=== PATIENT | female | born 1945 | race Caucasian/White ===

== ENCOUNTER → 2016-12-23 | Outpatient (CLI) | payer MEDICARE, MEDICAID ==
[~2016-12-23] MED LIST: ARIP30TA10 PO; CALC-140 PO; CITA40TA11 PO; CLON1TAB27 PO; FURO-124 PO; GABA600T2 PO; HYDR-3812 PO; HYDR-3816 PO; IRON150C8 PO; LACT1CAP65 PO; LEVO500T80 PO; LEVO75TA6 PO; METO-270 PO; MULT-974 PO; NF-CARBAMX PO; OXYC-465 PO; POLY17PO6 PO; POTA10TA36 PO; ROPI2TAB28 PO
== END ==
LOC: WOUNDCARE 08:59
PROVIDERS: ATTEND Nurse Practitioner
DX: L97.212 Non-pressure chronic ulcer of right calf with fat layer exposed (principal); I87.333 Chronic venous hypertension (idiopathic) with ulcer and inflammation of bilateral lower extremity
CPT/HCPCS: 11042

== ENCOUNTER → 2017-01-05 | Outpatient (CLI) | payer MEDICARE, MEDICAID ==
[~2017-01-05] MED LIST changes: +ARIP10TA17 PO; +ASPI-983 PO; +CITA20TA12 PO; +DOXE10CA29 PO; +FURO80TA3 PO; +LEVO100T7 PO; +POTA20TA15 PO; +REGADENOSON 0.4 MG/5 ML SYR (LEXISCAN) IV ONE; +ROPI2TAB3 PO
[2017-01-05] MEDS: CATHETER FLUSH 10 ML SYR IV PRN ×2 (08:32→09:55)
[2017-01-05 09:55] VITALS: BP 113/65
--- NOTE | 2017-01-05 16:21 | STRESS TEST ---
DATE OF SERVICE: 01/05/2017 LEXISCAN MYOVIEW STRESS TEST REPORT Baseline heart rate is 60. Baseline blood pressure 113/65. Baseline EKG is sinus rhythm with no ischemic changes. In summary, the patient was injected with 10.91 mCi of technetium-99 Myoview and the resting images were obtained. Then, the patient received 0.4 mg of Lexiscan followed by 29.3 mCi of technetium-99 Myoview. Throughout the test, there were no EKG changes. The resting and stress images were reviewed and compared in the short axis, horizontal long axis, and vertical long axis views. Review of the images showed extracardiac attenuation due to the fact that both arms were down during acquisition of the images. There was no significant ischemia or infarction, transient ischemic dilatation with TID value 1.37. On the gaited images, the left ventricle appeared to be normal size with normal contractility. Calculated ejection fraction is 78%, stress score is zero. CONCLUSION: 1. The patient tolerated Lexiscan well. 2. Extracardiac attenuation affecting the quality of the images. 3. No significant ischemia or infarction on SPECT images. 4. Transient ischemic dilatation with TID value 1.37. Job ID: [id number] DocumentID: [id number] Dictated Date: 01/05/2017 11:54:10 Novelty Twister Operator Date: 01/05/2017 14:28:54 Dictated By: TAMELA ALVARADO MD
== END ==
LOC: CARD 08:03
PROVIDERS: ATTEND Internal Medicine Cardiovascular Disease
DX: I73.9 Peripheral vascular disease, unspecified (principal); I27.0 Primary pulmonary hypertension; R00.0 Tachycardia, unspecified; I34.0 Nonrheumatic mitral (valve) insufficiency; I51.7 Cardiomegaly; I49.1 Atrial premature depolarization; Z72.0 Tobacco use
CPT/HCPCS: 78452; 93017; 93306

== ENCOUNTER 2017-01-07 10:40 | Day surgery (SDC) | payer MEDICARE, MEDICAID ==
[2017-01-07] VITALS (10 sets, daily range): BP systolic 115–151; BP diastolic 60–83
[~2017-01-07] VITALS: Ht 149.9 cm; Wt 80.3 kg
[~2017-01-07 10:40] MED LIST changes: -ARIP10TA17 PO; -ASPI-983 PO; -CITA20TA12 PO; -DOXE10CA29 PO; -FURO80TA3 PO; +HEParin 1000 UNIT/ML (10ML VIAL) FOR BOLUS ONE; -LEVO100T7 PO; -METO-270 PO; +METO-387 PO; +NS IV 1000 ML 3,000 ML ONE; -POTA20TA15 PO; -REGADENOSON 0.4 MG/5 ML SYR (LEXISCAN) IV ONE; -ROPI2TAB3 PO
--- OUTSIDE RECORDS SUMMARY | 2017-01-07 10:47 | XMS REPORT | Continuity of Care Document ---
Author Author [facility] Organization [facility] Address Unknown Phone Unavailable Allergies Active Description Code Type Severity Reaction Onset Reported/Identified Relationship to Patient Clinical Status Yes Penicillins [id number] Drug Allergy Unknown N/A 09/17/2006 Yes Sulfa (Sulfonamide Antibiotics) [id number] Drug Allergy Unknown N/A 09/17/2006 Medications Problems Date Dx Coded Attending Type Code Diagnosis Diagnosed By 11/24/2014 NEENA NAJERA MD Ot 244.9 11/24/2014 NEENA NAJERA MD Ot 275.3 11/24/2014 NEENA NAJERA MD Ot 276.52 11/24/2014 NEENA NAJERA MD Ot 285.1 11/24/2014 NEENA NAJERA MD Ot 295.90 11/24/2014 NEENA NAJERA MD Ot 300.00 11/24/2014 NEENA NAJERA MD Ot 305.1 11/24/2014 NEENA NAJERA MD Ot 311 11/24/2014 NEENA NAJERA MD Ot 492.8 11/24/2014 NEENA NAJERA MD Ot 530.81 11/24/2014 NEENA NAJERA MD Ot 716.90 11/24/2014 NEENA NAJERA MD Ot 721.41 11/24/2014 NEENA NAJERA MD Ot 724.01 11/24/2014 NEENA NAJERA MD Ot 724.02 11/24/2014 NEENA NAJERA MD Ot 733.00 11/24/2014 NEENA NAJERA MD Ot 737.12 11/24/2014 NEENA NAJERA MD Ot 782.3 11/24/2014 NEENA NAJERA MD Ot 785.0 11/24/2014 NEENA NAJERA MD Ot 790.29 11/29/2014 NEENA NAJERA MD Ot 244.9 11/29/2014 NEENA NAJERA MD Ot 275.3 11/29/2014 NEENA NAJERA MD Ot 276.52 11/29/2014 NEENA NAJERA MD Ot 285.1 11/29/2014 NEENA NAJERA MD Ot 295.90 11/29/2014 NEENA NAJERA MD Ot 300.00 11/29/2014 NEENA NAJERA MD Ot 305.1 11/29/2014 NEENA NAJERA MD Ot 311 11/29/2014 NEENA NAJERA MD Ot 492.8 11/29/2014 NEENA NAJERA MD Ot 530.81 11/29/2014 NEENA NAJERA MD Ot 716.90 11/29/2014 NEENA NAJERA MD Ot 721.41 11/29/2014 NEENA NAJERA MD Ot 724.01 11/29/2014 NEENA NAJERA MD Ot 724.02 11/29/2014 NEENA NAJERA MD Ot 733.00 11/29/2014 NEENA NAJERA MD Ot 737.12 11/29/2014 NEENA NAJERA MD Ot 782.3 11/29/2014 NEENA NAJERA MD Ot 785.0 11/29/2014 NEENA NAJERA MD Ot 790.29 11/29/2014 NEENA NAJERA MD Ot 244.9 11/29/2014 NEENA NAJERA MD Ot 275.3 11/29/2014 NEENA NAJERA MD Ot 276.52 11/29/2014 NEENA NAJERA MD Ot 285.1 11/29/2014 NEENA NAJERA MD Ot 295.90 11/29/2014 NEENA NAJERA MD Ot 300.00 11/29/2014 NEENA NAJERA MD Ot 305.1 11/29/2014 NEENA NAJERA MD Ot 311 11/29/2014 NEENA NAJERA MD Ot 492.8 11/29/2014 NEENA NAJERA MD Ot 530.81 11/29/2014 NEENA NAJERA MD Ot 716.90 11/29/2014 NEENA NAJERA MD Ot 721.41 11/29/2014 NEENA NAJERA MD Ot 724.01 11/29/2014 NENEA NAJERA MD Ot 724.02 11/29/2014 NEENA NAJERA MD Ot 733.00 11/29/2014 NEENA NAJERA MD Ot 737.12 11/29/2014 NEENA NAJERA MD Ot 782.3 11/29/2014 NEENA NAJERA MD Ot 785.0 11/29/2014 NEENA NAJERA MD Ot 790.29 12/01/2014 NEENA NAJERA MD Ot 244.9 12/01/2014 NEENA NAJERA MD Ot 275.3 12/01/2014 NEENA NAJERA MD Ot 276.52 12/01/2014 NEENA NAJERA MD Ot 285.1 12/01/2014 NEENA NAJERA MD Ot 295.90 12/01/2014 NEENA NAJERA MD Ot 300.00 12/01/2014 NEENA NAJERA MD Ot 305.1 12/01/2014 NEENA NAJERA MD Ot 311 12/01/2014 NEENA NAJERA MD Ot 492.8 12/01/2014 NEENA NAJERA MD Ot 530.81 12/01/2014 NEENA NAJERA MD Ot 716.90 12/01/2014 NEENA NAJERA MD Ot 721.41 12/01/2014 NEENA NAJERA MD Ot 724.01 12/01/2014 NEENA NAJERA MD Ot 724.02 12/01/2014 NEENA NAJERA MD Ot 733.00 12/01/2014 NEENA NAJERA MD Ot 737.12 12/01/2014 NEENA NAJERA MD Ot 782.3 12/01/2014 NEENA NAJERA MD Ot 785.0 12/01/2014 NEENA NAJERA MD Ot 790.29 12/02/2014 NEENA NAJERA MD Ot 244.9 12/02/2014 NEENA NAJERA MD Ot 275.3 12/02/2014 NEENA NAJERA MD Ot 276.52 12/02/2014 NEENA NAJERA MD Ot 285.1 12/02/2014 NEENA NAJERA MD Ot 295.90 12/02/2014 NEENA NAJERA MD Ot 300.00 12/02/2014 NEENA NAJERA MD Ot 305.1 12/02/2014 NEENA NAJREA MD Ot 311 12/02/2014 NEENA NAJERA MD Ot 492.8 12/02/2014 NEENA NAJERA MD Ot 530.81 12/02/2014 NEENA NAJERA MD Ot 716.90 12/02/2014 NEENA NAJERA MD Ot 721.41 12/02/2014 NEENA NAJERA MD Ot 724.01 12/02/2014 NEENA NAJERA MD Ot 724.02 12/02/2014 NEENA NAJERA MD Ot 733.00 12/02/2014 NEENA NAJERA MD Ot 737.12 12/02/2014 NEENA NAJERA MD Ot 782.3 12/02/2014 NEENA NAJERA MD Ot 785.0 12/02/2014 NEENA NAJERA MD Ot 790.29 12/02/2014 NEENA NAJERA MD Ot 244.9 12/02/2014 NEENA NAJERA MD Ot 275.3 12/02/2014 NEENA NAJERA MD Ot 276.52 12/02/2014 NEENA NAJERA MD Ot 285.1 12/02/2014 NEENA NAJERA MD Ot 295.90 12/02/2014 NEENA NAJERA MD Ot 300.00 12/02/2014 NEENA NAJERA MD Ot 305.1 12/02/2014 NEENA NAJERA MD Ot 311 12/02/2014 NEENA NAJERA MD Ot 492.8 12/02/2014 NEENA NAJERA MD Ot 530.81 12/02/2014 NEENA NAJERA MD Ot 716.90 12/02/2014 NEENA NAJERA MD Ot 721.41 12/02/2014 NEENA NAJERA MD Ot 724.01 12/02/2014 NEENA NAJERA MD Ot 724.02 12/02/2014 NEENA NAJERA MD Ot 733.00 12/02/2014 NEENA NAJERA MD Ot 737.12 12/02/2014 NEENA NAJERA MD Ot 782.3 12/02/2014 NEENA NAJERA MD Ot 785.0 12/02/2014 NEENA NAJERA MD Ot 790.29 12/04/2014 NEENA NAJERA MD Ot 244.9 12/04/2014 NEENA NAJERA MD Ot 275.3 12/04/2014 NEENA NAJERA MD Ot 276.52 12/04/2014 NEENA NAJERA MD Ot 285.1 12/04/2014 NEENA NAJERA MD Ot 295.90 12/04/2014 NEENA NAJERA MD Ot 300.00 12/04/2014 NEENA NAJERA MD Ot 305.1 12/04/2014 NEENA NAJERA MD Ot 311 12/04/2014 NEENA NAJERA MD Ot 492.8 12/04/2014 NEENA NAJERA MD Ot 530.81 12/04/2014 NEENA NAJERA MD Ot 716.90 12/04/2014 NEENA NAJERA MD Ot 721.41 12/04/2014 NEENA NAJERA MD Ot 724.01 12/04/2014 NEENA NAJERA MD Ot 724.02 12/04/2014 NEENA NAJERA MD Ot 733.00 12/04/2014 NEENA NAJERA MD Ot 737.12 12/04/2014 NEENA NAJERA MD Ot 782.3 12/04/2014 NEENA NAJERA MD Ot 785.0 12/04/2014 NEENA NAJERA MD Ot 790.29 12/04/2014 NEENA NAJERA MD Ot 244.9 12/04/2014 NEENA NAJERA MD Ot 275.3 12/04/2014 NEENA NAJERA MD Ot 276.52 12/04/2014 NEENA NAJERA MD Ot 285.1 12/04/2014 NEENA NAJERA MD Ot 295.90 12/04/2014 NEENA NAJERA MD Ot 300.00 12/04/2014 NEENA NAJERA MD Ot 305.1 12/04/2014 NEENA NAJERA MD Ot 311 12/04/2014 NEENA NAJERA MD Ot 492.8 12/04/2014 NEENA NAJERA MD Ot 530.81 12/04/2014 NEENA NAJERA MD Ot 716.90 12/04/2014 NEENA NAJERA MD Ot 721.41 12/04/2014 NEENA NAJERA MD Ot 724.01 12/04/2014 NEENA NAJERA MD Ot 724.02 12/04/2014 NEENA NAJERA MD Ot 733.00 12/04/2014 NEENA NAJERA MD Ot 737.12 12/04/2014 NEENA NAJERA MD Ot 782.3 12/04/2014 NEENA NAJERA MD Ot 785.0 12/04/2014 NEENA NAJERA MD Ot 790.29 12/05/2014 NEENA NAJERA MD Ot 038.49 GRAM-NEG SEPTICEMIA NEC 12/05/2014 NEENA NAJERA MD Ot 244.9 HYPOTHYROIDISM NOS 12/05/2014 NEENA NAJERA MD Ot 275.3 DIS PHOSPHORUS METABOL 12/05/2014 NEENA NAJERA MD Ot 276.0 HYPEROSMOLALITY 12/05/2014 NEENA NAJERA MD Ot 276.52 HYPOVOLEMIA 12/05/2014 NEENA NAJERA MD Ot 285.1 AC POSTHEMORRHAG ANEMIA 12/05/2014 NEENA NAJERA MD Ot 287.5 THROMBOCYTOPENIA NOS 12/05/2014 NEENA NAJERA MD Ot 295.90 SCHIZOPHRENIA NOS-UNSPEC 12/05/2014 NEENA NAJERA MD Ot 300.00 ANXIETY STATE NOS 12/05/2014 NEENA NAJERA MD Ot 305.1 TOBACCO USE DISORDER 12/05/2014 NEENA NAJERA MD Ot 311 DEPRESSIVE DISORDER NEC 12/05/2014 NEENA NAJERA MD Ot 482.0 K. 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 12/05/2014 NEENA NAJERA MD Ot 724.01 12/05/2014 NEENA NAJERA MD Ot 724.02 SPINAL STENOSIS, LUMBAR REG, W/OUT NEURO 12/05/2014 NEENA NAJERA MD Ot 733.00 OSTEOPOROSIS NOS 12/05/2014 NEENA NAJERA MD Ot 737.12 POSTLAMINECTOMY KYPHOSIS 12/05/2014 NEENA NAJERA MD Ot 780.79 OTH MALAISE FATIGUE 12/05/2014 NEENA NAJERA MD Ot 782.3 EDEMA 12/05/2014 NEENA NAJERA MD Ot 785.0 TACHYCARDIA NOS 12/05/2014 NEENA NAJERA MD Ot 785.52 SEPTIC SHOCK 12/05/2014 NEENA NAJERA MD Ot 787.91 DIARRHEA 12/05/2014 NEENA NAJERA MD Ot 790.29 OTHER ABNORMAL GLUCOSE 12/05/2014 NEENA NAJERA MD Ot 995.92 SEVERE SEPSIS 12/06/2014 NEENA NAJERA MD Ot 737.10 12/06/2014 NEENA NAJERA MD Ot V72.63 12/06/2014 NEENA NAJERA MD Ot V72.81 12/06/2014 NEENA NAJERA MD Ot V72.83 12/06/2014 NEENA NAJERA MD Ot V74.8 12/21/2014 NEENA NAJERA MD Ot 737.10 12/21/2014 NEENA NAJERA MD Ot V72.63 12/21/2014 NEENA NAJERA MD Ot V72.81 12/21/2014 NEENA NAJERA MD Ot V72.83 12/21/2014 NEENA NAJERA MD Ot V74.8 12/21/2014 NEENA NAJERA MD Ot 737.10 12/21/2014 NEENA NAJERA MD Ot V72.63 12/21/2014 NEENA NAJERA MD Ot V72.81 12/21/2014 NEENA NAJERA MD Ot V72.83 12/21/2014 NEENA NAJERA MD Ot V74.8 07/12/2015 NEENA NAJERA MD Ot 737.10 KYPHOSIS NOS 07/12/2015 NEENA NAJERA MD Ot V72.63 PRE-PROCEDURAL LABORATORY EXAMINATION 07/12/2015 NEENA NAJERA MD Ot V72.81 SPHA-ARY-ZKOIZOHYU CARDIOVASCULAR 07/12/2015 NEENA NAJERA MD Ot V72.83 EXAM PRE-OPERATIVE NEC 07/12/2015 NEENA NAJERA MD, Ot V74.8 SCREEN-BACTERIAL DIS NEC 07/12/2015 TIMUR LEON Ot M81.0 AGE-RELATED OSTEOPOROSIS W/O CURRENT PAT 07/12/2015 TIMUR LEON Ot R53.83 OTHER FATIGUE 07/13/2015 TIMUR LEON Ot M81.0 AGE-RELATED OSTEOPOROSIS W/O CURRENT PAT 07/13/2015 TIMUR LEON Ot R53.83 OTHER FATIGUE 07/13/2015 TIMUR LEON Ot M81.0 AGE-RELATED OSTEOPOROSIS W/O CURRENT PAT 07/13/2015 TIMUR LEON Ot R53.83 OTHER FATIGUE 08/02/2015 TIMUR LEON Ot M81.0 AGE-RELATED OSTEOPOROSIS W/O CURRENT PAT 08/02/2015 TIMUR LEON Ot R53.83 OTHER FATIGUE 08/07/2015 TIMUR LEON Ot M81.0 AGE-RELATED OSTEOPOROSIS W/O CURRENT PAT 08/07/2015 TIMUR LEON Ot R53.83 OTHER FATIGUE Procedures Code Description Performed By Performed On 38.91 11/20/2014 77.39 11/20/2014 77.79 11/20/2014 78.99 11/20/2014 80.99 11/20/2014 81.04 11/20/2014 81.05 11/20/2014 81.06 11/20/2014 81.64 11/20/2014 84.51 11/20/2014 96.04 11/23/2014 96.72 11/23/2014 38.93 11/24/2014 Results Encounters ACCT No. Visit Date/Time Discharge Status Pt. Type Provider Facility Loc./Unit Complaint [id number] 12/23/2016 08:59:00 2016 23:59:59 CLS Outpatient ODELL ARNOLD APRN [facility] WOUNDCARE [id number] 07/12/2015 10:45:00 2015 23:59:59 CLS Outpatient TIMUR LEON [facility] RAD [id number] 11/20/2014 05:55:00 2014 15:35:00 DIS Inpatient NEENA NAJERA MD [facility] SURGICAL [id number] 11/14/2014 14:13:00 2014 23:59:59 CLS Outpatient NEENA NAJERA MD [facility] PREOP
[2017-01-07] MEDS ORDERED: NS IV 1000 ML 1,000 ML IV SCH ×3 (11:15→13:17)
[2017-01-07 11:23] LABS: MEAN PLATELET VOLUME 9.3 FL (7.4-10.4); RED BLOOD COUNT 3.62 10^6/uL (4.35-5.85); RED CELL DISTRIBUTION WIDTH 14.9 % (10.0-14.5)
[2017-01-07 11:33] LABS: ALBUMIN 3.3 GM/DL (3.2-4.5); BILIRUBIN,TOTAL 0.5 MG/DL (0.1-1.0); CALCIUM 9.3 MG/DL (8.5-10.1); CREATININE SERUM 1.03 MG/DL (0.60-1.30); POTASSIUM 4.3 MMOL/L (3.6-5.0); TOTAL PROTEIN 7.8 GM/DL (6.4-8.2)
--- NOTE | 2017-01-07 11:53 | Diagnostic Imaging Report ---
EXAMINATION: Portable upright radiograph of the chest. INDICATION: Preoperative evaluation for peripheral angiography. FINDINGS: The lungs are hyperinflated. There is interstitial thickening which in part could be chronic. There is probable component of mild vascular congestion. No focal airspace opacity. No effusion or pneumothorax. The mediastinum and hilar appear unremarkable. Thoracolumbar posterior fusion hardware is seen. IMPRESSION: Cardiomegaly. COPD. There is chronic interstitial thickening with possible development of mild vascular congestion. Correlate clinically. Dictated by: Dictated on workstation # [id number]
[2017-01-07] MEDS ORDERED: ROPI2TAB3 PO (11:54)
[2017-01-07] MEDS ORDERED: DOXE10CA29 PO (11:54)
[2017-01-07] MEDS ORDERED: CITA20TA12 PO (11:54)
[2017-01-07] MEDS ORDERED: ARIP10TA17 PO (11:54)
[2017-01-07] MEDS ORDERED: LEVO100T7 PO (11:54)
[2017-01-07] MEDS ORDERED: POTA20TA15 PO (11:54)
[2017-01-07] MEDS ORDERED: FURO80TA3 PO ×2 (11:54)
[2017-01-07] MEDS ORDERED: MIDAZOLAM 5 MG/5 ML (VERSED) VIAL ONE (12:14)
[2017-01-07] MEDS ORDERED: fentaNYL INJECTION 100 MCG/2 ML AMP ONE (12:14)
--- NOTE | 2017-01-07 12:30 | Cardiac Procedure Note-CS/ASA ---
Pre-Procedure Note Pre-Op Procedure Note H&P Reviewed The H&P was reviewed, patient examined and no changes noted. Date H&P Reviewed: Jan 07, 2017 Time H&P Reviewed: 12:30 Conscious Sedation Pre-Proced Time Reviewed: 12:30 ASA Class: 3 Airway Mallampati Classification: ([place] appropriate class) I. II. III, IV Lungs Heart ASA score ASA 1: a normal healthy patient ASA 2: a patient with a mild systemic disease (mid diabetes, controlled hypertension, obesity x ASA 3: a patient with a severe systemic disease that limits activity (angina , COPD, prior Myocardial infarction) ASA 4: a patient with an incapacitating disease that is a constant threat to life (CHF, renal failure) ASA 5: a moribund patient not expected to survive 24 hrs. (ruptured aneurysm) ASA 6: a declared brain patient whose organs are being harvested. For emergent operations, add the letter E after the classification Grade 3 Sedation Plan: Analgesia, Amnesia, Plan communicated to team members, Discussed options with patient/fam, Discussed risks with patient/fam Note The patient is an appropriate candidate to undergo the planned procedure, sedation, and anesthesia. The patient immediately re-assessed prior to indication. TAMELA ALVARADO MD Jan 07, 2017 12:30
[2017-01-07] MEDS ORDERED: ASPI-983 PO (13:20)
--- NOTE | 2017-01-07 13:22 | Discharge Inst-Post CATH ---
Discharge Inst-CATH Post Cardiac Cath D/C Inst Follow Up/Plan Schedule for peripheral angiogram for next Thursday CARDIAC CATH DISCHARGE INSTRUCTIONS *Hold Metformin for 48 hours post heart cath. ACTIVITY * Go Home directly and rest. * Limit activity of the leg (or wrist if it was used) for 7 days including aerobics, swimming, jogging, bicycling, etc. * Restrict stair-climbing for 7 days if possible, if not, climb up with your non -cath leg, then bring together on the same step. * Avoid lifting, pushing, pulling or excessive movement of the affected extremity for 7 days. * Customary sexual activity may be resumed after 2 days-use caution not to use a position that strains or causes pain to the affected extremity. * No driving for 24 hours. * NO SMOKING. * Avoid straining for bowel movements for 7 days. * Gentle walking on level ground is allowed. * Returning to work will depend on the type of procedure and the results. Your doctor will discuss this with you. CALL YOUR DOCTOR FOR ANY OF THE FOLLOWING: *If bleeding from the puncture site occurs- Apply gentle pressure to site with clean cloth and call your doctor or EMS. * If a knot or lump forms under the skin, increases in size, or causes pain. * If bruising appears to be worsening or moving further down your leg instead of disappearing. * Temperature above 101 F. CARE OF YOUR GROIN INCISION; * Bruising or purple discoloration of the skin near the puncture site is common. * You may shower only, no bathtub bathing for 5 days. Be careful to avoid slipping as your leg may feel stiff. * If a closure device was used on your femoral artery, please see the attached guide regarding care of the device and your leg. * REMOVE the dressing from your groin the next day after your procedure in the shower. CARE OF YOUR WRIST INCISION; * Bruising or purple discoloration of the skin near the puncture site is common. * You may shower. * DO NOT submerge wrist. * Remove dressing in 24 hours. TAMELA ALVARADO MD Jan 07, 2017 13:21
--- NOTE | 2017-01-07 13:28 | Peripheral Report ---
Peripheral Report Physician (s)/Guitar Repair Technician (s) Physician TAMELA ALVARADO MD Pre-Procedure Diagnosis Pre-Procedure Diagnosis: Peripheral arterial disease Post-Procedure Note Procedure Start Date: Jan 07, 2017 Name of Procedure: abdominal aortogram Bilateral lower extremity runoff Additional views second-order Findings/Procedure Note PROCEDURE NOTE: After explaining the procedure to the patient, all pros and cons were explained, all questions were answered. The patient signed the consent and then she was placed on the cardiac catheterization laboratory. The patient was placed on the cardiac catheterization laboratory. Groin was prepped SL fashion local anesthesia was used. Sheath placed in the right femoral artery Runoff to the right lower except he was done Dictated Advanced with abdominal aortogram abdominal aortogram was done. Exchange over long stork wire into a straight catheter placed in the deep femoral then pulled back to the common femoral and runoff to the left lower except he was done Additional review was done to the trifurcation then another view was done at the ankle level on the left. At the end of the procedure sheath was removed and Mynx device deployed FINDINGS: Right lower extremity runoff showed total occlusion of the right SFA Abdominal aortogram showed atherosclerotic disease nonobstructive disease Left lower extremity runoff was done showing [id number] disease in the SFA , good flow down to the foot CONCLUSIONS: 1. Total occlusion of the right SFA reconstructed by collateral 2. Mild to moderate disease at the left lower extremity 3. Normal abdominal aorta and bifurcation DISCUSSION AND RECOMMENDATIONS: I will stage the patient for percutaneous intervention on the right SFA to be done next week. Anesthesia Type: Conscious Sedation Estimated blood loss (mL): 10 ml Contrast Amount: 64 ml Total Radiation Dose: 588 mGy Post-Procedure Diagnosis Post-operative diagnosis: Peripheral arterial disease Nonhealing foot ulcer Hypertension Hyperlipidemia TAMELA ALVARADO MD Jan 07, 2017 13:28
[2017-01-07] MEDS ORDERED: PATIENT MAY USE OWN MEDS, ALL PO SCH (13:30)
[2017-01-07] MEDS ORDERED: oxyCODONE/APAP 5/325MG (PERCOCET 5) TABLET PO ONE (17:00)
[2017-01-14] MEDS ORDERED: ASPI-983 PO (08:26)
[2017-01-14] MEDS ORDERED: CLOP75TA28 PO (12:36)
== END 2017-01-07 18:05 | disposition home or self-care (01) ==
LOC: CATH 10:40 → ICU 14:22 → CATH 18:05
PROVIDERS: ATTEND Internal Medicine Cardiovascular Disease
DX: I70.203 Unspecified atherosclerosis of native arteries of extremities, bilateral legs (principal); I70.92 Chronic total occlusion of artery of the extremities; L97.519 Non-pressure chronic ulcer of other part of right foot with unspecified severity; L97.529 Non-pressure chronic ulcer of other part of left foot with unspecified severity; I70.0 Atherosclerosis of aorta; I10 Essential (primary) hypertension; E78.5 Hyperlipidemia, unspecified; J44.9 Chronic obstructive pulmonary disease, unspecified; I51.7 Cardiomegaly; I34.0 Nonrheumatic mitral (valve) insufficiency; I49.1 Atrial premature depolarization; F17.210 Nicotine dependence, cigarettes, uncomplicated; R00.0 Tachycardia, unspecified; I27.0 Primary pulmonary hypertension; Z79.899 Other long term (current) drug therapy
CPT/HCPCS: 36246; 36415; 71010; 75625; 75716; 80053; 80061; 85027; 85347; 85610; 85730; 87081

== ENCOUNTER → 2017-01-20 | Outpatient (CLI) | payer MEDICARE, MEDICAID ==
[~2017-01-20] MED LIST changes: +ARIP10TA17 PO; +ASPI-983 PO; +CITA20TA12 PO; +CLOP75TA28 PO; +DOXE10CA29 PO; +FURO80TA3 PO; -HEParin 1000 UNIT/ML (10ML VIAL) FOR BOLUS ONE; +LEVO100T7 PO; -NS IV 1000 ML 3,000 ML ONE; +POTA20TA15 PO; +ROPI2TAB3 PO
== END ==
LOC: WOUNDCARE 09:06
PROVIDERS: ATTEND Nurse Practitioner
DX: L97.212 Non-pressure chronic ulcer of right calf with fat layer exposed (principal); L97.222 Non-pressure chronic ulcer of left calf with fat layer exposed; I70.92 Chronic total occlusion of artery of the extremities; I87.333 Chronic venous hypertension (idiopathic) with ulcer and inflammation of bilateral lower extremity
CPT/HCPCS: 11042

== ENCOUNTER → 2017-01-27 | Outpatient (CLI) | payer MEDICARE, MEDICAID | LOC: WOUNDCARE 08:57 | PROVIDERS: ATTEND Nurse Practitioner | DX: L97.212 Non-pressure chronic ulcer of right calf with fat layer exposed (principal); L97.222 Non-pressure chronic ulcer of left calf with fat layer exposed; I70.92 Chronic total occlusion of artery of the extremities; I87.333 Chronic venous hypertension (idiopathic) with ulcer and inflammation of bilateral lower extremity ==

== ENCOUNTER → 2017-02-03 | Outpatient (CLI) | payer MEDICARE, MEDICAID | LOC: WOUNDCARE 08:58 | PROVIDERS: ATTEND Nurse Practitioner | DX: L97.212 Non-pressure chronic ulcer of right calf with fat layer exposed (principal); L97.222 Non-pressure chronic ulcer of left calf with fat layer exposed; I70.92 Chronic total occlusion of artery of the extremities; I87.333 Chronic venous hypertension (idiopathic) with ulcer and inflammation of bilateral lower extremity | CPT/HCPCS: 11042 ==

== ENCOUNTER → 2017-02-17 | Outpatient (CLI) | payer MEDICARE, MEDICAID | LOC: WOUNDCARE 08:56 | PROVIDERS: ATTEND Nurse Practitioner | DX: I87.333 Chronic venous hypertension (idiopathic) with ulcer and inflammation of bilateral lower extremity (principal); L97.212 Non-pressure chronic ulcer of right calf with fat layer exposed; I70.92 Chronic total occlusion of artery of the extremities | CPT/HCPCS: 11042 ==

== ENCOUNTER → 2017-03-17 | Outpatient (CLI) | payer MEDICARE, MEDICAID ==
[~2017-03-17] MED LIST changes: +ACHD5005 PO; -HYDR-3812 PO
== END ==
LOC: WOUNDCARE 09:20
PROVIDERS: ATTEND Nurse Practitioner
DX: L97.212 Non-pressure chronic ulcer of right calf with fat layer exposed (principal); I87.333 Chronic venous hypertension (idiopathic) with ulcer and inflammation of bilateral lower extremity; I70.92 Chronic total occlusion of artery of the extremities
CPT/HCPCS: 11042

== ENCOUNTER 2017-04-14 14:54 | Inpatient (IN) | payer MEDICARE, MEDICAID ==
[~2017-04-14] VITALS: Ht 149.9 cm; Wt 90.3 kg
[~2017-04-14 14:54] MED LIST changes: +HYDR-34 PO; -HYDR-3816 PO
[2017-04-14] MEDS ORDERED: RT-ALBUTEROL/IPRATROPIUM 3 ML (DUONEB) VIAL INH ONE (15:15)
[2017-04-14] MEDS ORDERED: DEXAMETHASONE 4 MG/ML SDV (DECADRON) IH ONE (15:15)
[2017-04-14] MEDS ORDERED: methylPREDNISolone 125 MG (Solu-MEDROL) VIAL IV STA (15:15)
--- NOTE | 2017-04-14 15:26 | ED Cough/URI ---
General Stated Complaint: COUGH/NO APPETITE/ LEGS JERKING Source: patient, caregiver History of Present Illness Date Seen by Provider: Apr 14, 2017 Time Seen by Provider: 15:02 Initial Comments PT ARRIVES VIA POV FROM HOME PT STATES SHE HAS BEEN SICK FOR 3 WEEKS WITH COUGH/CONGESTION COUGH IS PRODUCTIVE WITH CLEAR SPUTUM C/O BEING VERY SHORT OF BREATH NO FEVER C/O GENERALIZED WEAKNESS C/O LEGS JERKING C/O LARYNGITIS STATES NO HISTORY OF COPD/ASTHMA, BUT HAD PNEUMONIA AT LEAST ONCE AND WAS ON VENTILATOR FOR 3 DAYS PT STATES SHE WAS SEEN BY HUMAN RESOURCES CONSULTANT CRISTINA MON AT [facility] IN [place] 2 WEEKS AGO FOR THIS PROBLEM, AND NO TESTS DONE AND NO RX GIVEN. WENT BACK 1 WEEK AGO FOR PROGRESSIVE SYMPTOMS, NO TESTS DONE, BUT WAS PRESCRIBED UNKNOWN ANTIBIOTIC X 5 DAYS. FINISHED Thursday04/11/17 STATES SHE KEEPS GETTING WORSE AND MORE WEAK AND NOW CAN HARDLY WALK DUE TO SEVERE WEAKNESS. PCP: GRECIA MON AT [facility] IN [place] Allergies and Home Medications Allergies Coded Allergies: Penicillins (Unverified Allergy, Unknown, 09/17/06) Sulfa (Sulfonamide Antibiotics) (Unverified Allergy, Unknown, 09/17/06) Home Medications Aspirin 81 Mg Tablet.dr, 81 MG PO DAILY, (Reported) Citalopram Hydrobromide 20 Mg Tablet, 20 MG PO HS, (Reported) Clopidogrel Bisulfate 75 Mg Tablet, 75 MG PO DAILY, #30 Ref 4 Prescribed by: TAMELA ALVARADO on 01/14/17 1236 Doxepin HCl 10 Mg Capsule, 10 MG PO HS, (Reported) Furosemide 80 Mg Tablet, 80 MG PO DAILY, (Reported) Furosemide 80 Mg Tablet, 40 MG PO 1500, (Reported) TAKES 1/2 (80MG) TABLET Gabapentin 600 Mg Tablet, 600 MG PO TID, (Reported) Levothyroxine Sodium 100 Mcg Tablet, 100 MCG PO DAILY, (Reported) Potassium Chloride 20 Meq Tab.er.prt, 20 MEQ PO 0800,1200, (Reported) Ropinirole HCl 2 Mg Tablet, 2 MG PO 1900, (Reported) Tramadol HCl 50 Mg Tablet, 2 TAB PO Q6H PRN for PAIN-MILD TO MODERATE, (Reported ) Constitutional: see HPI, No fever, malaise, weakness EENTM: epistaxis (FOR THE LAST 2 DAYS . STATES HAS NEVER HAD NOSEBLEED BEFORE) , nose congestion Respiratory: see HPI, cough, dyspnea on exertion, No hemoptysis, orthopnea, phlegm, short of breath, wheezing Cardiovascular: No chest pain, edema (CHRONIC), Hx of Intervention (STENT IN RIGHT LEG), No palpitations, No syncope Gastrointestinal: no symptoms reported, No nausea, No vomiting Genitourinary: no symptoms reported Musculoskeletal: no symptoms reported Skin: no symptoms reported Psychiatric/Neurological: No Symptoms Reported, Denies Headache Hematologic/Lymphatic: No Symptoms Reported Immunological/Allergic: no symptoms reported Past Ofaprxb-Brtbbh-Haskez Hx Patient Social History Alcohol Use: Denies Use Recreational Drug Use: No Smoking Status: Current Everyday Smoker (03/10 PPD) Type Used: Cigarettes (03/10 PPD) Immunizations Up To Date Date of Pneumonia Vaccine: Dec 07, 2016 Date of Influenza Vaccine: Dec 07, 2016 Surgeries History of Surgeries: Yes (MULTIPLE BACK SURGERIES; HYST/BSO; APPY; JAYLON; SHOULDER REPLACEMENT-PARTIAL;ARM FX/ORIF-HARDWARE REMOVAL; STENT IN RIGHT LEG ) Surgeries: Appendectomy, Gallbladder, Hysterectomy, Oophorectomy, Orthopedic, Vascular Surgery Respiratory History of Respiratory Disorde: Yes (SUSPECT COPD/EMPHYSEMA ) Respiratory Disorders: Pneumonia, COPD, Emphysema Cardiovascular History of Cardiac Disorders: Yes Cardiac Disorders: Chronic Edema/Swelling, High Cholesterol, Hypertension, Peripheral Vascular Neurological History of Neurological Disord: Yes Neurological Disorders: Neuropathy Reproductive System Hx Reproductive Disorders: No Sexually Transmitted Disease: No HIV/AIDS: No Female Reproductive Disorders: Denies Genitourinary History of Genitourinary Disor: Yes Genitourinary Disorders: Kidney Stones Gastrointestinal History of Gastrointestinal Di: Yes Gastrointestinal Disorders: Irritable Bowel Musculoskeletal History of Musculoskeletal Dis: Yes Musculoskeletal Disorders: Degenerate Disk Disease, Arthritis, Back Injury, Chronic Back Pain, Fractures Endocrine History of Endocrine Disorders: Yes (MORBID OBESITY) Endocrine Disorders: Hypothyroidsim HEENT History of HEENT Disorders: Yes Loss of Vision: Bilateral Hearing Impairment: Hard of Hearing, Bilateral Hearing Aide Cancer History of Cancer: No Psychosocial History of Psychiatric Problem: Yes Behavioral Health Disorders: Anxiety, Schizophrenia, Depression Integumentary History of Skin or Integumenta: Yes (FOOT ULCER) Blood Transfusions History of Blood Disorders: No Adverse Reaction to a Blood Tr: No Physical Exam Vital Signs Vital Signs - First Documented 04/14/17 15:30 Pulse Ox 93 O2 Delivery Room Air Capillary Refill : General Appearance: mild distress (DYSPNEIC), obese, other (GENERALIZED WEAKNESS, NEEDED MULTI-PERSON ASSIST TO TRANSFER FROM WHEELCHAIR TO ER CART) HEENT: other (CONSTANT LIP LICKING, EDENTULOUS, DRY ORAL MUCOSA; TALKS IN WHISPER/LARYNGITIS) Neck: non-tender, full range of motion, supple, normal inspection Respiratory: rales, rhonchi, wheezing, other (DIFFUSE BILATERALLY RALES/RHONCHI /WHEEZING. MILD TO MODERATE DYSPNEA) Cardiovascular: regular rate, rhythm, no murmur Gastrointestinal: non tender, soft Extremities: pedal edema (4+ EDEMA --LEGS LOOSELY WRAPPED IN EDITH WRAPS) Neurologic/Psychiatric: disability aide II-XII nml as tested, no motor/sensory deficits, alert, normal mood/affect, oriented x 3, other (RANDOM "TWITCHING" OF LEGS) Skin: normal color, warm/dry Focused Exam Evaluation Lactate Level Laboratory Tests 04/14/17 15:23: Lactic Acid Level 1.33 Lactic Acid Level Laboratory Tests Test 04/14/17 15:23 Lactic Acid Level 1.33 MMOL/L (0.50-2.00) Progress/Results/Core Measures Suspected Sepsis SIRS Temperature: Pulse: Respiratory Rate: Laboratory Tests 04/14/17 15:23: White Blood Count 11.7H Blood Pressure / Mean: Laboratory Tests 04/14/17 15:23: Lactic Acid Level 1.33 Laboratory Tests 04/14/17 15:23: Creatinine 0.99, INR Comment 1.0, Platelet Count 400, Total Bilirubin 0.4 Results/Orders Lab Results Laboratory Tests Test 04/14/17 15:23 Range/Units White Blood Count 11.7 H 4.3-11.0 10^3/uL Red Blood Count 3.69 L 4.35-5.85 10^6/uL Hemoglobin 10.2 L 11.5-16.0 G/DL Hematocrit 32 L 35-52 % Mean Corpuscular Volume 86 80-99 FL Mean Corpuscular Hemoglobin 28 25-34 PG Mean Corpuscular Hemoglobin Concent 32 32-36 G/DL Red Cell Distribution Width 15.3 H 10.0-14.5 % Platelet Count 400 130-400 10^3/uL Mean Platelet Volume 9.2 7.4-10.4 FL Neutrophils (%) (Auto) 60 42-75 % Lymphocytes (%) (Auto) 30 12-44 % Monocytes (%) (Auto) 7 0-12 % Eosinophils (%) (Auto) 3 0-10 % Basophils (%) (Auto) 1 0-10 % Neutrophils # (Auto) 7.0 1.8-7.8 X 10^3 Lymphocytes # (Auto) 3.5 1.0-4.0 X 10^3 Monocytes # (Auto) 0.8 0.0-1.0 X 10^3 Eosinophils # (Auto) 0.3 0.0-0.3 10^3/uL Basophils # (Auto) 0.1 0.0-0.1 10^3/uL Prothrombin Time 13.4 12.2-14.7 SEC INR Comment 1.0 0.8-1.4 Activated Partial Thromboplast Time 27 24-35 SEC Sodium Level 138 135-145 MMOL/L Potassium Level 3.4 L 3.6-5.0 MMOL/L Chloride Level 100 98-107 MMOL/L Carbon Dioxide Level 27 21-32 MMOL/L Anion Gap 11 5-14 MMOL/L Blood Urea Nitrogen 9 7-18 MG/DL Creatinine 0.99 0.60-1.30 MG/DL Estimat Glomerular Filtration Rate 55 BUN/Creatinine Ratio 9 Glucose Level 49 *L 70-105 MG/DL Lactic Acid Level 1.33 0.50-2.00 MMOL/L Calcium Level 9.4 8.5-10.1 MG/DL Magnesium Level 2.3 1.8-2.4 MG/DL Total Bilirubin 0.4 0.1-1.0 MG/DL Aspartate Amino Transf (AST/SGOT) 16 5-34 U/L Alanine Aminotransferase (ALT/SGPT) 6 0-55 U/L Alkaline Phosphatase 120 40-136 U/L Troponin I < 0.30 <0.30 NG/ML B-Type Natriuretic Peptide 10.5 <100.0 PG/ML Total Protein 9.0 H 6.4-8.2 GM/DL Albumin 3.7 3.2-4.5 GM/DL TSH Beadle Testing 1.72 0.35-4.94 UIU/ML Micro Results Microbiology 04/14/17 Influenza Types A,B Antigen (STEF) - Final, Complete My Orders Orders - AMY,JUSTO K DO Saline Lock/Iv-Start (04/14/17 15:15) Monitor-Rhythm Ecg Trace Only (04/14/17 15:15) BNP (04/14/17 15:15) Cbc With Automated Diff (04/14/17 15:15) Comprehensive Metabolic Panel (04/14/17 15:15) Lactic Acid Analyzer (04/14/17 15:15) Magnesium (04/14/17 15:15) Protime With Inr (04/14/17 15:15) Partial Thromboplastin Time (04/14/17 15:15) Thyroid Analyzer (04/14/17 15:15) Troponin I (04/14/17 15:15) Ua Culture If Indicated (04/14/17 15:15) Blood Culture (04/14/17 15:15) Influenza A And B Antigens (04/14/17 15:15) Chest 1 View, Ap/Pa Only (04/14/17 15:15) Albuterol/Ipra Inhalation Soln (Duoneb I (04/14/17 15:15) Dexamethasone Injection (Decadron Inject (04/14/17 15:15) Rt Request For Service (04/14/17 15:15) Methylprednisolone Sod Succ (Solu-Medrol (04/14/17 15:15) Svn Sm Volume Nebulizer Rt-Rfs (04/14/17 15:15) Ipratropium 0.02% Neb Solution (Atrovent (04/14/17 15:48) Albuterol Pre-Mix Nebs (Rt) (Proventil (04/14/17 15:48) D50w (Emergency) Syringe (Dextrose 50% 5 (04/14/17 16:15) Cefepime Injection (Maxipime Injection) (04/14/17 17:00) Medications Given in ED Current Medications Medications Dose Ordered Sig/Tristan Route Start Time Stop Time Status Last Admin Dose Admin Albuterol Sulfate 2.5 mg STK-MED ONCE .ROUTE 04/14/17 15:48 04/14/17 15:51 DC 04/14/17 15:55 15 MG Albuterol/ Ipratropium 3 ml ONCE ONCE INH 04/14/17 15:15 04/14/17 15:17 DC 04/14/17 15:30 3 ML Cefepime HCl 2000 mg/Sodium Chloride 50 ml @ 100 mls/hr ONCE ONCE IV 04/14/17 17:00 04/14/17 17:29 DC 04/14/17 17:11 100 MLS/HR Dexamethasone Sodium Phosphate 20 mg ONCE ONCE IH 04/14/17 15:15 04/14/17 15:17 DC 04/14/17 15:30 20 MG Dextrose 50 ml ONCE ONCE IV 04/14/17 16:15 04/14/17 16:16 DC 04/14/17 17:03 50 ML Ipratropium [place] 0.5 mg STK-MED ONCE IH 04/14/17 15:48 04/14/17 15:51 DC 04/14/17 15:55 0.5 MG Vital Signs/I&O Vital Sign - Last 12Hours 04/14/17 04/14/17 15:00 15:30 B/P (MAP) Pulse Ox 93 O2 Delivery Room Air Capillary Refill : Progress Note : Progress Note INCREASED AERATION, DECREASED RALES/RHONCHI/WHEEZING AFTER HOUR LONG NEB TREATMENT VITALS REMAINED STABLE AND NO DETERIORATION IN PT'S CONDITION DURING ER STAY Diagnostic Imaging Comments CXR--DIFFUSE BILATERAL OPACITIES, STABLE FROM 01/2017, POSSIBLY CHRONIC BUT CANNOT EXCLUDE EDEMA OR INFECTIOUS ETIOLOGY--PER RADIOLOGIST REPORT. Departure Communication (Admissions) Time/Spoke to Admitting Phy: 17:[address] ABDUL, ACCEPTS PT FOR ADMIT. Impression Impression: Primary Impression: PNEUMONIA--FAILURE OF OUTPATIENT THERAPY Additional Impression: UTI (urinary tract infection) Disposition: ADMITTED INPATIENT Condition: Improved Admissions Decision to Admit Reason: Admit from ER (General) Decision to Admit/Date: Apr 14, 2017 Time/Decision to Admit Time: 17:00 Departure-Patient Inst. Referrals: NO,LOCAL PHYSICIAN (PCP/Family) Primary Care Physician JUSTO REYES DO Apr 14, 2017 15:26
[2017-04-14 15:38] LABS: BASOPHILS # (AUTO) 0.1 10^3/uL (0.0-0.1); BASOPHILS % (AUTO) 1 % (0-10); EOSINOPHILS # (AUTO) 0.3 10^3/uL (0.0-0.3); EOSINOPHILS % (AUTO) 3 % (0-10); HEMATOCRIT 32 % (35-52); HEMOGLOBIN 10.2 G/DL (11.5-16.0); LYMPHOCYTES # (AUTO) 3.5 X 10^3 (1.0-4.0); LYMPHOCYTES % (AUTO) 30 % (12-44); MEAN CORPUSCULAR HEMOGLOBIN 28 PG (25-34); MEAN CORPUSCULAR HGB CONC 32 G/DL (32-36); MEAN CORPUSCULAR VOLUME 86 FL (80-99); MEAN PLATELET VOLUME 9.2 FL (7.4-10.4); MONOCYTES # (AUTO) 0.8 X 10^3 (0.0-1.0); MONOCYTES % (AUTO) 7 % (0-12); NEUTROPHILS % (AUTO) 60 % (42-75); PLATELET COUNT 400 10^3/uL (130-400); RED BLOOD COUNT 3.69 10^6/uL (4.35-5.85); RED CELL DISTRIBUTION WIDTH 15.3 % (10.0-14.5); WHITE BLOOD COUNT 11.7 10^3/uL (4.3-11.0)
[2017-04-14] MEDS ORDERED: RT-IPRATROPIUM (ATROVENT) 0.5MG/2.5ML AMP IH ONE (15:48)
[2017-04-14] MEDS ORDERED: RT-ALBUTEROL SULF 2.5 MG/3 ML PRE-MIX VIAL ONE (15:48)
[2017-04-14 15:52] LABS: PROTHROMBIN TIME PATIENT 13.4 SEC (12.2-14.7)
[2017-04-14 15:59] LABS: CARBON DIOXIDE 27 MMOL/L (21-32); CHLORIDE 100 MMOL/L (98-107); POTASSIUM 3.4 MMOL/L (3.6-5.0); SODIUM 138 MMOL/L (135-145)
[2017-04-14 16:00] LABS: ALANINE AMINOTRANSFERASE 6 U/L (0-55); ALBUMIN 3.7 GM/DL (3.2-4.5); ALKALINE PHOSPHATASE 120 U/L (40-136); BILIRUBIN,TOTAL 0.4 MG/DL (0.1-1.0); BUN/CREATININE RATIO 9; CALCIUM 9.4 MG/DL (8.5-10.1); CREATININE SERUM 0.99 MG/DL (0.60-1.30); GFR ESTIMATED 55; MAGNESIUM 2.3 MG/DL (1.8-2.4)
[2017-04-14 16:05] LABS: GLUCOSE 49 MG/DL (70-105)
[2017-04-14] MEDS ORDERED: DEXTROSE 50% 50 ML (IMS) SYR IV ONE (16:15)
[2017-04-14 16:19] LABS: TSH (THYROID ANALYZER) 1.72 UIU/ML (0.35-4.94)
--- NOTE | 2017-04-14 16:22 | Diagnostic Imaging Report ---
PATIENT HISTORY: Cough and congestion for 3 weeks.. TECHNIQUE: Single frontal view of the chest. COMPARISON: 01/07/2017 FINDINGS: Lung volumes are normal. No focal consolidation is seen. There is mild interstitial prominence throughout the lungs bilaterally, with perihilar predominance. This appears similar to 01/07/2017 and improved since 12/05/2014. No significant pleural effusion is seen. Hazy opacities in the lung bases are thought to be due to overlying soft tissue. There is mild cardiomegaly. No pneumothorax is seen. Spinal fusion hardware and left shoulder arthroplasty are noted. There is diffuse osteopenia. IMPRESSION: 1. Diffuse interstitial opacities in the lungs bilaterally, with perihilar predominance, stable since January of 2017. These are thought to be chronic, but underlying edema or infection is difficult to exclude. No new consolidation is seen. 2. Stable mild cardiomegaly. Dictated by: Dictated on workstation # [id number]
[2017-04-14] MEDS ORDERED: CEFEPIME INJECTION 2,000 MG in NS (IVPB) 50 ML IV ONE (17:00)
[2017-04-14 17:50] LABS: BILIRUBIN,URINE NEGATIVE (NEGATIVE); CLARITY,URINE CLEAR; COLOR,URINE YELLOW; GLUCOSE, URINE (UA) NEGATIVE (NEGATIVE); KETONES,URINE NEGATIVE (NEGATIVE); LEUKOCYTE ESTERASE ,URINE 3+ (NEGATIVE); NITRITE,URINE NEGATIVE (NEGATIVE); PH,URINE 7 (5-9); PROTEIN,URINE NEGATIVE (NEGATIVE); UROBILINOGEN,URINE NORMAL (NORMAL)
[2017-04-14 18:00] VITALS: BP 117/59
[2017-04-14 18:01] LABS: BACTERIA,URINE TRACE /HPF; WBC,URINE 25-50 /HPF
[2017-04-14] MEDS ORDERED: TRAM50TA2 PO (18:30)
[2017-04-14 19:00] VITALS: BP 106/60
[2017-04-14] MEDS ORDERED: CATHETER FLUSH 10 ML SYR IV PRN (19:00)
[2017-04-14] MEDS: D5 1/2 NS W/KCL 20 MEQ/L 1,000 ML IV SCH (19:09)
[2017-04-14] MEDS: rOPINIRole 1 MG (REQUIP) TABLET PO SCH (20:14)
[2017-04-14] MEDS: methylPREDNISolone 125 MG (Solu-MEDROL) VIAL IV SCH (22:13)
[2017-04-15] VITALS: BP 117/53
[2017-04-15] MEDS: D5 1/2 NS W/KCL 20 MEQ/L 1,000 ML IV SCH ×4 (02:23→23:30)
[2017-04-15 04:00] VITALS: BP 113/54
[2017-04-15] MEDS: methylPREDNISolone 125 MG (Solu-MEDROL) VIAL IV SCH ×2 (05:04→10:16)
[2017-04-15 06:17] LABS: BASOPHILS % (AUTO) 0 % (0-10); EOSINOPHILS % (AUTO) 0 % (0-10); HEMATOCRIT 27 % (35-52); HEMOGLOBIN 8.6 G/DL (11.5-16.0); LYMPHOCYTES % (AUTO) 7 % (12-44); MEAN CORPUSCULAR HEMOGLOBIN 28 PG (25-34); MEAN CORPUSCULAR HGB CONC 32 G/DL (32-36); MEAN CORPUSCULAR VOLUME 87 FL (80-99); MEAN PLATELET VOLUME 9.5 FL (7.4-10.4); MONOCYTES # (AUTO) 0.2 X 10^3 (0.0-1.0); MONOCYTES % (AUTO) 1 % (0-12); NEUTROPHILS # (AUTO) 13.2 X 10^3 (1.8-7.8); NEUTROPHILS % (AUTO) 92 % (42-75); PLATELET COUNT 311 10^3/uL (130-400); RED CELL DISTRIBUTION WIDTH 15.1 % (10.0-14.5); WHITE BLOOD COUNT 14.4 10^3/uL (4.3-11.0)
[2017-04-15 06:27] LABS: ANISOCYTOSIS SLIGHT; BAND NEUTROPHILS 4 %; BASOPHILS % (MANUAL) 0 %; EOSINOPHILS % (MANUAL) 0 %; HYPOCHROMASIA SLIGHT; LYMPHOCYTES % (MANUAL) 11 %; MONOCYTES % (MANUAL) 1 %; NEUTROPHILS % (MANUAL) 84 %; POLYCHROMASIA SLIGHT
[2017-04-15 07:04] LABS: ALANINE AMINOTRANSFERASE < 6 U/L (0-55); ALBUMIN 3.1 GM/DL (3.2-4.5); ALKALINE PHOSPHATASE 96 U/L (40-136); BILIRUBIN,TOTAL 0.3 MG/DL (0.1-1.0); BUN/CREATININE RATIO 14; CALCIUM 8.6 MG/DL (8.5-10.1); CARBON DIOXIDE 21 MMOL/L (21-32); CHLORIDE 102 MMOL/L (98-107); GFR ESTIMATED 49; GLUCOSE 219 MG/DL (70-105); POTASSIUM 4.6 MMOL/L (3.6-5.0); SODIUM 134 MMOL/L (135-145); TOTAL PROTEIN 7.5 GM/DL (6.4-8.2)
[2017-04-15] MEDS ORDERED: CLOP75TA69 PO (08:00)
[2017-04-15] MEDS ORDERED: IBUP-30 PO (08:13)
[2017-04-15] MEDS ORDERED: BENZ-36 PO (08:13)
[2017-04-15] MEDS ORDERED: RT-ALBUINH INH (08:13)
[2017-04-15] MEDS: CEFEPIME 2 GM/NS 50 ML IVPB IV SCH ×2 (09:12)
--- OUTSIDE RECORDS SUMMARY | 2017-04-15 09:17 | XMS REPORT | Continuity of Care Document ---
Author Author [facility] Organization [facility] Address Unknown Phone Unavailable Allergies Active Description Code Type Severity Reaction Onset Reported/Identified Relationship to Patient Clinical Status Yes Penicillins [id number] Drug Allergy Unknown N/A 09/17/2006 Yes Sulfa (Sulfonamide Antibiotics) [id number] Drug Allergy Unknown N/A 2006 Medications There is no data. 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 12/05/2014 NEENA NAJERA MD Ot 780.79 OTH MALAISE FATIGUE 12/05/2014 NEENA NAJERA MD, Ot 782.3 EDEMA 12/05/2014 NEENA NAJERA MD Ot 785.0 TACHYCARDIA NOS 12/05/2014 NEENA NAJERA MD Ot 785.52 SEPTIC SHOCK 12/05/2014 NEENA NAJERA MD Ot 787.91 DIARRHEA 12/05/2014 NEENA NAJERA MD Ot 790.29 OTHER ABNORMAL GLUCOSE 12/05/2014 NEENA NAJERA MD Ot 995.92 SEVERE SEPSIS 12/06/2014 NEENA NAJERA MD Ot 737.10 12/06/2014 NEENA NAJERA MD, Ot V72.63 12/06/2014 NEENA NAJERA MD Ot [...] V72.63 PRE-PROCEDURAL LABORATORY EXAMINATION 07/12/2015 NEENA NAJERA MD, Ot V72.81 [id number] CARDIOVASCULAR 07/12/2015 NEENA NAJERA MD, Ot V72.83 EXAM PRE-OPERATIVE NEC 07/12/2015 NEENA NAJERA MD, Ot V74.8 SCREEN-BACTERIAL DIS NEC 07/12/2015 TIMUR LEON Ot M81.0 AGE-RELATED OSTEOPOROSIS W/O CURRENT PAT 07/12/2015 TIMUR LEON Ot R53.83 OTHER FATIGUE 07/13/2015 LAINA MEDINA, TIMUR Fang Ot M81.0 AGE-RELATED OSTEOPOROSIS W/O CURRENT PAT [...] 08/07/2015 TIMUR LEON Ot R53.83 OTHER FATIGUE 01/05/2017 NEENA NAJERA MD Ot 737.10 KYPHOSIS NOS 01/05/2017 NEENA NAJERA MD, Ot V72.63 PRE-PROCEDURAL LABORATORY EXAMINATION 01/05/2017 NEENA NAJERA MD Ot V72.81 [id number] CARDIOVASCULAR 01/05/2017 NEENA NAJERA MD Ot V72.83 EXAM PRE-OPERATIVE NEC 01/05/2017 NEENA NAJERA MD, Ot V74.8 SCREEN-BACTERIAL DIS NEC 01/05/2017 TIMUR LEON Ot M81.0 AGE-RELATED OSTEOPOROSIS W/O CURRENT PAT 01/05/2017 TIMUR LEON Ot R53.83 OTHER FATIGUE 01/05/2017 ODELL ARNOLD APRN Ot I87.333 CHRONIC VENOUS HTN W ULCER AND INFLAM OF 01/05/2017 ODELL ARNOLD APRN Ot L97.212 NON-PRESSURE CHRONIC ULCER OF RIGHT CALF 01/07/2017 ODELL ARNOLD APRN Ot I87.333 CHRONIC VENOUS HTN W ULCER AND INFLAM OF 01/07/2017 ODELL ARNOLD APRN Ot L97.212 NON-PRESSURE CHRONIC ULCER OF RIGHT CALF 01/07/2017 ODELL ARNOLD APRN Ot L97.222 NON-PRESSURE CHRONIC ULCER OF LEFT CALF 01/07/2017 TAMELA ALVARADO MD Ot E78.5 HYPERLIPIDEMIA, UNSPECIFIED 01/07/2017 TAMELA ALVARADO MD Ot F17.210 NICOTINE DEPENDENCE, CIGARETTES, UNCOMPL 01/07/2017 TAMELA ALVARADO MD Ot I10 ESSENTIAL (PRIMARY) HYPERTENSION 01/07/2017 TAMELA ALVARADO MD Ot I27.0 PRIMARY PULMONARY HYPERTENSION 01/07/2017 TAMELA ALVARADO MD Ot I34.0 NONRHEUMATIC MITRAL (VALVE) INSUFFICIENC 01/07/2017 TAMELA ALVARADO MD Ot 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 01/07/2017 TAMELA ALVARADO MD Ot I51.7 CARDIOMEGALY 01/07/2017 TAMELA ALVARADO MD Ot I70.0 ATHEROSCLEROSIS OF [place] 01/07/2017 TAMELA ALVARADO MD Ot 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[facility] 01/07/2017 TAMELA ALVARADO MD Ot 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 01/07/2017 TAMELA ALVARADO MD Ot J44.9 CHRONIC OBSTRUCTIVE PULMONARY DISEASE, U 01/07/2017 TAMELA ALVARADO MD Ot L97.519 NON-PRS CHRONIC ULCER OTH PRT RIGHT FOOT 01/07/2017 TAMELA ALVARADO MD Ot L97.529 NON-PRESSURE CHRONIC ULCER OTH PRT LEFT 01/07/2017 TAMELA ALVARADO MD Ot R00.0 TACHYCARDIA, UNSPECIFIED 01/07/2017 TAMELA ALVARADO MD Ot Z79.899 OTHER DETENTION (CURRENT) DRUG THERAPY 01/15/2017 ODELL ARNOLD APRN Ot I87.333 CHRONIC VENOUS HTN W ULCER AND INFLAM OF 01/15/2017 ODELL ARNOLD APRN Ot L97.212 NON-PRESSURE CHRONIC ULCER OF RIGHT CALF 01/15/2017 TAMELA ALVARADO MD Ot E78.5 HYPERLIPIDEMIA, UNSPECIFIED 01/15/2017 TAMELA ALVARADO MD Ot F17.210 NICOTINE DEPENDENCE, CIGARETTES, UNCOMPL 01/15/2017 TAMELA ALVARADO MD Ot I10 ESSENTIAL (PRIMARY) HYPERTENSION 01/15/2017 TAMELA ALVARADO MD Ot I27.0 PRIMARY PULMONARY HYPERTENSION 01/15/2017 TAMELA ALVARADO MD Ot I34.0 NONRHEUMATIC MITRAL (VALVE) INSUFFICIENC 01/15/2017 TAMELA ALVARADO MD Ot 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 01/15/2017 TAMELA ALVARADO MD Ot I51.7 CARDIOMEGALY 01/15/2017 TAMELA ALVARADO MD Ot I70.0 ATHEROSCLEROSIS OF [place] 01/15/2017 TAMELA ALVARADO MD Ot I70.201 UNSP ATHSCL VIEJAS ARTERIES OF [place] 01/15/2017 TAMELA ALVARADO MD, Ot J44.9 CHRONIC OBSTRUCTIVE PULMONARY DISEASE, U 01/15/2017 TAMELA ALVARADO MD Ot L97.519 NON-PRS CHRONIC ULCER OTH PRT RIGHT FOOT 01/15/2017 TAMELA ALVARADO MD Ot R00.0 TACHYCARDIA, UNSPECIFIED 01/15/2017 TAMELA ALVARADO MD Ot Z79.899 OTHER SUPERVISOR PIPELINE (CURRENT) DRUG THERAPY 01/15/2017 TAMELA ALVARADO MD Ot Z88.0 ALLERGY STATUS TO PENICILLIN 01/15/2017 TAMELA ALVARADO MD Ot Z88.2 ALLERGY STATUS TO SULFONAMIDES STATUS 01/15/2017 TAMELA ALVARADO MD Ot Z88.6 ALLERGY STATUS TO ANALGESIC AGENT STATUS 01/21/2017 ODELL ARNOLD APRN Ot I87.333 CHRONIC VENOUS HTN W ULCER AND INFLAM OF 01/21/2017 ODELL ARNOLD APRN Ot L97.212 NON-PRESSURE CHRONIC ULCER OF RIGHT CALF 01/21/2017 ODELL ARNOLD APRN Ot 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 01/21/2017 ODELL ARNOLD APRN Ot I87.333 CHRONIC VENOUS HTN W ULCER AND INFLAM OF 01/21/2017 ODELL ARNOLD APRN Ot L97.212 NON-PRESSURE CHRONIC ULCER OF RIGHT CALF 01/21/2017 ODELL ARNOLD APRN Ot L97.222 NON-PRESSURE CHRONIC ULCER OF LEFT CALF 01/22/2017 TAMELA ALVARADO MD Ot E78.5 HYPERLIPIDEMIA, UNSPECIFIED 01/22/2017 TAMELA ALVARADO MD Ot F17.210 NICOTINE DEPENDENCE, CIGARETTES, UNCOMPL 01/22/2017 TAMELA ALVARADO MD Ot I10 ESSENTIAL (PRIMARY) HYPERTENSION 01/22/2017 TAMELA ALVARADO MD, Ot I27.0 PRIMARY PULMONARY HYPERTENSION 01/22/2017 TAMELA ALVARADO MD Ot I34.0 NONRHEUMATIC MITRAL (VALVE) INSUFFICIENC 01/22/2017 TAMELA ALVARADO MD Ot 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 01/22/2017 TAMELA ALVARADO MD Ot I51.7 CARDIOMEGALY 01/22/2017 TAMELA ALVARADO MD, Ot I70.0 ATHEROSCLEROSIS OF [place] 01/22/2017 TAMELA ALVARADO MD, Ot 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[place] 01/22/2017 TAMELA ALVARADO MD Ot 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 01/22/2017 TAMELA ALVARADO MD, Ot J44.9 CHRONIC OBSTRUCTIVE PULMONARY DISEASE, U 01/22/2017 TAMELA ALVARADO MD Ot L97.519 NON-PRS CHRONIC ULCER OTH PRT RIGHT FOOT 01/22/2017 TAMELA ALVARADO MD Ot L97.529 NON-PRESSURE CHRONIC ULCER OTH PRT LEFT 01/22/2017 TAMELA ALVARADO MD Ot R00.0 TACHYCARDIA, UNSPECIFIED 01/22/2017 TAMELA ALVARADO MD Ot Z79.899 OTHER DETENTION (CURRENT) DRUG THERAPY 01/27/2017 TAMELA ALVARADO MD, Ot I27.0 PRIMARY PULMONARY HYPERTENSION 01/27/2017 TAMELA ALVARADO MD, Ot I34.0 NONRHEUMATIC MITRAL (VALVE) INSUFFICIENC 01/27/2017 TAMELA ALVARADO MD Ot 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 01/27/2017 TAMELA ALVARADO MD Ot I51.7 CARDIOMEGALY 01/27/2017 TAMELA ALVARADO MD, Ot I73.9 PERIPHERAL VASCULAR DISEASE, UNSPECIFIED 01/27/2017 TAMELA ALVARADO MD Ot R00.0 TACHYCARDIA, UNSPECIFIED 01/27/2017 TAMELA ALVARADO MD, Ot Z72.0 TOBACCO USE 01/27/2017 ODELL ARNOLD APRN Ot I87.333 CHRONIC VENOUS HTN W ULCER AND INFLAM OF 01/27/2017 ODELL ARNOLD APRN Ot L97.212 NON-PRESSURE CHRONIC ULCER OF RIGHT CALF 01/27/2017 ODELL ARNOLD APRN Ot L97.222 NON-PRESSURE CHRONIC ULCER OF LEFT CALF 02/03/2017 TAMELA ALVARADO MD Ot I27.0 PRIMARY PULMONARY HYPERTENSION 02/03/2017 TAMELA ALVARADO MD Ot I34.0 NONRHEUMATIC MITRAL (VALVE) INSUFFICIENC 02/03/2017 TAMELA ALVARADO MD Ot 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 02/03/2017 TAMELA ALVARADO MD Ot I51.7 CARDIOMEGALY 02/03/2017 TAMELA ALVARADO MD Ot I73.9 PERIPHERAL VASCULAR DISEASE, UNSPECIFIED 02/03/2017 TAMELA ALVARADO MD Ot R00.0 TACHYCARDIA, UNSPECIFIED 02/03/2017 TAMELA ALVARADO MD Ot Z72.0 TOBACCO USE 02/03/2017 ODELL ARNOLD APRN Ot I87.333 CHRONIC VENOUS HTN W ULCER AND INFLAM OF 02/03/2017 ODELL ARNOLD APRN Ot L97.212 NON-PRESSURE CHRONIC ULCER OF RIGHT CALF 02/03/2017 ODELL ARNOLD APRN Ot L97.222 NON-PRESSURE CHRONIC ULCER OF LEFT CALF 02/04/2017 ODELL ARNOLD APRN Ot 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 02/04/2017 ODELL ARNOLD ACCESS SERVICES LIBRARIAN Ot I87.333 CHRONIC VENOUS HTN W ULCER AND INFLAM OF 02/04/2017 ODELL ARNOLD APRN Ot L97.212 NON-PRESSURE CHRONIC ULCER OF RIGHT CALF 02/04/2017 ODELL ARNOLD APRN Ot L97.222 NON-PRESSURE CHRONIC ULCER OF LEFT CALF 02/10/2017 ODELL ARNOLD APRN Ot 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 02/10/2017 ODELL ARNOLD APRN Ot I87.333 CHRONIC VENOUS HTN W ULCER AND INFLAM OF 02/10/2017 ODELL ARNOLD ACCESS SERVICES LIBRARIAN Ot L97.212 NON-PRESSURE CHRONIC ULCER OF RIGHT CALF 02/10/2017 ODELL ARNOLD APRN Ot L97.222 NON-PRESSURE CHRONIC ULCER OF LEFT CALF 02/16/2017 ODELL ARNOLD APRN Ot 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 02/16/2017 ODELL ARNOLD APRN Ot I87.333 CHRONIC VENOUS HTN W ULCER AND INFLAM OF 02/16/2017 ODELL ARNOLD APRN Ot L97.212 NON-PRESSURE CHRONIC ULCER OF RIGHT CALF 02/16/2017 ODELL ARNOLD APRN Ot L97.222 NON-PRESSURE CHRONIC ULCER OF LEFT CALF 02/18/2017 TAMELA ALVARADO MD Ot E78.5 HYPERLIPIDEMIA, UNSPECIFIED 02/18/2017 TAMELA ALVARADO MD Ot F17.210 NICOTINE DEPENDENCE, CIGARETTES, UNCOMPL 02/18/2017 TAMELA ALVARADO MD Ot I10 ESSENTIAL (PRIMARY) HYPERTENSION 02/18/2017 TAMELA ALVARADO MD Ot I27.0 PRIMARY PULMONARY HYPERTENSION 02/18/2017 TAMELA ALVARADO MD Ot I34.0 NONRHEUMATIC MITRAL (VALVE) INSUFFICIENC 02/18/2017 TAMELA ALVARADO MD Ot 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 02/18/2017 TAMELA ALVARADO MD Ot I51.7 CARDIOMEGALY 02/18/2017 TAMELA ALVARADO MD Ot I70.0 ATHEROSCLEROSIS OF [place] 02/18/2017 TAMELA ALVARADO MD Ot I70.201 UNSP ATHSCL VIEJAS ARTERIES OF [place] 02/18/2017 TAMELA ALVARADO MD Ot J44.9 CHRONIC OBSTRUCTIVE PULMONARY DISEASE, U 02/18/2017 TAMELA ALVARADO MD Ot L97.519 NON-PRS CHRONIC ULCER OTH PRT RIGHT FOOT 02/18/2017 TAMELA ALVARADO MD Ot R00.0 TACHYCARDIA, UNSPECIFIED 02/18/2017 TAMELA ALVARADO MD Ot Z79.899 OTHER DETENTION (CURRENT) DRUG THERAPY 02/18/2017 TAMELA ALVARADO MD Ot Z88.0 ALLERGY STATUS TO PENICILLIN 02/18/2017 TAMELA ALVARAOD MD Ot Z88.2 ALLERGY STATUS TO SULFONAMIDES STATUS 02/18/2017 TAMELA ALVARADO MD Ot Z88.6 ALLERGY STATUS TO ANALGESIC AGENT STATUS 02/25/2017 ODELL ARNOLD APRN Ot 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 02/25/2017 ODELL ARNOLD APRN Ot I87.333 CHRONIC VENOUS HTN W ULCER AND INFLAM OF 02/25/2017 ODELL ARNOLD APRN Ot L97.212 NON-PRESSURE CHRONIC ULCER OF RIGHT CALF 02/25/2017 ODELL ARNOLD APRN Ot L97.222 NON-PRESSURE CHRONIC ULCER OF LEFT CALF 02/26/2017 TAMELA ALVARADO MD Ot E78.5 HYPERLIPIDEMIA, UNSPECIFIED 02/26/2017 TAMELA ALVARADO MD Ot F17.210 NICOTINE DEPENDENCE, CIGARETTES, UNCOMPL 02/26/2017 TAMELA ALVARADO MD Ot I10 ESSENTIAL (PRIMARY) HYPERTENSION 02/26/2017 TAMELA ALVARADO MD Ot I27.0 PRIMARY PULMONARY HYPERTENSION 02/26/2017 TAMELA ALVARADO MD Ot I34.0 NONRHEUMATIC MITRAL (VALVE) INSUFFICIENC 02/26/2017 TAMELA ALVARADO MD Ot 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 02/26/2017 TAMELA ALVARADO MD Ot I51.7 CARDIOMEGALY 02/26/2017 TAMELA ALVARADO MD Ot I70.0 ATHEROSCLEROSIS OF [place] 02/26/2017 TAMELA ALVARADO MD Ot 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[place] 02/26/2017 TAMELA ALVARADO MD Ot 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 02/26/2017 TAMELA ALVARADO MD Ot J44.9 CHRONIC OBSTRUCTIVE PULMONARY DISEASE, U 02/26/2017 TAMELA ALVARADO MD Ot L97.519 NON-PRS CHRONIC ULCER OTH PRT RIGHT FOOT 02/26/2017 TAMELA ALVARADO MD Ot L97.529 NON-PRESSURE CHRONIC ULCER OTH PRT LEFT 02/26/2017 TAMELA ALVARADO MD Ot R00.0 TACHYCARDIA, UNSPECIFIED 02/26/2017 TAMELA ALVARADO MD Ot Z79.899 OTHER DETENTION (CURRENT) DRUG THERAPY 02/27/2017 ODELL ARNOLD APRN Ot 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 02/27/2017 ODELL ARNOLD APRN Ot I87.333 CHRONIC VENOUS HTN W ULCER AND INFLAM OF 02/27/2017 ODELL ARNOLD APRN Ot L97.212 NON-PRESSURE CHRONIC ULCER OF RIGHT CALF 02/27/2017 CLAYTON, ODELL R ACCESS SERVICES LIBRARIAN Ot L97.222 NON-PRESSURE CHRONIC ULCER OF LEFT CALF 03/06/2017 ODELL ARNOLD ACCESS SERVICES LIBRARIAN Ot 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 03/06/2017 ODELL ARNOLD ACCESS SERVICES LIBRARIAN Ot I87.333 CHRONIC VENOUS HTN W ULCER AND INFLAM OF 03/06/2017 ODELL ARNOLD ACCESS SERVICES LIBRARIAN Ot L97.212 NON-PRESSURE CHRONIC ULCER OF RIGHT CALF 03/06/2017 ODELL ARNOLD ACCESS SERVICES LIBRARIAN Ot L97.222 NON-PRESSURE CHRONIC ULCER OF LEFT CALF 03/06/2017 ODELL ARNOLD ACCESS SERVICES LIBRARIAN Ot 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 03/06/2017 ODELL ARNOLD ACCESS SERVICES LIBRARIAN Ot I87.333 CHRONIC VENOUS HTN W ULCER AND INFLAM OF 03/06/2017 ODELL ARNOLD ACCESS SERVICES LIBRARIAN Ot L97.212 NON-PRESSURE CHRONIC ULCER OF RIGHT CALF 03/06/2017 ODELL ARNOLD ACCESS SERVICES LIBRARIAN Ot L97.222 NON-PRESSURE CHRONIC ULCER OF LEFT CALF 03/11/2017 ODELL ARNOLD ACCESS SERVICES LIBRARIAN Ot 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 03/11/2017 ODELL ARNOLD ACCESS SERVICES LIBRARIAN Ot I87.333 CHRONIC VENOUS HTN W ULCER AND INFLAM OF 03/11/2017 ODELL ARNOLD ACCESS SERVICES LIBRARIAN Ot L97.212 NON-PRESSURE CHRONIC ULCER OF RIGHT CALF 03/20/2017 ODELL ARNOLD ACCESS SERVICES LIBRARIAN Ot 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 03/20/2017 ODELL ARNOLD ACCESS SERVICES LIBRARIAN Ot I87.333 CHRONIC VENOUS HTN W ULCER AND INFLAM OF 03/20/2017 ODELL ARNOLD ACCESS SERVICES LIBRARIAN Ot L97.212 NON-PRESSURE CHRONIC ULCER OF RIGHT CALF 2017 ODELL ARNOLD ACCESS SERVICES LIBRARIAN Ot 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 2017 ODELL ARNOLD ACCESS SERVICES LIBRARIAN Ot I87.333 CHRONIC VENOUS HTN W ULCER AND INFLAM OF 2017 ODELL ARNOLD ACCESS SERVICES LIBRARIAN Ot L97.212 NON-PRESSURE CHRONIC ULCER OF RIGHT CALF Procedures Code Description Performed By Performed On 38.91 ARTERIAL CATHETERIZATION 11/20/2014 77.39 BONE DIVISION [facility] 11/20/2014 77.79 EXCISE BONE FOR GFT [facility] 11/20/2014 78.99 INSERT BONE GROWTH SIMULATOR , [facility] 11/20/2014 80.99 EXCISION OF JOINT NEC 11/20/2014 81.04 DORSAL DORSOLUMBAR FUSION OF ANTERIOR 11/20/2014 81.05 DORSAL DORSOLUMBAR FUSION OF POSTERIOR 11/20/2014 81.06 LUMBAR LUMBOSACRAL FUSION OF ANTERIOR 11/20/2014 81.64 FUSION/REFUS OF 9 OR MORE VERTEBRAE 11/20/2014 84.51 INSERTION OF INTERBODY SPINAL FUSION DEV 11/20/2014 96.04 INSERT ENDOTRACHEAL TUBE 11/23/2014 96.72 CONTINUOUS INVASIVE MECHANICAL VENTILATI 11/23/2014 38.93 VENOUS CATHETERIZATION NEC 11/24/2014 Results Test Result Range Automated blood complete blood count (hemogram) panel - 01/07/17 11:02 Blood leukocytes automated count (number/volume) 10.0 10*3/uL 4.3-11.0 Blood erythrocytes automated count (number/volume) 3.62 10*6/uL 4.35-5.85 Venous blood hemoglobin measurement (mass/volume) 11.2 g/dL 11.5-16.0 Blood hematocrit (volume fraction) 34 % 35-52 Automated erythrocyte mean corpuscular volume 94 [foz_us] 80-99 Automated erythrocyte mean corpuscular hemoglobin (mass per erythrocyte) 31 pg 25-34 Automated erythrocyte mean corpuscular hemoglobin concentration measurement ( mass/volume) 33 g/dL 32-36 Automated erythrocyte distribution width ratio 14.9 % 10.0-14.5 Automated blood platelet count (count/volume) 303 10*3/uL 130-400 Automated blood platelet mean volume measurement 9.3 [foz_us] 7.4-10.4 PT panel in platelet poor plasma by coagulation assay - 01/07/17 11:02 Prothrombin time (PT) in platelet poor plasma by coagulation assay 13.0 s 12.2-14.7 INR in platelet poor plasma or blood by coagulation assay 1.0 0.8-1.4 Activated partial thromboplastin time (aPTT) in platelet poor plasma bycoagulation assay - 01/07/17 11:02 Activated partial thromboplastin time (aPTT) in platelet poor plasma bycoagulation assay 31 s 24-35 Comprehensive metabolic panel - 01/07/17 11:02 Serum or plasma sodium measurement (moles/volume) 141 mmol/L 135-145 Serum or plasma potassium measurement (moles/volume) 4.3 mmol/L 3.6-5.0 Serum or plasma chloride measurement (moles/volume) 107 mmol/L 98-107 Carbon dioxide 25 mmol/L 21-32 Serum or plasma anion gap determination (moles/volume) 9 mmol/L 5-14 Serum or plasma urea nitrogen measurement (mass/volume) 13 mg/dL 7-18 Serum or plasma creatinine measurement (mass/volume) 1.03 mg/dL 0.60-1.30 Serum or plasma urea nitrogen/creatinine mass ratio 13 NRG Serum or plasma creatinine measurement with calculation of estimated glomerular filtration rate 53 NRG Serum or plasma glucose measurement (mass/volume) 87 mg/dL 70-105 Serum or plasma calcium measurement (mass/volume) 9.3 mg/dL 8.5-10.1 Serum or plasma total bilirubin measurement (mass/volume) 0.5 mg/dL 0.1-1.0 Serum or plasma alkaline phosphatase measurement (enzymatic activity/volume) 102 U/L 40-136 Serum or plasma aspartate aminotransferase measurement (enzymatic activity/ volume) 13 U/L 5-34 Serum or plasma alanine aminotransferase measurement (enzymatic activity/volume ) 6 U/L 0-55 Serum or plasma protein measurement (mass/volume) 7.8 g/dL 6.4-8.2 Serum or plasma albumin measurement (mass/volume) 3.3 g/dL 3.2-4.5 Lipid 1996 panel - 01/07/17 11:02 Serum or plasma triglyceride measurement (mass/volume) 212 mg/dL <150 Serum or plasma cholesterol measurement (mass/volume) 174 mg/dL < 200 Serum or plasma cholesterol in HDL measurement (mass/volume) 34 mg/ dL 40-60 Cholesterol in LDL [mass/volume] in serum or plasma by direct assay 102 mg/dL 1-129 Serum or plasma cholesterol in VLDL measurement (mass/volume) 42 mg/ dL 5-40 Methicillin resistant Staphylococcus aureus (MRSA) screening culture - 11:02 Methicillin resistant Staphylococcus aureus (MRSA) screening culture NEG [facility] Methicillin resistant Staphylococcus aureus (MRSA) screening culture - 08:22 Methicillin resistant Staphylococcus aureus (MRSA) screening culture NEG [facility] Automated blood complete blood count (hemogram) panel - 01/14/17 10:05 Blood leukocytes automated count (number/volume) 10.2 10*3/uL 4.3-11.0 Blood erythrocytes automated count (number/volume) 3.28 10*6/uL 4.35-5.85 Venous blood hemoglobin measurement (mass/volume) 10.1 g/dL 11.5-16.0 Blood hematocrit (volume fraction) 31 % 35-52 Automated erythrocyte mean corpuscular volume 93 [foz_us] 80-99 Automated erythrocyte mean corpuscular hemoglobin (mass per erythrocyte) 31 pg 25-34 Automated erythrocyte mean corpuscular hemoglobin concentration measurement ( mass/volume) 33 g/dL 32-36 Automated erythrocyte distribution width ratio 14.8 % 10.0-14.5 Automated blood platelet count (count/volume) 306 10*3/uL 130-400 Automated blood platelet mean volume measurement 9.3 [foz_us] 7.4-10.4 PT panel in platelet poor plasma by coagulation assay - 01/14/17 10:05 Prothrombin time (PT) in platelet poor plasma by coagulation assay 13.9 s 12.2-14.7 INR in platelet poor plasma or blood by coagulation assay 1.1 0.8-1.4 Activated partial thromboplastin time (aPTT) in platelet poor plasma bycoagulation assay - 01/14/17 10:05 Activated partial thromboplastin time (aPTT) in platelet poor plasma bycoagulation assay 31 s 24-35 Comprehensive metabolic panel - 01/14/17 10:05 Serum or plasma sodium measurement (moles/volume) 138 mmol/L 135-145 Serum or plasma potassium measurement (moles/volume) 3.7 mmol/L 3.6-5.0 Serum or plasma chloride measurement (moles/volume) 103 mmol/L 98-107 Carbon dioxide 27 mmol/L 21-32 Serum or plasma anion gap determination (moles/volume) 8 mmol/L 5-14 Serum or plasma urea nitrogen measurement (mass/volume) 14 mg/dL 7-18 Serum or plasma creatinine measurement (mass/volume) 1.02 mg/dL 0.60-1.30 Serum or plasma urea nitrogen/creatinine mass ratio 14 NRG Serum or plasma creatinine measurement with calculation of estimated glomerular filtration rate 54 NRG Serum or plasma glucose measurement (mass/volume) 103 mg/dL 70-105 Serum or plasma calcium measurement (mass/volume) 8.9 mg/dL 8.5-10.1 Serum or plasma total bilirubin measurement (mass/volume) 0.6 mg/dL 0.1-1.0 Serum or plasma alkaline phosphatase measurement (enzymatic activity/volume) 98 U/L 40-136 Serum or plasma aspartate aminotransferase measurement (enzymatic activity/ volume) 13 U/L 5-34 Serum or plasma alanine aminotransferase measurement (enzymatic activity/volume ) < U/L 0-55 Serum or plasma protein measurement (mass/volume) 7.2 g/dL 6.4-8.2 Serum or plasma albumin measurement (mass/volume) 3.1 g/dL 3.2-4.5 Lipid 1996 panel - 01/14/17 10:05 Serum or plasma triglyceride measurement (mass/volume) 179 mg/dL <150 Serum or plasma cholesterol measurement (mass/volume) 170 mg/dL < 200 Serum or plasma cholesterol in HDL measurement (mass/volume) 33 mg/ dL 40-60 Cholesterol in LDL [mass/volume] in serum or plasma by direct assay 104 mg/dL 1-129 Serum or plasma cholesterol in VLDL measurement (mass/volume) 36 mg/ dL 5-40 Automated blood complete blood count (hemogram) panel - 01/15/17 04:50 Blood leukocytes automated count (number/volume) 9.0 10*3/uL 4.3-11.0 Blood erythrocytes automated count (number/volume) 3.06 10*6/uL 4.35-5.85 Venous blood hemoglobin measurement (mass/volume) 9.5 g/dL 11.5-16.0 Blood hematocrit (volume fraction) 29 % 35-52 Automated erythrocyte mean corpuscular volume 95 [foz_us] 80-99 Automated erythrocyte mean corpuscular hemoglobin (mass per erythrocyte) 31 pg 25-34 Automated erythrocyte mean corpuscular hemoglobin concentration measurement ( mass/volume) 33 g/dL 32-36 Automated erythrocyte distribution width ratio 14.9 % 10.0-14.5 Automated blood platelet count (count/volume) 273 10*3/uL 130-400 Automated blood platelet mean volume measurement 9.3 [foz_us] 7.4-10.4 Whole blood basic metabolic panel - 01/15/17 04:50 Serum or plasma sodium measurement (moles/volume) 141 mmol/L 135-145 Serum or plasma potassium measurement (moles/volume) 3.9 mmol/L 3.6-5.0 Serum or plasma chloride measurement (moles/volume) 109 mmol/L 98-107 Carbon dioxide 23 mmol/L 21-32 Serum or plasma anion gap determination (moles/volume) 9 mmol/L 5-14 Serum or plasma urea nitrogen measurement (mass/volume) 13 mg/dL 7-18 Serum or plasma creatinine measurement (mass/volume) 0.85 mg/dL 0.60-1.30 Serum or plasma urea nitrogen/creatinine mass ratio 15 NRG Serum or plasma creatinine measurement with calculation of estimated glomerular filtration rate > NRG Serum or plasma glucose measurement (mass/volume) 94 mg/dL 70-105 Serum or plasma calcium measurement (mass/volume) 8.4 mg/dL 8.5-10.1 Influenza virus A and B antigen detection - 04/14/17 15:10 FLU RESULT NEGATIVE FOR INFLUENZA A AND B ANTIGENS BY [place] NR Complete blood count (CBC) with automated white blood cell (WBC) differential - 04/14/17 15:23 Blood leukocytes automated count (number/volume) 11.7 10*3/uL 4.3-11.0 Blood erythrocytes automated count (number/volume) 3.69 10*6/uL 4.35-5.85 Venous blood hemoglobin measurement (mass/volume) 10.2 g/dL 11.5-16.0 Blood hematocrit (volume fraction) 32 % 35-52 Automated erythrocyte mean corpuscular volume 86 [foz_us] 80-99 Automated erythrocyte mean corpuscular hemoglobin (mass per erythrocyte) 28 pg 25-34 Automated erythrocyte mean corpuscular hemoglobin concentration measurement ( mass/volume) 32 g/dL 32-36 Automated erythrocyte distribution width ratio 15.3 % 10.0-14.5 Automated blood platelet count (count/volume) 400 10*3/uL 130-400 Automated blood platelet mean volume measurement 9.2 [foz_us] 7.4-10.4 Automated blood neutrophils/100 leukocytes 60 % 42-75 Automated blood lymphocytes/100 leukocytes 30 % 12-44 Blood monocytes/100 leukocytes 7 % 0-12 Automated blood eosinophils/100 leukocytes 3 % 0-10 Automated blood basophils/100 leukocytes 1 % 0-10 Blood neutrophils automated count (number/volume) 7.0 10*3 1.8-7.8 Blood lymphocytes automated count (number/volume) 3.5 10*3 1.0-4.0 Blood monocytes automated count (number/volume) 0.8 10*3 0.0-1.0 Automated eosinophil count 0.3 10*3/uL 0.0-0.3 Automated blood basophil count (count/volume) 0.1 10*3/uL 0.0-0.1 PT panel in platelet poor plasma by coagulation assay - 04/14/17 15:23 Prothrombin time (PT) in platelet poor plasma by coagulation assay 13.4 s 12.2-14.7 INR in platelet poor plasma or blood by coagulation assay 1.0 0.8-1.4 Activated partial thromboplastin time (aPTT) in platelet poor plasma bycoagulation assay - 04/14/17 15:23 Activated partial thromboplastin time (aPTT) in platelet poor plasma bycoagulation assay 27 s 24-35 Blood lactic acid measurement (moles/volume) - 04/14/17 15:23 Blood lactic acid measurement (moles/volume) 1.33 mmol/L 0.50-2.00 Comprehensive metabolic panel - 04/14/17 15:23 Serum or plasma sodium measurement (moles/volume) 138 mmol/L 135-145 Serum or plasma potassium measurement (moles/volume) 3.4 mmol/L 3.6-5.0 Serum or plasma chloride measurement (moles/volume) 100 mmol/L 98-107 Carbon dioxide 27 mmol/L 21-32 Serum or plasma anion gap determination (moles/volume) 11 mmol/L 5-14 Serum or plasma urea nitrogen measurement (mass/volume) 9 mg/dL 7-18 Serum or plasma creatinine measurement (mass/volume) 0.99 mg/dL 0.60-1.30 Serum or plasma urea nitrogen/creatinine mass ratio 9 NRG Serum or plasma creatinine measurement with calculation of estimated glomerular filtration rate 55 NRG Serum or plasma glucose measurement (mass/volume) 49 mg/dL 70-105 Serum or plasma calcium measurement (mass/volume) 9.4 mg/dL 8.5-10.1 Serum or plasma total bilirubin measurement (mass/volume) 0.4 mg/dL 0.1-1.0 Serum or plasma alkaline phosphatase measurement (enzymatic activity/volume) 120 U/L 40-136 Serum or plasma aspartate aminotransferase measurement (enzymatic activity/ volume) 16 U/L 5-34 Serum or plasma alanine aminotransferase measurement (enzymatic activity/volume ) 6 U/L 0-55 Serum or plasma protein measurement (mass/volume) 9.0 g/dL 6.4-8.2 Serum or plasma albumin measurement (mass/volume) 3.7 g/dL 3.2-4.5 Magnesium - 04/14/17 15: Magnesium 2.3 mg/dL 1.8-2.4 Serum or plasma lithium measurement (moles/volume) - 04/14/17 15:23 BNP level 10.5 pg/mL <100.0 Serum or plasma thyrotropin measurement by detection limit <=0.05 miu/l (units/ volume) - 04/14/17 15:23 Serum or plasma thyrotropin measurement by detection limit <=0.05 miu/l (units/ volume) 1.72 u[iU]/mL 0.35-4.94 Serum or plasma troponin i.cardiac measurement (mass/volume) - 04/14/17 15: Serum or plasma troponin i.cardiac measurement (mass/volume) < ng/ mL <0.30 Serum or plasma thyrotropin measurement by detection limit <=0.05 miu/l (units/ volume) - 04/14/17 15: Serum or plasma thyrotropin measurement by detection limit <=0.05 miu/l (units/ volume) 1.72 u[iU]/mL 0.35-4.94 Complete urinalysis with reflex to culture - 04/14/17 17:40 Urine color determination YELLOW NRG Urine clarity determination CLEAR NRG Urine pH measurement by test strip 7 5-9 Specific gravity of urine by test strip 1.010 1.016- 1.022 Urine protein assay by test strip, semi-quantitative NEGATIVE NEGATIVE Urine glucose detection by automated test strip NEGATIVE NEGATIVE Erythrocytes detection in urine sediment by light microscopy 3+ NEGATIVE Urine ketones detection by automated test strip NEGATIVE NEGATIVE Urine nitrite detection by test strip NEGATIVE NEGATIVE Urine total bilirubin detection by test strip NEGATIVE NEGATIVE Urine urobilinogen measurement by automated test strip (mass/volume) NORMAL NORMAL Urine leukocyte esterase detection by dipstick 3+ NEGATIVE Automated urine sediment erythrocyte count by microscopy (number/high power field) NONE NRG Automated urine sediment leukocyte count by microscopy (number/high power field ) [HPF] NRG Bacteria detection in urine sediment by light microscopy TRACE NRG Squamous epithelial cells detection in urine sediment by light microscopy 2-5 NRG Crystals detection in urine sediment by light microscopy NONE NRG Casts detection in urine sediment by light microscopy NONE NRG Mucus detection in urine sediment by light microscopy NEGATIVE NRG Complete urinalysis with reflex to culture YES NRG Complete blood count (CBC) with automated white blood cell (WBC) differential - 04/15/17 05:55 Blood leukocytes automated count (number/volume) 14.4 10*3/uL 4.3-11.0 Blood erythrocytes automated count (number/volume) 3.10 10*6/uL 4.35-5.85 Venous blood hemoglobin measurement (mass/volume) 8.6 g/dL 11.5-16.0 Blood hematocrit (volume fraction) 27 % 35-52 Automated erythrocyte mean corpuscular volume 87 [foz_us] 80-99 Automated erythrocyte mean corpuscular hemoglobin (mass per erythrocyte) 28 pg 25-34 Automated erythrocyte mean corpuscular hemoglobin concentration measurement ( mass/volume) 32 g/dL 32-36 Automated erythrocyte distribution width ratio 15.1 % 10.0-14.5 Automated blood platelet count (count/volume) 311 10*3/uL 130-400 Automated blood platelet mean volume measurement 9.5 [foz_us] 7.4-10.4 Automated blood neutrophils/100 leukocytes 92 % 42-75 Automated blood lymphocytes/100 leukocytes 7 % 12-44 Blood monocytes/100 leukocytes 1 % 0-12 Automated blood eosinophils/100 leukocytes 0 % 0-10 Automated blood basophils/100 leukocytes 0 % 0-10 Blood neutrophils automated count (number/volume) 13.2 10*3 1.8-7.8 Blood lymphocytes automated count (number/volume) 1.0 10*3 1.0-4.0 Blood monocytes automated count (number/volume) 0.2 10*3 0.0-1.0 Automated eosinophil count 0.0 10*3/uL 0.0-0.3 Automated blood basophil count (count/volume) 0.0 10*3/uL 0.0-0.1 Blood manual differential performed detection - 04/15/17 05:55 Blood monocytes/100 leukocytes 1 % NRG Manual blood segmented neutrophils/100 leukocytes 84 % NRG Blood band neutrophils/100 leukocytes 4 % NRG Manual blood lymphocytes/100 leukocytes 11 % NRG Manual eosinophils/100 leukocytes in nose 0 % NRG Manual blood basophils/100 leukocytes 0 % NRG Blood polychromasia detection by light microscopy SLIGHT NRG Blood anisocytosis detection by light microscopy SLIGHT NRG Blood hypochromia detection by light microscopy SLIGHT NRG Comprehensive metabolic panel - 04/15/17 05:55 Serum or plasma sodium measurement (moles/volume) 134 mmol/L 135-145 Serum or plasma potassium measurement (moles/volume) 4.6 mmol/L 3.6-5.0 Serum or plasma chloride measurement (moles/volume) 102 mmol/L 98-107 Carbon dioxide 21 mmol/L 21-32 Serum or plasma anion gap determination (moles/volume) 11 mmol/L 5-14 Serum or plasma urea nitrogen measurement (mass/volume) 15 mg/dL 7-18 Serum or plasma creatinine measurement (mass/volume) 1.10 mg/dL 0.60-1.30 Serum or plasma urea nitrogen/creatinine mass ratio 14 NRG Serum or plasma creatinine measurement with calculation of estimated glomerular filtration rate 49 NRG Serum or plasma glucose measurement (mass/volume) 219 mg/dL 70-105 Serum or plasma calcium measurement (mass/volume) 8.6 mg/dL 8.5-10.1 Serum or plasma total bilirubin measurement (mass/volume) 0.3 mg/dL 0.1-1.0 Serum or plasma alkaline phosphatase measurement (enzymatic activity/volume) 96 U/L 40-136 Serum or plasma aspartate aminotransferase measurement (enzymatic activity/ volume) 12 U/L 5-34 Serum or plasma alanine aminotransferase measurement (enzymatic activity/volume ) < U/L 0-55 Serum or plasma protein measurement (mass/volume) 7.5 g/dL 6.4-8.2 Serum or plasma albumin measurement (mass/volume) 3.1 g/dL 3.2-4.5 Encounters ACCT No. Visit Date/Time Discharge Status Pt. Type Provider Facility Loc./Unit Complaint [id number] 03/17/2017 09:20:00 03/17/2017 23:59:59 CLS Outpatient ODELL ARNOLD APRN [facility] [id number] 02/17/2017 08:56:00 02/17/2017 23:59:59 CLS Outpatient ODELL ARNOLD APRN [facility] [id number] 02/03/2017 08:58:00 02/03/2017 23:59:59 CLS Outpatient ODELL ARNOLD APRN [facility] [id number] 01/27/2017 08:57:00 01/27/2017 23:59:59 CLS Outpatient ODELL ARNOLD APRN [facility] [id number] 01/20/2017 09:06:00 01/20/2017 23:59:59 CLS Outpatient ODELL ARNOLD APRN [facility] [id number] 01/14/2017 07:42:00 01/15/2017 14:10:00 DIS Outpatient TAMELA ALVARADO MD [facility] SHANA, CLAUDICATION [id number] 01/07/2017 10:40:00 01/07/2017 18:05:00 DIS Outpatient TAMELA ALVARADO MD [facility] SHANA,CLAUDICATION [id number] 01/06/2017 08:49:00 01/06/2017 23:59:59 CLS Outpatient ODELL ARNOLD APRN [facility] [id number] 01/05/2017 08:03:00 01/05/2017 23:59:59 CLS Outpatient TAMELA ALVARADO MD [facility] CARD PAD,PULMONARY [id number] 12/23/2016 08:59:00 12/23/2016 23:59:59 CLS Outpatient ODELL ARNOLD APRN [facility] [id number] 07/12/2015 10:45:00 07/12/2015 23:59:59 CLS Outpatient TIMUR LEON [facility] RAD OSTEROPOROSIS,FATIGUE [id number] 11/20/2014 05:55:00 12/05/2014 15:35:00 DIS Inpatient NEENA NAJERA MD [facility] SURGICAL KYPHOSIS WITH MYOPATHY [id number] 11/14/2014 14:13:00 11/14/2014 23:59:59 CLS Outpatient NEENA NAJERA MD [facility] PREOP KYPHOSIS [id number] 04/14/2017 17:24:00 ACT Inpatient CHANTELL MEJIA, WAGNER Benitez [facility] 4TH PNUEMONIA - FAILURE OF OUTPATIENT THERAPY
[2017-04-15] MEDS ORDERED: IBUPROFEN 800 MG (MOTRIN) TAB PO PRN (10:30)
[2017-04-15] MEDS ORDERED: BENZONATATE 100 MG (TESSALON) CAPSULE PO PRN (10:30)
[2017-04-15] MEDS ORDERED: RT-ALBUTEROL SULF 2.5 MG/3 ML PRE-MIX VIAL IH PRN (11:00)
--- NOTE | 2017-04-15 11:26 | History & Physical-Hospitalist ---
HPI History of Present Illness: HPI/Chief Complaint Pt is a 72yoCF with a PMH of restless leg syndrome and neuropathy who presented to the ER for dyspnea. She complains of a 3 week history of cough and SOB. She was seen by her PCP twice during that time and on the second visit was prescribed Azithromycin on 04/08. She completed that but continued to feel worse. She was more short of breath yesterday prompting her to seek evaluation in the ER. She denies any fevers, chills, or sick contacts. She is also very hoarse. She is feeling better today. She states she's never been told she has COPD but does use an inhaler at times. Source: patient Date Seen 04/15/17 Time Seen by Provider: 11:00 Attending Physician Wagner Howe MD PCP No,Local Physician Referring Physician Date of Admission Apr 14, 2017 at 5:24 pm Home Medications & Allergies Home Medications Reviewed patient Home Medication Reconciliation Form Allergies Allergies Coded Allergies Penicillins (Unverified Allergy, Unknown, 09/17/06) Sulfa (Sulfonamide Antibiotics) (Unverified Allergy, Unknown, 09/17/06) Past [id number] Hx Patient Social History Alcohol Use: Denies Use Recreational Drug Use: No Smoking Status: Current Everyday Smoker Type Used: Cigarettes Physical Abuse Screen: No Sexual Abuse: No Recent Foreign Travel: No Contact w/other who traveled: No Recent Hopitalizations: No Recent Infectious Disease Expo: No Immunizations Up To Date Date of Pneumonia Vaccine: Dec 07, 2016 Date of Influenza Vaccine: Dec 07, 2016 Seasonal Allergies Seasonal Allergies: No Surgeries Yes (MULTIPLE BACK SURGERIES; HYST/BSO; APPY; JAYLON; SHOULDER REPLACEMENT- PARTIAL;ARM FX/ORIF-HARDWARE REMOVAL; STENT IN RIGHT LEG ) Appendectomy, Gallbladder, Hysterectomy, Oophorectomy, Orthopedic, Vascular Surgery Respiratory Yes (SUSPECT COPD/EMPHYSEMA ) Cardiovascular Yes Chronic Edema/Swelling, High Cholesterol, Hypertension, Peripheral Vascular Neurological Yes Neuropathy Reproductive System Hx Reproductive Disorders: No Sexually Transmitted Disease: No HIV/AIDS: No Female Reproductive Disorders: Denies Genitourinary Yes Kidney Stones Gastrointestinal Yes Chronic Constipation, Irritable Bowel Musculoskeletal Yes Degenerate Disk Disease, Arthritis, Back Injury, Chronic Back Pain, Fractures Endocrine History of Endocrine Disorders: Yes (MORBID OBESITY) Endocrine Disorders: Hypothyroidsim HEENT History of HEENT Disorders: Yes Loss of Vision: Bilateral Hearing Impairment: Hard of Hearing, Bilateral Hearing Aide Cancer No Psychosocial History of Psychiatric Problem: Yes Behavioral Health Disorders: Anxiety, Schizophrenia, Depression Integumentary History of Skin or Integumenta: Yes (FOOT ULCER) Blood Transfusions History of Blood Disorders: No Adverse Reaction to a Blood Tr: No Review of Systems Constitutional: No chills, No fever, weakness Respiratory: see HPI, cough, dyspnea on exertion, No orthopnea, short of breath , No wheezing Cardiovascular: No chest pain, edema (chronic), No palpitations Gastrointestinal: No abdominal pain, No constipation, No diarrhea, No loss of appetite, No nausea, No vomiting Genitourinary: No decreased output, No dysuria, frequency, No hematuria Musculoskeletal: muscle weakness Skin: no symptoms reported Psychiatric/Neurological: No Symptoms Reported Physical Exam Physical Exam Vital Signs Vital Signs - First Documented 04/14/17 04/14/17 04/14/17 15:30 17:49 18:00 Temp 98.9 Pulse 82 Resp 18 B/P (MAP) 117/59 (78) Pulse Ox 93 O2 Delivery Room Air O2 Flow Rate 2.00 Capillary Refill : Less Than 3 Seconds General Appearance: No Apparent Distress, WD/WN HEENT: PERRL/EOMI, Moist Mucous Membranes Neck: Non Tender, Supple Respiratory: No Respiratory Distress, Rhonci Cardiovascular: Regular Rate, Rhythm, No Murmur Gastrointestinal: Normal Bowel Sounds, Non Tender, Soft Extremity: No Calf Tenderness, Swelling Neurologic/Psychiatric: Alert, Oriented x3, Normal Mood/Affect Skin: Normal Color, Warm/Dry Results Results/Procedures Lab Laboratory Tests 04/14/17 15:23 04/15/17 05:55 Assessment/Plan Admission Diagnosis CAP Diagnosis/Problems Diagnosis/Problems (1) CAP (community acquired pneumonia) Assessment & Plan: Failed outpatient management and necessitating oxygen currently Continue IV abx Does not meet sepsis criteria Will get home oxygen study Qualifiers: Qualified Codes: J18.9 - Pneumonia, unspecified organism (2) Anemia Status: Chronic Assessment & Plan: Baseline around 10, 8.6 today Will trend May benefit from iron (3) Hypothyroidism Status: Chronic Assessment & Plan: Continue home meds Qualifiers: Qualified Codes: E03.9 - Hypothyroidism, unspecified (4) Restless leg syndrome Assessment & Plan: Continue Requip (5) Neuropathy Assessment & Plan: continue Gabapentin Clinical Quality Measures DVT/VTE Risk/Contraindication: Risk Factor Score Per Nursin RFS Level Per Nursing on Admit: 4+=Very High WAGNER HOWE MD Apr 15, 2017 11:26 am
[2017-04-15 12:00] VITALS: BP 132/77
[2017-04-15] MEDS: KCL 20 MEQ TAB (K-DUR) PO SCH (12:17)
[2017-04-15] MEDS ORDERED: GABAPENTIN 600 MG (NEURONTIN) TAB PO SCH (13:00)
--- NOTE | 2017-04-15 13:18 | Occupational Therapy Eval ---
OT Evaluation-General/PLF Medical Diagnosis Admission Date Apr 14, 2017 at 17:24 Medical Diagnosis: pneumonia Onset Date: Apr 14, 2017 Therapy Diagnosis Therapy Diagnosis: decreased self care skills Height/Weight Height (Feet): 4 Height (Inches): 11.00 Weight (Pounds): 199 Weight (Ounces): 0.0 Precautions Precautions/Isolations: Fall Prevention, Standard Precautions Safety Interventions: Bed Exit Alarm Medical History Pertinent Medical History: Arthritis, COPD, GERD Additional Medical History multiple back surgeries, shoulder replacement, chronic edema, high cholesterol, PVD, neuropathy, kidney stones, irritable bowel, DDD, chronic back pain, hypothyroidism, [place], anxiety, schizophrenia, depression Reviewed History: Yes Social History Home: Single Level Current Living Status: Alone (cortney lives nearby) Entry Into Home: Ramp ADL-Prior Level of Function ADL PLOF Comments Pt states she is normally able to complete transfers, toileting, eating, and UE dressing without assistance, but has assist with bathing and LE dressing. Pt reports having home health PT 2x/wk and nursing 2x/wk to wrap LE. Uses w/c and FWW for mobility. DME/Equipment: Bath Chair, Grab Bars, Shower DME/Equipment Comments Pt also has a w/c, walker, and toileting aid OT Current Status Subjective Pt sitting on BSC when therapist arrives. Agrees to therapy. Pt reports 5/10 back pain- states this is chronic. Mental Status/Objective Patient Orientation: Person, Place, Situation Attachments: Oxygen Current Hearing Aids: Yes Hand Dominance: Right Upper Extremity ROM decreased ROM bilateral UE secondary to prior fractures per pt report. Upper Extremity Coordination Fair Upper Extremity Strength decreased bilaterally ADL-Treatment ADL-Current Pt requires assist for toileting hygiene and clothing management. Pt states at home she has a toileting aid so she can be independent. Transfer BSC to w/ with CGA. Pt requests assist to comb hair and pull back into ponytail. Pt states she receives assist with this at baseline secondary to shoulder injury. Pt sit to stand from w/ with SBA. Pt took steps for short distance gait to bed with FWW. Pt fatigues quickly and is short of breath with activity, but O2 sats are >94% on 3L via nasal cannula. Rest breaks taken secondary to fatigue. Pt requires assist to lift LE into bed. Assist to scoot to HOB. Pt resting in bed with needs met after session. Functional [place] Measure 0=Not Assessed/NA 4=Minimal Assistance 1=Total Assistance 5=Supervision or Setup 2=Maximal Assistance 6=Modified [place] 3=Moderate Assistance 7=Complete IndependenceIRFPAI Quality Coding Scale 6 Independent with activity with or without an assistive device 5 Patient requires set up or clean up by helper. Patient completes activity by themselves 4 Supervision or touching assist (CGA). [place] provide cues , steadying assist 3 The helper provides less than half the effort to complete the activity 2 The helper provides more than half the effort to complete the activity 1 Dependent. The helper does all the effort to complete an activity 7 Patient refused to complete or attempt activity 9 The patient did not perform the activity before the current illness or injury 88 Not attempted due to Medical conditions or safety concerns Eating (FIM): 5 (Pt reports feeding self after set up.) Toileting (FIM): 2 Toilet/Commode Transfer (FIM): 4 Education OT Patient Education: Rehab process Teaching Recipient: Patient Teaching Methods: Discussion Response to Teaching: Verbalize Understanding OT Short Term Goals Short Term Goals 1=Demonstrate adherence to instructed precautions during ADL tasks. 2=Patient will verbalize/demonstrate understanding of assistive devices/ modifications for ADL. 3=Patient will improve strength/tolerance for activity to enable patient to perform ADL's. OT Fdc Goals Horse Race Timer Goals Time Frame: Apr 29, 2017 Grooming(FIM): 5 Bathing(FIM): 4 Upper Body Dressing(FIM): 5 Lower Body Dressing(FIM): 4 Toileting(FIM): 5 Toilet/Commode Transfer(FIM): 5 Additional Goals: 1-Demonstrate ADL Tasks, 2-Verbalize Understanding, 3- ImproveStrength/[place] 1=Demonstrate adherence to instructed precautions during ADL tasks. 2=Patient will verbalize/demonstrate understanding of assistive devices/ modifications for ADL. 3=Patient will improve strength/tolerance for activity to enable patient to perform ADL's. OT Education/Plan Problem List/Assessment Assessment: Decreased Activ Tolerance, Decreased UE Strength, Dependent Transfers, Impaired Self-Care Skills Pt demonstrates decreased activity tolerance, strength, mobility, and ADL functioning. Pt to benefit from skilled OT intervention for ADL training, transfers, strengthening, and home safety education to maximize level of function and allow safe discharge plan. Discharge Recommendations Plan/Recommendations: Continue POC Treatment Plan/Plan of Care Treatment,Training & Education: Yes Patient would benefit from OT for education, treatment and training to promote independence in ADL's, mobility, safety and/or upper extremity function for ADL' s. Plan of Care: ADL Retraining, Functional Mobility, UE Funct Exercise/Act Treatment Duration: Apr 29, 2017 Frequency: 5 times per week Estimated Hrs Per Day: .25 hour per day Rehab Potential: Fair Time/GCodes Start Time: 11:05 Stop Time: 11:40 Total Time Billed (hr/min): 35 Billed Treatment Time 1 visit, EVM(15minutes), ADL(20minutes) REYES MEDINA OT Apr 15, 2017 13:18
[2017-04-15] MEDS ORDERED: ONDANSETRON 4 MG/2 ML (SDV) Z0FRAN IV PRN (14:30)
[2017-04-15] MEDS ORDERED: ANTACID SUSP 30 ML UDC (MYLANTA) PO PRN (14:30)
[2017-04-15] MEDS ORDERED: MILK OF MAGNESIA 400 MG/5 ML 30 ML UDC PO PRN (14:30)
[2017-04-15] MEDS ORDERED: BISACODYL 10 MG SUPP (DULCOLAX) PR PRN (14:30)
[2017-04-15] MEDS ORDERED: ACETAMINOPHEN 325 MG TABLET/CAPLET (TYLENOL) PO PRN (14:30)
--- NOTE | 2017-04-15 15:52 | Physical Therapy Evaluation ---
PT Evaluation-General Medical Diagnosis Admission Date Apr 14, 2017 at 17:24 Medical Diagnosis: pneumonia Onset Date: Apr 14, 2017 Therapy Diagnosis Therapy Diagnosis: weakness, unsteady gait Height/Weight Height (Feet): 4 Height (Inches): 11.00 Weight (Pounds): 199 Weight (Ounces): 0.0 Precautions Precautions/Isolations: Fall Prevention, Standard Precautions Weight Bear Status Right Lower Extremity: Right Weight Bearing/Tolerated Left Lower Extremity: Left Weight Bearing/Tolerated Referral Reason for Referral: Evaluation/Treatment, Gait Medical History Pertinent Medical History: Arthritis, COPD, GERD, Smoking Additional Medical History neuropathy with foot drop right LE, multiple back surgeries, DDD, anxiety Current History Patient has had persistent caugh and SOB for 3 weeks. She was receiving outpatient care but her symptoms progressed to the point that she was admitted for IV antibiotics. Reviewed History: Yes Social History Home: Single Level Current Living Status: Alone (cortney lives nearby) Entry Into Home: Ramp Prior/Core FIM Prior Level of Function Functional [place] Measure 0=Not Assessed/NA 4=Minimal Assistance 1=Total Assistance 5=Supervision or Setup 2=Maximal Assistance 6=Modified [place] 3=Moderate Assistance 7=Complete [place] Bed Mobility: 6 Transfers (B,C,W/C) (FIM): 6 Gait: 6 (4 wheel walker) Wheelchair Mobility: 6 PT Evaluation-Current Subjective Pt reports she wants to do therapy so that she doesn't lose strength. She has had lengthy hospitalizations in the past and suffered decline in strength. She report she currently receives home health PT 2x/wk for gait and balance. Objective Patient Orientation: Normal For Age Attachments: Oxygen, IV ROM/Strength ROM Lower Extremities WFL Strength Lower Extremities gross 4/5 Sensory Vision: Functional Hearing: Hearing Aid/Aides Hand Dominance: Right Sensation Right Lower Extremit: Impaired Sensation Left Lower Extremity: Impaired Transfers Functional [place] Measure 0=Not Assessed/NA 4=Minimal Assistance 1=Total Assistance 5=Supervision or Setup 2=Maximal Assistance 6=Modified [place] 3=Moderate Assistance 7=Complete [place] Transfers (B, C, W/C) (FIM): 4 (needs verbal cuing for technique and slight assist to lift one leg into bed) Scootin Supine to/from Sit: 4 Sit to/from Stand: 5 Gait Mode of Locomotion: Both Anticipated Mode of Locomotion: Both Distance (FIM): 1=up to 49 ft Distance: 25 Gait Level of Assist: 4 Gait Assistive Device: FWW Comments/Gait Description high step on the right LE due to foot drop. Walked 25 ft with FWW x 2 trials. No LOB. Balance Sitting Static: Good Sitting Dynamic: Good Standing Static: Fair Standing Dynamic: Fair Assessment/Needs Pt has good potential to improve strength, functional activity tolerance, and gait stability. She will benefit from skilled therapy intervention to address deficits and promote discharge to home. Rehab Potential: Good Post Rehab Potential-Barriers: none PT Foundry Patternmaker Goals Foundry Patternmaker Goals PT Foundry Patternmaker Goals Time Frame: Apr 22, 2017 Transfers (B,C,W/C) (FIM): 6 Gait (FIM): 3 Gait distance (FIM): 4=288-17 ft Distance: 150 Gait Level of Assist: 5 Gait Assistive Device: FWW PT Plan Problem List Problem List: Activity Tolerance, Balance, Gait Treatment/Plan Treatment Plan: Continue Plan of Care Treatment Plan: Bed Mobility, Functional Strength, Gait, Safety, Transfers Treatment Duration: Apr 22, 2017 Frequency: 6 times per week Estimated Hrs Per Day: .25 hour per day Patient and/or Family Agrees t: Yes Safety Risks/Education Patient Education: Gait Training Teaching Recipient: Patient Response to Teaching: Return Demonstration Time/GCodes Time In: 1540 Time Out: 1600 Total Billed Treatment Time: 20 Total Billed Treatment visit, frannie moderate complexity DARLENE TRISTAN PT Apr 15, 2017 15:52
[2017-04-15] MEDS: FUROSEMIDE 40 MG (LASIX) TAB PO SCH (16:18)
[2017-04-15 16:25] VITALS: BP 121/57
[2017-04-15] MEDS: rOPINIRole 1 MG (REQUIP) TABLET PO SCH (19:31)
[2017-04-15 20:05] VITALS: BP 139/61
[2017-04-15] MEDS: DOXEPIN 10 MG (SINEquan) CAP PO SCH (20:18)
[2017-04-15] MEDS: GABAPENTIN 300 MG (NEURONTIN) CAP PO SCH (20:18)
[2017-04-16 00:57] VITALS: BP 117/70
[2017-04-16 04:17] VITALS: BP 136/77
[2017-04-16] MEDS: D5 1/2 NS W/KCL 20 MEQ/L 1,000 ML IV SCH ×3 (05:13→14:22)
[2017-04-16] MEDS: LEVOTHYROXINE 100 MCG (LEVOTHROID) TAB PO SCH (06:17)
[2017-04-16 06:37] LABS: BASOPHILS % (AUTO) 0 % (0-10); EOSINOPHILS % (AUTO) 0 % (0-10); HEMATOCRIT 26 % (35-52); HEMOGLOBIN 8.3 G/DL (11.5-16.0); LYMPHOCYTES # (AUTO) 1.6 X 10^3 (1.0-4.0); LYMPHOCYTES % (AUTO) 8 % (12-44); MEAN CORPUSCULAR HEMOGLOBIN 28 PG (25-34); MEAN CORPUSCULAR HGB CONC 32 G/DL (32-36); MEAN CORPUSCULAR VOLUME 88 FL (80-99); MEAN PLATELET VOLUME 9.9 FL (7.4-10.4); MONOCYTES % (AUTO) 5 % (0-12); NEUTROPHILS % (AUTO) 87 % (42-75); PLATELET COUNT 322 10^3/uL (130-400); RED CELL DISTRIBUTION WIDTH 15.2 % (10.0-14.5); WHITE BLOOD COUNT 20.6 10^3/uL (4.3-11.0)
[2017-04-16 06:50] LABS: ANISOCYTOSIS SLIGHT; BAND NEUTROPHILS 3 %; EOSINOPHILS % (MANUAL) 0 %; HYPOCHROMASIA SLIGHT; LYMPHOCYTES % (MANUAL) 9 %; MONOCYTES % (MANUAL) 3 %; NEUTROPHILS % (MANUAL) 85 %; POLYCHROMASIA SLIGHT
[2017-04-16 06:51] LABS: ROULEAUX SLIGHT
[2017-04-16 07:03] LABS: BUN/CREATININE RATIO 27; CALCIUM 8.8 MG/DL (8.5-10.1); CARBON DIOXIDE 20 MMOL/L (21-32); CHLORIDE 103 MMOL/L (98-107); GFR ESTIMATED > 60; GLUCOSE 155 MG/DL (70-105); POTASSIUM 5.1 MMOL/L (3.6-5.0); SODIUM 132 MMOL/L (135-145)
[2017-04-16 08:00] VITALS: BP 132/64
[2017-04-16] MEDS: KCL 20 MEQ TAB (K-DUR) PO SCH ×2 (08:23→12:54)
[2017-04-16] MEDS: CEFEPIME 2 GM/NS 50 ML IVPB IV SCH ×2 (08:23)
[2017-04-16] MEDS: BENZONATATE 100 MG (TESSALON) CAPSULE PO PRN ×2 (08:24→12:54)
[2017-04-16] MEDS: CLOPIDOGREL 75 MG (PLAVIX) TABLET PO SCH (08:24)
[2017-04-16] MEDS: ASPIRIN E.C. 81 MG (ECOTRIN) TAB PO SCH (08:24)
[2017-04-16] MEDS: GABAPENTIN 300 MG (NEURONTIN) CAP PO SCH ×3 (08:24→20:12)
[2017-04-16] MEDS: FUROSEMIDE 40 MG (LASIX) TAB PO SCH ×2 (08:25→14:23)
--- NOTE | 2017-04-16 09:52 | Physical Therapy Daily Note ---
PT Daily Note-Current Subjective Patient is very agreeable to participate with PT. Patient reports her daughter assist with all ADL's, shopping, dressing, laundry, etc. Pain Numeric Pain Scale: 0-No Pain Location: No Pain Reported Mental Status Patient Orientation: Normal For Age Attachments: Oxygen, IV Transfers Functional [place] Measure 0=Not Assessed/NA 4=Minimal Assistance 1=Total Assistance 5=Supervision or Setup 2=Maximal Assistance 6=Modified [place] 3=Moderate Assistance 7=Complete IndependenceIRFPAI Quality Coding Scale 6 Independent with activity with or without an assistive device 5 Patient requires set up or clean up by helper. Patient completes activity by themselves 4 Supervision or touching assist (CGA). [place] provide cues , steadying assist 3 The helper provides less than half the effort to complete the activity 2 The helper provides more than half the effort to complete the activity 1 Dependent. The helper does all the effort to complete an activity 7 Patient refused to complete or attempt activity 9 The patient did not perform the activity before the current illness or injury 88 Not attempted due to Medical conditions or safety concerns Transfers (B, C, W/C) (FIM): 6 Scootin Sit to/from Stand: 6 Weight Bearing Right Lower Extremity: Right Weight Bearing/Tolerated Left Lower Extremity: Left Weight Bearing/Tolerated Gait Training Gait (FIM): 5 Distance (FIM): 3=150 ft Distance: 150' Gait Level of Assist: 5 Gait Assistive Device: FWW slow, steady gait sequence with 2 standing recovery periods. w/c did follow is assistance needed. Exercises Seated Therapy Exercises: Ankle pumps, Long arc quads, Hip flexion Seated Reps: 25 (2 sets) Assessment Patient reports she is at her PLOF with mobility and receives Home health PT 2/ wk. PT to continue with POC. PT Short Term Goals Short Term Goals Time Frame: Apr 16, 2017 PT Grain Mill Worker Goals [facility] Goals PT Grain Mill Worker Goals Time Frame: Apr 22, 2017 Transfers (B,C,W/C) (FIM): 6 Gait (FIM): 3 Gait distance (FIM): 2=943-01 ft Distance: 150 Gait Level of Assist: 5 Gait Assistive Device: FWW PT Plan Treatment/Plan Treatment Plan: Continue Plan of Care Treatment Plan: Bed Mobility, Functional Strength, Gait, Safety, Transfers Treatment Duration: Apr 22, 2017 Frequency: 6 times per week Estimated Hrs Per Day: .25 hour per day Patient and/or Family Agrees t: Yes Time/GCodes Time In: 906 Time Out: 930 Total Billed Treatment Time: 24 Total Billed Treatment 1 visit EX 10 min GT 14 min REMINGTON ALBRIGHT PT Apr 16, 2017 09:52
[2017-04-16 12:00] VITALS: BP 136/65
--- NOTE | 2017-04-16 12:53 | Occupational Ther Daily Note ---
OT Current Status-Daily Note Subjective Pt. states that she took a shower this morning and that if "felt really good." No pain reported. Appearance Pt. is sitting up in wheelchair. Pt. has showered and is fully dressed. Pt. is waiting on her lunch. Agrees to work with OT. Mental Status/Objective Patient Orientation: Person, Place Functional [place] Measure 0=Not Assessed/NA 4=Minimal Assistance 1=Total Assistance 5=Supervision or Setup 2=Maximal Assistance 6=Modified [place] 3=Moderate Assistance 7=Complete [place] Other Treatment OT and pt. have discussion regarding home set up and what she is having difficulty with. Pt. states that she has difficulty with toileting, but that she has "a gadget" at home that makes her independent. Pt. also states that she has difficulty with socks, but that her daughter puts these on for her every other day when she showers. Her daughter assists her with showering as needed. Pt. states that she does not wear shoes at home, but only slipper socks. Pt. agrees to bilateral UE ROM exercises and LE exercises while seated and waiting for lunch, as she is dressed already. Pt. has limited ROM in left shoulder from an old injury. Pt. completes shoulder flexion exercises, knee kicks, sitting marches, ankle pumps x 20 reps. Pt. states that she hopes to discharge home tomorrow. States that she will get home health and that her daughter will assist her. Education OT Patient Education: Correct positioning, Exercise program, Home exercise program, Modified ADL techniques, Progress toward Goal/Update tx plan, Purpose of tx/functional activities, Reviewed precautions, Rehab process, Transfer techniques Teaching Recipient: Patient Teaching Methods: Demonstration, Discussion Response to Teaching: Verbalize Understanding, Return Demonstration OT Short Term Goals Short Term Goals 1=Demonstrate adherence to instructed precautions during ADL tasks. 2=Patient will verbalize/demonstrate understanding of assistive devices/ modifications for ADL. 3=Patient will improve strength/tolerance for activity to enable patient to perform ADL's. OT [facility] Goals [facility] Goals Time Frame: Apr 29, 2017 Grooming(FIM): 5 Bathing(FIM): 4 Upper Body Dressing(FIM): 5 Lower Body Dressing(FIM): 4 Toileting(FIM): 5 Toilet/Commode Transfer(FIM): 5 Additional Goals: 1-Demonstrate ADL Tasks, 2-Verbalize Understanding, 3- ImproveStrength/[place] 1=Demonstrate adherence to instructed precautions during ADL tasks. 2=Patient will verbalize/demonstrate understanding of assistive devices/ modifications for ADL. 3=Patient will improve strength/tolerance for activity to enable patient to perform ADL's. OT Education/Plan Problem List/Assessment Assessment: Decreased Activ Tolerance, Decreased UE Strength, Impaired I ADL's , Impaired Self-Care Skills, Restricted Funct UE ROM Pt demonstrates decreased activity tolerance, strength, mobility, and ADL functioning. Pt to benefit from skilled OT intervention for ADL training, transfers, strengthening, and home safety education to maximize level of function and allow safe discharge plan. Discharge Recommendations Plan/Recommendations: Continue POC Therapy D/C Recommendations: Home w/ Family Support, Occupational Therapy Home Care Treatment Plan/Plan of Care Treatment,Training & Education: Yes Patient would benefit from OT for education, treatment and training to promote independence in ADL's, mobility, safety and/or upper extremity function for ADL' s. Plan of Care: ADL Retraining, Functional Mobility, UE Funct Exercise/Act Treatment Duration: Apr 29, 2017 Frequency: 5 times per week Estimated Hrs Per Day: .25 hour per day Agreement: Yes Rehab Potential: Good Time/GCodes Start Time: 11:55 Stop Time: 12:10 Total Time Billed (hr/min): 15 Billed Treatment Time 1, EX SENAIT GARZA OT Apr 16, 2017 12:53
--- NOTE | 2017-04-16 13:30 | Progress Note-Hospitalist ---
Subjective HPI/CC On Admission Date Seen by Provider: Apr 16, 2017 Time Seen by Provider: 12:15 Pt is a 72yoCF with a PMH of restless leg syndrome and neuropathy who presented to the ER for dyspnea. She complains of a 3 week history of cough and SOB. She was seen by her PCP twice during that time and on the second visit was prescribed Azithromycin on 04/08. She completed that but continued to feel worse. She was more short of breath yesterday prompting her to seek evaluation in the ER. She denies any fevers, chills, or sick contacts. She is also very hoarse. She is feeling better today. She states she's never been told she has COPD but does use an inhaler at times. Subjective/Events-last exam Pt reports feeling better. Still somewhat weak but has been walking with walker and getting around. Objective Exam Vital Signs Vital Signs Date Time Temp Pulse Resp B/P (MAP) Pulse Ox O2 Delivery O2 Flow Rate FiO2 04/14/17 15:00 04/14/17 15:30 93 Room Air 04/14/17 17:49 82 18 2.00 04/14/17 18:00 98.9 Capillary Refill : Less Than 3 Seconds General Appearance: No Apparent Distress, WD/WN Respiratory: Lungs Clear, No Respiratory Distress, Other (on oxygen) Cardiovascular: Regular Rate, Rhythm, No Murmur Gastrointestinal: Normal Bowel Sounds, Non Tender, Soft Extremity: Non Tender, No Calf Tenderness Neurologic/Psychiatric: Alert, Oriented x3 Results/Procedures Lab Laboratory Tests 04/16/17 06:00 Assessment/Plan Assessment and Plan Assess & Plan/Chief Complaint PNA Diagnosis/Problems Diagnosis/Problems (1) CAP (community acquired pneumonia) Assessment & Plan: Failed outpatient management and necessitating oxygen currently Continue IV abx Will get home oxygen study Does not meet sepsis criteria Will consult social work for potential placement vs home health Qualifiers: Qualified Codes: J18.9 - Pneumonia, unspecified organism (2) Anemia Status: Chronic Assessment & Plan: Baseline around 10, 8.3today Stable today, will start on iron with discharge (3) Hypothyroidism Status: Chronic Assessment & Plan: Continue home meds Qualifiers: Qualified Codes: E03.9 - Hypothyroidism, unspecified (4) Restless leg syndrome Assessment & Plan: Continue Requip (5) Neuropathy Assessment & Plan: continue Gabapentin WAGNER ABDUL MD Apr 16, 2017 1:30 pm
[2017-04-16 16:00] VITALS: BP 132/68
[2017-04-16] MEDS: rOPINIRole 1 MG (REQUIP) TABLET PO SCH (19:40)
[2017-04-16] MEDS: DOXEPIN 10 MG (SINEquan) CAP PO SCH (20:12)
[2017-04-16 20:19] VITALS: BP 113/57
[2017-04-17] VITALS: BP 113/70
[2017-04-17 04:00] VITALS: BP 109/59
[2017-04-17] MEDS: LEVOTHYROXINE 100 MCG (LEVOTHROID) TAB PO SCH (06:20)
[2017-04-17 08:00] VITALS: BP_SYST 125; BP_SYST 25; BP_DIAS 61
[2017-04-17] MEDS ORDERED: ROPI1TAB2 PO (08:23)
[2017-04-17] MEDS ORDERED: GABA-488 PO (08:23)
[2017-04-17] MEDS ORDERED: CEFD300C3 PO (08:24)
[2017-04-17] MEDS: CEFEPIME 2 GM/NS 50 ML IVPB IV SCH ×2 (08:46)
[2017-04-17] MEDS: GABAPENTIN 300 MG (NEURONTIN) CAP PO SCH ×2 (08:46→13:17)
[2017-04-17] MEDS: FUROSEMIDE 40 MG (LASIX) TAB PO SCH (08:46)
[2017-04-17] MEDS: ASPIRIN E.C. 81 MG (ECOTRIN) TAB PO SCH (08:46)
[2017-04-17] MEDS: KCL 20 MEQ TAB (K-DUR) PO SCH ×2 (08:46→11:25)
[2017-04-17] MEDS: CLOPIDOGREL 75 MG (PLAVIX) TABLET PO SCH (08:46)
--- NOTE | 2017-04-17 08:48 | Physical Therapy Daily Note ---
PT Daily Note-Current Subjective Patient agrees to PT. Pain Numeric Pain Scale: 3 Location: Right Location Body Site: Thigh Pain Description: Ache Mental Status Patient Orientation: Normal For Age Transfers Functional [place] Measure 0=Not Assessed/NA 4=Minimal Assistance 1=Total Assistance 5=Supervision or Setup 2=Maximal Assistance 6=Modified [place] 3=Moderate Assistance 7=Complete IndependenceIRFPAI Quality Coding Scale 6 Independent with activity with or without an assistive device 5 Patient requires set up or clean up by helper. Patient completes activity by themselves 4 Supervision or touching assist (CGA). [place] provide cues , steadying assist 3 The helper provides less than half the effort to complete the activity 2 The helper provides more than half the effort to complete the activity 1 Dependent. The helper does all the effort to complete an activity 7 Patient refused to complete or attempt activity 9 The patient did not perform the activity before the current illness or injury 88 Not attempted due to Medical conditions or safety concerns Transfers (B, C, W/C) (FIM): 5 Scootin Sit to/from Stand: 5 Weight Bearing Right Lower Extremity: Right Weight Bearing/Tolerated Left Lower Extremity: Left Weight Bearing/Tolerated Gait Training Gait (FIM): 5 Distance (FIM): 3=150 ft Distance: 150' Gait Level of Assist: 5 Gait Assistive Device: FWW functional gait sequence, drop foot right Wheelchair Training Wheelchair (FIM): 5 Wheelchair Distance: 3=150 ft Distance: 150' Wheelchair Level of Assist: 5 Exercises Seated Therapy Exercises: Ankle pumps, Long arc quads, Hip flexion Seated Reps: 25 Assessment Patient is currently at [facility] with gross motor skills per patient report. Patient remains up in w/c. PT Short Term Goals Short Term Goals Time Frame: Apr 16, 2017 PT Custodial Goals Dairy Equipment Specialist Goals PT Custodial Goals Time Frame: Apr 22, 2017 Transfers (B,C,W/C) (FIM): 6 Gait (FIM): 3 Gait distance (FIM): 7=788-25 ft Distance: 150 Gait Level of Assist: 5 Gait Assistive Device: FWW PT Plan Treatment/Plan Treatment Plan: Continue Plan of Care Treatment Plan: Bed Mobility, Functional Strength, Gait, Safety, Transfers Treatment Duration: Apr 22, 2017 Frequency: 6 times per week Estimated Hrs Per Day: .25 hour per day Patient and/or Family Agrees t: Yes Time/GCodes Time In: 829 Time Out: 840 Total Billed Treatment Time: 11 Total Billed Treatment 1 visit FA 11 min REMINGTON ALBRIGHT PT Apr 17, 2017 08:48
--- NOTE | 2017-04-17 09:03 | D/C HH Face to Face Order ---
D/C Face to Face Orders Instructions for Patient Patient Instructions/FollowUp: Please schedule a follow up with Yanni Valle early next week to follow up this hospital stay. If your symptoms return or worsen please return to the ER. Physician to follow Patient: Yanni Valle GAS EXAMINER Discharge Diet for Home: Cardiac Diet Patient Data-Allergies,Ht & Wt Patient Allergies: Coded Allergies: Penicillins (Unverified Allergy, Unknown, 09/17/06) Sulfa (Sulfonamide Antibiotics) (Unverified Allergy, Unknown, 09/17/06) Height (Feet): 4 Height (Inches): 11.00 Weight (Pounds): 199 Weight (Ounces): 0.0 Home Health Need/Face to Face Date of Face to Face: Apr 17, 2017 Clinical Findings: Generalized weakness and fatigue, Muscle weakness, Shortness of breath I have seen Pt [id number]: Yes Discharged To: Home Diagnosis/Conditions: PNA Neuropathy Problems/Diagnosis/Condition: Patient is Homebound due to: Alvaro fall risk due to instabilty, Muscle weakness , Shortness of breath/distress Homebound Status Due to the above stated illness, injury or surgical procedure (medical condition or diagnosis) and associated clinical findings, the patient is homebound because of his/her inability to leave home except with aid of a supportive device and/or person AND leaving the home requires a considerable and taxing effort or is medically contraindicated. Pt req the following assistanc: Aid of another person, Walker, Wheelchair Home Health Nursing Orders Home Health Services Order: Nursing Services, Antique Repairer-Evaluate & Treat, Physical Therapy-Evaluate & Treat Home Health Infusion Therapy Line Start Date: Apr 14, 2017 Line Start Time: 1523 Line Type: Saline Lock Site Location: Hand Therapy Orders Therapy Orders: Physical Therapy, PT to assess for OT Therapy Specific Orders: Eval assistive deivces, Teach enviro modifications/ safety, Increase strength/endurance Certify Stmt I certify that this patient is under my care and that I, a nurse practitioner or a physician; a human resource assistant working with me, had a face to face encounter that - meets the physician face to face encounter requirements with this patient as dated. WAGNER ABDUL MD Apr 17, 2017 9:03 am
[2017-04-17 12:00] VITALS: BP 136/65
--- NOTE | 2017-04-17 13:32 | Discharge Summary-Hospitalist ---
Diagnosis/Chief Complaint Date of Admission Apr 14, 2017 at 5:24 pm Date of Discharge Discharge Date: Apr 17, 2017 Admission Diagnosis CAP Discharge Diagnosis PNA (1) CAP (community acquired pneumonia) Assessment & Plan: Failed outpatient management and necessitated oxygen transition to oral antibiotics for home to complete course Home oxygen study revealed 3lpm need Does not meet sepsis criteria Patient was offered SNF but declined that option and has elected to trial home with HH HH orders placed (2) Anemia Status: Chronic Assessment & Plan: Baseline around 10, 8.3today Stable today, will start on iron with discharge (3) Hypothyroidism Status: Chronic Assessment & Plan: Continue home meds (4) Restless leg syndrome Assessment & Plan: Continue Requip (5) Neuropathy Assessment & Plan: continue Gabapentin but decreased dose to decrease side effect profile with requip Discharge Summary Discharge Physical Examination Allergies: Coded Allergies: Penicillins (Unverified Allergy, Unknown, 09/17/06) Sulfa (Sulfonamide Antibiotics) (Unverified Allergy, Unknown, 09/17/06) Vitals & I&Os Vital Signs Date Time Temp Pulse Resp B/P (MAP) Pulse Ox O2 Delivery O2 Flow Rate FiO2 04/17/17 12:00 98.1 65 18 136/65 (88) 98 Nasal Cannula 3.00 Hospital Course Pt is a 72yoCF with a PMH of COPD who presented to the ER for dyspnea and weakness after finishing abx for pneumonia provided by her PCP. She was necessitating oxygen and IV abx so was admitted to inpatient. She improved with IV abx and was evaluated by PT/OT and deemed to be back at her baseline. She was offered discharge to SNF as she had a new oxygen requirement to help with rehab around new [facility] but she declined. She reports her daughter lives next door and checks on her often and has a video baby monitor for night along with Alecia having a lifealert necklace. She requested discharge to home and resumption of her previous home health. I advised her to follow up with her PCP early next week (Thursday or Thursday) to make sure her transition home went well and to take her antibiotics as prescribed. Labs (last 24 hrs) Microbiology 04/14/17 Blood Culture - Preliminary, Resulted No growth 04/14/17 Influenza Types A,B Antigen (STEF) - Final, Complete 04/14/17 Urine Culture - Final, Complete Discussion & Recommendations Greater than 30m of time spent in DC planning and coordinating care. Discharge Home Medications: Active Scripts Active Cefdinir 300 Mg Capsule 300 Mg PO BID 4 Days Gabapentin 300 Mg Capsule 300 Mg PO TID 60 Days Ropinirole HCl 1 Mg Tablet 2 Mg PO DAILY@1900 Reported Advil (Ibuprofen) 200 Mg Tablet 800 Mg PO Q8H PRN Proair Hfa (Albuterol Sulfate) 1 Puff Puff 2 Puff INH Q4H PRN Benzonatate 100 Mg Capsule 100 Mg PO TID PRN Plavix (Clopidogrel Bisulfate) 75 Mg Tablet 75 Mg PO DAILY Tramadol HCl 50 Mg Tablet 2 Tab PO Q6H PRN Aspirin EC (Aspirin) 81 Mg Tablet.dr 81 Mg PO DAILY Furosemide 80 Mg Tablet 40 Mg PO 1500 TAKES 1/2 (80MG) TABLET Doxepin HCl 10 Mg Capsule 10 Mg PO HS Potassium Chloride 20 Meq Tab.er.prt 20 Meq PO 0800,1200 Furosemide 80 Mg Tablet 80 Mg PO DAILY Celexa (Citalopram Hydrobromide) 20 Mg Tablet 20 Mg PO HS Levothyroxine Sodium 100 Mcg Tablet 100 Mcg PO DAILY Instructions to patient/family Please see electronic discharge instructions given to patient. Clinical Quality Measures DVT/VTE Risk/Contraindication: Risk Factor Score Per Nursin RFS Level Per Nursing on Admit: 4+=Very High Copy Copies To 1: Yanni Valle Problem Qualifiers (1) CAP (community acquired pneumonia): Laterality: unspecified laterality Qualified Codes: J18.9 - Pneumonia, unspecified organism (2) Hypothyroidism: Hypothyroidism type: unspecified Qualified Codes: E03.9 - Hypothyroidism, unspecified WAGNER ABDUL MD Apr 17, 2017 13:32
[2017-04-17 15:00] VITALS: BP 136/65
== END 2017-04-17 15:00 | disposition home health service (06) | DRG 194 ==
LOC: EDUNIT# 14:54 → ER 14:56 → 4TH 17:24
PROVIDERS: ADMIT Family Medicine; ATTEND Family Medicine
DX: J18.9 Pneumonia, unspecified organism (principal); J43.9 Emphysema, unspecified; Z68.41 Body mass index [BMI] 40.0-44.9, adult; N39.0 Urinary tract infection, site not specified; D64.9 Anemia, unspecified; E66.01 Morbid (severe) obesity due to excess calories; E03.9 Hypothyroidism, unspecified; G25.81 Restless legs syndrome; G62.9 Polyneuropathy, unspecified; F17.210 Nicotine dependence, cigarettes, uncomplicated; J04.0 Acute laryngitis; R04.0 Epistaxis; R53.1 Weakness; E78.00 Pure hypercholesterolemia, unspecified; I10 Essential (primary) hypertension; I73.9 Peripheral vascular disease, unspecified; M19.90 Unspecified osteoarthritis, unspecified site; M54.9 Dorsalgia, unspecified; K58.9 Irritable bowel syndrome, unspecified; K59.09 Other constipation; F41.9 Anxiety disorder, unspecified; F32.9 Major depressive disorder, single episode, unspecified; F20.9 Schizophrenia, unspecified; H91.93 Unspecified hearing loss, bilateral; Z97.4 Presence of external hearing-aid; Z87.442 Personal history of urinary calculi; Z96.698 Presence of other orthopedic joint implants; Z95.828 Presence of other vascular implants and grafts
CPT/HCPCS: 36415; 71045; 80048; 80053; 81000; 83605; 83735; 83880; 84443; 84484; 85007; 85025; 85027; 85610; 85730; 87040; 87088; 87804; 94640; 94761; 96365; 96375

== ENCOUNTER 2017-05-21 11:54 | Inpatient (IN) | payer MEDICARE, MEDICAID ==
[2017-05-21] VITALS (8 sets, daily range): BP systolic 97–114; BP diastolic 48–62
[~2017-05-21] VITALS: Ht 149.9 cm; Wt 86.2 kg
[~2017-05-21 11:54] MED LIST changes: +BENZ-36 PO; +CEFD300C3 PO; +CLOP75TA69 PO; +GABA-488 PO; +IBUP-30 PO; +ROPI1TAB2 PO; +RT-ALBUINH INH; +TRAM50TA2 PO
[2017-05-21] MEDS ORDERED: fentaNYL INJECTION 100 MCG/2 ML AMP IVP PRN (12:45)
[2017-05-21] MEDS ORDERED: ONDANSETRON 4 MG/2 ML (SDV) Z0FRAN IVP PRN (12:45)
[2017-05-21] MEDS ORDERED: ACETAMINOPHEN 500 MG TAB (TYLENOL) PO PRN (12:45)
[2017-05-21] MEDS ORDERED: FUROSEMIDE 40 MG/4 ML INJ (LASIX) IVP ONE (12:45)
[2017-05-21] MEDS ORDERED: FUROSEMIDE 40 MG/4 ML INJ (LASIX) IVP NR (15:00)
[2017-05-21] MEDS ORDERED: CATHETER FLUSH 10 ML SYR IV PRN (15:15)
--- NOTE | 2017-05-21 15:25 | Pulmonary Consultation ---
History of Present Illness History of Present Illness Date of Consultation 05/21/17 15:25 Time Seen by Provider: 15:25 Date of Admission Allergies and Home Medications Allergies Coded Allergies: Penicillins (Unverified Allergy, Unknown, 09/17/06) Sulfa (Sulfonamide Antibiotics) (Unverified Allergy, Unknown, 09/17/06) Home Medications Albuterol Sulfate 1 Puff Puff, 2 PUFF INH Q4H PRN for SHORTNESS OF BREATH, ( Reported) Aspirin 81 Mg Tablet.dr, 81 MG PO DAILY, (Reported) Benzonatate 100 Mg Capsule, 100 MG PO TID PRN for COUGH, (Reported) Cefdinir 300 Mg Capsule, 300 MG PO BID Prescribed by: WAGNRE ABDUL on 04/17/17 0824 Citalopram Hydrobromide 20 Mg Tablet, 20 MG PO HS, (Reported) Clopidogrel Bisulfate 75 Mg Tablet, 75 MG PO DAILY, (Reported) Doxepin HCl 10 Mg Capsule, 10 MG PO HS, (Reported) Furosemide 80 Mg Tablet, 80 MG PO DAILY, (Reported) Furosemide 80 Mg Tablet, 40 MG PO 1500, (Reported) TAKES 1/2 (80MG) TABLET Gabapentin 300 Mg Capsule, 300 MG PO TID Prescribed by: WAGNER ABDUL on 04/17/17 08 Ibuprofen 200 Mg Tablet, 800 MG PO Q8H PRN for PAIN-MILD, (Reported) Levothyroxine Sodium 100 Mcg Tablet, 100 MCG PO DAILY, (Reported) Potassium Chloride 20 Meq Tab.er.prt, 20 MEQ PO 0800,1200, (Reported) Ropinirole HCl 1 Mg Tablet, 2 MG PO DAILY@1900 Prescribed by: WAGNER ABDUL on 04/17/1723 Tramadol HCl 50 Mg Tablet, 2 TAB PO Q6H PRN for PAIN-MODERATE, (Reported) Past Idovyil-Xvorwc-Unxfuv Hx Patient Social History Type Used: Cigarettes Recent Hopitalizations: No Immunizations Up To Date Date of Pneumonia Vaccine: Dec 07, 2016 Date of Influenza Vaccine: Dec 07, 2016 Seasonal Allergies Seasonal Allergies: No Surgeries History of Surgeries: Yes Surgeries: Appendectomy, Gallbladder, Hysterectomy, Oophorectomy, Orthopedic, Vascular Surgery Respiratory History of Respiratory Disorde: Yes (SUSPECT COPD/EMPHYSEMA ) Respiratory Disorders: Pneumonia, COPD, Emphysema Cardiovascular History of Cardiac Disorders: Yes Cardiac Disorders: Chronic Edema/Swelling, High Cholesterol, Hypertension, Peripheral Vascular Neurological History of Neurological Disord: Yes Neurological Disorders: Neuropathy Reproductive System Hx Reproductive Disorders: No Sexually Transmitted Disease: No HIV/AIDS: No Female Reproductive Disorders: Denies Genitourinary History of Genitourinary Disor: Yes Genitourinary Disorders: Kidney Stones Gastrointestinal History of Gastrointestinal Di: Yes Gastrointestinal Disorders: Chronic Constipation, Irritable Bowel Musculoskeletal History of Musculoskeletal Dis: Yes Musculoskeletal Disorders: Degenerate Disk Disease, Arthritis, Back Injury, Chronic Back Pain, Fractures Endocrine History of Endocrine Disorders: Yes (MORBID OBESITY) Endocrine Disorders: Hypothyroidsim HEENT History of HEENT Disorders: Yes Loss of Vision: Bilateral Hearing Impairment: Hard of Hearing, Bilateral Hearing Aide Cancer History of Cancer: No Psychosocial History of Psychiatric Problem: Yes Behavioral Health Disorders: Anxiety, Schizophrenia, Depression Integumentary History of Skin or Integumenta: Yes (FOOT ULCER) Blood Transfusions History of Blood Disorders: No Adverse Reaction to a Blood Tr: No Exam Exam Vital Signs Date Time Temp Pulse Resp B/P (MAP) Pulse Ox O2 Delivery O2 Flow Rate FiO2 05/21/17 15:09 96 32 ALLISON GODFREY DO May 21, 2017 15:25
[2017-05-21 15:45] LABS: BASOPHILS % (AUTO) 0 % (0-10); EOSINOPHILS # (AUTO) 0.2 10^3/uL (0.0-0.3); EOSINOPHILS % (AUTO) 3 % (0-10); HEMATOCRIT 27 % (35-52); HEMOGLOBIN 8.4 G/DL (11.5-16.0); LYMPHOCYTES # (AUTO) 2.4 X 10^3 (1.0-4.0); LYMPHOCYTES % (AUTO) 26 % (12-44); MEAN CORPUSCULAR HEMOGLOBIN 26 PG (25-34); MEAN CORPUSCULAR HGB CONC 31 G/DL (32-36); MEAN CORPUSCULAR VOLUME 85 FL (80-99); MEAN PLATELET VOLUME 9.3 FL (7.4-10.4); MONOCYTES # (AUTO) 0.6 X 10^3 (0.0-1.0); MONOCYTES % (AUTO) 7 % (0-12); NEUTROPHILS # (AUTO) 5.9 X 10^3 (1.8-7.8); NEUTROPHILS % (AUTO) 64 % (42-75); PLATELET COUNT 354 10^3/uL (130-400); RED CELL DISTRIBUTION WIDTH 16.8 % (10.0-14.5); WHITE BLOOD COUNT 9.2 10^3/uL (4.3-11.0)
[2017-05-21] MEDS ORDERED: INFLUENZA TRIvalent 2017-2018 0.5 ML/45 MCG SYR IM ONE (15:45)
[2017-05-21 15:54] LABS: BILIRUBIN,URINE NEGATIVE (NEGATIVE); CLARITY,URINE SLIGHTLY CLOUDY; COLOR,URINE YELLOW; GLUCOSE, URINE (UA) NEGATIVE (NEGATIVE); KETONES,URINE NEGATIVE (NEGATIVE); LEUKOCYTE ESTERASE ,URINE 3+ (NEGATIVE); NITRITE,URINE NEGATIVE (NEGATIVE); PH,URINE 6 (5-9); PROTEIN,URINE 2+ (NEGATIVE); UROBILINOGEN,URINE NORMAL (NORMAL)
[2017-05-21 15:55] LABS: PROTHROMBIN TIME PATIENT 13.7 SEC (12.2-14.7)
[2017-05-21 16:03] LABS: ALANINE AMINOTRANSFERASE < 6 U/L (0-55); ALBUMIN 3.3 GM/DL (3.2-4.5); ALKALINE PHOSPHATASE 109 U/L (40-136); BILIRUBIN,TOTAL 0.3 MG/DL (0.1-1.0); BUN/CREATININE RATIO 10; CARBON DIOXIDE 29 MMOL/L (21-32); CHLORIDE 106 MMOL/L (98-107); CREATININE SERUM 0.98 MG/DL (0.60-1.30); GFR ESTIMATED 56; GLUCOSE 90 MG/DL (70-105); POTASSIUM 3.7 MMOL/L (3.6-5.0); SODIUM 142 MMOL/L (135-145)
[2017-05-21 16:04] LABS: BACTERIA,URINE TRACE /HPF; SQUAMOUS EPITHELIAL CELL,UR 25-50 /HPF; WBC,URINE >100 /HPF
[2017-05-21 16:11] LABS: ABG BASE EXCESS 3.6 MMOL/L (-2.5-2.5); ABG OXYGEN SATURATION 97 % (94-100); ABG PCO2 45 MMHG (35-45); ABG PH 7.41 (7.37-7.43); ABG PO2 75 MMHG (79-93); ABG TCO2 29.4 MMOL/L (21.0-31.0); ALLENS TEST YES-POS; INSPIRED O2 2L; PATIENT TEMP 97.9; VENTILATOR NO
[2017-05-21] MEDS ORDERED: CITA20TA7 PO (16:41)
[2017-05-21] MEDS ORDERED: MENT71OI TOP (16:41)
[2017-05-21] MEDS ORDERED: GABA-488 PO (16:41)
[2017-05-21] MEDS ORDERED: ROPI2TAB4 PO (16:41)
[2017-05-21] MEDS ORDERED: CLOP75TA28 PO (16:41)
--- NOTE | 2017-05-21 16:45 | Consultation ---
History of Present Illness History of Present Illness Patient Consulted On(dru/time) 05/21/17 16:34 Time Seen by Provider: 16:11 History of Present Illness Pt was sent from [place] to ICU, because of GI bleed and she is a Christian; her islam does not allow blood transfusion. She denies abdominal pain. Her main complaint is of leg pain. She apparently has seen blood with BM's and possibly melena. She denies diarrhea, but admits to constipation. She also thinks they saw blood " in tube coming out of nose". She had a colonoscopy 3 yrs ago that showed some hemorrhoids but nothing else, done at that time for rectal bleed. Primary care reports chronic anemia and I believe a Hematology consult has been requested. Allergies and Home Medications Allergies Coded Allergies: Penicillins (Unverified Allergy, Unknown, 09/17/06) Sulfa (Sulfonamide Antibiotics) (Unverified Allergy, Unknown, 09/17/06) Home Medications Albuterol Sulfate 1 Puff Puff, 2 PUFF INH Q4H PRN for SHORTNESS OF BREATH, ( Reported) Aspirin 81 Mg Tablet.dr, 81 MG PO DAILY, (Reported) Benzonatate 100 Mg Capsule, 100 MG PO TID PRN for COUGH, (Reported) Cefdinir 300 Mg Capsule, 300 MG PO BID Prescribed by: WAGNER ABDUL on 04/17/17823 Citalopram Hydrobromide 20 Mg Tablet, 20 MG PO HS, (Reported) Clopidogrel Bisulfate 75 Mg Tablet, 75 MG PO DAILY, (Reported) Doxepin HCl 10 Mg Capsule, 10 MG PO HS, (Reported) Furosemide 80 Mg Tablet, 80 MG PO DAILY, (Reported) Furosemide 80 Mg Tablet, 40 MG PO 1500, (Reported) TAKES 1/2 (80MG) TABLET Gabapentin 300 Mg Capsule, 300 MG PO TID Prescribed by: WAGNER ABDUL on 04/17/17822 Ibuprofen 200 Mg Tablet, 800 MG PO Q8H PRN for PAIN-MILD, (Reported) Levothyroxine Sodium 100 Mcg Tablet, 100 MCG PO DAILY, (Reported) Potassium Chloride 20 Meq Tab.er.prt, 20 MEQ PO 0800,1200, (Reported) Ropinirole HCl 1 Mg Tablet, 2 MG PO DAILY@1900 Prescribed by: WAGNER ABDUL on 2/9/18 0823 Tramadol HCl 50 Mg Tablet, 2 TAB PO Q6H PRN for PAIN-MODERATE, (Reported) Patient Home Medication List Home Medication List Reviewed: Yes Past Qducgbe-Vbeoko-Dcoszy Hx Patient Social History Alcohol Use: Denies Use Recreational Drug Use: No Smoking Status: Current Everyday Smoker Type Used: Cigarettes Recent Foreign Travel: No Contact w/Someone Who Travel: No Recent Infectious Disease Expo: No Recent Hopitalizations: No Physical Abuse Screen: No Sexual Abuse: No Immunizations Up To Date Date of Pneumonia Vaccine: May 21, 2016 Date of Influenza Vaccine: Dec 07, 2016 Seasonal Allergies Seasonal Allergies: No Surgeries History of Surgeries: Yes Surgeries: Appendectomy, Gallbladder, Hysterectomy, Oophorectomy, Orthopedic, Vascular Surgery Respiratory History of Respiratory Disorde: Yes (SUSPECT COPD/EMPHYSEMA ) Respiratory Disorders: Pneumonia, COPD, Emphysema Cardiovascular History of Cardiac Disorders: Yes Cardiac Disorders: Chronic Edema/Swelling, High Cholesterol, Hypertension, Peripheral Vascular Neurological History of Neurological Disord: Yes Neurological Disorders: Neuropathy Reproductive System Hx Reproductive Disorders: No Sexually Transmitted Disease: No HIV/AIDS: No Female Reproductive Disorders: Denies Genitourinary History of Genitourinary Disor: Yes Genitourinary Disorders: Kidney Stones Gastrointestinal History of Gastrointestinal Di: Yes Gastrointestinal Disorders: Chronic Constipation, Irritable Bowel Musculoskeletal History of Musculoskeletal Dis: Yes Musculoskeletal Disorders: Degenerate Disk Disease, Arthritis, Back Injury, Chronic Back Pain, Fractures Endocrine History of Endocrine Disorders: Yes (MORBID OBESITY) Endocrine Disorders: Hypothyroidsim HEENT History of HEENT Disorders: Yes Loss of Vision: Bilateral Hearing Impairment: Hard of Hearing, Bilateral Hearing Aide Cancer History of Cancer: No Psychosocial History of Psychiatric Problem: Yes Behavioral Health Disorders: Anxiety, Schizophrenia, Depression Integumentary History of Skin or Integumenta: Yes (FOOT ULCER) Blood Transfusions History of Blood Disorders: No Adverse Reaction to a Blood Tr: No Family Medical History Significant Family History: Cancer (Father had lung cancer), Vascular Disease ( Mother had "leg problems like me, but hers never busted open like mine") Review of Systems-General Constitutional: No chills, No diaphoresis, malaise, weakness EENTM: blurred vision, No mouth swelling, No epistaxis, No throat swelling Respiratory: No cough, dyspnea on exertion, No hemoptysis, short of breath Cardiovascular: No chest pain, edema, No palpitations Gastrointestinal: No abdominal pain, constipation, No jaundice Genitourinary: No dysuria, No frequency Musculoskeletal: back pain, joint pain, joint swelling Psychiatric/Neurological: Anxiety, Depressed Physical Exam-General Problems Physical Exam Vital Signs Vital Signs - First Documented 05/21/17 05/21/17 15:00 15:09 Pulse Ox 96 O2 Delivery Nasal Cannula O2 Flow Rate 3.00 FiO2 32 Capillary Refill : General Appearance: WD/WN, mild distress Eyes: Bilateral Eye PERRL, Bilateral Eye EOMI (left eye deviates laterally) HEENT: pharynx normal, No scleral icterus (R), No scleral icterus (L) Neck: supple, normal inspection Respiratory: chest non-tender, lungs clear, normal breath sounds, no respiratory distress, no accessory muscle use Cardiovascular: regular rate, rhythm, no murmur Gastrointestinal: normal bowel sounds, soft, no organomegaly, no pulsatile mass Back: no CVA tenderness, no vertebral tenderness Extremities: calf tenderness, pedal edema, other (grade III-IV edema, venous stasis changes) Neurologic/Psychiatric: special education paraprofessional II-XII nml as tested, no motor/sensory deficits, alert, normal mood/affect, oriented x 3 Skin: normal color, warm/dry Lymphatic: no adenopathy (neck, axilla or groin) Data Review Labs Laboratory Tests 05/21/17 15:30: White Blood Count 9.2, Red Blood Count 3.20L, Hemoglobin 8.4L, Hematocrit 27L, Mean Corpuscular Volume 85, Mean Corpuscular Hemoglobin 26, Mean Corpuscular Hemoglobin Concent 31L, Red Cell Distribution Width 16.8H, Platelet Count 354, Mean Platelet Volume 9.3, Neutrophils (%) (Auto) 64, Lymphocytes (%) (Auto) 26, Monocytes (%) (Auto) 7, Eosinophils (%) (Auto) 3, Basophils (%) (Auto) 0, Neutrophils # (Auto) 5.9, Lymphocytes # (Auto) 2.4, Monocytes # (Auto) 0.6, Eosinophils # (Auto) 0.2, Basophils # (Auto) 0.0, Prothrombin Time 13.7, INR Comment 1.0, Activated Partial Thromboplast Time 32, Sodium Level 142, Potassium Level 3.7, Chloride Level 106, Carbon Dioxide Level 29, Anion Gap 7, Blood Urea Nitrogen 10, Creatinine 0.98, Estimat Glomerular Filtration Rate 56, BUN/Creatinine Ratio 10, Glucose Level 90, Lactic Acid Level 2.10*H, Calcium Level 9.0, Total Bilirubin 0.3, Aspartate Amino Transf (AST/SGOT) 14, Alanine Aminotransferase (ALT/SGPT) < 6, Alkaline Phosphatase 109, Troponin I < 0.30, B- Type Natriuretic Peptide 33.3, Total Protein 7.0, Albumin 3.3 05/21/17 15:40: Urine Color YELLOW, Urine Clarity SLIGHTLY CLOUDY, Urine pH 6, Urine Specific [place] 1.015L, Urine Protein 2+H, Urine Glucose (UA) NEGATIVE, Urine Ketones NEGATIVE, Urine Nitrite NEGATIVE, Urine Bilirubin NEGATIVE, Urine Urobilinogen NORMAL, Urine Leukocyte Esterase 3+H, Urine RBC (Auto) 4+H, Urine RBC 2-5H, Urine WBC >100H, Urine Squamous Epithelial Cells 25-50H, Urine Crystals NONE, Urine Bacteria TRACE, Urine Casts PRESENT, Urine Hyaline Casts 10-25H, Urine Mucus NEGATIVE, Urine Culture Indicated YES 05/21/17 16:00: Blood Gas Puncture Site LT RAD, Blood Gas Patient Temperature 97.9, Arterial Blood pH 7.41, Arterial Blood Partial Pressure CO2 45, Arterial Blood Partial Pressure O2 75L, Arterial Blood HCO3 28H, Arterial Blood Total CO2 29.4, Arterial Blood Oxygen Saturation 97, Arterial Blood Base Excess 3.6H, Mario Test YES-POS, Blood Gas Ventilator Setting NO, Blood Gas Inspired Oxygen 2L Assessment/Plan Assessment/Plan Assessment/Plan Anemia GI bleed LE edema, venous stasis changes Pt ate at noon, will be kept NPO for EGD tonight. She probably does not need repeat colonoscopy since she had one 3 yrs ago; unless she starts having large amounts of bright rectal blood. I agree with Hematology consult. Discussed risk and complications with pt; not limited to pain, bleeding, infection and even esophageal perforation. All questions answered to her satisfaction. Clinical Quality Measures DVT/VTE Risk/Contraindication: Risk Factor Score Per Nursin RFS Level Per Nursing on Admit: 4+=Very High Contraindications-Pharm: Other *list below* Contraindications-Mechi: Other *list below* Other: Unaboot status on lower legs Acute GIB LOYDA CHILEL DO May 21, 2017 16:45
--- NOTE | 2017-05-21 16:56 | Consultation-Cardiology ---
HPI-Cardiology Cardiology Consultation Date of Consultation 05/21/17 Date of Admission Time Seen by Provider: 16:50 Indication: Shortness of Breath HPI 72 years old lady with history of peripheral arterial disease, hypertension. Transfer to the hospital for management of her anemia and possible GI loss. She has been having increasing pain in her lower extremity and shortness of breath. She started using oxygen last week. She denied any syncope or near syncopal episode. Denied any fever or chills. No abdominal pain. Complaining of constipation. No diarrhea, nausea or vomiting. Home Medications & Allergies Allergies: Coded Allergies: Penicillins (Unverified Allergy, Unknown, 09/17/06) Sulfa (Sulfonamide Antibiotics) (Unverified Allergy, Unknown, 09/17/06) Home Medication List Reviewed: Yes SOB-Eowjsv-Obxsfr Hx Patient Social History Alcohol Use: Denies Use Recreational Drug Use: No Smoking Status: Current Everyday Smoker Type Used: Cigarettes Recent Foreign Travel: No Recent Infectious Disease Expo: No Recent Hopitalizations: No Physical Abuse Screen: No Sexual Abuse: No Immunizations Up To Date Date of Pneumonia Vaccine: May 21, 2016 Date of Influenza Vaccine: Dec 07, 2016 Past Medical History Past medical history as discussed below Family Medical History Family Medical Hx Noncontributory to her current condition Constitutional: see HPI, malaise, weakness EENTM: see HPI Respiratory: see HPI, No cough, dyspnea on exertion, No hemoptysis, No orthopnea, No phlegm, short of breath, No stridor, No wheezing, No other Cardiovascular: see HPI, No chest pain, edema, No Hx of Intervention, No palpitations, No syncope, No vascular heart diseas, No other Gastrointestinal: see HPI, abdominal pain, constipation Genitourinary: no symptoms reported, see HPI Musculoskeletal: no symptoms reported, see HPI, joint pain, muscle pain, muscle stiffness Skin: see HPI, change in color, dryness Psychiatric/Neurological: No Symptoms Reported, See HPI Reviewed Test Results Reviewed Test Results Lab Laboratory Tests Test 05/21/17 15:30 05/21/17 15:40 05/21/17 16:00 Range/Units White Blood Count 9.2 4.3-11.0 10^3/uL Red Blood Count 3.20 L 4.35-5.85 10^6/uL Hemoglobin 8.4 L 11.5-16.0 G/DL Hematocrit 27 L 35-52 % Mean Corpuscular Volume 85 80-99 FL Mean Corpuscular Hemoglobin 26 25-34 PG Mean Corpuscular Hemoglobin Concent 31 L 32-36 G/DL Red Cell Distribution Width 16.8 H 10.0-14.5 % Platelet Count 354 130-400 10^3/uL Mean Platelet Volume 9.3 7.4-10.4 FL Neutrophils (%) (Auto) 64 42-75 % Lymphocytes (%) (Auto) 26 12-44 % Monocytes (%) (Auto) 7 0-12 % Eosinophils (%) (Auto) 3 0-10 % Basophils (%) (Auto) 0 0-10 % Neutrophils # (Auto) 5.9 1.8-7.8 X 10^3 Lymphocytes # (Auto) 2.4 1.0-4.0 X 10^3 Monocytes # (Auto) 0.6 0.0-1.0 X 10^3 Eosinophils # (Auto) 0.2 0.0-0.3 10^3/uL Basophils # (Auto) 0.0 0.0-0.1 10^3/uL Prothrombin Time 13.7 12.2-14.7 SEC INR Comment 1.0 0.8-1.4 Activated Partial Thromboplast Time 32 24-35 SEC Sodium Level 142 135-145 MMOL/L Potassium Level 3.7 3.6-5.0 MMOL/L Chloride Level 106 98-107 MMOL/L Carbon Dioxide Level 29 21-32 MMOL/L Anion Gap 7 5-14 MMOL/L Blood Urea Nitrogen 10 7-18 MG/DL Creatinine 0.98 0.60-1.30 MG/DL Estimat Glomerular Filtration Rate 56 BUN/Creatinine Ratio 10 Glucose Level 90 70-105 MG/DL Lactic Acid Level 2.10 *H 0.50-2.00 MMOL/L Calcium Level 9.0 8.5-10.1 MG/DL Total Bilirubin 0.3 0.1-1.0 MG/DL Aspartate Amino Transf (AST/SGOT) 14 5-34 U/L Alanine Aminotransferase (ALT/SGPT) < 6 0-55 U/L Alkaline Phosphatase 109 40-136 U/L Troponin I < 0.30 <0.30 NG/ML B-Type Natriuretic Peptide 33.3 <100.0 PG/ML Total Protein 7.0 6.4-8.2 GM/DL Albumin 3.3 3.2-4.5 GM/DL Urine Color YELLOW Urine Clarity SLIGHTLY CLOUDY Urine pH 6 5-9 Urine Specific [place] 1.015 L 1.016-1.022 Urine Protein 2+ H NEGATIVE Urine Glucose (UA) NEGATIVE NEGATIVE Urine Ketones NEGATIVE NEGATIVE Urine Nitrite NEGATIVE NEGATIVE Urine Bilirubin NEGATIVE NEGATIVE Urine Urobilinogen NORMAL NORMAL MG/DL Urine Leukocyte Esterase 3+ H NEGATIVE Urine RBC (Auto) 4+ H NEGATIVE Urine RBC 2-5 H /HPF Urine WBC >100 H /HPF Urine Squamous Epithelial Cells 25-50 H /HPF Urine Crystals NONE /LPF Urine Bacteria TRACE /HPF Urine Casts PRESENT /LPF Urine Hyaline Casts 10-25 H /LPF Urine Mucus NEGATIVE /LPF Urine Culture Indicated YES Blood Gas Puncture Site LT RAD Blood Gas Patient Temperature 97.9 Arterial Blood pH 7.41 7.37-7.43 Arterial Blood Partial Pressure CO2 45 35-45 MMHG Arterial Blood Partial Pressure O2 75 L 79-93 MMHG Arterial Blood HCO3 28 H 23-27 MMOL/L Arterial Blood Total CO2 29.4 21.0-31.0 MMOL/L Arterial Blood Oxygen Saturation 97 94-100 % Arterial Blood Base Excess 3.6 H -2.5-2.5 MMOL/L Mario Test YES-POS Blood Gas Ventilator Setting NO Blood Gas Inspired Oxygen 2L Physical Exam Vital Signs Vital Signs - First Documented 05/21/17 05/21/17 05/21/17 15:00 15:09 16:00 Pulse 77 Resp 21 B/P (MAP) 100/50 (67) Pulse Ox 96 O2 Delivery Nasal Cannula O2 Flow Rate 3.00 FiO2 32 Capillary Refill : General Appearance: No Apparent Distress, WD/WN, Mild Distress Eyes: Bilateral Eye Normal Inspection, Bilateral Eye PERRL, Bilateral Eye EOMI HEENT: PERRL/EOMI, TMs Normal, Normal ENT Inspection, Pharynx Normal Neck: Full Range of Motion, Normal Inspection, Non Tender, Supple Respiratory: Chest Non Tender, Lungs Clear, Normal Breath Sounds, No Accessory Muscle Use, No Respiratory Distress Cardiovascular: Regular Rate, Rhythm, No Edema, No Gallop, No JVD, No Murmur, Normal Peripheral Pulses Gastrointestinal: Normal Bowel Sounds, No Organomegaly, No Pulsatile Mass, Non Tender, Soft Back: Normal Inspection, No CVA Tenderness, No Vertebral Tenderness Extremity: Normal Capillary Refill, Calf Tenderness, Pedal Edema, Swelling Neurologic/Psychiatric: Alert, Oriented x3, No Motor/Sensory Deficits, Normal Mood/Affect Skin: Normal Color, Warm/Dry Lymphatic: No Adenopathy A/P-Cardiology Admission Diagnosis Peripheral retinal disease Anemia Lower extremities Hypotension Assessment/Plan Peripheral arterial disease status post peripheral angiogram done in December 2016 showing Subtotal occlusion of the right SFA, complex intervention with scoring balloon VASCUTRACK then drug-coated balloon LUTONIX , followed by 3 stent deployment 2 overlapping SUPERA [id number] extending from the popliteal to the proximal SFA, the proximal portion of the SFA involving the ostial portion I used ABSOLUTE PRO 760 self-expanding stent, postdilatation with 5.5 balloon with excellent results, patient did not have any follow-up visit. Did not return for her appointment Lower extremity pain, discomfort, venous Doppler study is ordered, continue to monitor, could be due to progression of her underlying peripheral arterial disease Hypotension, multifactorial, start IV fluid and monitor blood pressure closely. Shortness of breath, using oxygen, history of tobaccoism. Anemia, planning for EGD. Patient is Mandaen, refusing blood transfusion Tobaccoism, educated on smoking cessation, patient expressed that she is down to 4 cigarettes a day Hyperlipidemia, monitor lipid Multiple risk factors for coronary artery disease, stress test done in December 2016 showed transient ischemic dilatation, extracardiac attenuation, did not have any follow-up visits. Noncompliant with appointments. Status post prolonged respiratory failure, ARDS, in 2014. Currently doing well. Continue to monitor Sinus tachycardia with frequent atrial premature contractions, currently heart rate is better. Continue to monitor Status post hypotension with intravascular volume depletion during hospitalization, currently blood pressure is better. COPD, followed and managed by Dr. Adair with or any orders for her blood pressure or just continuous History of complex back surgery, underwent L1 corpectomy/reconstruction, T12-L1 posterior column osteotomy, revision of T12-L5 laminectomy, T6 pelvic posterior spinal fusion for deformity. Done by Dr. Anderson. Prolonged recovery time, poor wound healing, underwent wound care at [facility]. History of severe thoracic lumbar stenosis, thoracic lumbar myelopathy. Clinical Quality Measures DVT/VTE Risk/Contraindication: Risk Factor Score Per Nursin RFS Level Per Nursing on Admit: 4+=Very High Contraindications-Pharm: Other *list below* Contraindications-Mechi: Other *list below* Other: Unaboot status on lower legs Acute GIB TAMELA ALVARADO MD May 21, 2017 16:56
[2017-05-21] MEDS: NS IV 1000 ML 1,000 ML IV SCH (17:13)
--- NOTE | 2017-05-21 17:40 | Diagnostic Imaging Report ---
INDICATION: Bilateral lower extremity swelling. COMPARISON STUDY: Lower extremity venous Doppler from 11/30/14. FINDINGS: Examination demonstrates edema in both lower extremities. The distal peroneal veins are not visualized due to the patient's edema. No DVT is identified. There are no fluid collections. IMPRESSION: There is no evidence of a DVT. Dictated by: Dictated on workstation # [id number]
--- NOTE | 2017-05-21 17:41 | Diagnostic Imaging Report ---
INDICATION: Short of breath. EXAMINATION: Frontal chest, 05/21/2017. COMPARISON: 04/14/2017. FINDINGS: Heart is stable. There is pulmonary vascular congestion with findings of edema throughout both lungs. Underlying chronic changes within both lungs are also noted. There is no pneumothorax. There are no effusions. Early atelectasis or infiltrate in the right lung base is not excluded. Postoperative changes along the spine and left shoulder are stable. IMPRESSION: 1. Pulmonary edema. 2. Possible atelectasis versus infiltrate in the right lung base. Remaining findings appear chronic. Dictated by: Dictated on workstation # [id number]
[2017-05-21] MEDS ORDERED: EPINEPHrine INJECTION 1 MG/ML AMP ONE (19:49)
[2017-05-21] MEDS ORDERED: proPOfol 200 MG/20 ML (DIPRIVAN) VIAL IV ONE (20:25)
--- NOTE | 2017-05-21 20:38 | CONSULTATION REPORT ---
DATE OF SERVICE: 05/21/2017 The patient is admitted to ICU bed 12. PHYSICIAN REQUESTING CONSULTATION: Jazmyne Nye DO. IMPRESSION: 1. A 72-year-old female admitted with increasing shortness of breath and anemia. 2. The patient gives history of hematochezia with the last reported colonoscopy 5 to 6 years ago with few polyps. 3. History of peripheral arterial disease, status post stent placement in late 2016. Currently, on anticoagulation with aspirin and Plavix. 4. History of chronic obstructive pulmonary disease and oxygen dependent. 5. The patient is Uatsdin and refuses any blood transfusion if needed. RECOMMENDATIONS: 1. Obtain baseline serum iron studies including ferritin level. 2. Agree with surgical consult for possible colonoscopy with or without EGD to locate the source of bleeding. 3. Monitor CBC and hemoglobin levels serially. 4. If her hemoglobin level is dropping, we will start her on parenteral iron therapy as well as erythropoietic stimulating agents. 5. Consider stopping Plavix because of history of acute bleeding if okay with cardiology. 6. We will follow the patient with you. BRIEF HISTORY OF PRESENT ILLNESS: The patient is a 72-year-old female, who was transferred to [facility] and admitted to ICU because of history of hematochezia and anemia. The patient is a Uatsdin and refuses all blood products. She has history of peripheral arterial disease requiring stent placement in 12/2016 and has been on aspirin and Plavix since then. Hematology consultation was requested for possible erythropoietic stimulating agent therapy. PAST MEDICAL HISTORY: Significant for significant COPD/emphysema and is oxygen dependent. She has longstanding history of hypertension, hypercholesterolemia, and peripheral arterial disease requiring stent placement in the past. She has chronic lower extremity edema and probable venous stasis with nonhealing ulcers in the past. She has degenerative disk disease, chronic back pain. History of hypothyroidism and on replacement. PAST SURGICAL HISTORY: Include two back surgeries, appendectomy, cholecystectomy, hysterectomy with bilateral salpingo-oophorectomy, partial shoulder replacement, fracture of arm requiring hardware placement and removal. She was also required a right lower extremity stent placement in 12/2016. SOCIAL HISTORY: The patient is a and lives by herself in [place], [place]. She has one daughter, who lives close by and checks on her regularly. She has approximately [id number] history of tobacco use, smoking one and a half packs of cigarettes a day for 50 years. Recently, she has cut down on smoking and is currently using only four to five cigarettes a day. No history of alcohol or recreational drug use. 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 No history of exposure to any chemicals. FAMILY HISTORY: Significant for her father, who was diagnosed with lung cancer. Her mother and a brother were diagnosed with coronary artery disease. Another brother required a CABG for coronary artery disease. No other malignancies or hematologic problems in the family that the patient knows of. PHYSICAL EXAMINATION: GENERAL: An elderly female, obese, awake and oriented, in mild respiratory distress. HEENT: Normocephalic, extraocular muscles intact, conjunctivae pale, oral mucosa are moist. NECK: Supple, with no JVD. No cervical, supraclavicular or axillary lymphadenopathy palpable. CHEST: Symmetrical. LUNGS: With diminished breath sounds bilaterally without wheezes or rales. HEART: Regular in rate and rhythm. No murmurs or gallops heard. ABDOMEN: Obese, soft, nontender with no hepatosplenomegaly or other masses palpable. EXTREMITIES: Showed 3 to 4+ edema of both lower extremities. SKIN: No ulcers were noted. NEUROLOGIC: Showed overall motor strength of 4/5 bilaterally with no focal motor deficits. LABORATORY DATA: CBC done today showed WBC 9.2, hemoglobin 8.4, MCV 85, RDW of 16.8, platelet count 354,000 with neutrophil count 5.9 and lymphocyte count 2.4. Chemistry panel showed normal electrolytes. BUN was 10 and creatinine 0.98 with GFR 56 mL per minute. Liver function studies were within normal limits. Serum iron studies are pending. Thank you for allowing me to participate in this patient's care. I will follow the patient with you and make appropriate recommendations. Job ID: [id number] DocumentID: [id number] Dictated Date: 05/21/2017 18:03:37 Construction Technology Instructor Date: 05/21/2017 20:37:35 Dictated By: MARTITA LANGE MD
--- NOTE | 2017-05-21 21:02 | Progress Note-Post Operative ---
Post-Operative Progess Note Surgeon (s)/Wood Lathe Operator (s) Surgeon LOYDA CHILEL DO Wood Lathe Operator: none Pre-Operative Diagnosis GI bleed, anemia Post-Operative Diagnosis same and ??gastric ulcer, gastritis Procedure & Operative Findings Date of Procedure 05/21/17 Procedure Performed/Findings EGD with bx Anesthesia Type IV sedation by [facility]OL[facility] Estimated Blood Loss Estimated blood loss (mL): scant Specimens/Packing Specimens Removed bx of body stomach bx of Cardia in Hiatal hernia LOYDA CHILEL DO May 21, 2017 21:02
[2017-05-21] MEDS: PANTOPRAZOLE 40 MG/10 ML (PROTONIX) VIAL IV SCH (21:09)
[2017-05-21] MEDS: CATHETER FLUSH 10 ML SYR IV SCH (21:10)
[2017-05-21] MEDS: RT-ALBUTEROL/IPRATROPIUM 3 ML (DUONEB) VIAL INH SCH (21:45)
[2017-05-21] MEDS ORDERED: HURRICAINE EXT TUBE (BENZOCAINE) XX PRN (22:45)
--- NOTE | 2017-05-21 23:35 | OPERATIVE REPORT ---
DATE OF SERVICE: PREOPERATIVE DIAGNOSES: Gastrointestinal bleed, anemia. POSTOPERATIVE DIAGNOSES: Gastrointestinal bleed, anemia, gastritis, possible gastric ulcer with some gastritis in the hiatal hernia, portion of the esophagus, but otherwise GE junction normal. PROCEDURE: EGD with biopsy. SURGEON: Dr. Calixto. VOLUNTEER FIRE FIGHTER: None. ANESTHESIA: IV sedation by [employer] SYSTEMS INTEGRATION SPECIALIST. BLOOD LOSS: Scant. FLUIDS: Per anesthesia. POSTOPERATIVE CONDITION: Stable. SPECIMEN: One from the body of the stomach and one from the upper portion mostly cardia up in the hiatal hernia. ESTIMATED BLOOS LOSS: She had blood loss of scant. INDICATION FOR PROCEDURE: The patient is a 72-year-old female who has had a GI bleed, history of anemia. Previous colonoscopy, did not really show anything, but was a couple years ago and needed a workup. FINDINGS: The patient had what looked like a questionable ulcer healed possibly in the body of the stomach. The antrum looked okay. She had a polyp in the duodenum and she had some gastritis in the portion of stomach that was up in the hiatal hernia and no other obvious pathology seen. PROCEDURE NOTE: After informed consent was obtained, the patient was in her bed in the ICU. Her vitals were monitored the entire time, heart rate, blood pressure and pulse ox. Anesthesia put her to sleep with IV sedation and then inserted the scope, pushed down the mouth, down the esophagus and into the stomach down towards the antrum into the first portion and second portion of duodenum, looked good, did not see any duodenitis, did see a small polyp, took a picture of this, we elected not to biopsy this. Pulled back into the antrum, did not really see any inflammation here. She did have a little bit of retained food and then saw what looked like an area of a very small amount of bleeding, possibly an ulcer, elected to do a biopsy here and then retroflexed, saw pretty large hiatal hernia, pulled up into this hiatal hernia and there were some gastritis in this area, did a biopsy here as well and then pulled back into the esophagus, esophagus looked good and slowly pulled it out the esophagus and out the mouth. The patient tolerated the procedure well and she was recovered in her ICU bed. Job ID: [id number] DocumentID: [id number] Dictated Date: 05/21/2017 20:59:54 Manager Group Date: 05/21/2017 23:35:05 Dictated By: LOYDA CALIXTO DO
[2017-05-22] VITALS (15 sets, daily range): BP systolic 88–130; BP diastolic 53–77
[2017-05-22] MEDS: NS IV 1000 ML 1,000 ML IV SCH (00:22)
[2017-05-22] MEDS ORDERED: LORazepam INJ 2 MG/ML (ATIVAN) VIAL ONE (01:12)
[2017-05-22] MEDS ORDERED: LORazepam INJ 2 MG/ML (ATIVAN) VIAL IVP ONE (01:15)
--- NOTE | 2017-05-22 02:13 | Pulmonary Progress Note ---
Subjective Time Seen by Provider: 02:13 Subjective/Events-last exam PT is doing better since admission Focused Exam Evaluation Lactate Level Laboratory Tests 05/21/17 15:30: Lactic Acid Level 2.10*H 05/21/17 17:20: Lactic Acid Level 1.42 Exam Exam Vital Signs Date Time Temp Pulse Resp B/P (MAP) Pulse Ox O2 Delivery O2 Flow Rate FiO2 05/22/17 00:00 78 18 104/54 (71) 96 Nasal Cannula 2.00 05/22/17 00:00 Nasal Cannula 2.00 05/21/17 23:00 82 21 114/48 (70) 98 Nasal Cannula 2.00 05/21/17 22:00 82 18 107/52 (70) 96 Nasal Cannula 2.00 05/21/17 21:45 98 Nasal Cannula 2.00 05/21/17 21:00 64 24 102/53 (69) 91 Nasal Cannula 2.00 05/21/17 20:00 Nasal Cannula 2.00 05/21/17 20:00 85 25 101/62 (75) 97 Nasal Cannula 2.00 05/21/17 19:15 97.6 Nasal Cannula 2.00 05/21/17 19:00 77 05/21/17 19:00 77 24 100/49 (66) 97 Nasal Cannula 2.00 05/21/17 18:00 66 22 97/49 (65) 98 Nasal Cannula 2.00 05/21/17 17:00 79 21 101/52 (68) 98 Nasal Cannula 2.00 05/21/17 16:06 Nasal Cannula 2.00 05/21/17 16:00 2 Room Air 05/21/17 16:00 77 21 100/50 (67) 99 Nasal Cannula 3.00 05/21/17 15:09 96 32 05/21/17 15:00 Nasal Cannula 3.00 I & O 05/22/17 07:00 Intake Total 1000 ml Output Total 1350 ml Balance -350 ml General Appearance: No Apparent Distress, WD/WN, Mild Distress HEENT: PERRL/EOMI, TMs Normal, Normal ENT Inspection, Pharynx Normal Neck: Full Range of Motion, Normal Inspection, Non Tender, Supple Respiratory: Chest Non Tender, Lungs Clear, Normal Breath Sounds, No Accessory Muscle Use, No Respiratory Distress Cardiovascular: Regular Rate, Rhythm, No Edema, No Gallop, No JVD, No Murmur, Normal Peripheral Pulses Gastrointestinal: normal bowel sounds, soft, no organomegaly, no pulsatile mass Extremity: Normal Capillary Refill, Calf Tenderness, Pedal Edema, Swelling Neurologic/Psychiatric: Alert, Oriented x3, No Motor/Sensory Deficits, Normal Mood/Affect Skin: Normal Color, Warm/Dry Lymphatic: No Adenopathy Results Lab Laboratory Tests 05/21/17 15:30 Assessment/Plan Assessment/Plan COPDAE with hypoxia -Will do Prednisone 40mg x 5days then D/C -SVNs -Oxygen Anemia s/p EGD Hypotension -Monitor -IVF PAD tobacco use hx transfer to 4th with tele 233 ALLISON GODFREY DO May 22, 2017 02:13
[2017-05-22] MEDS ORDERED: NS IV 1000 ML 1,000 ML IV SCH (02:20)
[2017-05-22 02:36] LABS: ABSOLUTE RETIC # 63 10e9/L (24-90); BASOPHILS % (AUTO) 0 % (0-10); EOSINOPHILS # (AUTO) 0.2 10^3/uL (0.0-0.3); EOSINOPHILS % (AUTO) 3 % (0-10); LYMPHOCYTES % (AUTO) 28 % (12-44); MEAN CORPUSCULAR HEMOGLOBIN 26 PG (25-34); MEAN CORPUSCULAR HGB CONC 30 G/DL (32-36); MEAN CORPUSCULAR VOLUME 86 FL (80-99); MONOCYTES # (AUTO) 0.5 X 10^3 (0.0-1.0); MONOCYTES % (AUTO) 7 % (0-12); NEUTROPHILS # (AUTO) 4.3 X 10^3 (1.8-7.8); NEUTROPHILS % (AUTO) 62 % (42-75); PLATELET COUNT 300 10^3/uL (130-400); RED BLOOD COUNT 2.66 10^6/uL (4.35-5.85); RED CELL DISTRIBUTION WIDTH 16.6 % (10.0-14.5); RETICULOCYTE % 2.37 % (0.50-2.40)
[2017-05-22 02:42] LABS: HEMATOCRIT 24 % (35-52)
[2017-05-22] MEDS: predniSONE 20 MG TAB PO SCH ×2 (02:54→09:28)
[2017-05-22 03:04] LABS: ALANINE AMINOTRANSFERASE 6 U/L (0-55); ALBUMIN 2.7 GM/DL (3.2-4.5); ALKALINE PHOSPHATASE 91 U/L (40-136); BILIRUBIN,TOTAL 0.4 MG/DL (0.1-1.0); BUN/CREATININE RATIO 12; CARBON DIOXIDE 29 MMOL/L (21-32); CHLORIDE 107 MMOL/L (98-107); CREATININE SERUM 0.84 MG/DL (0.60-1.30); GFR ESTIMATED > 60; GLUCOSE 93 MG/DL (70-105); POTASSIUM 3.5 MMOL/L (3.6-5.0); SODIUM 143 MMOL/L (135-145); TOTAL PROTEIN 5.4 GM/DL (6.4-8.2)
[2017-05-22] MEDS: CATHETER FLUSH 10 ML SYR IV SCH ×3 (05:04→22:17)
[2017-05-22] MEDS: inSUlin (REGULAR) HUMAN 1 UNIT/0.01 ML (CHARGE PER UNIT) SC SCH ×4 (05:05→21:28)
[2017-05-22] MEDS ORDERED: POTASSIUM CL 10MEQ/50ML IVPB 50 ML IV SCH ×2 (06:00)
[2017-05-22] MEDS ORDERED: MAGNESIUM 1 GM/100 ML IVPB 100 ML IV SCH ×2 (06:00)
[2017-05-22] MEDS ORDERED: KCL 20 MEQ TAB (K-DUR) PO SCH ×2 (06:00)
--- NOTE | 2017-05-22 07:25 | Cardiology Progress Note ---
Subjective Date Seen by Provider: May 22, 2017 Time Seen by Provider: 07:21 Subjective/Events-last exam Patient is laying down in bed, still complaining of generalized body ache, denied any chest pain, mild shortness of breath Review of Systems General: No Chills, No Night Sweats, Fatigue, Malaise, No Appetite, No Other HEENT: No Head Aches, No Visual Changes, No Eye Pain, No Ear Pain, No Dysphasia , No Sinus Congestion, No Post Nasal Drip, No Sore Throat, No Other Pulmonary: Dyspnea, No Cough, No Pleuritic Chest Pain, No Other Cardiovascular: Edema, No: Chest Pain, Palpitations, Orthopnea, Paroxysmal Noc. Dyspnea, Lt Headedness, Other Focused Exam Evaluation Lactate Level Laboratory Tests 05/21/17 15:30: Lactic Acid Level 2.10*H 05/21/17 17:20: Lactic Acid Level 1.42 Objective-Cardiology Exam Last Set of Vital Signs Vital Signs 05/21/17 05/22/17 05/22/17 15:09 03:16 06:00 Temp 97.8 Pulse 73 Resp 14 B/P (MAP) 98/54 (69) Pulse Ox 99 O2 Delivery Nasal Cannula O2 Flow Rate 2.00 FiO2 32 Capillary Refill : I&O Intake and Output 05/22/17 00:00 Intake Total 0 ml Output Total 1350 ml Balance -1350 ml Intake Oral 0 ml Output Urine Total 1350 ml Daily Weight Change No General: Alert, Oriented X3, Cooperative HEENT: Atraumatic, PERRLA Neck: Supple, No JVD, No Thyromegaly Lungs: Normal Air Movement, Other (Bilateral rhonchi) Heart: Regular Rate, Normal S1, Normal S2, No Murmurs Abdomen: Normal Bowel Sounds, Soft, No Tenderness, No Hepatosplenomegaly, No Masses Extremities: No Clubbing, No Cyanosis, No Tenderness/Swelling, Other ( Peripheral edema, diminished pulses) Skin: Other (Venous stasis changes) Neuro: Normal Speech, Normal Tone Psych/Mental Status: Mental Status NL, Mood NL Results Lab Laboratory Tests 05/21/17 15:30 05/22/17 02:10 A/P-Cardiology Admission Diagnosis Peripheral arterial disease Anemia Lower extremities Hypotension Assessment/Plan Shortness of breath, exacerbation of COPD, started on prednisone Anemia, worsening today. Patient is Jehovah witness, does not want blood transfusion, scheduled for EGD. Peripheral arterial disease, history of peripheral angiogram done in December 2016 showing Subtotal occlusion of the right SFA, complex intervention with scoring balloon VASCUTRACK then drug-coated balloon LUTONIX , followed by 3 stent deployment 2 overlapping SUPERA [id number] extending from the popliteal to the proximal SFA, the proximal portion of the SFA involving the ostial portion I used ABSOLUTE PRO 760 self-expanding stent, postdilatation with 5.5 balloon with excellent results, patient did not have any follow-up visit. Did not return for her appointment Lower extremity pain, discomfort, chronic venous stasis changes, venous Doppler was negative for DVT. Conservative management. Has been on aspirin and Plavix , may discontinue Plavix. If patient is not having active bleeding I would recommend restarting aspirin Hypotension, better at this time, received IV fluid. Tobaccoism, educated on smoking cessation, patient expressed that she is down to 4 cigarettes a day Hyperlipidemia, monitor lipid Multiple risk factors for coronary artery disease, stress test done in December 2016 showed transient ischemic dilatation, extracardiac attenuation, did not have any follow-up visits. Noncompliant with appointments. Status post prolonged respiratory failure, ARDS in 2014. Currently doing well. Continue to monitor History of complex back surgery, underwent L1 corpectomy/reconstruction, T12-L1 posterior column osteotomy, revision of T12-L5 laminectomy, T6 pelvic posterior spinal fusion for deformity. Done by Dr. Anderson. Prolonged recovery time, poor wound healing, underwent wound care at [facility]. History of severe thoracic lumbar stenosis, thoracic lumbar myelopathy. Clinical Quality Measures DVT/VTE Risk/Contraindication: Risk Factor Score Per Nursin RFS Level Per Nursing on Admit: 4+=Very High Contraindications-Pharm: Other *list below* Contraindications-Mechi: Other *list below* Other: Unaboot status on lower legs Acute GIB TAMELA ALVARADO MD May 22, 2017 07:25
[2017-05-22] MEDS ORDERED: KCL 20 MEQ TAB (K-DUR) PO ONE (09:00)
--- NOTE | 2017-05-22 09:10 | Diagnostic Imaging Report ---
INDICATION: Hypoxia. Frontal chest obtained at 1:57 a.m. and compared with yesterday. FINDINGS: There is mild cardiomegaly. There is central vascular congestion with interstitial edema. There is no new consolidation or pleural fluid or pneumothorax. IMPRESSION: Cardiomegaly and central vascular congestion with interstitial edema. No new abnormalities compared to the prior study. Dictated by: Dictated on workstation # [id number]
[2017-05-22] MEDS: PANTOPRAZOLE 40 MG/10 ML (PROTONIX) VIAL IV SCH ×2 (09:27→21:30)
[2017-05-22] MEDS: RT-ALBUTEROL/IPRATROPIUM 3 ML (DUONEB) VIAL INH SCH ×2 (10:21→19:31)
[2017-05-22] MEDS ORDERED: CYANOCOBALAMIN INJ 1000 MCG/ML IM NR (10:30)
[2017-05-22] MEDS ORDERED: DARBEPOETIN 100 MCG/ML (ARANESP) 1 ML VIAL SC NR (10:30)
--- NOTE | 2017-05-22 10:34 | Progress Note-Standard ---
Standard Progress Note Progress Notes/Assess & Plan Date Seen by Provider: May 22, 2017 Time Seen by Provider: 10:26 Progress/Assessment & Plan 72-year-old female, transferred from [facility] with GI bleeding and anemia. Patient is Mu-ism and refuses blood products. Hemoglobin 8.4 on admission which today morning is 7.0. Patient has peripheral arterial disease requiring stent placement in January 2017 and was on Plavix and aspirin. This has been stopped. EGD completed yesterday showing a hiatal hernia with gastritis and healing gastric ulcer but no active bleeding. Patient was weaker today but does wake and oriented. She is answering questions and still refused blood transfusion fully understanding that this could be life-threatening. Lab work done yesterday reviewed. Serum ferritin level is 19. I will start the patient on Benefiber 200 mg IV every 48 hours with the first dose now. She will also receive MAIRA (Aranesp 100 mcg) subcutaneously now. We will arrange this weekly on an outpatient basis with the target hemoglobin level between 9-10 g/dL. She will receive vitamin B-12 1000 g IM today and I will start her on folic acid 1 mg daily. Avoid Plavix and aspirin until no active bleeding is confirmed and hemoglobin level is improving. Dr. Tena is covering until 05/29/2017. Focused Exam Evaluation Lactate Level Laboratory Tests 05/21/17 15:30: Lactic Acid Level 2.10*H 05/21/17 17:20: Lactic Acid Level 1.42 MARTITA LANGE May 22, 2017 10:34
--- NOTE | 2017-05-22 11:14 | Progress Note ---
Subjective Time Seen by Provider: 10:48 Subjective/Events-last exam Pt seen and examined. Denies abdominal pain, tolerating diet. No melena or hematochezia. Review of Systems General: No Chills, No Night Sweats Pulmonary: Dyspnea, No Cough Cardiovascular: No: Chest Pain Gastrointestinal: No: Nausea, Vomiting, Abdominal Pain Focused Exam Evaluation Lactate Level Laboratory Tests 05/21/17 15:30: Lactic Acid Level 2.10*H 05/21/17 17:20: Lactic Acid Level 1.42 Objective Exam Vital Signs Date Time Temp Pulse Resp B/P (MAP) Pulse Ox O2 Delivery O2 Flow Rate FiO2 05/22/17 10:23 99 Nasal Cannula 2.00 05/22/17 08:00 79 11 111/67 (82) 97 Nasal Cannula 2.00 05/22/17 07:00 84 05/22/17 07:00 84 14 109/57 (74) 98 Nasal Cannula 2.00 05/22/17 06:00 73 14 98/54 (69) 99 Nasal Cannula 2.00 05/22/17 05:00 77 17 99/55 (70) 97 Nasal Cannula 2.00 05/22/17 04:00 Nasal Cannula 2.00 05/22/17 04:00 88 15 103/57 (72) 98 Nasal Cannula 2.00 05/22/17 03:16 97.8 05/22/17 03:00 74 16 88/53 (65) 97 Nasal Cannula 2.00 05/22/17 02:00 75 12 101/56 (71) 91 Nasal Cannula 2.00 05/22/17 01:00 67 05/22/17 01:00 67 15 101/61 (74) 97 Nasal Cannula 2.00 05/22/17 00:00 78 18 104/54 (71) 96 Nasal Cannula 2.00 05/22/17 00:00 98.1 05/22/17 00:00 Nasal Cannula 2.00 05/21/17 23:00 82 21 114/48 (70) 98 Nasal Cannula 2.00 05/21/17 22:00 82 18 107/52 (70) 96 Nasal Cannula 2.00 05/21/17 21:45 98 Nasal Cannula 2.00 05/21/17 21:00 64 24 102/53 (69) 91 Nasal Cannula 2.00 05/21/17 20:00 Nasal Cannula 2.00 05/21/17 20:00 85 25 101/62 (75) 97 Nasal Cannula 2.00 05/21/17 19:15 97.6 Nasal Cannula 2.00 05/21/17 19:00 77 05/21/17 19:00 77 24 100/49 (66) 97 Nasal Cannula 2.00 05/21/17 18:00 66 22 97/49 (65) 98 Nasal Cannula 2.00 05/21/17 17:00 79 21 101/52 (68) 98 Nasal Cannula 2.00 05/21/17 16:06 Nasal Cannula 2.00 05/21/17 16:00 2 Room Air 05/21/17 16:00 77 21 100/50 (67) 99 Nasal Cannula 3.00 05/21/17 15:09 96 32 05/21/17 15:00 Nasal Cannula 3.00 I & O 05/22/17 07:00 Intake Total 1000 ml Output Total 2125 ml Balance -1125 ml Capillary Refill : General Appearance: No Apparent Distress, WD/WN, Mild Distress HEENT: PERRL/EOMI, Pharynx Normal Neck: Non Tender Respiratory: Chest Non Tender, Lungs Clear, Normal Breath Sounds, No Accessory Muscle Use, No Respiratory Distress Cardiovascular: Regular Rate, Rhythm, No Murmur Gastrointestinal: normal bowel sounds, soft, no organomegaly, no pulsatile mass Extremity: Normal Capillary Refill, Calf Tenderness, Pedal Edema, Swelling Neurologic/Psychiatric: Alert, Oriented x3 Lymphatic: No Adenopathy (neck, axilla or groin) Results Lab Laboratory Tests 05/21/17 15:30: White Blood Count 9.2, Red Blood Count 3.20L, Hemoglobin 8.4L, Hematocrit 27L, Mean Corpuscular Volume 85, Mean Corpuscular Hemoglobin 26, Mean Corpuscular Hemoglobin Concent 31L, Red Cell Distribution Width 16.8H, Platelet Count 354, Mean Platelet Volume 9.3, Neutrophils (%) (Auto) 64, Lymphocytes (%) (Auto) 26, Monocytes (%) (Auto) 7, Eosinophils (%) (Auto) 3, Basophils (%) (Auto) 0, Neutrophils # (Auto) 5.9, Lymphocytes # (Auto) 2.4, Monocytes # (Auto) 0.6, Eosinophils # (Auto) 0.2, Basophils # (Auto) 0.0, Prothrombin Time 13.7, INR Comment 1.0, Activated Partial Thromboplast Time 32, Sodium Level 142, Potassium Level 3.7, Chloride Level 106, Carbon Dioxide Level 29, Anion Gap 7, Blood Urea Nitrogen 10, Creatinine 0.98, Estimat Glomerular Filtration Rate 56, BUN/Creatinine Ratio 10, Glucose Level 90, Lactic Acid Level 2.10*H, Calcium Level 9.0, Iron Level 23L, Total Iron Binding Capacity 399H, Unsaturated Iron Binding Capacity 376, Transferrin % Saturation 6L, Ferritin 19.0, Total Bilirubin 0.3, Aspartate Amino Transf (AST/SGOT) 14, Alanine Aminotransferase ( ALT/SGPT) < 6, Alkaline Phosphatase 109, Troponin I < 0.30, B-Type Natriuretic Peptide 33.3, Total Protein 7.0, Albumin 3.3 05/21/17 15:40: Urine Color YELLOW, Urine Clarity SLIGHTLY CLOUDY, Urine pH 6, Urine Specific Cushing 1.015L, Urine Protein 2+H, Urine Glucose (UA) NEGATIVE, Urine Ketones NEGATIVE, Urine Nitrite NEGATIVE, Urine Bilirubin NEGATIVE, Urine Urobilinogen NORMAL, Urine Leukocyte Esterase 3+H, Urine RBC (Auto) 4+H, Urine RBC 2-5H, Urine WBC >100H, Urine Squamous Epithelial Cells 25-50H, Urine Crystals NONE, Urine Bacteria TRACE, Urine Casts PRESENT, Urine Hyaline Casts 10-25H, Urine Mucus NEGATIVE, Urine Culture Indicated YES 05/21/17 16:00: Blood Gas Puncture Site LT RAD, Blood Gas Patient Temperature 97.9, Arterial Blood pH 7.41, Arterial Blood Partial Pressure CO2 45, Arterial Blood Partial Pressure O2 75L, Arterial Blood HCO3 28H, Arterial Blood Total CO2 29.4, Arterial Blood Oxygen Saturation 97, Arterial Blood Base Excess 3.6H, Mario Test YES-POS, Blood Gas Ventilator Setting NO, Blood Gas Inspired Oxygen 2L 05/21/17 17:20: Lactic Acid Level 1.42 05/22/17 02:10: White Blood Count 7.0, Red Blood Count 2.66L, Hemoglobin 7.0L, Hematocrit 24L, Mean Corpuscular Volume 86, Mean Corpuscular Hemoglobin 26, Mean Corpuscular Hemoglobin Concent 30L, Red Cell Distribution Width 16.6H, Platelet Count 300, Mean Platelet Volume 9.0, Neutrophils (%) (Auto) 62, Lymphocytes (%) (Auto) 28, Monocytes (%) (Auto) 7, Eosinophils (%) (Auto) 3, Basophils (%) (Auto) 0, Neutrophils # (Auto) 4.3, Lymphocytes # (Auto) 2.0, Monocytes # (Auto) 0.5, Eosinophils # (Auto) 0.2, Basophils # (Auto) 0.0, Absolute Reticulocyte Count 63 , Percent Reticulocyte Count 2.37, Sodium Level 143, Potassium Level 3.5L, Chloride Level 107, Carbon Dioxide Level 29, Anion Gap 7, Blood Urea Nitrogen 10 , Creatinine 0.84, Estimat Glomerular Filtration Rate > 60, BUN/Creatinine Ratio 12, Glucose Level 93, Calcium Level 8.0L, Magnesium Level 2.0, Total Bilirubin 0.4, Aspartate Amino Transf (AST/SGOT) 11, Alanine Aminotransferase ( ALT/SGPT) 6, Alkaline Phosphatase 91, Total Protein 5.4L, Albumin 2.7L Microbiology 05/21/17 Urine Culture - Preliminary, Resulted Gram Positive Cocci In Chains Assessment/Plan Assessment/Plan Assessment/Plan Anemia GI bleed LE edema, venous stasis changes EGD done, showed minimal gastritis and Hiatal Hernia. No obvious reason for anemia....could be slow blood loss. Biopsies done will await pathology. In the meantime pt should increase protein, take iron and Vitamins. Thank you for this consult. Clinical Quality Measures DVT/VTE Risk/Contraindication: Risk Factor Score Per Nursin RFS Level Per Nursing on Admit: 4+=Very High Contraindications-Pharm: Other *list below* Contraindications-Mechi: Other *list below* Other: Unaboot status on lower legs Acute GIB LOYDA CHILEL DO May 22, 2017 11:13
[2017-05-22] MEDS ORDERED: BENZONATATE 100 MG (TESSALON) CAPSULE PO PRN (11:15)
[2017-05-22] MEDS ORDERED: IBUPROFEN TABLET 200 MG TAB PO PRN (11:15)
--- NOTE | 2017-05-22 11:24 | History & Physical-Hospitalist ---
History of Present Illness HPI/Chief Complaint CC: Severe anemia w/hemoccult positive stools at [facility] HPI: This is a 72 yoWF pt of [facility] Torres admitted to [facility] on observation for severe anemia with presumed heart failure. She's a [employer] who refuses blood products and hgb down to 7.0 requiring EGD at [facility] due to hemoccult positive stools for blood and hematology help for severe anemia. Dr. Calixto Review: EGD looked good with small ulcer without active bleeding dermatology sales representative: Dr. Mana pedraza with pt's move to floor Dr. Fox saw pt's legs, and RN will review note Pt did not have GRACE boots on on arrival Pt Interview: Pt confirms Chloe Eric in [place] as PCP Pt confirms seeing Dr. Fox Pt confirms pain in her lower back Pt confirms previous stay for a pneumonia and states she was feeling better before this happened Pt confirms living at home with a dog and living close to her daughter. Pt confirms walking at home with a walker Physical exam stable. Lungs sound perfect Scribed by Stella Santiago under direct supervision of Dr. Jazmyne Foss. Source: patient, RN/MD Exam Limitations: no limitations Date Seen 05/22/17 Time Seen by Provider: 10:40 Attending Physician Jazmyne Foss DO PCP No,Local Physician Referring Physician Date of Admission May 21, 2017 at 15:00 Home Medications & Allergies Home Medications Reviewed patient Home Medication Reconciliation performed by pharmacy medication reconciliations automotive glass technician and/or nursing. Patients Allergies have been reviewed. Allergies Allergies Coded Allergies Penicillins (Unverified Allergy, Unknown, 09/17/06) Sulfa (Sulfonamide Antibiotics) (Unverified Allergy, Unknown, 09/17/06) Past Kzthonk-Wzruyp-Whkmgb Hx Past Med/Social Hx: Reviewed Nursing Past Med/Soc Hx, Reviewed and Corrections made Patient Social History Marrital Status: single Employed/Student: retired Alcohol Use: Denies Use Recreational Drug Use: No Smoking Status: Current Everyday Smoker Type Used: Cigarettes Physical Abuse Screen: No Sexual Abuse: No Recent Foreign Travel: No Contact w/other who traveled: No Recent Hopitalizations: No Recent Infectious Disease Expo: No Immunizations Up To Date Date of Pneumonia Vaccine: May 21, 2016 Date of Influenza Vaccine: Dec 07, 2016 Seasonal Allergies Seasonal Allergies: No Past Medical History Surgeries: Appendectomy, Gallbladder, Hysterectomy, Oophorectomy, Orthopedic, Vascular Surgery Respiratory: COPD, Pneumonia (04/26 at [facility]) Cardiac: Chronic Edema/Swelling, High Cholesterol, Hypertension, Peripheral Vascular Neurological: Dementia, Neuropathy Reproductive: No Sexually Transmitted Disease: No HIV/AIDS: No Female Reproductive Disorders: Denies Genitourinary: Kidney Stones Gastrointestinal: Chronic Constipation, Irritable Bowel Musculoskeletal: Degenerate Disk Disease, Arthritis, Back Injury, Chronic Back Pain, Fractures Endocrine: Hypothyroidsim Loss of Vision: Bilateral Hearing Impairment: Hard of Hearing, Bilateral Hearing Aide Psychosocial: Anxiety, Schizophrenia, Depression History of Blood Disorders: No Adverse Reaction to Blood Webb: No Family History Cancer (Father had lung cancer), Vascular Disease (Mother had "leg problems like me, but hers never busted open like mine") HTN Review of Systems Constitutional: see HPI, dizziness, malaise, weakness EENTM: no symptoms reported Respiratory: no symptoms reported Cardiovascular: no symptoms reported Gastrointestinal: no symptoms reported Genitourinary: decreased output Musculoskeletal: joint pain Skin: see HPI (legs) Psychiatric/Neurological: No Symptoms Reported All Other Systems Reviewed Negative Unless Noted: Yes Physical Exam Physical Exam Vital Signs Vital Signs - First Documented 05/21/17 05/21/17 05/21/17 15:00 15:09 19:15 Temp 97.6 Pulse Ox 96 O2 Delivery Nasal Cannula O2 Flow Rate 3.00 FiO2 32 Capillary Refill : General Appearance: No Apparent Distress, WD/WN, Chronically ill, Obese Eyes: Bilateral Eye Normal Inspection, Bilateral Eye PERRL HEENT: PERRL/EOMI, Normal ENT Inspection, Pharynx Normal Neck: Full Range of Motion, Normal Inspection, Non Tender, Supple, Carotid Bruit Respiratory: Chest Non Tender, No Accessory Muscle Use, No Respiratory Distress , Crackles (RLL), Decreased Breath Sounds Cardiovascular: Regular Rate, Rhythm, No Edema, No Gallop, No JVD, No Murmur, Normal Peripheral Pulses Gastrointestinal: Normal Bowel Sounds, No Organomegaly, No Pulsatile Mass, Non Tender, Soft Back: Normal Inspection, No CVA Tenderness, No Vertebral Tenderness Extremity: Normal Capillary Refill, Normal Inspection, Normal Range of Motion, Other (chronic and severe lymphedema bilateral) Neurologic/Psychiatric: Alert, Oriented x3, No Motor/Sensory Deficits, Normal Mood/Affect Skin: Normal Color, Warm/Dry Lymphatic: No Adenopathy Results Results/Procedures Labs Laboratory Tests 05/21/17 15:30 05/22/17 02:10 Patient resulted labs reviewed. Assessment/Plan Admission Diagnosis Severe anemia with volume overload Admission Status: Inpatient Order (span 2 midnights) Reason for Inpatient Admission: Patient with severe iron deficiency anemia and volume overload and JW orthodox refusing blood products in need of close monitoring and replenishment of rbc's Assessment and Plan Plan: PT/OT Ambulate Restarted home meds Possible DC at beginning of week Nebs Appreciate Fadi Rodriguez, Mana, Cindy and Dominique consultations Diagnosis/Problems Diagnosis/Problems (1) GI bleed Status: Acute Qualifiers: GI bleed type/associated pathology: unspecified gastrointestinal hemorrhage type Qualified Codes: K92.2 - Gastrointestinal hemorrhage, unspecified (2) Lymphedema of both lower extremities Status: Chronic (3) Schizophrenia Status: Chronic Qualifiers: Schizophrenia type: unspecified Qualified Codes: F20.9 - Schizophrenia, unspecified (4) Anemia Status: Acute Qualifiers: Anemia type: iron deficiency Iron deficiency anemia type: chronic blood loss Qualified Codes: D50.0 - Iron deficiency anemia secondary to blood loss ( chronic) (5) Hypothyroidism Status: Chronic Qualifiers: Hypothyroidism type: acquired Qualified Codes: E03.9 - Hypothyroidism, unspecified (6) Refusal of blood transfusions as patient is [employer] Status: Chronic Clinical Quality Measures DVT/VTE Risk/Contraindication: Risk Factor Score Per Nursin RFS Level Per Nursing on Admit: 4+=Very High Contraindications-Pharm: Other *list below* Contraindications-Mechi: Other *list below* Other: Unaboot status on lower legs Acute GIB JAZMYNE FOSS DO May 22, 2017 11:24
[2017-05-22] MEDS: FOLIC ACID 1 MG TAB PO SCH (11:30)
[2017-05-22] MEDS ORDERED: RT-ALBUTEROL SULF 2.5 MG/3 ML PRE-MIX VIAL IH PRN (11:30)
[2017-05-22] MEDS: IRON SUCROSE 200 MG/10 ML (VENOFER) VIAL IV SCH (11:31)
[2017-05-22] MEDS: KCL 20 MEQ TAB (K-DUR) PO SCH (11:36)
[2017-05-22] MEDS: GABAPENTIN 300 MG (NEURONTIN) CAP PO SCH ×2 (12:53→21:30)
[2017-05-22] MEDS: FUROSEMIDE 40 MG (LASIX) TAB PO SCH (12:54)
[2017-05-22 13:09] LABS: HEMOGLOBIN 7.7 G/DL (11.5-16.0)
--- NOTE | 2017-05-22 13:53 | Physical Therapy Evaluation ---
PT Evaluation-General Medical Diagnosis Admission Date May 21, 2017 at 15:00 Medical Diagnosis: severe anemia/hypoxia Onset Date: May 21, 2017 Therapy Diagnosis Therapy Diagnosis: generalized weakness/debility Height/Weight Height (Feet): 4 Height (Inches): 11.00 Weight (Pounds): 202 Weight (Ounces): 4.3 Precautions Precautions/Isolations: Fall Prevention, Standard Precautions Weight Bear Status Right Lower Extremity: Right Full Weight Bearing Left Lower Extremity: Left Full Weight Bearing Referral Physician: Parris Reason for Referral: Evaluation/Treatment Medical History Pertinent Medical History: Arthritis, COPD, GERD, Smoking Current History admit from home via home health per patient report via ambulance Reviewed History: Yes Social History Home: Single Level Current Living Status: Alone Entry Into Home: Level Entry Prior/Core FIM Prior Level of Function Functional [place] Measure 0=Not Assessed/NA 4=Minimal Assistance 1=Total Assistance 5=Supervision or Setup 2=Maximal Assistance 6=Modified [place] 3=Moderate Assistance 7=Complete [place] Bed Mobility: 6 Transfers (B,C,W/C) (FIM): 6 Gait: 6 PT Evaluation-Current Subjective Patient agrees to PT. She reports she feels very weak. Pain Numeric Pain Scale: 0-No Pain Location: No Pain Reported Objective Patient Orientation: Normal For Age Problem Solving: Fair Attachments: Oxygen, Rowley Catheter, IV ROM/Strength ROM Lower Extremities bilateral LE WNL Strength Lower Extremities right knee flexion/extension 3/5; hip flexion 3/5; DF/PF 3/5 left knee flexion/extension 3/5; hip flexion 3/5; DF/PF 3/5 Integumentary/Posture Integumentary refer to nursing notes Bowel Incontinence: No Bladder Incontinence: Rowley Cath Posture WFL Neuromuscular (Tone, Coordination, Reflexes) diminished coordination due to fatigue secondary to low Hgb Transfers Functional [place] Measure 0=Not Assessed/NA 4=Minimal Assistance 1=Total Assistance 5=Supervision or Setup 2=Maximal Assistance 6=Modified [place] 3=Moderate Assistance 7=Complete [place] Gait Mode of Locomotion: Walk Anticipated Mode of Locomotion: Walk Gait (FIM): 1 Distance (FIM): 1=up to 49 ft Distance: 10' Gait Level of Assist: 3 Gait Persons Needed: 1 Gait Assistive Device: FWW Comments/Gait Description unsteady with FWW, shuffle gait sequence Balance Sitting Static: Fair Sitting Dynamic: Fair Standing Static: Fair Standing Dynamic: Fair Assessment/Needs 72 y.o. female, will benefit from skilled PT to address functional strength and mobility to improve current LOF and to safely return to home or care facility at maximum LOF. Rehab Potential: Fair PT Seo Marketing Specialist Goals Seo Marketing Specialist Goals PT Correction Goals Time Frame: Jun 05, 2017 Transfers (B,C,W/C) (FIM): 5 Gait (FIM): 2 Gait distance (FIM): 6=357-71 ft Distance: 125' Gait Level of Assist: 5 Gait Assistive Device: FWW PT Plan Problem List Problem List: Activity Tolerance, Functional Strength, Safety, Balance, Gait, Transfer, Bed Mobility Treatment/Plan Treatment Plan: Continue Plan of Care Treatment Plan: Bed Mobility, Education, Functional Activity [place], Functional Strength, Gait, Safety, Therapeutic Exercise, Transfers Treatment Duration: Jun 05, 2017 Frequency: 6 times per week Estimated Hrs Per Day: .25 hour per day Patient and/or Family Agrees t: Yes Safety Risks/Education Patient Education: Safety Issues Teaching Recipient: Patient Teaching Methods: Demonstration, Discussion Response to Teaching: Verbalize Understanding Discharge Recommendations Therapy D/C Recommendations: Physical Therapy Home Care, Intermediate Placement , [facility] ([facility]) Time/GCodes Time In: 1300 Time Out: 1320 Total Billed Treatment Time: 20 Total Billed Treatment 1 visit EVModC 20 min G Codes Necessary: REMINGTON Swann PT May 22, 2017 13:53
--- NOTE | 2017-05-22 15:36 | Occupational Therapy Eval ---
OT Evaluation-General/PLF Medical Diagnosis Admission Date May 21, 2017 at 15:00 Medical Diagnosis: severe anemia/hypoxia Onset Date: May 21, 2017 Therapy Diagnosis Therapy Diagnosis: decr self care, decr act mita, weakness, decr funct mob Height/Weight Height (Feet): 4 Height (Inches): 11.00 Weight (Pounds): 202 Weight (Ounces): 4.3 Precautions Precautions/Isolations: Fall Prevention, Standard Precautions Safety Interventions: None Referral Physician: Parris Referral Reason: Evaluation/Treatment Medical History Pertinent Medical History: Arthritis, COPD, Dementia, GERD, HTN, Hypothroidism , Neuropathy, PVD, Smoking Additional Medical History Pneumonia 04/26. Morbid obesity. Emphysema. Chronic edema. Kidney stones. Chronic constipation, irritable bowel. DJD, back injury, chronic back pain. Hard of hearing, hearing aid. Anxiety. Schizophrenia, depression. Current History Admitted with anemia, heart failure. Also having back pain. Tiffanie boots not on both feet Reviewed History: Yes Social History Home: Single Level (mobile home, per pt report) Current Living Status: Alone Entry Into Home: Level Entry ADL-Prior Level of Function ADL PLOF Comments Pt reported that she has been able to take herself to the bathroom and dress everything except socks. Her daughter is her SKIL worker and she is there 40 hours a week, per patient report. Her daughter helps her shower. Pt reported that she does not drive and cares for her aníbal-katelynn dog. DME/Equipment: Bath Chair, Grab Bars, Shower, Tall Toilet DME/Equipment Comments She said she has a FWW and a wheelchair OT Current Status Subjective Pt seen in room, up in recliner, agreeable to OT. Reported pain 0/10. Appearance Alert, cooperative. Current Glasses/Contacts: Yes Hearing Aids: Yes Upper Extremity ROM Grossly WFL except limited L shoulder Upper Extremity Strength Grossly 4/5 bilat ADL-Treatment ADL-Current Pt reported that she needed to toilet. She has a Rowley catheter. Pt was able to get up from recliner with min assist and transfer min-mod to BSC (limited due to O2 tubing length and IV tubing). Pt asked to be left up on BSC so left with call light, nursing notified. Functional [place] Measure 0=Not Assessed/NA 4=Minimal Assistance 1=Total Assistance 5=Supervision or Setup 2=Maximal Assistance 6=Modified [place] 3=Moderate Assistance 7=Complete IndependenceIRFPAI Quality Coding Scale 6 Independent with activity with or without an assistive device 5 Patient requires set up or clean up by helper. Patient completes activity by themselves 4 Supervision or touching assist (CGA). [place] provide cues , steadying assist 3 The helper provides less than half the effort to complete the activity 2 The helper provides more than half the effort to complete the activity 1 Dependent. The helper does all the effort to complete an activity 7 Patient refused to complete or attempt activity 9 The patient did not perform the activity before the current illness or injury 88 Not attempted due to Medical conditions or safety concerns Education OT Patient Education: Purpose of tx/functional activities, Rehab process, Transfer techniques Teaching Recipient: Patient Teaching Methods: Discussion Response to Teaching: Verbalize Understanding OT Breaker Layer Goals Correction Goals Time Frame: May 29, 2017 Eating (FIM): 6 Grooming(FIM): 6 Bathing(FIM): 5 Upper Body Dressing(FIM): 5 Lower Body Dressing(FIM): 5 Toileting(FIM): 6 Toilet/Commode Transfer(FIM): 6 Shower Transfer(FIM): 5 Additional Goals: 1-Demonstrate ADL Tasks, 2-Verbalize Understanding, 3- ImproveStrength/[place] 1=Demonstrate adherence to instructed precautions during ADL tasks. 2=Patient will verbalize/demonstrate understanding of assistive devices/ modifications for ADL. 3=Patient will improve strength/tolerance for activity to enable patient to perform ADL's. OT Education/Plan Problem List/Assessment Assessment: Decreased Activ Tolerance, Decreased UE Strength, Dependent Transfers, Impaired Funct Balance, Impaired Self-Care Skills Pt would benefit from skilled OT to increase her independence in basic self care and to decrease caregiver burden. Discharge Recommendations Plan/Recommendations: Continue POC Treatment Plan/Plan of Care Patient would benefit from OT for education, treatment and training to promote independence in ADL's, mobility, safety and/or upper extremity function for ADL' s. Plan of Care: ADL Retraining, Functional Mobility, UE Funct Exercise/Act Treatment Duration: May 29, 2017 Frequency: 5 times per week Estimated Hrs Per Day: .25 hour per day (.25 to .5) Rehab Potential: Fair Time/GCodes Start Time: 14:20 Stop Time: 14:35 Total Time Billed (hr/min): 15 Billed Treatment Time visit, 15 minutes evaluation moderate intensity OBDULIO HAMLIN OT May 22, 2017 15:36
--- NOTE | 2017-05-22 15:43 | Wound Care Assessment ---
Wound Care Assessment Date Seen by Provider: May 22, 2017 Time Seen by Provider: 09:15 Chief Complaint Bilateral calf dermatitis. Smoking Status: Current Everyday Smoker Recreational Drug Use: No Alcohol Use: Denies Use Exam Vital Signs Date Time Temp Pulse Resp B/P (MAP) Pulse Ox O2 Delivery O2 Flow Rate FiO2 05/22/17 13:00 95 05/22/17 12:40 97.8 20 130/62 (84) 97 Nasal Cannula 2.00 05/21/17 15:09 32 Capillary Refill : Results Laboratory Tests 05/21/17 16:00: Blood Gas Puncture Site LT RAD, Blood Gas Patient Temperature 97.9, Arterial Blood pH 7.41, Arterial Blood Partial Pressure CO2 45, Arterial Blood Partial Pressure O2 75L, Arterial Blood HCO3 28H, Arterial Blood Total CO2 29.4, Arterial Blood Oxygen Saturation 97, Arterial Blood Base Excess 3.6H, Mario Test YES-POS, Blood Gas Ventilator Setting NO, Blood Gas Inspired Oxygen 2L 05/21/17 17:20: Lactic Acid Level 1.42 05/22/17 02:10: White Blood Count 7.0, Red Blood Count 2.66L, Hemoglobin 7.0L, Hematocrit 24L, Mean Corpuscular Volume 86, Mean Corpuscular Hemoglobin 26, Mean Corpuscular Hemoglobin Concent 30L, Red Cell Distribution Width 16.6H, Platelet Count 300, Mean Platelet Volume 9.0, Neutrophils (%) (Auto) 62, Lymphocytes (%) (Auto) 28, Monocytes (%) (Auto) 7, Eosinophils (%) (Auto) 3, Basophils (%) (Auto) 0, Neutrophils # (Auto) 4.3, Lymphocytes # (Auto) 2.0, Monocytes # (Auto) 0.5, Eosinophils # (Auto) 0.2, Basophils # (Auto) 0.0, Absolute Reticulocyte Count 63 , Percent Reticulocyte Count 2.37, Sodium Level 143, Potassium Level 3.5L, Chloride Level 107, Carbon Dioxide Level 29, Anion Gap 7, Blood Urea Nitrogen 10 , Creatinine 0.84, Estimat Glomerular Filtration Rate > 60, BUN/Creatinine Ratio 12, Glucose Level 93, Calcium Level 8.0L, Magnesium Level 2.0, Total Bilirubin 0.4, Aspartate Amino Transf (AST/SGOT) 11, Alanine Aminotransferase ( ALT/SGPT) 6, Alkaline Phosphatase 91, Total Protein 5.4L, Albumin 2.7L 05/22/17 11:35: Glucometer 144H 05/22/17 13:02: Hemoglobin 7.7L, Hematocrit 25L Microbiology 05/21/17 Blood Culture - Preliminary, Resulted No growth 05/21/17 Urine Culture - Preliminary, Resulted Probable Enterococcus Species Probable Pseudomonas Microbiology 05/21/17 Blood Culture - Preliminary, Resulted No growth 05/21/17 Blood Culture - Preliminary, Resulted No growth 05/21/17 Urine Culture - Preliminary, Resulted Probable Enterococcus Species Probable Pseudomonas HILLARY VAZQUEZ MD May 22, 2017 15:43
[2017-05-22] MEDS: MENTHOL/ZINC OXIDE (CALMOSEPTINE) 113 GM TUBE TOP PRN (17:34)
[2017-05-22] MEDS: rOPINIRole 1 MG (REQUIP) TABLET PO SCH (18:23)
[2017-05-22] MEDS: DOXEPIN 10 MG (SINEquan) CAP PO SCH (21:30)
[2017-05-23] VITALS: BP 100/56
[2017-05-23] MEDS: CATHETER FLUSH 10 ML SYR IV SCH ×3 (02:22→21:00)
[2017-05-23 04:00] VITALS: BP 126/58
[2017-05-23] MEDS: LEVOTHYROXINE 100 MCG (LEVOTHROID) TAB PO SCH (06:16)
[2017-05-23] MEDS: predniSONE 20 MG TAB PO SCH (06:16)
[2017-05-23] MEDS: inSUlin (REGULAR) HUMAN 1 UNIT/0.01 ML (CHARGE PER UNIT) SC SCH ×4 (06:21→21:00)
[2017-05-23 06:51] LABS: BUN/CREATININE RATIO 12; CALCIUM 8.8 MG/DL (8.5-10.1); CARBON DIOXIDE 26 MMOL/L (21-32); CHLORIDE 107 MMOL/L (98-107); CREATININE SERUM 0.82 MG/DL (0.60-1.30); GFR ESTIMATED > 60; GLUCOSE 98 MG/DL (70-105); MAGNESIUM 2.1 MG/DL (1.8-2.4); POTASSIUM 3.6 MMOL/L (3.6-5.0); SODIUM 142 MMOL/L (135-145)
[2017-05-23 08:00] VITALS: BP 129/67
[2017-05-23] MEDS: PANTOPRAZOLE 40 MG/10 ML (PROTONIX) VIAL IV SCH ×2 (09:09→21:00)
[2017-05-23] MEDS: ASPIRIN E.C. 81 MG (ECOTRIN) TAB PO SCH (09:10)
[2017-05-23] MEDS: GABAPENTIN 300 MG (NEURONTIN) CAP PO SCH ×3 (09:10→21:00)
[2017-05-23] MEDS: FOLIC ACID 1 MG TAB PO SCH (09:10)
[2017-05-23] MEDS: KCL 20 MEQ TAB (K-DUR) PO SCH ×2 (09:11→11:07)
[2017-05-23] MEDS: FUROSEMIDE 40 MG (LASIX) TAB PO SCH ×2 (09:11→15:09)
[2017-05-23] MEDS: MENTHOL/ZINC OXIDE (CALMOSEPTINE) 113 GM TUBE TOP PRN (09:12)
[2017-05-23] MEDS: RT-ALBUTEROL/IPRATROPIUM 3 ML (DUONEB) VIAL INH SCH ×2 (09:38→19:26)
--- NOTE | 2017-05-23 09:52 | Physical Therapy Daily Note ---
PT Daily Note-Current Subjective Patient is in bed and SOA from a coughing "fit". Patient agrees to PT. Pain Numeric Pain Scale: 0-No Pain Location: No Pain Reported Mental Status Patient Orientation: Normal For Age Attachments: Oxygen, Rowley Catheter, IV Transfers Functional [place] Measure 0=Not Assessed/NA 4=Minimal Assistance 1=Total Assistance 5=Supervision or Setup 2=Maximal Assistance 6=Modified [place] 3=Moderate Assistance 7=Complete IndependenceIRFPAI Quality Coding Scale 6 Independent with activity with or without an assistive device 5 Patient requires set up or clean up by helper. Patient completes activity by themselves 4 Supervision or touching assist (CGA). [place] provide cues , steadying assist 3 The helper provides less than half the effort to complete the activity 2 The helper provides more than half the effort to complete the activity 1 Dependent. The helper does all the effort to complete an activity 7 Patient refused to complete or attempt activity 9 The patient did not perform the activity before the current illness or injury 88 Not attempted due to Medical conditions or safety concerns Transfers (B, C, W/C) (FIM): 4 Scootin Rollin Supine to/from Sit: 4 Sit to/from Stand: 4 Weight Bearing Right Lower Extremity: Right Full Weight Bearing Left Lower Extremity: Left Full Weight Bearing Gait Training Gait (FIM): 1 Distance (FIM): 1=up to 49 ft Distance: 10' Gait Level of Assist: 4 Gait Assistive Device: FWW slow, steady Exercises Seated Therapy Exercises: Ankle pumps, Long arc quads, Hip flexion, Hip abd/add Seated Reps: 15 (2 sets) Assessment Patient improving with gross motor skills. Patient fatigues very quickly with minimal activity. PT Chcf Goals Gate Guard Goals PT Gate Guard Goals Time Frame: Jun 05, 2017 Transfers (B,C,W/C) (FIM): 5 Gait (FIM): 2 Gait distance (FIM): 0=372-71 ft Distance: 125' Gait Level of Assist: 5 Gait Assistive Device: FWW PT Plan Treatment/Plan Treatment Plan: Continue Plan of Care Treatment Plan: Bed Mobility, Education, Functional Activity [place], Functional Strength, Gait, Safety, Therapeutic Exercise, Transfers Treatment Duration: Jun 05, 2017 Frequency: 6 times per week Estimated Hrs Per Day: .25 hour per day Patient and/or Family Agrees t: Yes Time/GCodes Time In: 927 Time Out: 937 Total Billed Treatment Time: 10 Total Billed Treatment 1 visit EX 10 min REMINGTON ALBRIGHT PT May 23, 2017 09:52
--- NOTE | 2017-05-23 10:46 | Cardiology Progress Note ---
Subjective Date Seen by Provider: May 23, 2017 Time Seen by Provider: 10:44 Subjective/Events-last exam patient is sitting in a chair, playing of muscle cramps. Denied any chest pain , breathing is better. Review of Systems General: No Chills, No Night Sweats, No Fatigue, No Malaise, No Appetite, No Other HEENT: No Head Aches, No Visual Changes, No Eye Pain, No Ear Pain, No Dysphasia , No Sinus Congestion, No Post Nasal Drip, No Sore Throat, No Other Pulmonary: Dyspnea, No Cough, No Pleuritic Chest Pain, No Other Cardiovascular: Edema, No: Chest Pain, Palpitations, Orthopnea, Paroxysmal Noc. Dyspnea, Lt Headedness, Other Focused Exam Evaluation Lactate Level Laboratory Tests 05/21/17 15:30: Lactic Acid Level 2.10*H 05/21/17 17:20: Lactic Acid Level 1.42 Objective-Cardiology Exam Last Set of Vital Signs Vital Signs 05/21/17 05/23/17 05/23/17 15:09 08:00 09:38 Temp 98.3 Pulse 79 Resp 16 B/P (MAP) 129/67 (87) Pulse Ox 92 O2 Delivery Nasal Cannula O2 Flow Rate 2.00 FiO2 32 Capillary Refill : I&O Intake and Output 05/23/17 00:00 Intake Total 2830 ml Output Total 2435 ml Balance 395 ml Intake Oral 830 ml IV Total 2000 ml Output Urine Total 2435 ml # Bowel Movements 1 General: Alert, Oriented X3, Cooperative HEENT: Atraumatic, PERRLA Neck: Supple, No JVD, No Thyromegaly Lungs: Clear to Auscultation, Normal Air Movement Heart: Regular Rate, Normal S1, Normal S2, No Murmurs Abdomen: Normal Bowel Sounds, Soft, No Tenderness, No Hepatosplenomegaly, No Masses Extremities: No Clubbing, No Cyanosis, No Tenderness/Swelling, Other ( Peripheral edema, diminished pulses) Skin: Other (Venous stasis changes) Neuro: Normal Speech, Normal Tone Psych/Mental Status: Mental Status NL, Mood NL Results Lab Laboratory Tests 05/22/17 13:02 05/23/17 06:03 A/P-Cardiology Admission Diagnosis Peripheral arterial disease Anemia Lower extremities Hypotension Assessment/Plan Shortness of breath, reporting improvement. Followed and managed by primary care physician Anemia, slightly better today, patient is Lorie witness, underwent EGD which showed small ulceration. No active bleeding. Followed and managed by primary care physician Peripheral arterial disease, history of peripheral angiogram done in December 2016 showing Subtotal occlusion of the right SFA, complex intervention with scoring balloon VASCUTRACK then drug-coated balloon LUTONIX , followed by 3 stent deployment 2 overlapping SUPERA [id number] extending from the popliteal to the proximal SFA, the proximal portion of the SFA involving the ostial portion I used ABSOLUTE PRO 760 self-expanding stent, postdilatation with 5.5 balloon with excellent results, patient did not have any follow-up visit. Did not return for her appointment Lower extremity pain, discomfort, chronic venous stasis changes, venous Doppler was negative for DVT. seen by Dr. Fox, currently clinically stable. Continue to monitor Tobaccoism, educated on smoking cessation, patient expressed that she is down to 4 cigarettes a day Hyperlipidemia, monitor lipid Multiple risk factors for coronary artery disease, stress test done in December 2016 showed transient ischemic dilatation, extracardiac attenuation, did not have any follow-up visits. Noncompliant with appointments. Status post prolonged respiratory failure, ARDS in 2014. Currently doing well. Continue to monitor History of complex back surgery, underwent L1 corpectomy/reconstruction, T12-L1 posterior column osteotomy, revision of T12-L5 laminectomy, T6 pelvic posterior spinal fusion for deformity. Done by Dr. Anderson. Prolonged recovery time, poor wound healing, underwent wound care at [facility]. History of severe thoracic lumbar stenosis, thoracic lumbar myelopathy. Clinical Quality Measures DVT/VTE Risk/Contraindication: Risk Factor Score Per Nursin RFS Level Per Nursing on Admit: 4+=Very High Contraindications-Pharm: Other *list below* Contraindications-Mechi: Other *list below* Other: Unaboot status on lower legs Acute GIB TAMELA ALVARADO MD May 23, 2017 10:46
[2017-05-23] MEDS: ALPRAZolam 0.25 MG (XANAX) TAB PO PRN (11:07)
[2017-05-23 12:00] VITALS: BP_SYST 128; BP_SYST 147; BP_DIAS 61; BP_DIAS 82
--- NOTE | 2017-05-23 12:13 | Progress Note-Hospitalist ---
Progress Note HPI/CC on Admission CC: Severe anemia w/hemoccult positive stools at [facility] HPI: This is a 72 yoWF pt of CECE Torres admitted to [facility] on observation for severe anemia with presumed heart failure. She's a Roman Catholic who refuses blood products and hgb down to 7.0 requiring EGD at [facility] due to hemoccult positive stools for blood and hematology help for severe anemia. Dr. Calixto Review: EGD looked good with small ulcer without active bleeding lead mobile developer: Dr. Mana pedraza with pt's move to floor Dr. Fox saw pt's legs, and RN will review note Pt did not have GRACE boots on on arrival Pt Interview: Pt confirms Chloe Reyes in [place] as PCP Pt confirms seeing Dr. Fox Pt confirms pain in her lower back Pt confirms previous stay for a pneumonia and states she was feeling better before this happened Pt confirms living at home with a dog and living close to her daughter. Pt confirms walking at home with a walker Physical exam stable. Lungs sound perfect Scribed by Stella Santiago under direct supervision of Dr. Jazmyne Foss. Progress Notes/Assess & Plan Date Seen 05/23/17 Time Seen by Provider: 11:15 Admission Dx/Process Severe anemia with volume overload Diagonsis/Assessment & Plan Contaminated urinalysis noted less than 10,000 of Pseudomonas and enterococcus will not treat Complains of restless leg syndrome issues and restarted all home meds but she doesn't move her legs if she doesnt see anyone in the room Hgb will be checked tomorrow No other issues Chronic issues cause severe debilitation and most factors cannot be modified AFVSS, Pleasant, O x 3 RRR, crackles all marrero No edema Severe anemia with volume overload Plan: PT/OT Ambulate Restarted home meds Possible DC at beginning of week Nebs Appreciate Mana Carcamo, Cindy and Dominique consultations Focused Exam Evaluation Lactate Level Laboratory Tests 05/21/17 15:30: Lactic Acid Level 2.10*H 05/21/17 17:20: Lactic Acid Level 1.42 Diagnosis/Problems Diagnosis/Problems (1) GI bleed Status: Acute Qualifiers: Qualified Codes: K92.2 - Gastrointestinal hemorrhage, unspecified (2) Lymphedema of both lower extremities Status: Chronic (3) Schizophrenia Status: Chronic Qualifiers: Qualified Codes: F20.9 - Schizophrenia, unspecified (4) Anemia Status: Acute Qualifiers: Qualified Codes: D50.0 - Iron deficiency anemia secondary to blood loss ( chronic) (5) Hypothyroidism Status: Chronic Qualifiers: Qualified Codes: E03.9 - Hypothyroidism, unspecified (6) Refusal of blood transfusions as patient is Roman Catholic Status: Chronic (7) Restless leg syndrome Status: Chronic Assessment & Plan: Home meds restarted but this is a chronic issue JAZMYNE FOSS DO May 23, 2017 12:13
[2017-05-23 12:20] LABS: BASOPHILS % (AUTO) 0 % (0-10); EOSINOPHILS % (AUTO) 0 % (0-10); HEMATOCRIT 26 % (35-52); HEMOGLOBIN 8.2 G/DL (11.5-16.0); LYMPHOCYTES # (AUTO) 1.1 X 10^3 (1.0-4.0); LYMPHOCYTES % (AUTO) 12 % (12-44); MEAN CORPUSCULAR HEMOGLOBIN 26 PG (25-34); MEAN CORPUSCULAR HGB CONC 31 G/DL (32-36); MEAN CORPUSCULAR VOLUME 84 FL (80-99); MEAN PLATELET VOLUME 9.1 FL (7.4-10.4); MONOCYTES # (AUTO) 0.1 X 10^3 (0.0-1.0); MONOCYTES % (AUTO) 1 % (0-12); NEUTROPHILS # (AUTO) 8.5 X 10^3 (1.8-7.8); NEUTROPHILS % (AUTO) 87 % (42-75); PLATELET COUNT 330 10^3/uL (130-400); RED BLOOD COUNT 3.16 10^6/uL (4.35-5.85); RED CELL DISTRIBUTION WIDTH 16.6 % (10.0-14.5); WHITE BLOOD COUNT 9.8 10^3/uL (4.3-11.0)
--- NOTE | 2017-05-23 12:51 | Physician Progress Note ---
Progress Note Assessment/Plan Time Seen by Provider: 11:50 Events since last exam Pt is doing better. Up to chair and eating lunch Hb is up to 8.2 today. complaining of restless legs She has venous stasis and bilateral lower ext 3+ edema Assessment/Plan 1. Anemia, GI bleeding. Patient is Yarsani and refuses blood products. Hemoglobin 8.4 on admission then 7.0. now up to 8.2 today. EGD showed a hiatal hernia with gastritis and healing gastric ulcer but no active bleeding. Serum ferritin level is 19. Dr. Rodriguez gave patient Benefiber 200 mg IV every 48 hours yesterday. She also got MAIRA (Aranesp 100 mcg) subcutaneously yesterday. We will arrange this weekly on an outpatient basis with the target hemoglobin level between 9-10 g/ dL. She received vitamin B-12 1000 g IM yesterday and on folic acid 1 mg daily. 2. peripheral arterial disease: Avoid Plavix and aspirin until no active bleeding is confirmed and hemoglobin level is improving. 3. Bilateral venous stasis. Diuretics when BP tolerates. 4. Restless leg: Discussed with Dr Nye who will take care of it. Vitals Last set of Vitals Signs Vital Signs Date Time Temp Pulse Resp B/P (MAP) Pulse Ox O2 Delivery O2 Flow Rate FiO2 05/23/17 09:38 92 Nasal Cannula 2.00 05/23/17 08:00 98.3 79 16 129/67 (87) 05/21/17 15:09 32 I&O I&O Intake and Output 05/23/17 00:00 Intake Total 2830 ml Output Total 2435 ml Balance 395 ml Intake Oral 830 ml IV Total 2000 ml Output Urine Total 2435 ml # Bowel Movements 1 Labs Laboratory Tests 05/22/17 13:02 05/23/17 06:03 05/23/17 12:09 Laboratory Tests 05/22/17 13:02: Hemoglobin 7.7L, Hematocrit 25L 05/22/17 15:50: Glucometer 260H 05/22/17 21:15: Glucometer 208H 05/23/17 06:03: Sodium Level 142, Potassium Level 3.6, Chloride Level 107, Carbon Dioxide Level 26, Anion Gap 9, Blood Urea Nitrogen 10, Creatinine 0.82, Estimat Glomerular Filtration Rate > 60, BUN/Creatinine Ratio 12, Glucose Level 98, Calcium Level 8.8, Magnesium Level 2.1 05/23/17 06:09: Glucometer 110 05/23/17 11:53: Glucometer 211H 05/23/17 12:09: White Blood Count 9.8, Red Blood Count 3.16L, Hemoglobin 8.2L, Hematocrit 26L, Mean Corpuscular Volume 84, Mean Corpuscular Hemoglobin 26, Mean Corpuscular Hemoglobin Concent 31L, Red Cell Distribution Width 16.6H, Platelet Count 330, Mean Platelet Volume 9.1, Neutrophils (%) (Auto) 87H, Lymphocytes (%) (Auto) 12 , Monocytes (%) (Auto) 1, Eosinophils (%) (Auto) 0, Basophils (%) (Auto) 0, Neutrophils # (Auto) 8.5H, Lymphocytes # (Auto) 1.1, Monocytes # (Auto) 0.1, Eosinophils # (Auto) 0.0, Basophils # (Auto) 0.0 Microbiology 05/21/17 Blood Culture - Preliminary, Resulted No growth 05/21/17 MRSA Screen - Final, Complete MRSA not isolated 05/21/17 Urine Culture - Final, Complete Enterococcus faecalis Pseudomonas aeruginosa Focused Exam Evaluation Lactate Level Laboratory Tests 05/21/17 15:30: Lactic Acid Level 2.10*H 05/21/17 17:20: Lactic Acid Level 1.42 Clinical Quality Measures DVT/VTE Risk/Contraindication: Risk Factor Score Per Nursin RFS Level Per Nursing on Admit: 4+=Very High Contraindications-Pharm: Other *list below* Contraindications-Mechi: Other *list below* Other: Unaboot status on lower legs Acute GIB MARIA D JONES MD May 23, 2017 12:51
[2017-05-23 15:50] VITALS: BP 121/58
[2017-05-23] MEDS: rOPINIRole 1 MG (REQUIP) TABLET PO SCH (18:10)
[2017-05-23 19:18] VITALS: BP 115/62
[2017-05-23] MEDS: DOXEPIN 10 MG (SINEquan) CAP PO SCH (20:59)
[2017-05-24] VITALS (8 sets, daily range): BP systolic 107–142; BP diastolic 55–65
[2017-05-24] MEDS: CATHETER FLUSH 10 ML SYR IV SCH ×3 (06:00→22:01)
[2017-05-24] MEDS: predniSONE 20 MG TAB PO SCH (06:05)
[2017-05-24] MEDS: LEVOTHYROXINE 100 MCG (LEVOTHROID) TAB PO SCH (06:05)
[2017-05-24] MEDS: inSUlin (REGULAR) HUMAN 1 UNIT/0.01 ML (CHARGE PER UNIT) SC SCH ×4 (06:08→20:56)
[2017-05-24 06:29] LABS: BASOPHILS # (AUTO) 0.1 10^3/uL (0.0-0.1); BASOPHILS % (AUTO) 1 % (0-10); EOSINOPHILS # (AUTO) 0.1 10^3/uL (0.0-0.3); EOSINOPHILS % (AUTO) 1 % (0-10); HEMATOCRIT 24 % (35-52); HEMOGLOBIN 7.6 G/DL (11.5-16.0); LYMPHOCYTES # (AUTO) 3.1 X 10^3 (1.0-4.0); LYMPHOCYTES % (AUTO) 30 % (12-44); MEAN CORPUSCULAR HEMOGLOBIN 26 PG (25-34); MEAN CORPUSCULAR HGB CONC 32 G/DL (32-36); MEAN CORPUSCULAR VOLUME 81 FL (80-99); MEAN PLATELET VOLUME 9.1 FL (7.4-10.4); MONOCYTES # (AUTO) 0.8 X 10^3 (0.0-1.0); MONOCYTES % (AUTO) 8 % (0-12); NEUTROPHILS # (AUTO) 6.4 X 10^3 (1.8-7.8); NEUTROPHILS % (AUTO) 61 % (42-75); PLATELET COUNT 335 10^3/uL (130-400); RED BLOOD COUNT 2.95 10^6/uL (4.35-5.85); RED CELL DISTRIBUTION WIDTH 16.8 % (10.0-14.5); WHITE BLOOD COUNT 10.4 10^3/uL (4.3-11.0)
[2017-05-24 06:57] LABS: ALANINE AMINOTRANSFERASE 6 U/L (0-55); ALBUMIN 3.1 GM/DL (3.2-4.5); ALKALINE PHOSPHATASE 98 U/L (40-136); BILIRUBIN,TOTAL 0.4 MG/DL (0.1-1.0); BUN/CREATININE RATIO 16; CALCIUM 8.8 MG/DL (8.5-10.1); CARBON DIOXIDE 28 MMOL/L (21-32); CHLORIDE 103 MMOL/L (98-107); CREATININE SERUM 0.81 MG/DL (0.60-1.30); GFR ESTIMATED > 60; GLUCOSE 84 MG/DL (70-105); MAGNESIUM 2.1 MG/DL (1.8-2.4); POTASSIUM 3.4 MMOL/L (3.6-5.0); SODIUM 143 MMOL/L (135-145); TOTAL PROTEIN 6.4 GM/DL (6.4-8.2)
[2017-05-24] MEDS: PANTOPRAZOLE 40 MG/10 ML (PROTONIX) VIAL IV SCH ×2 (08:15→20:09)
[2017-05-24] MEDS: KCL 20 MEQ TAB (K-DUR) PO SCH ×2 (08:15→13:17)
[2017-05-24] MEDS: ALPRAZolam 0.25 MG (XANAX) TAB PO PRN (08:15)
[2017-05-24] MEDS: GABAPENTIN 300 MG (NEURONTIN) CAP PO SCH ×3 (08:15→20:09)
[2017-05-24] MEDS: FOLIC ACID 1 MG TAB PO SCH (08:15)
[2017-05-24] MEDS: FUROSEMIDE 40 MG (LASIX) TAB PO SCH ×2 (08:15→15:16)
[2017-05-24] MEDS: ASPIRIN E.C. 81 MG (ECOTRIN) TAB PO SCH (08:15)
[2017-05-24] MEDS: IRON SUCROSE 200 MG/10 ML (VENOFER) VIAL IV SCH (08:15)
[2017-05-24] MEDS: RT-ALBUTEROL/IPRATROPIUM 3 ML (DUONEB) VIAL INH SCH ×3 (08:55→19:28)
--- NOTE | 2017-05-24 09:05 | Cardiology Progress Note ---
Subjective Date Seen by Provider: May 24, 2017 Time Seen by Provider: 09:03 Subjective/Events-last exam Patient is laying down in bed, slightly short of breath, last night with complaint of fatigue and tremor. Review of Systems General: No Chills, No Night Sweats, Fatigue, Malaise, No Appetite, No Other HEENT: No Head Aches, No Visual Changes, No Eye Pain, No Ear Pain, No Dysphasia , No Sinus Congestion, No Post Nasal Drip, No Sore Throat, No Other Pulmonary: Dyspnea, Cough, No Pleuritic Chest Pain, No Other Cardiovascular: Edema, No: Chest Pain, Palpitations, Orthopnea, Paroxysmal Noc. Dyspnea, Lt Headedness, Other Focused Exam Evaluation Lactate Level Laboratory Tests 05/21/17 15:30: Lactic Acid Level 2.10*H 05/21/17 17:20: Lactic Acid Level 1.42 Objective-Cardiology Exam Last Set of Vital Signs Vital Signs 05/21/17 05/24/17 05/24/17 05/24/17 15:09 04:00 07:00 08:55 Temp 98.9 Pulse 82 Resp 18 B/P (MAP) 131/59 (83) Pulse Ox 91 O2 Delivery Nasal Cannula O2 Flow Rate 2.00 FiO2 32 Capillary Refill : I&O Intake and Output 05/24/17 00:00 Intake Total 1450 ml Output Total 5240 ml Balance -3790 ml Intake Oral 1450 ml Output Urine Total 5240 ml General: Alert, Oriented X3, Cooperative HEENT: Atraumatic, PERRLA Neck: Supple, No JVD, No Thyromegaly Lungs: Normal Air Movement, Other (Luis Antonio wheezing) Heart: Regular Rate, Normal S1, Normal S2, No Murmurs Abdomen: Normal Bowel Sounds, Soft, No Tenderness, No Hepatosplenomegaly, No Masses Extremities: No Clubbing, No Cyanosis, No Tenderness/Swelling, Other ( Peripheral edema, diminished pulses) Skin: Other (Venous stasis changes) Neuro: Normal Speech, Normal Tone Psych/Mental Status: Mental Status NL, Mood NL Results Lab Laboratory Tests 05/23/17 12:09 05/24/17 06:08 A/P-Cardiology Admission Diagnosis Peripheral arterial disease Anemia Lower extremities Hypotension Assessment/Plan Shortness of breath, still having active wheezing, improving slowly, receiving bronchodilators and steroids. Managed by primary care physician. Anemia, slightly better today, patient is Jehovah witness, underwent EGD which showed small ulceration with hiatal hernia and gastritis, recommendation by Dr. Tena is to hold aspirin and Plavix until absolutely sure that no active bleeding is present. Peripheral arterial disease, history of peripheral angiogram done in December 2016 showing Subtotal occlusion of the right SFA, complex intervention with scoring balloon VASCUTRACK then drug-coated balloon LUTONIX , followed by 3 stent deployment 2 overlapping SUPERA [id number] extending from the popliteal to the proximal SFA, the proximal portion of the SFA involving the ostial portion I used ABSOLUTE PRO 760 self-expanding stent, postdilatation with 5.5 balloon with excellent results, patient did not have any follow-up visit. Did not return for her appointment, continue to monitor Lower extremity pain, discomfort, chronic venous stasis changes, venous Doppler was negative for DVT. seen by Dr. Fox, currently clinically stable. Continue to monitor Tobaccoism, educated on smoking cessation, patient expressed that she is down to 4 cigarettes a day Hyperlipidemia, monitor lipid Multiple risk factors for coronary artery disease, stress test done in December 2016 showed transient ischemic dilatation, extracardiac attenuation, did not have any follow-up visits. Noncompliant with appointments. Status post prolonged respiratory failure, ARDS in 2014. Currently doing well. Continue to monitor History of complex back surgery, underwent L1 corpectomy/reconstruction, T12-L1 posterior column osteotomy, revision of T12-L5 laminectomy, T6 pelvic posterior spinal fusion for deformity. Done by Dr. Anderson. Prolonged recovery time, poor wound healing, underwent wound care at [facility]. History of severe thoracic lumbar stenosis, thoracic lumbar myelopathy. Clinical Quality Measures DVT/VTE Risk/Contraindication: Risk Factor Score Per Nursin RFS Level Per Nursing on Admit: 4+=Very High Contraindications-Pharm: Other *list below* Contraindications-Mechi: Other *list below* Other: Unaboot status on lower legs Acute GIB TAMELA ALVARADO MD May 24, 2017 09:05
[2017-05-24] MEDS ORDERED: RT-ALBUTEROL SULF 2.5 MG/3 ML PRE-MIX VIAL IH PRN (11:15)
--- NOTE | 2017-05-24 11:50 | Progress Note-Hospitalist ---
Progress Note HPI/CC on Admission CC: Severe anemia w/hemoccult positive stools at [facility] HPI: This is a 72 yoWF pt of [facility] Torres admitted to [facility] on observation for severe anemia with presumed heart failure. She's a Anglican who refuses blood products and hgb down to 7.0 requiring EGD at [facility] due to hemoccult positive stools for blood and hematology help for severe anemia. Dr. Calixto Review: EGD looked good with small ulcer without active bleeding plumbing service technician: Dr. Mana pedraza with pt's move to floor Dr. Fox saw pt's legs, and RN will review note Pt did not have GRACE boots on on arrival Pt Interview: Pt confirms Chloe Eric in [place] as PCP Pt confirms seeing Dr. Fox Pt confirms pain in her lower back Pt confirms previous stay for a pneumonia and states she was feeling better before this happened Pt confirms living at home with a dog and living close to her daughter. Pt confirms walking at home with a walker Physical exam stable. Lungs sound perfect Scribed by Stella Santiago under direct supervision of Dr. Jazmyne Foss. Progress Notes/Assess & Plan Date Seen 05/24/17 Time Seen by Provider: 10:30 Admission Dx/Process Severe anemia with volume overload Diagonsis/Assessment & Plan Patient wants to go home soon Doubt that returning home is adequate enough for the patient but she is insistent and her daughter lives behind her at home Catheter will be discontinued Telemetry will be discontinued Hgb will be checked tomorrow No other issues Chronic issues cause severe debilitation and most factors cannot be modified AFVSS, Pleasant, O x 3, improved, up in chair RRR, crackles all marrero but subtle No edema with venous stasis changes noted chronic status Laboratory Tests 05/23/17 12:09 05/24/17 06:08 Severe anemia with volume overload in JW jehovah's witness patient who declines blood products Plan: PT/OT Ambulate Restarted home meds Possible DC at tomorrow but patient really need NH placement but she is resistant to that idea Nebs Appreciate Mana Carcamo, Cindy and Dominique consultations IV iron Focused Exam Evaluation Lactate Level Laboratory Tests 05/21/17 15:30: Lactic Acid Level 2.10*H 05/21/17 17:20: Lactic Acid Level 1.42 Diagnosis/Problems Diagnosis/Problems (1) GI bleed Status: Acute Qualifiers: Qualified Codes: K92.2 - Gastrointestinal hemorrhage, unspecified (2) Lymphedema of both lower extremities Status: Chronic (3) Schizophrenia Status: Chronic Qualifiers: Qualified Codes: F20.9 - Schizophrenia, unspecified (4) Anemia Status: Acute Qualifiers: Qualified Codes: D50.0 - Iron deficiency anemia secondary to blood loss ( chronic) (5) Hypothyroidism Status: Chronic Qualifiers: Qualified Codes: E03.9 - Hypothyroidism, unspecified (6) Refusal of blood transfusions as patient is Anglican Status: Chronic (7) Restless leg syndrome Status: Chronic Assessment & Plan: Home meds restarted but this is a chronic issue (8) COPD (chronic obstructive pulmonary disease) Status: Chronic Qualifiers: Qualified Codes: J44.1 - Chronic obstructive pulmonary disease with (acute) exacerbation JAZMYNE FOSS DO May 24, 2017 11:50
[2017-05-24] MEDS: rOPINIRole 1 MG (REQUIP) TABLET PO SCH (17:54)
[2017-05-24] MEDS: DOXEPIN 10 MG (SINEquan) CAP PO SCH (20:08)
[2017-05-25 04:05] VITALS: BP 110/53
[2017-05-25] MEDS: inSUlin (REGULAR) HUMAN 1 UNIT/0.01 ML (CHARGE PER UNIT) SC SCH ×2 (05:27→12:47)
[2017-05-25] MEDS: CATHETER FLUSH 10 ML SYR IV SCH ×2 (06:18→14:00)
[2017-05-25] MEDS: predniSONE 20 MG TAB PO SCH (06:18)
[2017-05-25] MEDS: LEVOTHYROXINE 100 MCG (LEVOTHROID) TAB PO SCH (06:18)
[2017-05-25 06:30] LABS: BASOPHILS # (AUTO) 0.1 10^3/uL (0.0-0.1); BASOPHILS % (AUTO) 0 % (0-10); EOSINOPHILS % (AUTO) 0 % (0-10); HEMATOCRIT 27 % (35-52); HEMOGLOBIN 8.3 G/DL (11.5-16.0); LYMPHOCYTES # (AUTO) 3.6 X 10^3 (1.0-4.0); LYMPHOCYTES % (AUTO) 30 % (12-44); MEAN CORPUSCULAR HEMOGLOBIN 26 PG (25-34); MEAN CORPUSCULAR HGB CONC 31 G/DL (32-36); MEAN CORPUSCULAR VOLUME 83 FL (80-99); MONOCYTES # (AUTO) 0.8 X 10^3 (0.0-1.0); MONOCYTES % (AUTO) 7 % (0-12); NEUTROPHILS # (AUTO) 7.4 X 10^3 (1.8-7.8); NEUTROPHILS % (AUTO) 62 % (42-75); PLATELET COUNT 349 10^3/uL (130-400); RED CELL DISTRIBUTION WIDTH 17.5 % (10.0-14.5)
[2017-05-25] MEDS: RT-ALBUTEROL/IPRATROPIUM 3 ML (DUONEB) VIAL INH SCH ×3 (06:57→14:21)
[2017-05-25 07:02] LABS: ALBUMIN 3.4 GM/DL (3.2-4.5); BILIRUBIN,TOTAL 0.3 MG/DL (0.1-1.0); CALCIUM 8.9 MG/DL (8.5-10.1); CREATININE SERUM 0.96 MG/DL (0.60-1.30); POTASSIUM 3.4 MMOL/L (3.6-5.0); TOTAL PROTEIN 6.6 GM/DL (6.4-8.2)
[2017-05-25 08:00] VITALS: BP 123/60
[2017-05-25] MEDS: KCL 20 MEQ TAB (K-DUR) PO SCH ×2 (08:59→12:47)
[2017-05-25] MEDS: FOLIC ACID 1 MG TAB PO SCH (08:59)
[2017-05-25] MEDS: GABAPENTIN 300 MG (NEURONTIN) CAP PO SCH ×2 (08:59→13:57)
[2017-05-25] MEDS: ASPIRIN E.C. 81 MG (ECOTRIN) TAB PO SCH (08:59)
--- NOTE | 2017-05-25 08:59 | Cardiology Progress Note ---
Subjective Date Seen by Provider: May 25, 2017 Time Seen by Provider: 08:50 Subjective/Events-last exam Patient is sitting up in chair. Asking to go home today. C/o constipation. Reports last BM 3 days ago. Denies any CP or dyspnea. Objective-Cardiology Exam Last Set of Vital Signs Vital Signs 05/24/17 05/25/17 11:00 08:00 Temp 97.5 Pulse 86 Resp 18 B/P (MAP) 123/60 (81) Pulse Ox 96 O2 Delivery Nasal Cannula O2 Flow Rate 3.00 FiO2 28 Capillary Refill : I&O Intake and Output 05/25/17 00:00 Intake Total 2120 ml Output Total 4050 ml Balance -1930 ml Intake Oral 2120 ml Output Urine Total 4050 ml # Bowel Movements 1 General: Alert, Oriented X3, Cooperative HEENT: Atraumatic, PERRLA Neck: Supple, No JVD, No Thyromegaly Lungs: Clear to Auscultation, Normal Air Movement Heart: Regular Rate, Normal S1, Normal S2, No Murmurs Abdomen: Normal Bowel Sounds, Soft, No Tenderness, No Hepatosplenomegaly, No Masses Extremities: No Clubbing, No Cyanosis, No Tenderness/Swelling, Other ( Peripheral edema, diminished pulses) Skin: Other (Venous stasis changes) Neuro: Normal Speech, Normal Tone Psych/Mental Status: Mental Status NL, Mood NL Results Lab Laboratory Tests 05/25/17 06:02 A/P-Cardiology Admission Diagnosis Peripheral arterial disease Anemia Lower extremities Hypotension Assessment/Plan Shortness of breath, improving, receiving bronchodilators and steroids. Managed by primary care physician. Anemia, slightly better today, patient is Jehovah witness, underwent EGD which showed small ulceration with hiatal hernia and gastritis, recommendation by Dr. Tena is to hold aspirin and Plavix until absolutely sure that no active bleeding is present. Peripheral arterial disease, history of peripheral angiogram done in December 2016 showing Subtotal occlusion of the right SFA, complex intervention with scoring balloon VASCUTRACK then drug-coated balloon LUTONIX , followed by 3 stent deployment 2 overlapping SUPERA [id number] extending from the popliteal to the proximal SFA, the proximal portion of the SFA involving the ostial portion I used ABSOLUTE PRO 760 self-expanding stent, postdilatation with 5.5 balloon with excellent results, patient did not have any follow-up visit. Did not return for her appointment, continue to monitor Lower extremity pain, discomfort, chronic venous stasis changes, venous Doppler was negative for DVT. seen by Dr. Fox, currently clinically stable. Continue to monitor Tobaccoism, educated on smoking cessation, patient expressed that she is down to 4 cigarettes a day Hyperlipidemia, monitor lipid Multiple risk factors for coronary artery disease, stress test done in December 2016 showed transient ischemic dilatation, extracardiac attenuation, did not have any follow-up visits. Noncompliant with appointments. Status post prolonged respiratory failure, ARDS in 2014. Currently doing well. Continue to monitor History of complex back surgery, underwent L1 corpectomy/reconstruction, T12-L1 posterior column osteotomy, revision of T12-L5 laminectomy, T6 pelvic posterior spinal fusion for deformity. Done by Dr. Anderson. Prolonged recovery time, poor wound healing, underwent wound care at [facility]. History of severe thoracic lumbar stenosis, thoracic lumbar myelopathy. Clinical Quality Measures DVT/VTE Risk/Contraindication: Risk Factor Score Per Nursin RFS Level Per Nursing on Admit: 4+=Very High Contraindications-Pharm: Other *list below* Contraindications-Mechi: Other *list below* Other: Unaboot status on lower legs Acute GIB CHINTAN PORTER May 25, 2017 08:59
[2017-05-25] MEDS: FUROSEMIDE 40 MG (LASIX) TAB PO SCH ×2 (09:00→15:22)
[2017-05-25] MEDS: PANTOPRAZOLE 40 MG/10 ML (PROTONIX) VIAL IV SCH (09:00)
--- NOTE | 2017-05-25 09:25 | Pulmonary Progress Note ---
Subjective Time Seen by Provider: 09:24 Subjective/Events-last exam Pt wants to go home. Exam Exam Vital Signs Date Time Temp Pulse Resp B/P (MAP) Pulse Ox O2 Delivery O2 Flow Rate FiO2 05/25/17 08:00 97.5 86 18 123/60 (81) 96 Nasal Cannula 3.00 05/25/17 06:57 83 Room Air 05/25/17 04:05 98.0 80 18 110/53 (72) 97 Nasal Cannula 3.00 05/24/17 23:54 98.0 78 22 107/55 (72) 93 Nasal Cannula 3.00 05/24/17 20:09 Nasal Cannula 2.00 05/24/17 19:42 96.7 95 18 123/57 (79) 100 Nasal Cannula 3.00 05/24/17 19:30 96 Nasal Cannula 3.00 05/24/17 15:52 97.4 90 20 120/58 (78) 93 Nasal Cannula 2.00 05/24/17 15:14 84 Nasal Cannula 2.00 05/24/17 12:00 97.8 86 16 136/64 (88) 91 Nasal Cannula 2.00 05/24/17 11:00 77 91 28 I & O 05/25/17 07:00 Intake Total 2120 ml Output Total 4300 ml Balance -2180 ml General Appearance: No Apparent Distress, WD/WN, Chronically ill, Obese HEENT: PERRL/EOMI, Normal ENT Inspection, Pharynx Normal Neck: Full Range of Motion, Normal Inspection, Non Tender, Supple, Carotid Bruit Respiratory: Chest Non Tender, No Accessory Muscle Use, No Respiratory Distress , Crackles (RLL), Decreased Breath Sounds Cardiovascular: Regular Rate, Rhythm, No Edema, No Gallop, No JVD, No Murmur, Normal Peripheral Pulses Gastrointestinal: normal bowel sounds, soft, no organomegaly, no pulsatile mass Extremity: Normal Capillary Refill, Normal Inspection, Normal Range of Motion, Other (chronic and severe lymphedema bilateral) Neurologic/Psychiatric: Alert, Oriented x3, No Motor/Sensory Deficits, Normal Mood/Affect Skin: Normal Color, Warm/Dry Lymphatic: No Adenopathy Results Lab Laboratory Tests 05/23/17 12:09 05/24/17 06:08 05/25/17 06:02 Assessment/Plan Assessment/Plan COPDAE with hypoxia -Will do Prednisone 40mg x 5days then D/C -SVNs -Oxygen Anemia s/p EGD PAD tobacco use hx pt wants to go home. No complications noted. Pt is ok for discharge from pulmonary standpoint. 232 ALLISON GODFREY DO May 25, 2017 09:25
[2017-05-25] MEDS ORDERED: FOLI1TAB24 PO (09:27)
[2017-05-25] MEDS ORDERED: PRD20T PO (09:27)
[2017-05-25] MEDS ORDERED: FLUT1AER IH (09:30)
--- NOTE | 2017-05-25 09:37 | Cardiology Progress Note ---
Subjective Date Seen by Provider: May 25, 2017 Time Seen by Provider: 09:36 Subjective/Events-last exam patient is sitting in a chair, asking to go home, feeling better today. Denied any chest pain, breathing is better Review of Systems General: No Chills, No Night Sweats, No Fatigue, No Malaise, No Appetite, No Other HEENT: No Head Aches, No Visual Changes, No Eye Pain, No Ear Pain, No Dysphasia , No Sinus Congestion, No Post Nasal Drip, No Sore Throat, No Other Pulmonary: No Dyspnea, No Cough, No Pleuritic Chest Pain, No Other Cardiovascular: No: Chest Pain, Palpitations, Orthopnea, Paroxysmal Noc. Dyspnea, Edema, Lt Headedness, Other Objective-Cardiology Exam Last Set of Vital Signs Vital Signs 05/24/17 05/25/17 11:00 08:00 Temp 97.5 Pulse 86 Resp 18 B/P (MAP) 123/60 (81) Pulse Ox 96 O2 Delivery Nasal Cannula O2 Flow Rate 3.00 FiO2 28 Capillary Refill : I&O Intake and Output 05/25/17 00:00 Intake Total 2120 ml Output Total 4050 ml Balance -1930 ml Intake Oral 2120 ml Output Urine Total 4050 ml # Bowel Movements 1 General: Alert, Oriented X3, Cooperative HEENT: Atraumatic, PERRLA Neck: Supple, No JVD, No Thyromegaly Lungs: Clear to Auscultation, Normal Air Movement Heart: Regular Rate, Normal S1, Normal S2, No Murmurs Abdomen: Normal Bowel Sounds, Soft, No Tenderness, No Hepatosplenomegaly, No Masses Extremities: No Clubbing, No Cyanosis, No Tenderness/Swelling, Other ( Peripheral edema, diminished pulses) Skin: Other (Venous stasis changes) Neuro: Normal Speech, Normal Tone Psych/Mental Status: Mental Status NL, Mood NL Results Lab Laboratory Tests 05/25/17 06:02 A/P-Cardiology Admission Diagnosis Peripheral arterial disease Anemia Lower extremities Hypotension Assessment/Plan Shortness of breath, reporting improvement, managed by primary care physician. Responded to steroid and bronchodilators. Anemia, slightly better today, patient is Jehovah witness, underwent EGD which showed small ulceration with hiatal hernia and gastritis, recommendation by Dr. Tena is to hold aspirin and Plavix until absolutely sure that no active bleeding is present. Peripheral arterial disease, history of peripheral angiogram done in December 2016 showing Subtotal occlusion of the right SFA, complex intervention with scoring balloon VASCUTRACK then drug-coated balloon LUTONIX , followed by 3 stent deployment 2 overlapping SUPERA [id number] extending from the popliteal to the proximal SFA, the proximal portion of the SFA involving the ostial portion I used ABSOLUTE PRO 760 self-expanding stent, postdilatation with 5.5 balloon with excellent results, patient did not have any follow-up visit. arrange for follow-up as an outpatient. Lower extremity pain, discomfort, chronic venous stasis changes, venous Doppler was negative for DVT. seen by Dr. Fox, currently clinically stable. Continue to monitor Tobaccoism, educated on smoking cessation, patient expressed that she is down to 4 cigarettes a day Hyperlipidemia, monitor lipid Multiple risk factors for coronary artery disease, stress test done in December 2016 showed transient ischemic dilatation, extracardiac attenuation, did not have any follow-up visits. Noncompliant with appointments. Status post prolonged respiratory failure, ARDS in 2014. Currently doing well. Continue to monitor History of complex back surgery, underwent L1 corpectomy/reconstruction, T12-L1 posterior column osteotomy, revision of T12-L5 laminectomy, T6 pelvic posterior spinal fusion for deformity. Done by Dr. Anderson. Prolonged recovery time, poor wound healing, underwent wound care at [facility]. History of severe thoracic lumbar stenosis, thoracic lumbar myelopathy. Clinical Quality Measures DVT/VTE Risk/Contraindication: Risk Factor Score Per Nursin RFS Level Per Nursing on Admit: 4+=Very High Contraindications-Pharm: Other *list below* Contraindications-Mechi: Other *list below* Other: Unaboot status on lower legs Acute GIB TAMELA ALVARADO MD May 25, 2017 09:37
--- NOTE | 2017-05-25 11:24 | Discharge Summary-Hospitalist ---
Diagnosis/Chief Complaint Date of Admission May 21, 2017 at 15:00 Date of Discharge Discharge Date: May 25, 2017 Admission Diagnosis Severe anemia with volume overload Discharge Diagnosis (1) GI bleed Status: Acute (2) Lymphedema of both lower extremities Status: Chronic (3) Schizophrenia Status: Chronic (4) Anemia Status: Acute (5) Hypothyroidism Status: Chronic (6) Refusal of blood transfusions as patient is Cheondoism Status: Chronic (7) Restless leg syndrome Status: Chronic Assessment & Plan: Home meds restarted but this is a chronic issue (8) COPD (chronic obstructive pulmonary disease) Status: Chronic Discharge Summary Discharge Physical Exam Allergies: Coded Allergies: Penicillins (Unverified Allergy, Unknown, 09/17/06) Sulfa (Sulfonamide Antibiotics) (Unverified Allergy, Unknown, 09/17/06) Vitals & I&Os Vital Signs Date Time Temp Pulse Resp B/P (MAP) Pulse Ox O2 Delivery O2 Flow Rate FiO2 05/25/17 15:16 78 18 121/58 97 Nasal Cannula 3.00 05/25/17 12:00 98.1 05/24/17 11:00 28 General Appearance: Alert, Oriented X3, Cooperative, No Acute Distress Respiratory: Clear to Auscultation Cardiovascular: Regular Rate Psych/Mental Status: Mental Status NL, Mood NL Hospital Course Pt is a 72yoCF who was admitted for severe anemia and presumed GI Bleed. She underwent EGD which showed minimal gastritis and hiatal hernia. Biopsies were done and are pending. She declined transfusion due to voodoo beliefs and hematology was consulted for assistance with treating her anemia. She was started on Venofer and will complete as an outpatient with Dr Tena. She underwent home oxygen testing and requires oxygen at rest. She is to follow up with Hematology on and with Dr Adair and Dr White next week. She expressed understanding. On day of discharge she was requesting discharge home and declined NH placement. She states her daughter lives next to her and checks on her multiple times a day as well has having a video baby monitor to keep an eye on her at night. She also has a life alert necklace for immediate assistance if her daughter is at work. I again advised skilled placement but she declined. Will resume home health and have follow up as above. Labs (last 24 hrs) Laboratory Tests 05/24/17 15:51: Glucometer 198H 3/18/18 20:42: Glucometer 206H 05/25/17 05:25: Glucometer 139H 05/25/17 06:02: White Blood Count 12.0H, Red Blood Count 3.20L, Hemoglobin 8.3L, Hematocrit 27L , Mean Corpuscular Volume 83, Mean Corpuscular Hemoglobin 26, Mean Corpuscular Hemoglobin Concent 31L, Red Cell Distribution Width 17.5H, Platelet Count 349, Mean Platelet Volume 9.0, Neutrophils (%) (Auto) 62, Lymphocytes (%) (Auto) 30, Monocytes (%) (Auto) 7, Eosinophils (%) (Auto) 0, Basophils (%) (Auto) 0, Neutrophils # (Auto) 7.4, Lymphocytes # (Auto) 3.6, Monocytes # (Auto) 0.8, Eosinophils # (Auto) 0.0, Basophils # (Auto) 0.1, Sodium Level 140, Potassium Level 3.4L, Chloride Level 98, Carbon Dioxide Level 32, Anion Gap 10, Blood Urea Nitrogen 21H, Creatinine 0.96, Estimat Glomerular Filtration Rate 57, BUN/ Creatinine Ratio 22, Glucose Level 111H, Calcium Level 8.9, Magnesium Level 2.0 , Total Bilirubin 0.3, Aspartate Amino Transf (AST/SGOT) 15, Alanine Aminotransferase (ALT/SGPT) 7, Alkaline Phosphatase 99, Total Protein 6.6, Albumin 3.4 05/25/17 11:11: Glucometer 159H Microbiology 05/21/17 Blood Culture - Preliminary, Resulted No growth 05/21/17 MRSA Screen - Final, Complete MRSA not isolated 05/21/17 Urine Culture - Final, Complete Enterococcus faecalis Pseudomonas aeruginosa Patient resulted labs reviewed. Pending Labs Laboratory Tests 05/25/17 11:11: Glucometer 159 Discussion & Recommendations Discharge Planning: >30 minutes discharge planning Discharge Home Medications: Active Scripts Active Breo Ellipta 100-25 Mcg INH (Fluticasone/Vilanterol) 1 Each Blst.w.dev 1 Each IH DAILY Prednisone 20 Mg Tab 40 Mg PO DAILY@0700 Folic Acid 1 Mg Tablet 1 Mg PO DAILY Reported Calmoseptine Ointment (Menthol/Lanolin/Calamine/Znox) 71 Gm Oint TOP QID PRN Gabapentin 300 Mg Capsule 300 Mg PO TID Ropinirole HCl 2 Mg Tablet 2 Mg PO 1900 Citalopram HBr (Citalopram Hydrobromide) 20 Mg Tablet 20 Mg PO HS Proair Hfa (Albuterol Sulfate) 1 Puff Puff 2 Puff INH Q4H PRN Benzonatate 100 Mg Capsule 100 Mg PO TID PRN Tramadol HCl 50 Mg Tablet 2 Tab PO Q6H PRN Aspirin EC (Aspirin) 81 Mg Tablet.dr 81 Mg PO DAILY Furosemide 80 Mg Tablet 40 Mg PO 1500 TAKES 1/2 (80MG) TABLET Doxepin HCl 10 Mg Capsule 10 Mg PO HS Potassium Chloride 20 Meq Tab.er.prt 20 Meq PO 0800,1200 Furosemide 80 Mg Tablet 80 Mg PO DAILY Levothyroxine Sodium 100 Mcg Tablet 100 Mcg PO DAILY Instructions to patient/family Please see electronic discharge instructions given to patient. Clinical Quality Measures DVT/VTE Risk/Contraindication: Risk Factor Score Per Nursin RFS Level Per Nursing on Admit: 4+=Very High Contraindications-Pharm: Other *list below* Contraindications-Mechi: Other *list below* Other: Unaboot status on lower legs Acute GIB Problem Qualifiers (1) GI bleed: GI bleed type/associated pathology: unspecified gastrointestinal hemorrhage type Qualified Codes: K92.2 - Gastrointestinal hemorrhage, unspecified (2) Schizophrenia: Schizophrenia type: unspecified Qualified Codes: F20.9 - Schizophrenia, unspecified (3) Anemia: Anemia type: iron deficiency Iron deficiency anemia type: chronic blood loss Qualified Codes: D50.0 - Iron deficiency anemia secondary to blood loss ( chronic) (4) Hypothyroidism: Hypothyroidism type: acquired Qualified Codes: E03.9 - Hypothyroidism, unspecified (5) COPD (chronic obstructive pulmonary disease): COPD type: COPD with acute exacerbation Qualified Codes: J44.1 - Chronic obstructive pulmonary disease with (acute) exacerbation WAGNER ABDUL MD May 25, 2017 11:24
[2017-05-25 12:00] VITALS: BP 121/58
--- NOTE | 2017-05-25 13:55 | Physical Therapy Daily Note ---
PT Daily Note-Current Subjective Patient reports she is going home. Pain Numeric Pain Scale: 0-No Pain Location: No Pain Reported Mental Status Patient Orientation: Normal For Age Attachments: Oxygen Transfers Functional [place] Measure 0=Not Assessed/NA 4=Minimal Assistance 1=Total Assistance 5=Supervision or Setup 2=Maximal Assistance 6=Modified [place] 3=Moderate Assistance 7=Complete IndependenceIRFPAI Quality Coding Scale 6 Independent with activity with or without an assistive device 5 Patient requires set up or clean up by helper. Patient completes activity by themselves 4 Supervision or touching assist (CGA). [place] provide cues , steadying assist 3 The helper provides less than half the effort to complete the activity 2 The helper provides more than half the effort to complete the activity 1 Dependent. The helper does all the effort to complete an activity 7 Patient refused to complete or attempt activity 9 The patient did not perform the activity before the current illness or injury 88 Not attempted due to Medical conditions or safety concerns Transfers (B, C, W/C) (FIM): 5 Sit to/from Stand: 5 Weight Bearing Right Lower Extremity: Right Full Weight Bearing Left Lower Extremity: Left Full Weight Bearing Gait Training Gait (FIM): 1 Distance (FIM): 1=up to 49 ft Distance: 25' x 3 Gait Level of Assist: 5 Gait Assistive Device: FWW functional, slow, safe gait sequence Exercises Seated Therapy Exercises: Long arc quads, Hip flexion, Hip abd/add Seated Reps: 15 Assessment Patient tolerated treatment and is much improved. Patient to dismiss to home on this date. PT Group Home Goals Cruise Staff Member Goals PT Group Home Goals Time Frame: Jun 05, 2017 Transfers (B,C,W/C) (FIM): 5 Gait (FIM): 2 Gait distance (FIM): 6=078-34 ft Distance: 125' Gait Level of Assist: 5 Gait Assistive Device: FWW PT Plan Treatment/Plan Treatment Plan: Discontinue PT Treatment Plan: Bed Mobility, Education, Functional Activity [place], Functional Strength, Gait, Safety, Therapeutic Exercise, Transfers Treatment Duration: Jun 05, 2017 Frequency: 6 times per week Estimated Hrs Per Day: .25 hour per day Patient and/or Family Agrees t: Yes Time/GCodes Time In: 1301 Time Out: 1313 Total Billed Treatment Time: 12 Total Billed Treatment 1 visit FA 12 min [facility] PT May 25, 2017 13:55
[2017-05-25 15:16] VITALS: BP 121/58
== END 2017-05-25 15:26 | disposition home health service (06) | DRG 378 ==
LOC: ICU 15:00 → 4TH 05-22 12:15
PROVIDERS: ADMIT Internal Medicine; ATTEND Internal Medicine
PROC: 0DB68ZX Excision of Stomach, Via Natural or Artificial Opening Endoscopic, Diagnostic (ICD-10-PCS; principal; 2017-05-21 20:10)
DX: K25.4 Chronic or unspecified gastric ulcer with hemorrhage (principal); K29.71 Gastritis, unspecified, with bleeding; K44.9 Diaphragmatic hernia without obstruction or gangrene; K31.7 Polyp of stomach and duodenum; D50.0 Iron deficiency anemia secondary to blood loss (chronic); Z68.41 Body mass index [BMI] 40.0-44.9, adult; I87.8 Other specified disorders of veins; F17.210 Nicotine dependence, cigarettes, uncomplicated; K59.09 Other constipation; J43.9 Emphysema, unspecified; E66.01 Morbid (severe) obesity due to excess calories; R60.0 Localized edema; E03.9 Hypothyroidism, unspecified; I10 Essential (primary) hypertension; I70.321 Atherosclerosis of unspecified type of bypass graft(s) of the extremities with rest pain, right leg; E78.00 Pure hypercholesterolemia, unspecified; G62.9 Polyneuropathy, unspecified; I95.9 Hypotension, unspecified; M19.91 Primary osteoarthritis, unspecified site; L30.9 Dermatitis, unspecified; M54.9 Dorsalgia, unspecified; G25.81 Restless legs syndrome; K58.9 Irritable bowel syndrome, unspecified; H91.93 Unspecified hearing loss, bilateral; F41.9 Anxiety disorder, unspecified; F32.9 Major depressive disorder, single episode, unspecified; F20.9 Schizophrenia, unspecified; Z95.820 Peripheral vascular angioplasty status with implants and grafts; Z98.1 Arthrodesis status; Z99.81 Dependence on supplemental oxygen
CPT/HCPCS: 36415; 71045; 80048; 80053; 81000; 82728; 82805; 82962; 83540; 83605; 83735; 83880; 84484; 85014; 85018; 85025; 85045; 85610; 85730; 87040; 87077; 87081; 87088; 87186; 93306; 93970; 94640; 94664; 94760

== ENCOUNTER 2017-07-14 15:12 | Outpatient (RCR) | payer MEDICARE, MEDICAID ==
[2017-06-10 11:42] LABS: ABSOLUTE RETIC # 77 10e9/L (24-90); BASOPHILS % (AUTO) 1 % (0-10); EOSINOPHILS # (AUTO) 0.3 10^3/uL (0.0-0.3); EOSINOPHILS % (AUTO) 5 % (0-10); HEMATOCRIT 25 % (35-52); HEMOGLOBIN 7.5 G/DL (11.5-16.0); LYMPHOCYTES # (AUTO) 2.1 X 10^3 (1.0-4.0); LYMPHOCYTES % (AUTO) 31 % (12-44); MEAN CORPUSCULAR HEMOGLOBIN 26 PG (25-34); MEAN CORPUSCULAR HGB CONC 30 G/DL (32-36); MEAN CORPUSCULAR VOLUME 84 FL (80-99); MEAN PLATELET VOLUME 9.2 FL (7.4-10.4); MONOCYTES # (AUTO) 0.4 X 10^3 (0.0-1.0); MONOCYTES % (AUTO) 5 % (0-12); NEUTROPHILS # (AUTO) 4.1 X 10^3 (1.8-7.8); NEUTROPHILS % (AUTO) 59 % (42-75); PLATELET COUNT 394 10^3/uL (130-400); RED BLOOD COUNT 2.94 10^6/uL (4.35-5.85); RED CELL DISTRIBUTION WIDTH 19.3 % (10.0-14.5); RETICULOCYTE % 2.61 % (0.50-2.40); WHITE BLOOD COUNT 6.9 10^3/uL (4.3-11.0)
[2017-06-16 16:02] LABS: BASOPHILS % (AUTO) 0 % (0-10); EOSINOPHILS # (AUTO) 0.3 10^3/uL (0.0-0.3); EOSINOPHILS % (AUTO) 4 % (0-10); HEMATOCRIT 26 % (35-52); HEMOGLOBIN 7.9 G/DL (11.5-16.0); LYMPHOCYTES # (AUTO) 2.2 X 10^3 (1.0-4.0); LYMPHOCYTES % (AUTO) 28 % (12-44); MEAN CORPUSCULAR HEMOGLOBIN 27 PG (25-34); MEAN CORPUSCULAR HGB CONC 31 G/DL (32-36); MEAN CORPUSCULAR VOLUME 88 FL (80-99); MEAN PLATELET VOLUME 9.4 FL (7.4-10.4); MONOCYTES # (AUTO) 0.4 X 10^3 (0.0-1.0); MONOCYTES % (AUTO) 5 % (0-12); NEUTROPHILS # (AUTO) 5.1 X 10^3 (1.8-7.8); NEUTROPHILS % (AUTO) 63 % (42-75); PLATELET COUNT 280 10^3/uL (130-400); RED BLOOD COUNT 2.96 10^6/uL (4.35-5.85); RED CELL DISTRIBUTION WIDTH 22.9 % (10.0-14.5)
[2017-06-23 16:05] LABS: BASOPHILS % (AUTO) 0 % (0-10); EOSINOPHILS # (AUTO) 0.3 10^3/uL (0.0-0.3); EOSINOPHILS % (AUTO) 2 % (0-10); HEMATOCRIT 28 % (35-52); HEMOGLOBIN 8.5 G/DL (11.5-16.0); LYMPHOCYTES # (AUTO) 2.2 X 10^3 (1.0-4.0); LYMPHOCYTES % (AUTO) 16 % (12-44); MEAN CORPUSCULAR HEMOGLOBIN 28 PG (25-34); MEAN CORPUSCULAR HGB CONC 31 G/DL (32-36); MEAN CORPUSCULAR VOLUME 89 FL (80-99); MEAN PLATELET VOLUME 8.9 FL (7.4-10.4); MONOCYTES # (AUTO) 0.6 X 10^3 (0.0-1.0); MONOCYTES % (AUTO) 4 % (0-12); NEUTROPHILS # (AUTO) 10.7 X 10^3 (1.8-7.8); NEUTROPHILS % (AUTO) 78 % (42-75); PLATELET COUNT 235 10^3/uL (130-400); RED BLOOD COUNT 3.09 10^6/uL (4.35-5.85); RED CELL DISTRIBUTION WIDTH 23.2 % (10.0-14.5); WHITE BLOOD COUNT 13.8 10^3/uL (4.3-11.0)
[2017-06-30 14:19] LABS: ABSOLUTE RETIC # 153 10e9/L (24-90); BASOPHILS % (AUTO) 0 % (0-10); EOSINOPHILS # (AUTO) 0.2 10^3/uL (0.0-0.3); EOSINOPHILS % (AUTO) 3 % (0-10); HEMATOCRIT 33 % (35-52); LYMPHOCYTES # (AUTO) 2.4 X 10^3 (1.0-4.0); LYMPHOCYTES % (AUTO) 26 % (12-44); MEAN CORPUSCULAR HEMOGLOBIN 27 PG (25-34); MEAN CORPUSCULAR HGB CONC 30 G/DL (32-36); MEAN CORPUSCULAR VOLUME 90 FL (80-99); MONOCYTES # (AUTO) 0.5 X 10^3 (0.0-1.0); MONOCYTES % (AUTO) 6 % (0-12); NEUTROPHILS # (AUTO) 6.1 X 10^3 (1.8-7.8); NEUTROPHILS % (AUTO) 66 % (42-75); PLATELET COUNT 348 10^3/uL (130-400); RED BLOOD COUNT 3.68 10^6/uL (4.35-5.85); RED CELL DISTRIBUTION WIDTH 24.2 % (10.0-14.5); RETICULOCYTE % 4.16 % (0.50-2.40); WHITE BLOOD COUNT 9.3 10^3/uL (4.3-11.0)
[2017-06-30 14:34] LABS: ALANINE AMINOTRANSFERASE 8 U/L (0-55); ALBUMIN 3.4 GM/DL (3.2-4.5); ALKALINE PHOSPHATASE 117 U/L (40-136); BILIRUBIN,TOTAL 0.4 MG/DL (0.1-1.0); BUN/CREATININE RATIO 8; CALCIUM 8.9 MG/DL (8.5-10.1); CARBON DIOXIDE 29 MMOL/L (21-32); CHLORIDE 102 MMOL/L (98-107); CREATININE SERUM 0.89 MG/DL (0.60-1.30); GFR ESTIMATED > 60; GLUCOSE 90 MG/DL (70-105); POTASSIUM 3.4 MMOL/L (3.6-5.0); SODIUM 139 MMOL/L (135-145); TOTAL PROTEIN 7.6 GM/DL (6.4-8.2)
[2017-07-07 12:22] LABS: BASOPHILS # (AUTO) 0.1 10^3/uL (0.0-0.1); BASOPHILS % (AUTO) 1 % (0-10); EOSINOPHILS # (AUTO) 0.3 10^3/uL (0.0-0.3); EOSINOPHILS % (AUTO) 4 % (0-10); HEMATOCRIT 34 % (35-52); HEMOGLOBIN 10.7 G/DL (11.5-16.0); LYMPHOCYTES # (AUTO) 2.7 X 10^3 (1.0-4.0); LYMPHOCYTES % (AUTO) 31 % (12-44); MEAN CORPUSCULAR HEMOGLOBIN 28 PG (25-34); MEAN CORPUSCULAR HGB CONC 32 G/DL (32-36); MEAN CORPUSCULAR VOLUME 89 FL (80-99); MEAN PLATELET VOLUME 9.3 FL (7.4-10.4); MONOCYTES # (AUTO) 0.6 X 10^3 (0.0-1.0); MONOCYTES % (AUTO) 7 % (0-12); NEUTROPHILS # (AUTO) 4.9 X 10^3 (1.8-7.8); NEUTROPHILS % (AUTO) 57 % (42-75); PLATELET COUNT 284 10^3/uL (130-400); RED BLOOD COUNT 3.83 10^6/uL (4.35-5.85); RED CELL DISTRIBUTION WIDTH 21.8 % (10.0-14.5); WHITE BLOOD COUNT 8.6 10^3/uL (4.3-11.0)
[~2017-07-14 15:12] MED LIST changes: +CITA20TA9 PO; +DARBEPOETIN 100 MCG/ML (ARANESP) 1 ML VIAL SC SCH; +FERRIC CARBOXYMALTOSE (CANCER) 750 MG in NS (IVPB) CANCER CENTER 250 ML IV SCH; +FLUT1AER IH; +FOLI1TAB24 PO; +MENT71OI TOP; +PRD20T PO; +ROPI2TAB4 PO
[2017-07-14 15:32] LABS: BASOPHILS % (AUTO) 1 % (0-10); EOSINOPHILS # (AUTO) 0.4 10^3/uL (0.0-0.3); EOSINOPHILS % (AUTO) 4 % (0-10); HEMATOCRIT 34 % (35-52); HEMOGLOBIN 10.7 G/DL (11.5-16.0); LYMPHOCYTES # (AUTO) 2.1 X 10^3 (1.0-4.0); LYMPHOCYTES % (AUTO) 24 % (12-44); MEAN CORPUSCULAR HEMOGLOBIN 28 PG (25-34); MEAN CORPUSCULAR HGB CONC 32 G/DL (32-36); MEAN CORPUSCULAR VOLUME 88 FL (80-99); MEAN PLATELET VOLUME 9.1 FL (7.4-10.4); MONOCYTES # (AUTO) 0.5 X 10^3 (0.0-1.0); MONOCYTES % (AUTO) 6 % (0-12); NEUTROPHILS # (AUTO) 5.7 X 10^3 (1.8-7.8); NEUTROPHILS % (AUTO) 66 % (42-75); PLATELET COUNT 286 10^3/uL (130-400); RED BLOOD COUNT 3.82 10^6/uL (4.35-5.85); RED CELL DISTRIBUTION WIDTH 20.9 % (10.0-14.5); WHITE BLOOD COUNT 8.7 10^3/uL (4.3-11.0)
== END 2017-09-08 | disposition home or self-care (01) ==
LOC: ONC 15:12
PROVIDERS: ATTEND Internal Medicine Hematology & Oncology
DX: D50.9 Iron deficiency anemia, unspecified (principal)
CPT/HCPCS: 36415; 80053; 82728; 85025; 85045; 96365; 96372

== ENCOUNTER → 2018-01-22 | Outpatient (CLI) | payer MEDICARE, MEDICAID ==
[~2018-01-22] MED LIST changes: -DARBEPOETIN 100 MCG/ML (ARANESP) 1 ML VIAL SC SCH; -FERRIC CARBOXYMALTOSE (CANCER) 750 MG in NS (IVPB) CANCER CENTER 250 ML IV SCH
== END | disposition home or self-care (01) ==
LOC: PREOP 06:16
PROVIDERS: ATTEND Surgery
DX: Z01.818 Encounter for other preprocedural examination (principal)

== ENCOUNTER 2018-01-31 01:45 | Emergency (ER) | payer MEDICAID, MEDICARE ==
[~2018-01-31] VITALS: Ht 149.9 cm; Wt 90.7 kg
--- OUTSIDE RECORDS SUMMARY | 2018-01-31 01:53 | XMS REPORT | Continuity of Care Document ---
Author Author [facility] Organization [facility] Address Unknown Phone Unavailable Allergies Active Description Code Type Severity Reaction Onset Reported/Identified Relationship to Patient Clinical Status Yes Penicillins [id number] Drug Allergy Unknown N/A 09/17/2006 Yes Sulfa (Sulfonamide Antibiotics) [id number] Drug Allergy Unknown N/A 2006 Medications There [...] Ot 285.1 AC POSTHEMORRHAG ANEMIA 12/05/2014 NEENA NJAERA MD Ot 287.5 THROMBOCYTOPENIA NOS 12/05/2014 NEENA NAJERA MD Ot 295.90 SCHIZOPHRENIA NOS-UNSPEC 12/05/2014 NEENA NAJERA MD Ot 300.00 ANXIETY STATE NOS 12/05/2014 NEENA NAJERA MD Ot 305.1 TOBACCO USE DISORDER 12/05/2014 NEEAN NAJERA MD Ot 311 DEPRESSIVE DISORDER NEC [...] Ot 780.79 OTH MALAISE FATIGUE 12/05/2014 NEENA NJAERA MD, Ot 782.3 EDEMA 12/05/2014 NEENA NAJERA [...] EXAMINATION 07/12/2015 NEENA NAJERA MD, Ot V72.81 [id number] CARDIOVASCULAR 07/12/2015 NEENA NAJERA MD, Ot V72.83 [...] EXAMINATION 01/05/2017 NEENA NAJERA MD Ot V72.81 [id number] CARDIOVASCULAR 01/05/2017 NEENA NAJERA MD Ot V72.83 [...] TAMELA ALVARADO MD Ot 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 [place] [facility] 01/07/2017 TAMELA ALVARADO MD Ot I70.92 CHRONIC [...] 01/07/2017 TAMELA ALVARADO MD Ot Z79.899 OTHER CUSTODIAL (CURRENT) DRUG THERAPY 01/15/2017 ODELL ARNOLD APRN [...] TAMELA ALVARADO MD Ot I70.201 UNSP ATHSCL [place] [facility] 01/15/2017 TAMELA ALVARADO MD, Ot J44.9 CHRONIC OBSTRUCTIVE PULMONARY DISEASE, U 01/15/2017 TAMELA ALVARADO MD Ot L97.519 NON-PRS CHRONIC ULCER OTH PRT RIGHT FOOT 01/15/2017 TAMELA ALVARADO MD Ot R00.0 TACHYCARDIA, UNSPECIFIED 01/15/2017 TAMELA ALVARADO MD Ot Z79.899 OTHER LEAD SHAREPOINT DEVELOPER (CURRENT) DRUG THERAPY 01/15/2017 TAMELA ALVARADO MD Ot Z88.0 ALLERGY STATUS TO PENICILLIN 01/15/2017 TAMELA ALVARADO MD Ot Z88.2 ALLERGY STATUS TO SULFONAMIDES STATUS 01/15/2017 TAMELA ALVARADO MD Ot Z88.6 ALLERGY STATUS TO ANALGESIC AGENT STATUS 01/21/2017 OEDLL ARNOLD APRN Ot I87.333 CHRONIC VENOUS HTN [...] TAMELA ALVARADO MD, Ot 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 [place] [facility] 01/22/2017 TAMELA ALVARADO MD [...] 01/22/2017 TAMELA ALVARADO MD Ot Z79.899 OTHER CUSTODIAL (CURRENT) DRUG THERAPY 01/27/2017 TAMELA ALVARADO MD, [...] OF ARTERY OF THE 02/04/2017 ODELL ARNOLD MACHINE STRIPER Ot I87.333 CHRONIC VENOUS HTN W ULCER [...] ULCER AND INFLAM OF 02/10/2017 ODELL ARNOLD MACHINE STRIPER Ot L97.212 NON-PRESSURE CHRONIC ULCER OF RIGHT [...] TAMELA ALVARADO MD Ot I70.201 UNSP ATHSCL [place] [facility] 02/18/2017 TAMELA ALVARADO MD Ot J44.9 CHRONIC OBSTRUCTIVE PULMONARY DISEASE, U 02/18/2017 TAMELA ALVARADO MD Ot L97.519 NON-PRS CHRONIC ULCER OTH PRT RIGHT FOOT 02/18/2017 TAMELA ALVARADO MD Ot R00.0 TACHYCARDIA, UNSPECIFIED 02/18/2017 TAMELA ALVARADO MD Ot Z79.899 OTHER CUSTODIAL (CURRENT) DRUG THERAPY 02/18/2017 TAMELA ALVARADO MD Ot Z88.0 ALLERGY STATUS TO PENICILLIN 02/18/2017 TAMELA ALVARADO MD Ot Z88.2 ALLERGY STATUS [...] TAMELA ALVARADO MD Ot 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 [place] [facility] 02/26/2017 TAMELA ALVARADO MD [...] 02/26/2017 TAMELA ALVARADO MD Ot Z79.899 OTHER CUSTODIAL (CURRENT) DRUG THERAPY 02/27/2017 ODELL ARNOLD APRN Ot 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 02/27/2017 ODELL ARNOLD APRN Ot I87.333 CHRONIC VENOUS HTN W ULCER AND INFLAM OF 02/27/2017 ODELL ARNOLD APRN Ot L97.212 NON-PRESSURE CHRONIC ULCER OF RIGHT CALF 02/27/2017 CLAYTON, ODELL R MACHINE STRIPER Ot L97.222 NON-PRESSURE CHRONIC ULCER OF LEFT CALF 03/06/2017 ODELL ARNOLD R MACHINE STRIPER Ot 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 03/06/2017 ODELL ARNOLD R MACHINE STRIPER Ot I87.333 CHRONIC VENOUS HTN W ULCER AND INFLAM OF 03/06/2017 CLAYTON ODELL R MACHINE STRIPER Ot L97.212 NON-PRESSURE CHRONIC ULCER OF RIGHT CALF 03/06/2017 CLAYTON ODELL R MACHINE STRIPER Ot L97.222 NON-PRESSURE CHRONIC ULCER OF LEFT CALF 03/06/2017 CLAYTON ODELL R MACHINE STRIPER Ot 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 03/06/2017 CLAYTON ODELL R MACHINE STRIPER Ot I87.333 CHRONIC VENOUS HTN W ULCER AND INFLAM OF 03/06/2017 CLAYTON ODELL R MACHINE STRIPER Ot L97.212 NON-PRESSURE CHRONIC ULCER OF RIGHT CALF 03/06/2017 CLAYTON ODELL R MACHINE STRIPER Ot L97.222 NON-PRESSURE CHRONIC ULCER OF LEFT CALF 03/11/2017 ODELL ARNOLD MACHINE STRIPER Ot 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 03/11/2017 CLAYTON ODELL R MACHINE STRIPER Ot I87.333 CHRONIC VENOUS HTN W ULCER AND INFLAM OF 03/11/2017 CLAYTON ODELL R MACHINE STRIPER Ot L97.212 NON-PRESSURE CHRONIC ULCER OF RIGHT CALF 03/20/2017 ODELL ARNOLD MACHINE STRIPER Ot 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 03/20/2017 ODELL ARNOLD R MACHINE STRIPER Ot I87.333 CHRONIC VENOUS HTN W ULCER AND INFLAM OF 03/20/2017 ODELL ARNOLD R MACHINE STRIPER Ot L97.212 NON-PRESSURE CHRONIC ULCER OF RIGHT CALF 2017 CLAYTON ODELL R MACHINE STRIPER Ot 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 2017 CLAYTON ODELL R MACHINE STRIPER Ot I87.333 CHRONIC VENOUS HTN W ULCER AND INFLAM OF 2017 CLAYTON ODELL R MACHINE STRIPER Ot L97.212 NON-PRESSURE CHRONIC ULCER OF RIGHT CALF 04/15/2017 CLAYTON ODELL R MACHINE STRIPER Ot 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 04/15/2017 ODELL ARNOLD R MACHINE STRIPER Ot I87.333 CHRONIC VENOUS HTN W ULCER AND INFLAM OF 04/15/2017 ODELL ARNOLD R MACHINE STRIPER Ot L97.212 NON-PRESSURE CHRONIC ULCER OF RIGHT CALF 04/17/2017 WAGNER ABDUL MD Ot D64.9 ANEMIA, UNSPECIFIED 04/17/2017 WAGNER ABDUL MD Ot E03.9 HYPOTHYROIDISM, UNSPECIFIED 04/17/2017 WAGNER ABDUL MD Ot E66.01 MORBID (SEVERE) OBESITY DUE TO EXCESS CA 04/17/2017 WAGNER ABDUL MD Ot E78.00 PURE HYPERCHOLESTEROLEMIA, UNSPECIFIED 04/17/2017 WAGNER ABDUL MD Ot F17.210 NICOTINE DEPENDENCE, CIGARETTES, UNCOMPL 04/17/2017 WAGNER ABDUL MD Ot F20.9 SCHIZOPHRENIA, UNSPECIFIED 04/17/2017 WAGNER ABDUL MD Ot F32.9 MAJOR DEPRESSIVE DISORDER, SINGLE EPISOD 04/17/2017 WAGNER ABDUL MD Ot F41.9 ANXIETY DISORDER, UNSPECIFIED 04/17/2017 WAGNER ABDUL MD Ot G25.81 RESTLESS LEGS SYNDROME 04/17/2017 WAGNER ABDUL MD Ot G62.9 POLYNEUROPATHY, UNSPECIFIED 04/17/2017 WAGNER ABDUL MD Ot H91.93 UNSPECIFIED HEARING LOSS, BILATERAL 04/17/2017 WAGNER ABDUL MD Ot I10 ESSENTIAL (PRIMARY) HYPERTENSION 04/17/2017 WAGNER ABDUL MD Ot I73.9 PERIPHERAL VASCULAR DISEASE, UNSPECIFIED 04/17/2017 WAGNER ABDUL MD Ot J04.0 ACUTE LARYNGITIS 04/17/2017 WAGNER ABDUL MD Ot J18.9 PNEUMONIA, UNSPECIFIED ORGANISM 04/17/2017 WAGNER ABDUL MD Ot J43.9 EMPHYSEMA, UNSPECIFIED 04/17/2017 WAGNER ABDUL MD Ot K58.9 IRRITABLE BOWEL SYNDROME WITHOUT DIARRHE 04/17/2017 WAGNER ABDUL MD Ot K59.09 OTHER CONSTIPATION 04/17/2017 WAGNER ABDUL MD Ot M19.90 UNSPECIFIED OSTEOARTHRITIS, UNSPECIFIED 04/17/2017 WAGNER ABDUL MD Ot M54.9 DORSALGIA, UNSPECIFIED 04/17/2017 WAGNER ABDUL MD Ot N39.0 URINARY TRACT INFECTION, SITE NOT SPECIF 04/17/2017 WAGNER ABDUL MD Ot R04.0 EPISTAXIS 04/17/2017 WAGNER ABDUL MD Ot R53.1 WEAKNESS 04/17/2017 WAGNER ABDUL MD Ot Z68.41 BODY MASS INDEX (BMI) 40.0-44.9, ADULT 04/17/2017 WAGNER ABDUL MD Ot Z87.442 PERSONAL HISTORY OF URINARY CALCULI 04/17/2017 WAGNER ABDUL MD Ot Z95.828 PRESENCE OF OTHER VASCULAR IMPLANTS AND 04/17/2017 WAGNER ABDUL MD Ot Z96.698 PRESENCE OF OTHER ORTHOPEDIC JOINT IMPLA 04/17/2017 WAGNER ABDUL MD Ot Z97.4 PRESENCE OF EXTERNAL HEARING-AID 05/22/2017 FOSS DO, GEOVANI Ot D50.0 IRON DEFICIENCY ANEMIA SECONDARY TO BLOO 05/22/2017 FOSS DO, GEOVANI Ot E03.9 HYPOTHYROIDISM, UNSPECIFIED 05/22/2017 FOSS DO, GEOVANI Ot E66.01 MORBID (SEVERE) OBESITY DUE TO EXCESS CA 05/22/2017 FOSS DO, GEOVANI Ot E78.00 PURE HYPERCHOLESTEROLEMIA, UNSPECIFIED 05/22/2017 FOSS DO, GEOVANI Ot F17.210 NICOTINE DEPENDENCE, CIGARETTES, UNCOMPL 05/22/2017 FOSS DO, GEOVANI Ot F20.9 SCHIZOPHRENIA, UNSPECIFIED 05/22/2017 FOSS DO, GEOVANI Ot F32.9 MAJOR DEPRESSIVE DISORDER, SINGLE EPISOD 05/22/2017 FOSS DO, GEOVANI Ot F41.9 ANXIETY DISORDER, UNSPECIFIED 05/22/2017 FOSS DO, GEOVANI Ot G62.9 POLYNEUROPATHY, UNSPECIFIED 05/22/2017 FOSS DO, GEOVANI Ot H91.93 UNSPECIFIED HEARING LOSS, BILATERAL 05/22/2017 FOSS DO, GEOVANI Ot I10 ESSENTIAL (PRIMARY) HYPERTENSION 05/22/2017 FOSS DO, GEOVANI Ot 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 05/22/2017 PIPO DO, GEOVANI Ot I87.8 OTHER SPECIFIED DISORDERS OF VEINS 05/22/2017 FOSS DO, GEOVANI Ot I95.9 HYPOTENSION, UNSPECIFIED 05/22/2017 FOSS DO GEOVANI Ot J43.9 EMPHYSEMA, UNSPECIFIED 05/22/2017 PIPO CANSECO GEOVANI Ot K25.4 CHRONIC OR UNSPECIFIED GASTRIC ULCER WIT 05/22/2017 PIPO CANSECO GEOVANI Ot K29.71 GASTRITIS, UNSPECIFIED, WITH BLEEDING 05/22/2017 PIPO CANSECO GEOVANI Ot K31.7 POLYP OF STOMACH AND DUODENUM 05/22/2017 PIPO CANSECO GEOVANI Ot K44.9 DIAPHRAGMATIC HERNIA WITHOUT OBSTRUCTION 05/22/2017 PIPO CANSECO GEOVANI Ot K58.9 IRRITABLE BOWEL SYNDROME WITHOUT DIARRHE 05/22/2017 PIPO CANSECO GEOVANI Ot K59.09 OTHER CONSTIPATION 05/22/2017 PIPO CANSECO GEOVANI Ot M19.91 PRIMARY OSTEOARTHRITIS, UNSPECIFIED SITE 05/22/2017 PIPO CANSECO GEOVANI Ot M54.9 DORSALGIA, UNSPECIFIED 05/22/2017 PIPO CANSECO GEOVANI Ot R60.0 LOCALIZED EDEMA 05/22/2017 PIPO CANSECO GEOVANI Ot Z68.41 BODY MASS INDEX (BMI) 40.0-44.9, ADULT 05/22/2017 PIPO CANSECO GEOVANI Ot Z95.820 PERIPHERAL VASCULAR ANGIOPLASTY STATUS W 05/22/2017 PIPO CANSECO GEOVANI Ot Z97.4 PRESENCE OF EXTERNAL HEARING-AID 05/22/2017 PIPO CANSECO GEOVANI Ot Z98.1 ARTHRODESIS STATUS 05/22/2017 PIPO CANSECO GEOVANI Ot Z99.81 DEPENDENCE ON SUPPLEMENTAL OXYGEN 05/23/2017 PIPO CANSECO GEOVANI Ot D50.0 IRON DEFICIENCY ANEMIA SECONDARY TO BLOO 05/23/2017 PIPO CANSECO GEOVANI Ot E03.9 HYPOTHYROIDISM, UNSPECIFIED 05/23/2017 PIPO CANSECO GEOVANI Ot E66.01 MORBID (SEVERE) OBESITY DUE TO EXCESS CA 05/23/2017 PIPO CANSECO GEOVANI Ot E78.00 PURE HYPERCHOLESTEROLEMIA, UNSPECIFIED 05/23/2017 PIPO CANSECO GEOVANI Ot F17.210 NICOTINE DEPENDENCE, CIGARETTES, UNCOMPL 05/23/2017 PIPO CANSECO GEOVANI Ot F20.9 SCHIZOPHRENIA, UNSPECIFIED 05/23/2017 PIPO CANSECO GEOVANI Ot F32.9 MAJOR DEPRESSIVE DISORDER, SINGLE EPISOD 05/23/2017 PIPO CANSECO GEOVANI Ot F41.9 ANXIETY DISORDER, UNSPECIFIED 05/23/2017 PIPO CANSECO GEOVANI Ot G62.9 POLYNEUROPATHY, UNSPECIFIED 05/23/2017 PIPO CANSECO GEOVANI Ot H91.93 UNSPECIFIED HEARING LOSS, BILATERAL 05/23/2017 PIPO CANSECO GEOVANI Ot I10 ESSENTIAL (PRIMARY) HYPERTENSION 05/23/2017 PIPO CANSECO GEOVANI Ot 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 05/23/2017 PIPO CANSECO GEOVANI Ot I87.8 OTHER SPECIFIED DISORDERS OF VEINS 05/23/2017 PIPO CANSECO GEOVANI Ot I95.9 HYPOTENSION, UNSPECIFIED 05/23/2017 PIPO CANSECO GEOVANI Ot J43.9 EMPHYSEMA, UNSPECIFIED 05/23/2017 PIPO CANSECO GEOVANI Ot K25.4 CHRONIC OR UNSPECIFIED GASTRIC ULCER WIT 05/23/2017 PIPO CANSECO GEOVANI Ot K29.71 GASTRITIS, UNSPECIFIED, WITH BLEEDING 05/23/2017 PIPO CANSECO GEOVANI Ot K31.7 POLYP OF STOMACH AND DUODENUM 05/23/2017 PIPO CANSECO GEOVANI Ot K44.9 DIAPHRAGMATIC HERNIA WITHOUT OBSTRUCTION 05/23/2017 PIPO CANSECO GEOVANI Ot K58.9 IRRITABLE BOWEL SYNDROME WITHOUT DIARRHE 05/23/2017 PIPO CANSECO GEOVANI Ot K59.09 OTHER CONSTIPATION 05/23/2017 PIPO CANSECO GEOVANI Ot M19.91 PRIMARY OSTEOARTHRITIS, UNSPECIFIED SITE 05/23/2017 PIPO CANSECO GEOVANI Ot M54.9 DORSALGIA, UNSPECIFIED 05/23/2017 PIPO CANSECO GEOVANI Ot R60.0 LOCALIZED EDEMA 05/23/2017 PIPO CANSECO GEOVANI Ot Z68.41 BODY MASS INDEX (BMI) 40.0-44.9, ADULT 05/23/2017 PIPO CANSECO GEOVANI Ot Z95.820 PERIPHERAL VASCULAR ANGIOPLASTY STATUS W 05/23/2017 PIPO CANSECO GEOVANI Ot Z97.4 PRESENCE OF EXTERNAL HEARING-AID 05/23/2017 PIPO CANSECO GEOVANI Ot Z98.1 ARTHRODESIS STATUS 05/23/2017 PIPO CANSECO GEOVANI Ot Z99.81 DEPENDENCE ON SUPPLEMENTAL OXYGEN 05/24/2017 PIPO CANSECO GEOVANI Ot D50.0 IRON DEFICIENCY ANEMIA SECONDARY TO BLOO 05/24/2017 PIPO CANSECO GEOVANI Ot E03.9 HYPOTHYROIDISM, UNSPECIFIED 05/24/2017 PIPO CANSECO GEOVANI Ot E66.01 MORBID (SEVERE) OBESITY DUE TO EXCESS CA 05/24/2017 FOSS DO, GEOVANI Ot E78.00 PURE HYPERCHOLESTEROLEMIA, UNSPECIFIED 05/24/2017 FOSS DO, GEOVANI Ot F17.210 NICOTINE DEPENDENCE, CIGARETTES, UNCOMPL 05/24/2017 FOSS DO, GEOVANI Ot F20.9 SCHIZOPHRENIA, UNSPECIFIED 05/24/2017 FOSS DO, GEOVANI Ot F32.9 MAJOR DEPRESSIVE DISORDER, SINGLE EPISOD 05/24/2017 FOSS DO, GEOVANI Ot F41.9 ANXIETY DISORDER, UNSPECIFIED 05/24/2017 FOSS DO, GEOVANI Ot G62.9 POLYNEUROPATHY, UNSPECIFIED 05/24/2017 FOSS DO, GEOVANI Ot H91.93 UNSPECIFIED HEARING LOSS, BILATERAL 05/24/2017 FOSS DO, GEOVANI Ot I10 ESSENTIAL (PRIMARY) HYPERTENSION 05/24/2017 FOSS DO, GEOVANI Ot 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 05/24/2017 FOSS DO, GEOVANI Ot I87.8 OTHER SPECIFIED DISORDERS OF VEINS 05/24/2017 PIPO DO, GEOVANI Ot I95.9 HYPOTENSION, UNSPECIFIED 05/24/2017 FOSS DO, GEOVANI Ot J43.9 EMPHYSEMA, UNSPECIFIED 05/24/2017 FOSS DO, GEOVANI Ot K25.4 CHRONIC OR UNSPECIFIED GASTRIC ULCER WIT 05/24/2017 FOSS DO, GEOVANI Ot K29.71 GASTRITIS, UNSPECIFIED, WITH BLEEDING 05/24/2017 FOSS DO, GEOVANI Ot K31.7 POLYP OF STOMACH AND DUODENUM 05/24/2017 FOSS DO, GEOVANI Ot K44.9 DIAPHRAGMATIC HERNIA WITHOUT OBSTRUCTION 05/24/2017 FOSS DO, GEOVANI Ot K58.9 IRRITABLE BOWEL SYNDROME WITHOUT DIARRHE 05/24/2017 FOSS DO, GEOVANI Ot K59.09 OTHER CONSTIPATION 05/24/2017 FOSS DO, GEOVANI Ot M19.91 PRIMARY OSTEOARTHRITIS, UNSPECIFIED SITE 05/24/2017 FOSS DO, GEOVANI Ot M54.9 DORSALGIA, UNSPECIFIED 05/24/2017 FOSS DO, GEOVANI Ot R60.0 LOCALIZED EDEMA 05/24/2017 FOSS DO, GEOVANI Ot Z68.41 BODY MASS INDEX (BMI) 40.0-44.9, ADULT 05/24/2017 FOSS DO, GEOVANI Ot Z95.820 PERIPHERAL VASCULAR ANGIOPLASTY STATUS W 05/24/2017 PIPO CANSECO GEOVANI Ot Z97.4 PRESENCE OF EXTERNAL HEARING-AID 05/24/2017 GEOVANI FOSS DO Ot Z98.1 ARTHRODESIS STATUS 05/24/2017 PIPO CANSECO GEOVANI Ot Z99.81 DEPENDENCE ON SUPPLEMENTAL OXYGEN 05/24/2017 PIPO CANSECO GEOVANI Ot D50.0 IRON DEFICIENCY ANEMIA SECONDARY TO BLOO 05/24/2017 PIPO CANSECO GEOVANI Ot E03.9 HYPOTHYROIDISM, UNSPECIFIED 05/24/2017 PIPO CANSECO GEOVANI Ot E66.01 MORBID (SEVERE) OBESITY DUE TO EXCESS CA 05/24/2017 PIPO CANSECO GEOVANI Ot E78.00 PURE HYPERCHOLESTEROLEMIA, UNSPECIFIED 05/24/2017 PIPO CANSECO GEOVANI Ot F17.210 NICOTINE DEPENDENCE, CIGARETTES, UNCOMPL 05/24/2017 PIPO CANSECO GEOVANI Ot F20.9 SCHIZOPHRENIA, UNSPECIFIED 05/24/2017 PIPO CANSECO GEOVANI Ot F32.9 MAJOR DEPRESSIVE DISORDER, SINGLE EPISOD 05/24/2017 PIPO CANSECO GEOVANI Ot F41.9 ANXIETY DISORDER, UNSPECIFIED 05/24/2017 PIPO CANSECO GEOVANI Ot G62.9 POLYNEUROPATHY, UNSPECIFIED 05/24/2017 PIPO CANSECO GEOVANI Ot H91.93 UNSPECIFIED HEARING LOSS, BILATERAL 05/24/2017 PIPO CANSECO GEOVANI Ot I10 ESSENTIAL (PRIMARY) HYPERTENSION 05/24/2017 PIPO CANSECO GEOVANI Ot 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 05/24/2017 PIPO CANSECO GEOVANI Ot I87.8 OTHER SPECIFIED DISORDERS OF VEINS 05/24/2017 PIPO CANSECO GEOVANI Ot I95.9 HYPOTENSION, UNSPECIFIED 05/24/2017 PIPO CANSECO GEOVANI Ot J43.9 EMPHYSEMA, UNSPECIFIED 05/24/2017 PIPO CANSECO GEOVANI Ot K25.4 CHRONIC OR UNSPECIFIED GASTRIC ULCER WIT 05/24/2017 PIPO CANSECO GEOVANI Ot K29.71 GASTRITIS, UNSPECIFIED, WITH BLEEDING 05/24/2017 PIPO CANSECO GEOVANI Ot K31.7 POLYP OF STOMACH AND DUODENUM 05/24/2017 PIPO CANSECO GEOVANI Ot K44.9 DIAPHRAGMATIC HERNIA WITHOUT OBSTRUCTION 05/24/2017 PIPO CANSECO GEOVANI Ot K58.9 IRRITABLE BOWEL SYNDROME WITHOUT DIARRHE 05/24/2017 FOSS DO GEOVANI Ot K59.09 OTHER CONSTIPATION 05/24/2017 PIPO CANSECO GEOVANI Ot M19.91 PRIMARY OSTEOARTHRITIS, UNSPECIFIED SITE 05/24/2017 PIPO CANSECO GEOVANI Ot M54.9 DORSALGIA, UNSPECIFIED 05/24/2017 PIPO CANSECO GEOVANI Ot R60.0 LOCALIZED EDEMA 05/24/2017 PIPO CANSECO GEOVANI Ot Z68.41 BODY MASS INDEX (BMI) 40.0-44.9, ADULT 05/24/2017 PIPO CANSECO GEOVANI Ot Z95.820 PERIPHERAL VASCULAR ANGIOPLASTY STATUS W 05/24/2017 PIPO CANSECO GEOVANI Ot Z97.4 PRESENCE OF EXTERNAL HEARING-AID 05/24/2017 PIPO CANSECO GEOVANI Ot Z98.1 ARTHRODESIS STATUS 05/24/2017 PIPO CANSECO GEOVANI Ot Z99.81 DEPENDENCE ON SUPPLEMENTAL OXYGEN 05/25/2017 PIPO CANSECO GEOVANI Ot D50.0 IRON DEFICIENCY ANEMIA SECONDARY TO BLOO 05/25/2017 PIPO CANSECO GEOVANI Ot E03.9 HYPOTHYROIDISM, UNSPECIFIED 05/25/2017 PIPO CANSECO GEOVANI Ot E66.01 MORBID (SEVERE) OBESITY DUE TO EXCESS CA 05/25/2017 PIPO DO, GEOVANI Ot E78.00 PURE HYPERCHOLESTEROLEMIA, UNSPECIFIED 05/25/2017 PIPO DO, GEOVANI Ot F17.210 NICOTINE DEPENDENCE, CIGARETTES, UNCOMPL 05/25/2017 PIPO DO GEOVANI Ot F20.9 SCHIZOPHRENIA, UNSPECIFIED 05/25/2017 PIPO CANSECO GEOVANI Ot F32.9 MAJOR DEPRESSIVE DISORDER, SINGLE EPISOD 05/25/2017 PIPO CANSECO GEOVANI Ot F41.9 ANXIETY DISORDER, UNSPECIFIED 05/25/2017 PIPO CANSECO GEOVANI Ot G62.9 POLYNEUROPATHY, UNSPECIFIED 05/25/2017 PIPO CANSECO GEOVANI Ot H91.93 UNSPECIFIED HEARING LOSS, BILATERAL 05/25/2017 PIPO CANSECO GEOVANI Ot I10 ESSENTIAL (PRIMARY) HYPERTENSION 05/25/2017 PIPO CANSECO GEOVANI Ot 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 05/25/2017 PIPO CANSECO GEOVANI Ot I87.8 OTHER SPECIFIED DISORDERS OF VEINS 05/25/2017 PIPO CANSECO GEOVANI Ot I95.9 HYPOTENSION, UNSPECIFIED 05/25/2017 PIPO CANSECO GEOVANI Ot J43.9 EMPHYSEMA, UNSPECIFIED 05/25/2017 PIPO CANSECO GEOVANI Ot K25.4 CHRONIC OR UNSPECIFIED GASTRIC ULCER WIT 05/25/2017 PIPO CANSECO GEOVANI Ot K29.71 GASTRITIS, UNSPECIFIED, WITH BLEEDING 05/25/2017 PIPO CANSECO GEOVANI Ot K31.7 POLYP OF STOMACH AND DUODENUM 05/25/2017 PIPO DO GEOVANI Ot K44.9 DIAPHRAGMATIC HERNIA WITHOUT OBSTRUCTION 05/25/2017 PIPO CANSECO GEOVANI Ot K58.9 IRRITABLE BOWEL SYNDROME WITHOUT DIARRHE 05/25/2017 PIPO CANSECO GEOVANI Ot K59.09 OTHER CONSTIPATION 05/25/2017 PIPO CANSECO GEOVANI Ot M19.91 PRIMARY OSTEOARTHRITIS, UNSPECIFIED SITE 05/25/2017 PIPO CANESCO GEOVANI Ot M54.9 DORSALGIA, UNSPECIFIED 05/25/2017 PIPO CANSECO GEOVNAI Ot R60.0 LOCALIZED EDEMA 05/25/2017 PIPO CANSECO GEOVANI Ot Z68.41 BODY MASS INDEX (BMI) 40.0-44.9, ADULT 05/25/2017 PIPO CANSECO GEOVANI Ot Z95.820 PERIPHERAL VASCULAR ANGIOPLASTY STATUS W 05/25/2017 PIPO CANSECO GEOVANI Ot Z97.4 PRESENCE OF EXTERNAL HEARING-AID 05/25/2017 PIPO CANSECO GEOVANI Ot Z98.1 ARTHRODESIS STATUS 05/25/2017 PIPO CANSECO GEOVANI Ot Z99.81 DEPENDENCE ON SUPPLEMENTAL OXYGEN 05/25/2017 PIPO CANSECO GEOVANI Ot D50.0 IRON DEFICIENCY ANEMIA SECONDARY TO BLOO 05/25/2017 PIPO CANSECO GEOVANI Ot E03.9 HYPOTHYROIDISM, UNSPECIFIED 05/25/2017 PIPO CANSECO GEOVANI Ot E66.01 MORBID (SEVERE) OBESITY DUE TO EXCESS CA 05/25/2017 PIPO CANSECO GEOVANI Ot E78.00 PURE HYPERCHOLESTEROLEMIA, UNSPECIFIED 05/25/2017 PIPO CANSECO GEOVANI Ot F17.210 NICOTINE DEPENDENCE, CIGARETTES, UNCOMPL 05/25/2017 PIPO CANSECO GEOVANI Ot F20.9 SCHIZOPHRENIA, UNSPECIFIED 05/25/2017 PIPO CANSECO GEOVANI Ot F32.9 MAJOR DEPRESSIVE DISORDER, SINGLE EPISOD 05/25/2017 PIPO CANSECO GEOVANI Ot F41.9 ANXIETY DISORDER, UNSPECIFIED 05/25/2017 FOSS DO GEOVANI Ot G62.9 POLYNEUROPATHY, UNSPECIFIED 05/25/2017 PIPO CANSECO GEOVANI Ot H91.93 UNSPECIFIED HEARING LOSS, BILATERAL 05/25/2017 PIPO DO GEOVANI Ot I10 ESSENTIAL (PRIMARY) HYPERTENSION 05/25/2017 PIPO CANSECO GEOVANI Ot 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 05/25/2017 PIPO DO GEOVANI Ot I87.8 OTHER SPECIFIED DISORDERS OF VEINS 05/25/2017 PIPO CANSECO GEOVANI Ot I95.9 HYPOTENSION, UNSPECIFIED 05/25/2017 PIPO CANSECO GEOVANI Ot J43.9 EMPHYSEMA, UNSPECIFIED 05/25/2017 PIPO CANSECO GEOVANI Ot K25.4 CHRONIC OR UNSPECIFIED GASTRIC ULCER WIT 05/25/2017 PIPO CANSECO GEOVANI Ot K29.71 GASTRITIS, UNSPECIFIED, WITH BLEEDING 05/25/2017 PIPO CANSECO GEOVANI Ot K31.7 POLYP OF STOMACH AND DUODENUM 05/25/2017 PIPO CANSECO GEOVANI Ot K44.9 DIAPHRAGMATIC HERNIA WITHOUT OBSTRUCTION 05/25/2017 PIPO CANSECO GEOVANI Ot K58.9 IRRITABLE BOWEL SYNDROME WITHOUT DIARRHE 05/25/2017 PIPO CANSECO GEOVANI Ot K59.09 OTHER CONSTIPATION 05/25/2017 PIPO CANSECO GEOVANI Ot M19.91 PRIMARY OSTEOARTHRITIS, UNSPECIFIED SITE 05/25/2017 PIPO CANSECO GEOVANI Ot M54.9 DORSALGIA, UNSPECIFIED 05/25/2017 PIPO CANSECO GEOVANI Ot R60.0 LOCALIZED EDEMA 05/25/2017 PIPO CANSECO GEOVANI Ot Z68.41 BODY MASS INDEX (BMI) 40.0-44.9, ADULT 05/25/2017 PIPO CANSECO GEOVANI Ot Z95.820 PERIPHERAL VASCULAR ANGIOPLASTY STATUS W 05/25/2017 PIPO CANSECO GEOVANI Ot Z97.4 PRESENCE OF EXTERNAL HEARING-AID 05/25/2017 PIPO CANSECO GEOVANI Ot Z98.1 ARTHRODESIS STATUS 05/25/2017 PIPO CANSECO GEOVANI Ot Z99.81 DEPENDENCE ON SUPPLEMENTAL OXYGEN 05/25/2017 PIPO CANSECO GEOVANI Ot D50.0 IRON DEFICIENCY ANEMIA SECONDARY TO BLOO 05/25/2017 FOSS DO, GEOVANI Ot E03.9 HYPOTHYROIDISM, UNSPECIFIED 05/25/2017 FOSS DO, GEOVANI Ot E66.01 MORBID (SEVERE) OBESITY DUE TO EXCESS CA 05/25/2017 FOSS DO, GEOVANI Ot E78.00 PURE HYPERCHOLESTEROLEMIA, UNSPECIFIED 05/25/2017 FOSS DO, GEOVANI Ot F17.210 NICOTINE DEPENDENCE, CIGARETTES, UNCOMPL 05/25/2017 FOSS DO, GEOVANI Ot F20.9 SCHIZOPHRENIA, UNSPECIFIED 05/25/2017 FOSS DO, GEOVANI Ot F32.9 MAJOR DEPRESSIVE DISORDER, SINGLE EPISOD 05/25/2017 FOSS DO, GEOVANI Ot F41.9 ANXIETY DISORDER, UNSPECIFIED 05/25/2017 FOSS DO, GEOVANI Ot G25.81 RESTLESS LEGS SYNDROME 05/25/2017 FOSS DO, GEOVANI Ot G62.9 POLYNEUROPATHY, UNSPECIFIED 05/25/2017 FOSS DO, GEOVANI Ot H91.93 UNSPECIFIED HEARING LOSS, BILATERAL 05/25/2017 FOSS DO, GEOVANI Ot I10 ESSENTIAL (PRIMARY) HYPERTENSION 05/25/2017 FOSS DO, GEOVANI Ot 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 05/25/2017 FOSS DO, GEOVANI Ot I87.8 OTHER SPECIFIED DISORDERS OF VEINS 05/25/2017 FOSS DO, GEOVANI Ot I95.9 HYPOTENSION, UNSPECIFIED 05/25/2017 FOSS DO, GEOVANI Ot J43.9 EMPHYSEMA, UNSPECIFIED 05/25/2017 FOSS DO, GEOVANI Ot K25.4 CHRONIC OR UNSPECIFIED GASTRIC ULCER WIT 05/25/2017 FOSS DO, GEOVANI Ot K29.71 GASTRITIS, UNSPECIFIED, WITH BLEEDING 05/25/2017 FOSS DO, GEOVANI Ot K31.7 POLYP OF STOMACH AND DUODENUM 05/25/2017 FOSS DO, GEOVANI Ot K44.9 DIAPHRAGMATIC HERNIA WITHOUT OBSTRUCTION 05/25/2017 FOSS DO, GEOVANI Ot K58.9 IRRITABLE BOWEL SYNDROME WITHOUT DIARRHE 05/25/2017 FOSS DO, GEOVANI Ot K59.09 OTHER CONSTIPATION 05/25/2017 FOSS DO, GEOVANI Ot L30.9 DERMATITIS, UNSPECIFIED 05/25/2017 FOSS DO, GEOVANI Ot M19.91 PRIMARY OSTEOARTHRITIS, UNSPECIFIED SITE 05/25/2017 FOSS DO, GEOVANI Ot M54.9 DORSALGIA, UNSPECIFIED 05/25/2017 FOSS JOE CANSECOI Ot R60.0 LOCALIZED EDEMA 05/25/2017 PIPO GEOVANI Ot Z68.41 BODY MASS INDEX (BMI) 40.0-44.9, ADULT 05/25/2017 FOSS JOE CANSECOI Ot Z95.820 PERIPHERAL VASCULAR ANGIOPLASTY STATUS W 05/25/2017 FOSSGEOVANI ONOFRE DO Ot Z98.1 ARTHRODESIS STATUS 05/25/2017 GEOVANI FOSS DO Ot Z99.81 DEPENDENCE ON SUPPLEMENTAL OXYGEN 08/05/2017 MARTITA LANGE Ot D50.9 IRON DEFICIENCY ANEMIA, UNSPECIFIED 08/11/2017 MARTITA LANGE Ot D50.9 IRON DEFICIENCY ANEMIA, UNSPECIFIED 09/08/2017 MARTITA LANGE Ot D50.9 IRON DEFICIENCY ANEMIA, UNSPECIFIED 09/10/2017 MARTITA LANGE Ot D50.9 IRON DEFICIENCY ANEMIA, UNSPECIFIED 01/22/2018 NEENA NAJERA MD Ot 737.10 KYPHOSIS NOS 01/22/2018 NEENA NAJERA MD, Ot V72.63 PRE-PROCEDURAL LABORATORY EXAMINATION 01/22/2018 NEENA NAJERA MD, Ot V72.81 CYNA-XCY-VULFXIVFW CARDIOVASCULAR 01/22/2018 NEENA NAJERA MD, Ot V72.83 EXAM PRE-OPERATIVE NEC 01/22/2018 NEENA NAJERA MD, Ot V74.8 SCREEN-BACTERIAL DIS NEC 01/22/2018 TIMUR LEON Ot M81.0 AGE-RELATED OSTEOPOROSIS W/O CURRENT PAT 01/22/2018 TIMUR LEON Ot R53.83 OTHER FATIGUE 01/22/2018 ODELL ARNOLD APRN Ot I87.333 CHRONIC VENOUS HTN W ULCER AND INFLAM OF 01/22/2018 ODELL ARNOLD APRN Ot L97.212 NON-PRESSURE CHRONIC ULCER OF RIGHT CALF 01/22/2018 TAMELA ALVARADO MD Ot I27.0 PRIMARY PULMONARY HYPERTENSION 01/22/2018 TAMELA ALVARADO MD, Ot I34.0 NONRHEUMATIC MITRAL (VALVE) INSUFFICIENC 01/22/2018 TAMELA ALVARADO MD, Ot 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 01/22/2018 TAMELA ALVARADO MD, Ot I51.7 CARDIOMEGALY 01/22/2018 TAMELA ALVARADO MD Ot I73.9 PERIPHERAL VASCULAR DISEASE, UNSPECIFIED 01/22/2018 TAMELA ALVARADO MD Ot R00.0 TACHYCARDIA, UNSPECIFIED 01/22/2018 TAMELA ALVARADO MD Ot Z72.0 TOBACCO USE 01/22/2018 ODELL ARNOLD MACHINE STRIPER Ot I87.333 CHRONIC VENOUS HTN W ULCER AND INFLAM OF 01/22/2018 ODELL ARNOLD MACHINE STRIPER Ot L97.212 NON-PRESSURE CHRONIC ULCER OF RIGHT CALF 01/22/2018 ODELL ARNOLD MACHINE STRIPER Ot L97.222 NON-PRESSURE CHRONIC ULCER OF LEFT CALF 01/22/2018 ODELL ARNOLD MACHINE STRIPER Ot 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 01/22/2018 ODELL ARNOLD MACHINE STRIPER Ot I87.333 CHRONIC VENOUS HTN W ULCER AND INFLAM OF 01/22/2018 CLAYTON ODELL R MACHINE STRIPER Ot L97.212 NON-PRESSURE CHRONIC ULCER OF RIGHT CALF 01/22/2018 ODELL ARNOLD MACHINE STRIPER Ot L97.222 NON-PRESSURE CHRONIC ULCER OF LEFT CALF 01/22/2018 [place]TON ODELL R MACHINE STRIPER Ot 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 01/22/2018 ODELL ARNOLD R MACHINE STRIPER Ot I87.333 CHRONIC VENOUS HTN W ULCER AND INFLAM OF 01/22/2018 ODELL ARNOLD MACHINE STRIPER Ot L97.212 NON-PRESSURE CHRONIC ULCER OF RIGHT CALF 01/22/2018 ODELL ARNOLD MACHINE STRIPER Ot L97.222 NON-PRESSURE CHRONIC ULCER OF LEFT CALF 01/22/2018 ODELL ARNOLD MACHINE STRIPER Ot 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 01/22/2018 ODELL ARNOLD MACHINE STRIPER Ot I87.333 CHRONIC VENOUS HTN W ULCER AND INFLAM OF 01/22/2018 [place] ODELL R MACHINE STRIPER Ot L97.212 NON-PRESSURE CHRONIC ULCER OF RIGHT CALF 01/22/2018 ODELL ARNOLD R MACHINE STRIPER Ot L97.222 NON-PRESSURE CHRONIC ULCER OF LEFT CALF 01/22/2018 ODELL ARNOLD R MACHINE STRIPER Ot 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 01/22/2018 ODELL ARNOLD R MACHINE STRIPER Ot I87.333 CHRONIC VENOUS HTN W ULCER AND INFLAM OF 01/22/2018 ODELL ARNOLD MACHINE STRIPER Ot L97.212 NON-PRESSURE CHRONIC ULCER OF RIGHT CALF 01/22/2018 ODELL ARNOLD APRN Ot 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 01/22/2018 ODELL ARNOLD APRN Ot I87.333 CHRONIC VENOUS HTN W ULCER AND INFLAM OF 01/22/2018 ODELL ARNOLD APRN Ot L97.212 NON-PRESSURE CHRONIC ULCER OF RIGHT CALF 01/22/2018 MARTITA LANGE Crystal Ot D50.9 IRON DEFICIENCY ANEMIA, UNSPECIFIED 01/25/2018 LOYDA CHILEL DO Ot Z01.818 ENCOUNTER FOR OTHER PREPROCEDURAL EXAMIN Procedures Code Description Performed By Performed On 38.91 ARTERIAL CATHETERIZATION 11/20/2014 77.39 BONE DIVISION NEC 11/20/2014 77.79 EXCISE BONE FOR GFT [facility] 11/20/2014 78.99 INSERT BONE GROWTH SIMULATOR , [facility] 11/20/2014 80.99 EXCISION OF JOINT [facility] 11/20/2014 81.04 DORSAL DORSOLUMBAR FUSION OF ANTERIOR 11/20/2014 81.05 DORSAL DORSOLUMBAR FUSION OF POSTERIOR 11/20/2014 81.06 LUMBAR LUMBOSACRAL FUSION OF ANTERIOR 11/20/2014 81.64 FUSION/REFUS OF 9 OR MORE VERTEBRAE 11/20/2014 84.51 INSERTION OF INTERBODY SPINAL FUSION DEV 11/20/2014 96.04 INSERT ENDOTRACHEAL TUBE 11/23/2014 96.72 CONTINUOUS INVASIVE MECHANICAL VENTILATI 11/23/2014 38.93 VENOUS CATHETERIZATION [facility] 11/24/2014 [id number] EXCISION OF STOMACH, ENDO , DIAGN 05/21/2017 Results Test Result Range Automated blood complete [...] resistant Staphylococcus aureus (MRSA) screening culture NEG [facility] Methicillin resistant Staphylococcus aureus (MRSA) screening culture - 08:22 Methicillin resistant Staphylococcus aureus (MRSA) screening culture NEG [facility] Automated blood complete blood count (hemogram) panel [...] FOR INFLUENZA A AND B ANTIGENS BY [facility] Complete blood count (CBC) with automated white [...] Automated blood platelet mean volume measurement 9.2 [[facility]] 7.4-10.4 Automated blood neutrophils/100 leukocytes 60 % [...] (mass/volume) 3.7 g/dL 3.2-4.5 Magnesium - 04/14/17 15:23 Magnesium 2.3 mg/dL 1.8-2.4 Serum or plasma lithium measurement (moles/volume) - 04/14/17 15:23 BNP level 10.5 pg/mL <100.0 Serum or plasma thyrotropin measurement by detection limit <=0.05 miu/l (units/ volume) - 04/14/17 15:23 Serum or plasma thyrotropin measurement by detection limit <=0.05 miu/l (units/ volume) 1.72 u[iU]/mL 0.35-4.94 Serum or plasma troponin i.cardiac measurement (mass/volume) - 04/14/17 15:23 Serum or plasma troponin i.cardiac measurement (mass/volume) < ng/ mL <0.30 Serum or plasma thyrotropin measurement by detection limit <=0.05 miu/l (units/ volume) - 04/14/17 15:23 Serum or plasma thyrotropin measurement by detection limit <=0.05 miu/l (units/ volume) 1.72 u[iU]/mL 0.35-4.94 Bacterial blood culture - 04/14/17 15:23 Bacterial blood culture NG NRG Bacterial blood culture - 04/14/17 16:54 Bacterial blood culture NG NRG Complete urinalysis with reflex to culture - [...] urinalysis with reflex to culture YES NRG Bacterial urine culture - 04/14/17 17:40 URINE CULTURE RESULTS <10,000/ML NRG Complete blood count (CBC) with automated [...] plasma albumin measurement (mass/volume) 3.1 g/dL 3.2-4.5 Complete blood count (CBC) with automated white blood cell (WBC) differential - 04/16/17 06:00 Blood leukocytes automated count (number/volume) 20.6 10*3/uL 4.3-11.0 Blood erythrocytes automated count (number/volume) 3.00 10*6/uL 4.35-5.85 Venous blood hemoglobin measurement (mass/volume) 8.3 g/dL 11.5-16.0 Blood hematocrit (volume fraction) 26 % 35-52 Automated erythrocyte mean corpuscular volume 88 [foz_us] 80-99 Automated erythrocyte mean corpuscular hemoglobin (mass per erythrocyte) 28 pg 25-34 Automated erythrocyte mean corpuscular hemoglobin concentration measurement ( mass/volume) 32 g/dL 32-36 Automated erythrocyte distribution width ratio 15.2 % 10.0-14.5 Automated blood platelet count (count/volume) 322 10*3/uL 130-400 Automated blood platelet mean volume measurement 9.9 [foz_us] 7.4-10.4 Automated blood neutrophils/100 leukocytes 87 % 42-75 Automated blood lymphocytes/100 leukocytes 8 % 12-44 Blood monocytes/100 leukocytes 5 % 0-12 Automated blood eosinophils/100 leukocytes 0 % 0-10 Automated blood basophils/100 leukocytes 0 % 0-10 Blood neutrophils automated count (number/volume) 18.0 10*3 1.8-7.8 Blood lymphocytes automated count (number/volume) 1.6 10*3 1.0-4.0 Blood monocytes automated count (number/volume) 1.0 10*3 0.0-1.0 Automated eosinophil count 0.0 10*3/uL 0.0-0.3 Automated blood basophil count (count/volume) 0.0 10*3/uL 0.0-0.1 Blood manual differential performed detection - 04/16/17 06:00 Blood monocytes/100 leukocytes 3 % NRG Manual blood segmented neutrophils/100 leukocytes 85 % NRG Blood band neutrophils/100 leukocytes 3 % NRG Manual blood lymphocytes/100 leukocytes 9 % NRG Manual eosinophils/100 leukocytes in nose 0 % NRG Blood polychromasia detection by light microscopy SLIGHT NRG Blood anisocytosis detection by light microscopy SLIGHT NRG Blood hypochromia detection by light microscopy SLIGHT NRG Blood rouleaux detection by light microscopy SLIGHT NRG Whole blood basic metabolic panel - 04/16/17 06:00 Serum or plasma sodium measurement (moles/volume) 132 mmol/L 135-145 Serum or plasma potassium measurement (moles/volume) 5.1 mmol/L 3.6-5.0 Serum or plasma chloride measurement (moles/volume) 103 mmol/L 98-107 Carbon dioxide 20 mmol/L 21-32 Serum or plasma anion gap determination (moles/volume) 9 mmol/L 5-14 Serum or plasma urea nitrogen measurement (mass/volume) 24 mg/dL 7-18 Serum or plasma creatinine measurement (mass/volume) 0.90 mg/dL 0.60-1.30 Serum or plasma urea nitrogen/creatinine mass ratio 27 NRG Serum or plasma creatinine measurement with calculation of estimated glomerular filtration rate > NRG Serum or plasma glucose measurement (mass/volume) 155 mg/dL 70-105 Serum or plasma calcium measurement (mass/volume) 8.8 mg/dL 8.5-10.1 Complete blood count (CBC) with automated white blood cell (WBC) differential - 05/21/17 15:30 Blood leukocytes automated count (number/volume) 9.2 10*3/uL 4.3-11.0 Blood erythrocytes automated count (number/volume) 3.20 10*6/uL 4.35-5.85 Venous blood hemoglobin measurement (mass/volume) 8.4 g/dL 11.5-16.0 Blood hematocrit (volume fraction) 27 % 35-52 Automated erythrocyte mean corpuscular volume 85 [foz_us] 80-99 Automated erythrocyte mean corpuscular hemoglobin (mass per erythrocyte) 26 pg 25-34 Automated erythrocyte mean corpuscular hemoglobin concentration measurement ( mass/volume) 31 g/dL 32-36 Automated erythrocyte distribution width ratio 16.8 % 10.0-14.5 Automated blood platelet count (count/volume) 354 10*3/uL 130-400 Automated blood platelet mean volume measurement 9.3 [foz_us] 7.4-10.4 Automated blood neutrophils/100 leukocytes 64 % 42-75 Automated blood lymphocytes/100 leukocytes 26 % 12-44 Blood monocytes/100 leukocytes 7 % 0-12 Automated blood eosinophils/100 leukocytes 3 % 0-10 Automated blood basophils/100 leukocytes 0 % 0-10 Blood neutrophils automated count (number/volume) 5.9 10*3 1.8-7.8 Blood lymphocytes automated count (number/volume) 2.4 10*3 1.0-4.0 Blood monocytes automated count (number/volume) 0.6 10*3 0.0-1.0 Automated eosinophil count 0.2 10*3/uL 0.0-0.3 Automated blood basophil count (count/volume) 0.0 10*3/uL 0.0-0.1 PT panel in platelet poor plasma by coagulation assay - 05/21/17 15:30 Prothrombin time (PT) in platelet poor plasma by coagulation assay 13.7 s 12.2-14.7 INR in platelet poor plasma or blood by coagulation assay 1.0 0.8-1.4 Activated partial thromboplastin time (aPTT) in platelet poor plasma bycoagulation assay - 05/21/17 15:30 Activated partial thromboplastin time (aPTT) in platelet poor plasma bycoagulation assay 32 s 24-35 Blood lactic acid measurement (moles/volume) - 05/21/17 15:30 Blood lactic acid measurement (moles/volume) 2.10 mmol/L 0.50-2.00 Comprehensive metabolic panel - 05/21/17 15:30 Serum or plasma sodium measurement (moles/volume) 142 mmol/L 135-145 Serum or plasma potassium measurement (moles/volume) 3.7 mmol/L 3.6-5.0 Serum or plasma chloride measurement (moles/volume) 106 mmol/L 98-107 Carbon dioxide 29 mmol/L 21-32 Serum or plasma anion gap determination (moles/volume) 7 mmol/L 5-14 Serum or plasma urea nitrogen measurement (mass/volume) 10 mg/dL 7-18 Serum or plasma creatinine measurement (mass/volume) 0.98 mg/dL 0.60-1.30 Serum or plasma urea nitrogen/creatinine mass ratio 10 NRG Serum or plasma creatinine measurement with calculation of estimated glomerular filtration rate 56 NRG Serum or plasma glucose measurement (mass/volume) 90 mg/dL 70-105 Serum or plasma calcium measurement (mass/volume) 9.0 mg/dL 8.5-10.1 Serum or plasma total bilirubin measurement (mass/volume) 0.3 mg/dL 0.1-1.0 Serum or plasma alkaline phosphatase measurement (enzymatic activity/volume) 109 U/L 40-136 Serum or plasma aspartate aminotransferase measurement (enzymatic activity/ volume) 14 U/L 5-34 Serum or plasma alanine aminotransferase measurement (enzymatic activity/volume ) < U/L 0-55 Serum or plasma protein measurement (mass/volume) 7.0 g/dL 6.4-8.2 Serum or plasma albumin measurement (mass/volume) 3.3 g/dL 3.2-4.5 Serum or plasma troponin i.cardiac measurement (mass/volume) - 05/21/17 15:30 Serum or plasma troponin i.cardiac measurement (mass/volume) < ng/ mL <0.30 Serum or plasma lithium measurement (moles/volume) - 05/21/17 15:30 BNP level 33.3 pg/mL <100.0 Serum iron and total iron binding capacity panel - 05/21/17 15:30 Serum or plasma iron measurement (mass/volume) 23 % 35- 180 Total iron binding capacity and transferrin saturation measurement 6 % 15-50 Iron binding capacity [mass/volume] in serum or plasma 399 % 280-380 UIBC (unsaturated iron binding capacity) 376 % 55-450 Serum or plasma ferritin measurement (mass/volume) 19.0 % 15.0-150.0 Bacterial blood culture - 05/21/17 15:30 Bacterial blood culture NG NRG Complete urinalysis with reflex to culture - 05/21/17 15:40 Urine color determination YELLOW NRG Urine clarity determination SLIGHTLY CLOUDY NRG Urine pH measurement by test strip 6 5-9 Specific gravity of urine by test strip 1.015 1.016- 1.022 Urine protein assay by test strip, semi-quantitative 2+ NEGATIVE Urine glucose detection by automated test strip NEGATIVE NEGATIVE Erythrocytes detection in urine sediment by light microscopy 4+ NEGATIVE Urine ketones detection by automated test strip NEGATIVE NEGATIVE Urine nitrite detection by test strip NEGATIVE NEGATIVE Urine total bilirubin detection by test strip NEGATIVE NEGATIVE Urine urobilinogen measurement by automated test strip (mass/volume) NORMAL NORMAL Urine leukocyte esterase detection by dipstick 3+ NEGATIVE Automated urine sediment erythrocyte count by microscopy (number/high power field) [HPF] NRG Automated urine sediment leukocyte count by microscopy (number/high power field ) > [HPF] NRG Bacteria detection in urine sediment by light microscopy TRACE NRG Squamous epithelial cells detection in urine sediment by light microscopy 25-50 NRG Crystals detection in urine sediment by light microscopy NONE NRG Casts detection in urine sediment by light microscopy PRESENT NRG Mucus detection in urine sediment by light microscopy NEGATIVE NRG Complete urinalysis with reflex to culture YES NRG Hyaline casts detection in urine sediment by light microscopy 10-25 NRG Bacterial urine culture - 05/21/17 15:40 Bacterial urine culture [id number] NRG COLONY COUNT <10,000 NRG FTX;REPORTABLE SENSITIVITIES REPORTED AT 0858, 3-18 NRG URINE CULTURE RESULTS PLUS NRG Bacterial blood culture - 05/21/17 15:40 Bacterial blood culture NG NRG Methicillin resistant Staphylococcus aureus (MRSA) screening culture - 15:40 Methicillin resistant Staphylococcus aureus (MRSA) screening culture NEG NRG Bacterial susceptibility panel - 05/21/17 15:40 Gentamicin susceptibility test by minimum inhibitory concentration S NRG Vancomycin susceptibility test by minimum inhibitory concentration 1 NRG Levofloxacin susceptibility test by minimum inhibitory concentration 0.5 NRG Tetracycline susceptibility test by minimum inhibitory concentration <= NRG Ampicillin susceptibility test by minimum inhibitory concentration < = NRG Nitrofurantoin susceptibility test by minimum inhibitory concentration <= NRG Linezolid susceptibility test by minimum inhibitory concentration 2 NRG Bacterial susceptibility panel - 05/21/17 15:40 Gentamicin susceptibility test by minimum inhibitory concentration 8 NRG Tobramycin susceptibility test by minimum inhibitory concentration < = NRG Piperacillin/tazobactam susceptibility test by minimum inhibitory concentration S NRG Ciprofloxacin susceptibility test by minimum inhibitory concentration 2 NRG Meropenem susceptibility test by minimum inhibitory concentration 2 NRG Cefepime susceptibility test by minimum inhibitory concentration 8 NRG Arterial blood gas measurement - 05/21/17 16:00 Blood pCO2 45 mm[Hg] 35-45 Blood pO2 75 mm[Hg] 79-93 Arterial blood bicarbonate measurement (moles/volume) 28 mmol/L 23-27 Arterial blood base excess by calculation 3.6 mmol/L -2.5 -2.5 Arterial blood oxygen saturation measurement 97 % 94-100 * Inhaled oxygen flow rate 2L NRG Arterial blood pH measurement with patient temperature correction 7.41 7.37-7.43 Arterial blood carbon dioxide, total measurement (moles/volume) 29.4 mmol/L 21.0-31.0 Body site LT RAD NRG Assessment of wrist artery patency prior to arterial puncture YES- POS NRG Setting of ventilation mode NO NRG Measurement of body temperature 97.9 NRG Serum or plasma lactate measurement (moles/volume) - 05/21/17 17:20 Serum or plasma lactate measurement (moles/volume) 1.42 mmol/L 0.50-2.00 Complete blood count (CBC) with automated white blood cell (WBC) differential - 05/22/17 02:10 Blood leukocytes automated count (number/volume) 7.0 10*3/uL 4.3-11.0 Blood erythrocytes automated count (number/volume) 2.66 10*6/uL 4.35-5.85 Venous blood hemoglobin measurement (mass/volume) 7.0 g/dL 11.5-16.0 Blood hematocrit (volume fraction) 24 % 35-52 Automated erythrocyte mean corpuscular volume 86 [foz_us] 80-99 Automated erythrocyte mean corpuscular hemoglobin (mass per erythrocyte) 26 pg 25-34 Automated erythrocyte mean corpuscular hemoglobin concentration measurement ( mass/volume) 30 g/dL 32-36 Automated erythrocyte distribution width ratio 16.6 % 10.0-14.5 Automated blood platelet count (count/volume) 300 10*3/uL 130-400 Automated blood platelet mean volume measurement 9.0 [foz_us] 7.4-10.4 Automated blood neutrophils/100 leukocytes 62 % 42-75 Automated blood lymphocytes/100 leukocytes 28 % 12-44 Blood monocytes/100 leukocytes 7 % 0-12 Automated blood eosinophils/100 leukocytes 3 % 0-10 Automated blood basophils/100 leukocytes 0 % 0-10 Blood neutrophils automated count (number/volume) 4.3 10*3 1.8-7.8 Blood lymphocytes automated count (number/volume) 2.0 10*3 1.0-4.0 Blood monocytes automated count (number/volume) 0.5 10*3 0.0-1.0 Automated eosinophil count 0.2 10*3/uL 0.0-0.3 Automated blood basophil count (count/volume) 0.0 10*3/uL 0.0-0.1 Automated reticulocyte percentage - 05/22/17 02:10 Blood reticulocytes count (number/volume) 63 10*9/L 24- 90 Blood reticulocytes/100 erythrocytes 2.37 % 0.50-2.40 Comprehensive metabolic panel - 05/22/17 02:10 Serum or plasma sodium measurement (moles/volume) 143 mmol/L 135-145 Serum or plasma potassium measurement (moles/volume) 3.5 mmol/L 3.6-5.0 Serum or plasma chloride measurement (moles/volume) 107 mmol/L 98-107 Carbon dioxide 29 mmol/L 21-32 Serum or plasma anion gap determination (moles/volume) 7 mmol/L 5-14 Serum or plasma urea nitrogen measurement (mass/volume) 10 mg/dL 7-18 Serum or plasma creatinine measurement (mass/volume) 0.84 mg/dL 0.60-1.30 Serum or plasma urea nitrogen/creatinine mass ratio 12 NRG Serum or plasma creatinine measurement with calculation of estimated glomerular filtration rate > NRG Serum or plasma glucose measurement (mass/volume) 93 mg/dL 70-105 Serum or plasma calcium measurement (mass/volume) 8.0 mg/dL 8.5-10.1 Serum or plasma total bilirubin measurement (mass/volume) 0.4 mg/dL 0.1-1.0 Serum or plasma alkaline phosphatase measurement (enzymatic activity/volume) 91 U/L 40-136 Serum or plasma aspartate aminotransferase measurement (enzymatic activity/ volume) 11 U/L 5-34 Serum or plasma alanine aminotransferase measurement (enzymatic activity/volume ) 6 U/L 0-55 Serum or plasma protein measurement (mass/volume) 5.4 g/dL 6.4-8.2 Serum or plasma albumin measurement (mass/volume) 2.7 g/dL 3.2-4.5 Magnesium - 05/22/17 02:10 Magnesium 2.0 mg/dL 1.8-2.4 Capillary blood glucose measurement by glucometer (mass/volume) - 05/22/17 11: 35 Capillary blood glucose measurement by glucometer (mass/volume) 144 mg/dL 70-110 Whole blood hemoglobin and hematocrit panel - 05/22/17 13:02 Venous blood hemoglobin measurement (mass/volume) 7.7 g/dL 11.5-16.0 Blood hematocrit (volume fraction) 25 % 35-52 Capillary blood glucose measurement by glucometer (mass/volume) - 05/22/17 15: 50 Capillary blood glucose measurement by glucometer (mass/volume) 260 mg/dL 70-110 Capillary blood glucose measurement by glucometer (mass/volume) - 05/22/17 21: 15 Capillary blood glucose measurement by glucometer (mass/volume) 208 mg/dL 70-110 Whole blood basic metabolic panel - 05/23/17 06:03 Serum or plasma sodium measurement (moles/volume) 142 mmol/L 135-145 Serum or plasma potassium measurement (moles/volume) 3.6 mmol/L 3.6-5.0 Serum or plasma chloride measurement (moles/volume) 107 mmol/L 98-107 Carbon dioxide 26 mmol/L 21-32 Serum or plasma anion gap determination (moles/volume) 9 mmol/L 5-14 Serum or plasma urea nitrogen measurement (mass/volume) 10 mg/dL 7-18 Serum or plasma creatinine measurement (mass/volume) 0.82 mg/dL 0.60-1.30 Serum or plasma urea nitrogen/creatinine mass ratio 12 NRG Serum or plasma creatinine measurement with calculation of estimated glomerular filtration rate > NRG Serum or plasma glucose measurement (mass/volume) 98 mg/dL 70-105 Serum or plasma calcium measurement (mass/volume) 8.8 mg/dL 8.5-10.1 Magnesium - 05/23/17 06:03 Magnesium 2.1 mg/dL 1.8-2.4 Capillary blood glucose measurement by glucometer (mass/volume) - 05/23/17 06: 09 Capillary blood glucose measurement by glucometer (mass/volume) 110 mg/dL 70-110 Capillary blood glucose measurement by glucometer (mass/volume) - 05/23/17 11: 53 Capillary blood glucose measurement by glucometer (mass/volume) 211 mg/dL 70-110 Complete blood count (CBC) with automated white blood cell (WBC) differential - 05/23/17 12:09 Blood leukocytes automated count (number/volume) 9.8 10*3/uL 4.3-11.0 Blood erythrocytes automated count (number/volume) 3.16 10*6/uL 4.35-5.85 Venous blood hemoglobin measurement (mass/volume) 8.2 g/dL 11.5-16.0 Blood hematocrit (volume fraction) 26 % 35-52 Automated erythrocyte mean corpuscular volume 84 [foz_us] 80-99 Automated erythrocyte mean corpuscular hemoglobin (mass per erythrocyte) 26 pg 25-34 Automated erythrocyte mean corpuscular hemoglobin concentration measurement ( mass/volume) 31 g/dL 32-36 Automated erythrocyte distribution width ratio 16.6 % 10.0-14.5 Automated blood platelet count (count/volume) 330 10*3/uL 130-400 Automated blood platelet mean volume measurement 9.1 [foz_us] 7.4-10.4 Automated blood neutrophils/100 leukocytes 87 % 42-75 Automated blood lymphocytes/100 leukocytes 12 % 12-44 Blood monocytes/100 leukocytes 1 % 0-12 Automated blood eosinophils/100 leukocytes 0 % 0-10 Automated blood basophils/100 leukocytes 0 % 0-10 Blood neutrophils automated count (number/volume) 8.5 10*3 1.8-7.8 Blood lymphocytes automated count (number/volume) 1.1 10*3 1.0-4.0 Blood monocytes automated count (number/volume) 0.1 10*3 0.0-1.0 Automated eosinophil count 0.0 10*3/uL 0.0-0.3 Automated blood basophil count (count/volume) 0.0 10*3/uL 0.0-0.1 Capillary blood glucose measurement by glucometer (mass/volume) - 05/23/17 15: 55 Capillary blood glucose measurement by glucometer (mass/volume) 166 mg/dL 70-110 Capillary blood glucose measurement by glucometer (mass/volume) - 05/23/17 20: 37 Capillary blood glucose measurement by glucometer (mass/volume) 134 mg/dL 70-110 Capillary blood glucose measurement by glucometer (mass/volume) - 05/24/17 06: 08 Capillary blood glucose measurement by glucometer (mass/volume) 96 mg/dL 70-110 Complete blood count (CBC) with automated white blood cell (WBC) differential - 05/24/17 06:08 Blood leukocytes automated count (number/volume) 10.4 10*3/uL 4.3-11.0 Blood erythrocytes automated count (number/volume) 2.95 10*6/uL 4.35-5.85 Venous blood hemoglobin measurement (mass/volume) 7.6 g/dL 11.5-16.0 Blood hematocrit (volume fraction) 24 % 35-52 Automated erythrocyte mean corpuscular volume 81 [foz_us] 80-99 Automated erythrocyte mean corpuscular hemoglobin (mass per erythrocyte) 26 pg 25-34 Automated erythrocyte mean corpuscular hemoglobin concentration measurement ( mass/volume) 32 g/dL 32-36 Automated erythrocyte distribution width ratio 16.8 % 10.0-14.5 Automated blood platelet count (count/volume) 335 10*3/uL 130-400 Automated blood platelet mean volume measurement 9.1 [foz_us] 7.4-10.4 Automated blood neutrophils/100 leukocytes 61 % 42-75 Automated blood lymphocytes/100 leukocytes 30 % 12-44 Blood monocytes/100 leukocytes 8 % 0-12 Automated blood eosinophils/100 leukocytes 1 % 0-10 Automated blood basophils/100 leukocytes 1 % 0-10 Blood neutrophils automated count (number/volume) 6.4 10*3 1.8-7.8 Blood lymphocytes automated count (number/volume) 3.1 10*3 1.0-4.0 Blood monocytes automated count (number/volume) 0.8 10*3 0.0-1.0 Automated eosinophil count 0.1 10*3/uL 0.0-0.3 Automated blood basophil count (count/volume) 0.1 10*3/uL 0.0-0.1 Comprehensive metabolic panel - 05/24/17 06:08 Serum or plasma sodium measurement (moles/volume) 143 mmol/L 135-145 Serum or plasma potassium measurement (moles/volume) 3.4 mmol/L 3.6-5.0 Serum or plasma chloride measurement (moles/volume) 103 mmol/L 98-107 Carbon dioxide 28 mmol/L 21-32 Serum or plasma anion gap determination (moles/volume) 12 mmol/L 5-14 Serum or plasma urea nitrogen measurement (mass/volume) 13 mg/dL 7-18 Serum or plasma creatinine measurement (mass/volume) 0.81 mg/dL 0.60-1.30 Serum or plasma urea nitrogen/creatinine mass ratio 16 NRG Serum or plasma creatinine measurement with calculation of estimated glomerular filtration rate > NRG Serum or plasma glucose measurement (mass/volume) 84 mg/dL 70-105 Serum or plasma calcium measurement (mass/volume) 8.8 mg/dL 8.5-10.1 Serum or plasma total bilirubin measurement (mass/volume) 0.4 mg/dL 0.1-1.0 Serum or plasma alkaline phosphatase measurement (enzymatic activity/volume) 98 U/L 40-136 Serum or plasma aspartate aminotransferase measurement (enzymatic activity/ volume) 16 U/L 5-34 Serum or plasma alanine aminotransferase measurement (enzymatic activity/volume ) 6 U/L 0-55 Serum or plasma protein measurement (mass/volume) 6.4 g/dL 6.4-8.2 Serum or plasma albumin measurement (mass/volume) 3.1 g/dL 3.2-4.5 Magnesium - 05/24/17 06:08 Magnesium 2.1 mg/dL 1.8-2.4 Capillary blood glucose measurement by glucometer (mass/volume) - 05/24/17 11: 38 Capillary blood glucose measurement by glucometer (mass/volume) 171 mg/dL 70-110 Capillary blood glucose measurement by glucometer (mass/volume) - 05/24/17 15: 51 Capillary blood glucose measurement by glucometer (mass/volume) 198 mg/dL 70-110 Capillary blood glucose measurement by glucometer (mass/volume) - 05/24/17 20: 42 Capillary blood glucose measurement by glucometer (mass/volume) 206 mg/dL 70-110 Capillary blood glucose measurement by glucometer (mass/volume) - 05/25/17 05: 25 Capillary blood glucose measurement by glucometer (mass/volume) 139 mg/dL 70-110 Complete blood count (CBC) with automated white blood cell (WBC) differential - 05/25/17 06:02 Blood leukocytes automated count (number/volume) 12.0 10*3/uL 4.3-11.0 Blood erythrocytes automated count (number/volume) 3.20 10*6/uL 4.35-5.85 Venous blood hemoglobin measurement (mass/volume) 8.3 g/dL 11.5-16.0 Blood hematocrit (volume fraction) 27 % 35-52 Automated erythrocyte mean corpuscular volume 83 [foz_us] 80-99 Automated erythrocyte mean corpuscular hemoglobin (mass per erythrocyte) 26 pg 25-34 Automated erythrocyte mean corpuscular hemoglobin concentration measurement ( mass/volume) 31 g/dL 32-36 Automated erythrocyte distribution width ratio 17.5 % 10.0-14.5 Automated blood platelet count (count/volume) 349 10*3/uL 130-400 Automated blood platelet mean volume measurement 9.0 [foz_us] 7.4-10.4 Automated blood neutrophils/100 leukocytes 62 % 42-75 Automated blood lymphocytes/100 leukocytes 30 % 12-44 Blood monocytes/100 leukocytes 7 % 0-12 Automated blood eosinophils/100 leukocytes 0 % 0-10 Automated blood basophils/100 leukocytes 0 % 0-10 Blood neutrophils automated count (number/volume) 7.4 10*3 1.8-7.8 Blood lymphocytes automated count (number/volume) 3.6 10*3 1.0-4.0 Blood monocytes automated count (number/volume) 0.8 10*3 0.0-1.0 Automated eosinophil count 0.0 10*3/uL 0.0-0.3 Automated blood basophil count (count/volume) 0.1 10*3/uL 0.0-0.1 Comprehensive metabolic panel - 05/25/17 06:02 Serum or plasma sodium measurement (moles/volume) 140 mmol/L 135-145 Serum or plasma potassium measurement (moles/volume) 3.4 mmol/L 3.6-5.0 Serum or plasma chloride measurement (moles/volume) 98 mmol/L 98-107 Carbon dioxide 32 mmol/L 21-32 Serum or plasma anion gap determination (moles/volume) 10 mmol/L 5-14 Serum or plasma urea nitrogen measurement (mass/volume) 21 mg/dL 7-18 Serum or plasma creatinine measurement (mass/volume) 0.96 mg/dL 0.60-1.30 Serum or plasma urea nitrogen/creatinine mass ratio 22 NRG Serum or plasma creatinine measurement with calculation of estimated glomerular filtration rate 57 NRG Serum or plasma glucose measurement (mass/volume) 111 mg/dL 70-105 Serum or plasma calcium measurement (mass/volume) 8.9 mg/dL 8.5-10.1 Serum or plasma total bilirubin measurement (mass/volume) 0.3 mg/dL 0.1-1.0 Serum or plasma alkaline phosphatase measurement (enzymatic activity/volume) 99 U/L 40-136 Serum or plasma aspartate aminotransferase measurement (enzymatic activity/ volume) 15 U/L 5-34 Serum or plasma alanine aminotransferase measurement (enzymatic activity/volume ) 7 U/L 0-55 Serum or plasma protein measurement (mass/volume) 6.6 g/dL 6.4-8.2 Serum or plasma albumin measurement (mass/volume) 3.4 g/dL 3.2-4.5 Magnesium - 05/25/17 06:02 Magnesium 2.0 mg/dL 1.8-2.4 Capillary blood glucose measurement by glucometer (mass/volume) - 05/25/17 11: 11 Capillary blood glucose measurement by glucometer (mass/volume) 159 mg/dL 70-110 Encounters ACCT No. Visit Date/Time Discharge Status Pt. Type Provider Facility Loc./Unit Complaint [id number] 01/25/2018 14:25:00 01/25/2018 23:59:59 CLS Preadmit LOYDA CHILEL DO [facility] ENDO RECTAL BLEEDING [id number] 01/22/2018 06:16:00 01/22/2018 23:59:59 CLS Outpatient LOYDA CHILEL DO [facility] PREOP COLONOSCOPY [id number] 09/09/2017 00:09:00 09/09/2017 23:59:59 CLS Preadmit MARTITA LANGE [facility] ONC [id number] 07/14/2017 15:12:00 09/08/2017 00:01:00 DIS Outpatient MARTITA LANGE [facility] ONC [id number] 05/21/2017 15:00:00 05/25/2017 15:26:00 DIS Inpatient GEOVANI FOSS DO [facility] 4TH SEVERE ANEMIA HYPOXIA [id number] 04/14/2017 17:24:00 04/17/2017 15:00:00 DIS Inpatient WAGNER ABDUL MD [facility] 4TH PNUEMONIA - FAILURE OF OUTPATIENT THERAPY [id number] 03/17/2017 09:20:00 03/17/2017 23:59:59 CLS Outpatient ODELL ARNOLD APRN [facility] WOUNDCARE [id number] 02/17/2017 08:56:00 02/17/2017 23:59:59 CLS Outpatient ODELL ARNOLD APRN [facility] WOUNDCARE [id number] 02/03/2017 08:58:00 02/03/2017 23:59:59 CLS Outpatient ODELL ARNOLD APRN [facility] WOUNDCARE [id number] 01/27/2017 08:57:00 01/27/2017 23:59:59 CLS Outpatient ODELL ARNOLD APRN [facility] WOUNDCARE [id number] 01/20/2017 09:06:00 01/20/2017 23:59:59 CLS Outpatient ODELL ARNOLD APRN [facility] WOUNDCARE [id number] 01/14/2017 07:42:00 01/15/2017 14:10:00 DIS Outpatient TAMELA ALVARADO MD [facility] ABN SHANA, CLAUDICATION [id number] 01/07/2017 10:40:00 01/07/2017 18:05:00 DIS Outpatient TAMELA ALVARADO MD [facility] ABN SHAAN,CLAUDICATION [id number] 01/06/2017 08:49:00 01/06/2017 23:59:59 CLS Outpatient ODELL ARNOLD APRN [facility] WOUNDCARE [id number] 01/05/2017 08:03:00 01/05/2017 23:59:59 CLS Outpatient TAMELA ALVARADO MD [facility] CARD PAD,PULMONARY [id number] 12/23/2016 08:59:00 12/23/2016 23:59:59 CLS Outpatient ODELL ARNOLD APRN [facility] WOUNDCARE [id number] 07/12/2015 10:45:00 07/12/2015 23:59:59 CLS Outpatient TIMUR LEON [facility] RAD OSTEROPOROSIS,FATIGUE [id number] 11/20/2014 05:55:00 12/05/2014 15:35:00 DIS Inpatient NEENA NAJERA MD [facility] SURGICAL KYPHOSIS WITH MYOPATHY [id number] 11/14/2014 14:13:00 11/14/2014 23:59:59 CLS Outpatient NEENA NAJERA MD [facility] PREOP KYPHOSIS [id number] 11/14/2014 14:13:59 ACT Document Registration [id number] 10/02/2017 13:56:28 10/02/2017 13:56:28 DIS Outpatient
[2018-01-31] MEDS ORDERED: HYDROcodone/APAP 5 MG/325 MG (LORTAB) TAB PO ONE (02:00)
--- NOTE | 2018-01-31 02:02 | ED Fall/Injury ---
General Stated Complaint: HIT FUNNY BONE Source: patient, family, EMS Exam Limitations: no limitations History of Present Illness Date Seen by Provider: Jan 31, 2018 Time Seen by Provider: 01:47 Initial Comments Patient presents to ER by EMS from outside of [place] where she lives in her trailer house. She used her life alert dependent to get EMS to come. She said around 11:30 last night she thought she heard some voices outside of her trailer so she got up out of her wheelchair to look out the window and when she went to sit back down and she fell rather abruptly striking her left arm against the wheelchair seat and pinning it causing quite a bit of pain. She rates the pain as a 9 out of 10. EMS said that she was painful from the fingertips up to just past the elbow and had difficulty manipulating it or getting an IV started. She has a history of fracture to her left shoulder as well as a fracture of her right knee secondary to falls that has resulted in her being dependent on the wheelchair for mobility. Her daughter lives next door and helps her with setting up medicines doing leg wraps etc. She says she called her daughter but her daughter would not call the ambulance. On her way in by ambulance the daughter did call ahead to the ER given a list of medicines and said that her mother had some numbness in her left arm. The patient is not on blood thinners denies striking her head and is oriented to person time and place. She denies any amnesia. She says she smokes about 2 packs of cigarettes a day but has not been using any of her inhalers lately. She says she has been having a productive cough thick white sputum. No fevers chills nausea vomiting or diarrhea. EMS was unable to secure an IV in or give the patient any pain medicine en route. EMS did report that the patient was tearful on route and expressed concern she was being abandoned by her daughter. Allergies and Home Medications Allergies Coded Allergies: Penicillins (Unverified Allergy, Unknown, 09/17/06) Sulfa (Sulfonamide Antibiotics) (Unverified Allergy, Unknown, 09/17/06) Home Medications Albuterol Sulfate 1 Puff Puff, 2 PUFF INH Q4H PRN for SHORTNESS OF BREATH, ( Reported) Aspirin 81 Mg Tablet.dr, 81 MG PO DAILY, (Reported) Benzonatate 100 Mg Capsule, 100 MG PO TID PRN for COUGH, (Reported) Citalopram Hydrobromide 20 Mg Tablet, 20 MG PO HS, (Reported) Doxepin HCl 10 Mg Capsule, 10 MG PO HS, (Reported) Fluticasone/Vilanterol 1 Each Blst.w.dev, 1 EACH IH DAILY Prescribed by: WAGNER ABDUL on 05/25/17929 Folic Acid 1 Mg Tablet, 1 MG PO DAILY Prescribed by: WAGNER ABDUL on 05/25/17926 Furosemide 80 Mg Tablet, 80 MG PO DAILY, (Reported) Furosemide 80 Mg Tablet, 40 MG PO 1500, (Reported) TAKES 1/2 (80MG) TABLET Gabapentin 300 Mg Capsule, 300 MG PO TID, (Reported) Levothyroxine Sodium 100 Mcg Tablet, 100 MCG PO DAILY, (Reported) Menthol/Lanolin/Calamine/Znox 71 Gm Oint, TOP QID PRN for DISCOMFORT, (Reported) Potassium Chloride 20 Meq Tab.er.prt, 20 MEQ PO 0800,1200, (Reported) Prednisone 20 Mg Tab, 40 MG PO DAILY@0700 Prescribed by: WAGNER ABDUL on 05/25/17926 Ropinirole HCl 2 Mg Tablet, 2 MG PO 1900, (Reported) Tramadol HCl 50 Mg Tablet, 2 TAB PO Q6H PRN for PAIN-MODERATE, (Reported) Patient Home Medication List Home Medication List Reviewed: Yes Review of Systems Review of Systems Constitutional: No chills, No diaphoresis Eyes: Denies Blindness, Denies Blurred Vision, Denies Drainage Ears, Nose, Mouth, Throat: denies ear pain, denies ear discharge Respiratory: cough; No hemoptysis; phlegm; No short of breath, No wheezing Cardiovascular: No chest pain, No palpitations, No syncope Gastrointestinal: No abdominal pain, No constipation Genitourinary: No discharge, No dysuria Musculoskeletal: see HPI Past Tmvrrhd-Dmtsla-Parymm Hx Patient Social History Alcohol Use: Denies Use Recreational Drug Use: No Smoking Status: Current Everyday Smoker Type Used: Cigarettes (2 ppd) Recent Foreign Travel: No Contact w/Someone Who Travel: No Recent Hopitalizations: No Immunizations Up To Date Date of Pneumonia Vaccine: May 21, 2016 Date of Influenza Vaccine: Dec 07, 2016 Seasonal Allergies Seasonal Allergies: No Past Medical History Surgeries: Yes Appendectomy, Gallbladder, Hysterectomy, Oophorectomy, Orthopedic, Vascular Surgery Respiratory: Yes (SUSPECT COPD/EMPHYSEMA ) Pneumonia, COPD, Emphysema Cardiac: Yes Chronic Edema/Swelling, High Cholesterol, Hypertension, Peripheral Vascular Neurological: Yes Dementia, Neuropathy Reproductive Disorders: No Female Reproductive Disorders: Denies Sexually Transmitted Disease: No HIV/AIDS: No Genitourinary: Yes Kidney Stones Gastrointestinal: Yes Chronic Constipation, Irritable Bowel Musculoskeletal: Yes Degenerate Disk Disease, Arthritis, Back Injury, Chronic Back Pain, Fractures Endocrine: Yes (MORBID OBESITY) Hypothyroidsim HEENT: Yes Loss of Vision: Bilateral Hearing Impairment: Hard of Hearing, Bilateral Hearing Aide Cancer: No Psychosocial: Yes Anxiety, Schizophrenia, Depression Integumentary: Yes (FOOT ULCER) Blood Disorders: No Adverse Reaction/Blood Tranf: No Family Medical History Cancer, Vascular Disease HTN Physical Exam Vital Signs Vital Signs - First Documented 01/31/18 01:45 Temp 96.6 Pulse 92 Resp 18 B/P (MAP) 116/69 (85) Pulse Ox 94 O2 Delivery Room Air Capillary Refill : Height, Weight, BMI Height: 4'11.00" Weight: 190lbs. 1.0oz. 86.131275ia; 41.0 BMI Method:Stated General Appearance: WD/WN, no apparent distress HEENT: PERRL/EOMI, normal ENT inspection, TMs normal, pharynx normal (oral mucosa is dry), other (atraumatic head with no raccoon eyes, Belcher sign or hemotympanum) Neck: non-tender, full range of motion, supple, normal inspection Cardiovascular: normal peripheral pulses, regular rate, rhythm, no edema Respiratory: chest non-tender, lungs clear, normal breath sounds, no respiratory distress, no accessory muscle use Peripheral Pulses: 2+ Radial Pulses (R), 2+ Radial Pulses (L) Gastrointestinal: normal bowel sounds, non tender, soft Extremities: other (patient is guarding her left arm splinting it across her abdomen with her right arm. She has pain in her wrist, elbow, shoulder and some swelling in the left shoulder. No obvious deformity.) Skin: normal color, warm/dry, other (capillary refill less than 2 seconds all 5 digits. Finger clubbing noted.) Salas Coma Score Best Eye Response: (4) Open Spontaneously Best Verbal Response: (5) Oriented Best Motor Response: (6) Obeys Commands Salas Total: 15 Progress/Results/Core Measures Results/Orders Lab Results Laboratory Tests Test 01/31/18 02:11 Range/Units White Blood Count 9.2 4.3-11.0 10^3/uL Red Blood Count 4.06 L 4.35-5.85 10^6/uL Hemoglobin 11.7 11.5-16.0 G/DL Hematocrit 36 35-52 % Mean Corpuscular Volume 89 80-99 FL Mean Corpuscular Hemoglobin 29 25-34 PG Mean Corpuscular Hemoglobin Concent 32 32-36 G/DL Red Cell Distribution Width 16.3 H 10.0-14.5 % Platelet Count 271 130-400 10^3/uL Mean Platelet Volume 9.9 7.4-10.4 FL Neutrophils (%) (Auto) 59 42-75 % Lymphocytes (%) (Auto) 31 12-44 % Monocytes (%) (Auto) 6 0-12 % Eosinophils (%) (Auto) 3 0-10 % Basophils (%) (Auto) 0 0-10 % Neutrophils # (Auto) 5.4 1.8-7.8 X 10^3 Lymphocytes # (Auto) 2.9 1.0-4.0 X 10^3 Monocytes # (Auto) 0.6 0.0-1.0 X 10^3 Eosinophils # (Auto) 0.3 0.0-0.3 10^3/uL Basophils # (Auto) 0.0 0.0-0.1 10^3/uL Sodium Level 140 135-145 MMOL/L Potassium Level 3.8 3.6-5.0 MMOL/L Chloride Level 105 98-107 MMOL/L Carbon Dioxide Level 24 21-32 MMOL/L Anion Gap 11 5-14 MMOL/L Blood Urea Nitrogen 10 7-18 MG/DL Creatinine 0.86 0.60-1.30 MG/DL Estimat Glomerular Filtration Rate > 60 BUN/Creatinine Ratio 12 Glucose Level 86 70-105 MG/DL Calcium Level 9.6 8.5-10.1 MG/DL Corrected Calcium 9.9 8.5-10.1 MG/DL Total Bilirubin 0.5 0.1-1.0 MG/DL Aspartate Amino Transf (AST/SGOT) 20 5-34 U/L Alanine Aminotransferase (ALT/SGPT) 10 0-55 U/L Alkaline Phosphatase 83 40-136 U/L C-Reactive Protein High Sensitivity 2.20 H 0.00-0.50 MG/DL Total Protein 8.0 6.4-8.2 GM/DL Albumin 3.6 3.2-4.5 GM/DL My Orders Orders - JUAN KOCH Chest 1 View, Ap/Pa Only (01/31/18 01:54) Cbc With Automated Diff (01/31/18 01:54) Comprehensive Metabolic Panel (01/31/18 01:54) Hs C Reactive Protein (01/31/18 01:54) Shoulder, Left, 3 Views (01/31/18 01:54) Elbow, Left, 3 Views (01/31/18:54) Wrist, Left, 3 Views Or More (01/31/18:54) Hand, Left, 3 Views (01/31/18 01:54) Hydrocodone/Apap 5/325 Tablet (Lortab 5 (01/31/18 02:00) Medications Given in ED Current Medications Medications Dose Ordered Sig/Tristan Route Start Time Stop Time Status Last Admin Dose Admin Acetaminophen/ Hydrocodone Bitart 1 tab ONCE ONCE PO 01/31/18 02:00 01/31/18 02:01 DC 01/31/18 02:14 1 TAB Vital Signs/I&O 01/31/18 01/31/18 01:45 04:05 Temp 96.6 96.6 Pulse 92 85 Resp 18 18 B/P (MAP) 116/69 (85) 108/71 (83) Pulse Ox 94 95 O2 Delivery Room Air Room Air Progress Progress Note : Time: 02:04 Progress Note Patient has no history of coronary disease, hypertension, diabetes, hypercholesterolemia but she does have hypothyroidism for which she is treated. Seems like when she sat down and she is drunk her arm and shoulder where she has previous injury and is reaggravated it. She's having a lot of pains were in offer her some hydrocodone. Possible she has fractured it or just aggravated her osteoporosis causing some neuropathic pain as well. We'll get x-rays basic labs and a chest x-ray. She's not wheezy at this time has good lung sounds and good vital signs. Diagnostic Imaging Diagonstic Imaging: Xray Plain Films/CT/US/NM/MRI: chest (1v) Comments No acute cardiopulmonary process. Maybe an anterior displacement to the left glenohumeral prostheses. Reviewed: Reviewed by Me Diagonstic Imaging: Xray Plain Films/CT/US/NM/MRI: other (left shoulder) Comments Appears to be maybe an anterior dislocation of the glenohumeral prostheses on the left side without evidence of fracture. Reviewed: Reviewed by Me Diagonstic Imaging: Xray Plain Films/CT/US/NM/MRI: elbow (left) Comments Dislocation of the proximal radius and ulna with possible closed fracture of the proximal ulna shaft Reviewed: Reviewed by Me Diagonstic Imaging: Xray Plain Films/CT/US/NM/MRI: hand (wrist and left) Comments No acute osseous abnormality is noted. Degenerative changes noted. Reviewed: Reviewed by Me Consults : Consults Notes Manuel [place], Orthopedics: Reviewed imaging story and labs and he recommends splinting the arm and transferring the patient ER to ER and he will review the imaging and patient when they arrived. Departure Impression Primary Impression: Fall Qualified Codes: W19.XXXA - Unspecified fall, initial encounter Additional Impressions: Elbow dislocation Qualified Codes: S53.105A - Unspecified dislocation of left ulnohumeral joint , initial encounter Shoulder joint dislocation Disposition: 02 XFER S[facility]-TRM HOSP (ER to ER) Condition: Critical Transfer Time Spoke to Accepting Phy: 03:10 Transfer Progress Notes Discussed the case with Dr. Brink, orthopedics and Dr. Mendez in the ER and they agreed to accept the patient to the ER for evaluation. Transfer Time: 04:05 [facility]: [facility] [place] [place], . Method of Transfer: EMS Departure-Patient Inst. Referrals: CRISTINA MON (PCP/Family) Primary Care Physician JUAN KOCH Jan 31, 2018 02:02
[2018-01-31 02:17] LABS: BASOPHILS % (AUTO) 0 % (0-10); EOSINOPHILS # (AUTO) 0.3 10^3/uL (0.0-0.3); EOSINOPHILS % (AUTO) 3 % (0-10); HEMATOCRIT 36 % (35-52); HEMOGLOBIN 11.7 G/DL (11.5-16.0); LYMPHOCYTES # (AUTO) 2.9 X 10^3 (1.0-4.0); LYMPHOCYTES % (AUTO) 31 % (12-44); MEAN CORPUSCULAR HEMOGLOBIN 29 PG (25-34); MEAN CORPUSCULAR HGB CONC 32 G/DL (32-36); MEAN CORPUSCULAR VOLUME 89 FL (80-99); MEAN PLATELET VOLUME 9.9 FL (7.4-10.4); MONOCYTES # (AUTO) 0.6 X 10^3 (0.0-1.0); MONOCYTES % (AUTO) 6 % (0-12); NEUTROPHILS # (AUTO) 5.4 X 10^3 (1.8-7.8); NEUTROPHILS % (AUTO) 59 % (42-75); PLATELET COUNT 271 10^3/uL (130-400); RED BLOOD COUNT 4.06 10^6/uL (4.35-5.85); RED CELL DISTRIBUTION WIDTH 16.3 % (10.0-14.5); WHITE BLOOD COUNT 9.2 10^3/uL (4.3-11.0)
[2018-01-31 02:37] LABS: ALANINE AMINOTRANSFERASE 10 U/L (0-55); ALBUMIN 3.6 GM/DL (3.2-4.5); ALKALINE PHOSPHATASE 83 U/L (40-136); BILIRUBIN,TOTAL 0.5 MG/DL (0.1-1.0); BUN/CREATININE RATIO 12; CALCIUM 9.6 MG/DL (8.5-10.1); CARBON DIOXIDE 24 MMOL/L (21-32); CHLORIDE 105 MMOL/L (98-107); CREATININE SERUM 0.86 MG/DL (0.60-1.30); GFR ESTIMATED > 60; GLUCOSE 86 MG/DL (70-105); POTASSIUM 3.8 MMOL/L (3.6-5.0); SODIUM 140 MMOL/L (135-145)
[2018-01-31 04:05] VITALS: BP 108/71
--- NOTE | 2018-01-31 06:15 | Diagnostic Imaging Report ---
Examination: Left hand, 3 views Indication: Left hand pain. Comparison: None. Findings: There is marked osteopenia of the bones, which limits evaluation. No fracture or acute osseous abnormality. Bony alignment is maintained. There is marked diffuse degenerative change. Impression: No acute fracture or dislocation. Diffuse arthritic change. Dictated by: Dictated on workstation # [id number]
--- NOTE | 2018-01-31 06:30 | Diagnostic Imaging Report ---
Examination: Left elbow, 3 views Indication: Left elbow injury. Pain. Comparison: None. Findings: There is a comminuted displaced fracture of the proximal radius, with ulnar displacement of the distal fracture fragment by approximately one shaft width. The proximal radial head remains in good alignment with the humerus. The ulna is dislocated. Ossific densities adjacent to the olecranon may reflect small fracture fragments. No discrete, displaced ulnar fracture. Impression: Fracture dislocation of the left elbow, as detailed above. Dictated by: Dictated on workstation # [id number]
--- NOTE | 2018-01-31 07:19 | Diagnostic Imaging Report ---
INDICATION: Fall. Left arm pain. FINDINGS: The bones are markedly osteoporotic. There also are diffuse degenerative arthritic changes present throughout the left wrist. This limits the overall sensitivity of the examination but there is no definitive cortical disruption present to suggest an acute fracture. There is no dislocation. There appears to be some soft tissue swelling about the ulnar aspect of the wrist. IMPRESSION: 1. Marked osteoporosis with advanced background features of osteoarthritis. No acute left wrist fracture or dislocation demonstrated. Dictated by: Dictated on workstation # [id number]
--- NOTE | 2018-01-31 07:21 | Diagnostic Imaging Report ---
INDICATION: Left arm pain 3 views of the left shoulder show postop changes from left shoulder arthroplasty. There is no evidence of loosening of the prosthesis. There is no acute fracture. IMPRESSION: Postop changes from left shoulder arthroplasty. There is no appreciable fracture or dislocation. Dictated by: Dictated on workstation # [id number]
--- NOTE | 2018-01-31 08:03 | Diagnostic Imaging Report ---
Indication: Injury from a fall. Portable chest 2:49 AM Patient has Jane rods in the thoracolumbar spine. Heart size and pulmonary vascularity are normal. There is mild interstitial fibrosis. There are no consolidating alveolar infiltrates. There is no effusion or pneumothorax. Impression: Mild interstitial lung disease. No acute abnormality seen. Dictated by: Dictated on workstation # [id number]
== END 2018-01-31 04:07 | disposition short-term general hospital (02) ==
LOC: EDUNIT# 01:45 → ER 01:46
DX: S53.195A Other dislocation of left ulnohumeral joint, initial encounter (principal); S43.005A Unspecified dislocation of left shoulder joint, initial encounter; J43.9 Emphysema, unspecified; E78.00 Pure hypercholesterolemia, unspecified; I73.9 Peripheral vascular disease, unspecified; F03.90 Unspecified dementia, unspecified severity, without behavioral disturbance, psychotic disturbance, mood disturbance, and anxiety; F41.9 Anxiety disorder, unspecified; F20.9 Schizophrenia, unspecified; F32.9 Major depressive disorder, single episode, unspecified; E03.9 Hypothyroidism, unspecified; E66.01 Morbid (severe) obesity due to excess calories; R40.2142 Coma scale, eyes open, spontaneous, at arrival to emergency department; R40.2252 Coma scale, best verbal response, oriented, at arrival to emergency department; R40.2362 Coma scale, best motor response, obeys commands, at arrival to emergency department; F17.210 Nicotine dependence, cigarettes, uncomplicated; Z90.710 Acquired absence of both cervix and uterus; Z87.19 Personal history of other diseases of the digestive system; Z82.49 Family history of ischemic heart disease and other diseases of the circulatory system; Z87.442 Personal history of urinary calculi; Z90.49 Acquired absence of other specified parts of digestive tract; Z87.01 Personal history of pneumonia (recurrent); Z88.0 Allergy status to penicillin; Z88.2 Allergy status to sulfonamides; Z79.51 Long term (current) use of inhaled steroids; Z79.82 Long term (current) use of aspirin; Z79.52 Long term (current) use of systemic steroids; W01.198A Fall on same level from slipping, tripping and stumbling with subsequent striking against other object, initial encounter
CPT/HCPCS: 36415; 71045; 73030; 73080; 73110; 73130; 80053; 85025; 86141

== ENCOUNTER 2018-02-10 13:48 | Inpatient (IN) | payer MEDICARE ==
[~2018-02-10] VITALS: Ht 149.9 cm; Wt 83.7 kg
--- OUTSIDE RECORDS SUMMARY | 2018-02-10 13:55 | XMS REPORT | Continuity of Care Document ---
Author Author [facility] Organization [facility] Address Unknown Phone Unavailable Allergies Active Description Code Type Severity Reaction Onset Reported/Identified Relationship to Patient Clinical Status Yes Penicillins [id number] Drug Allergy Unknown N/A 09/17/2006 Yes Sulfa (Sulfonamide Antibiotics) [id number] Drug Allergy Unknown N/A 2006 Medications There [...] 12/04/2014 NEENA NAJERA MD Ot 790.29 12/05/2014 ENENA NAJERA MD Ot 038.49 GRAM-NEG SEPTICEMIA NEC [...] EXAMINATION 07/12/2015 NEENA NAJERA MD, Ot V72.81 [id number] CARDIOVASCULAR 07/12/2015 NEENA NAJERA MD, Ot V72.83 [...] EXAMINATION 01/05/2017 NEENA NAJERA MD Ot V72.81 [id number] CARDIOVASCULAR 01/05/2017 NEENA NAJERA MD Ot V72.83 [...] TAMELA ALVARADO MD Ot 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 [facility]IES OF [facility] 01/07/2017 TAMELA ALVARADO MD Ot I70.92 [...] 01/07/2017 TAMELA ALVARADO MD Ot Z79.899 OTHER [facility] (CURRENT) DRUG THERAPY 01/15/2017 ODELL ARNOLD APRN [...] TAMELA ALVARADO MD Ot 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 01/15/2017 TAMELA ALVARADO MD, Ot J44.9 CHRONIC OBSTRUCTIVE PULMONARY DISEASE, U 01/15/2017 TAMELA ALVARADO MD Ot L97.519 NON-PRS CHRONIC ULCER OTH PRT RIGHT FOOT 01/15/2017 TAMELA ALVARADO MD Ot R00.0 TACHYCARDIA, UNSPECIFIED 01/15/2017 TAMELA ALVARADO MD Ot Z79.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 01/15/2017 TAMELA ALVARADO MD [...] TAMELA ALVARADO MD, Ot 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 01/22/2017 TAMELA ALVARADO MD [...] 01/22/2017 TAMELA ALVARADO MD Ot Z79.899 OTHER [facility] (CURRENT) DRUG THERAPY 01/27/2017 TAMELA ALVARADO MD, [...] OF ARTERY OF THE 02/04/2017 ODELL ARNOLD [employer] MECHANIC Ot I87.333 CHRONIC VENOUS HTN W ULCER [...] ULCER AND INFLAM OF 02/10/2017 ODELL ARNOLD [employer] REPAIR MECHANIC Ot L97.212 NON-PRESSURE CHRONIC ULCER OF RIGHT [...] TAMELA ALVARADO MD Ot 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 02/18/2017 TAMELA ALVARADO MD Ot J44.9 CHRONIC OBSTRUCTIVE PULMONARY DISEASE, U 02/18/2017 TAMELA ALVARADO MD Ot L97.519 NON-PRS CHRONIC ULCER OTH PRT RIGHT FOOT 02/18/2017 TAMEAL ALVARAOD MD Ot R00.0 TACHYCARDIA, UNSPECIFIED 02/18/2017 TAMELA ALVARADO MD Ot Z79.899 OTHER [facility] (CURRENT) DRUG THERAPY 02/18/2017 TAMELA ALVARADO MD [...] TAMELA ALVARADO MD Ot 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 02/26/2017 TAMELA ALVARADO MD [...] 02/26/2017 TAMELA ALVARADO MD Ot Z79.899 OTHER [facility] (CURRENT) DRUG THERAPY 02/27/2017 ODELL ARNOLD APRN Ot 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 02/27/2017 ODELL ARNOLD APRN Ot I87.333 CHRONIC VENOUS HTN W ULCER AND INFLAM OF 02/27/2017 ODELL ARNOLD APRN Ot L97.212 NON-PRESSURE CHRONIC ULCER OF RIGHT CALF 02/27/2017 CLAYTON, ODELL R [employer] GENER[employer] REPAIR MECHANIC Ot L97.222 NON-PRESSURE CHRONIC ULCER OF LEFT CALF 03/06/2017 ODELL ARNOLD R [employer] REPAIR MECHANIC Ot 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 03/06/2017 ODELL ARNOLD R [employer] REPAIR MECHANIC Ot I87.333 CHRONIC VENOUS HTN W ULCER AND INFLAM OF 03/06/2017 CLAYTON ODELL R [employer] GENER[employer] REPAIR MECHANIC Ot L97.212 NON-PRESSURE CHRONIC ULCER OF RIGHT CALF 03/06/2017 CLAYTON ODELL R [employer] GENER[employer] REPAIR MECHANIC Ot L97.222 NON-PRESSURE CHRONIC ULCER OF LEFT CALF 03/06/2017 CLAYTON ODELL R [employer] GENER[employer] REPAIR MECHANIC Ot 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 03/06/2017 CLAYTON ODELL R [employer] GENER[employer] REPAIR MECHANIC Ot I87.333 CHRONIC VENOUS HTN W ULCER AND INFLAM OF 03/06/2017 CLAYTON ODELL R [employer] GENER[employer] REPAIR MECHANIC Ot L97.212 NON-PRESSURE CHRONIC ULCER OF RIGHT CALF 03/06/2017 CLAYTON ODELL R [employer] GENER[employer] REPAIR MECHANIC Ot L97.222 NON-PRESSURE CHRONIC ULCER OF LEFT CALF 03/11/2017 ODELL ARNOLD [employer] GENER[employer] REPAIR MECHANIC Ot 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 03/11/2017 CLAYTON ODELL R [employer] REPAIR MECHANIC Ot I87.333 CHRONIC VENOUS HTN W ULCER AND INFLAM OF 03/11/2017 CLAYTON ODELL R [employer] GENER[employer] REPAIR MECHANIC Ot L97.212 NON-PRESSURE CHRONIC ULCER OF RIGHT CALF 03/20/2017 ODELL ARNOLD [employer] GENER[employer] REPAIR MECHANIC Ot 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 03/20/2017 ODELL ARNOLD R [employer] GENER[employer] REPAIR MECHANIC Ot I87.333 CHRONIC VENOUS HTN W ULCER AND INFLAM OF 03/20/2017 ODELL ARNOLD R [employer] REPAIR MECHANIC Ot L97.212 NON-PRESSURE CHRONIC ULCER OF RIGHT CALF 2017 CLAYTON ODELL R [employer] GENER[employer] REPAIR MECHANIC Ot 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 2017 CLAYTON ODELL R [employer] GENER[employer] REPAIR MECHANIC Ot I87.333 CHRONIC VENOUS HTN W ULCER AND INFLAM OF 2017 CLAYTON ODELL R [employer] GENER[employer] REPAIR MECHANIC Ot L97.212 NON-PRESSURE CHRONIC ULCER OF RIGHT CALF 04/15/2017 CLAYTON ODELL R [employer] GENER[employer] REPAIR MECHANIC Ot 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 04/15/2017 ODELL ARNOLD R [employer] REPAIR MECHANIC Ot I87.333 CHRONIC VENOUS HTN W ULCER AND INFLAM OF 04/15/2017 ODELL ARNOLD R [employer] REPAIR MECHANIC Ot L97.212 NON-PRESSURE CHRONIC ULCER OF RIGHT [...] Ot G25.81 RESTLESS LEGS SYNDROME 04/17/2017 WAGNER ADBUL MD Ot G62.9 POLYNEUROPATHY, UNSPECIFIED 04/17/2017 WAGNER [...] VASCULAR ANGIOPLASTY STATUS W 05/24/2017 PIPO CANSECO GEOVNAI Ot Z97.4 PRESENCE OF EXTERNAL HEARING-AID 05/24/2017 [...] Ot M54.9 DORSALGIA, UNSPECIFIED 05/24/2017 PIPO CANSECO GEOVNAI Ot R60.0 LOCALIZED EDEMA 05/24/2017 PIPO CANSECO [...] UNSPECIFIED HEARING LOSS, BILATERAL 05/25/2017 PIPO CANSECO GEOVNAI Ot I10 ESSENTIAL (PRIMARY) HYPERTENSION 05/25/2017 PIPO [...] EXAMINATION 01/22/2018 NEENA NAJERA MD, Ot V72.81 [id number] CARDIOVASCULAR 01/22/2018 NEENA NAJERA MD, Ot V72.83 [...] Ot Z72.0 TOBACCO USE 01/22/2018 ODELL ARNOLD [employer] RE[employer]IR MECHANIC Ot I87.333 CHRONIC VENOUS HTN W ULCER AND INFLAM OF 01/22/2018 ODELL ARNOLD [employer] REPAIR MECHANIC Ot L97.212 NON-PRESSURE CHRONIC ULCER OF RIGHT CALF 01/22/2018 ODELL ARNOLD [employer] REPAIR MECHANIC Ot L97.222 NON-PRESSURE CHRONIC ULCER OF LEFT CALF 01/22/2018 ODELL ARNOLD [employer] GENER[employer] REPAIR MECHANIC Ot 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 01/22/2018 ODELL ARNOLD [employer] REPAIR MECHANIC Ot I87.333 CHRONIC VENOUS HTN W ULCER AND INFLAM OF 01/22/2018 CLAYTON ODELL R [employer] REPAIR MECHANIC Ot L97.212 NON-PRESSURE CHRONIC ULCER OF RIGHT CALF 01/22/2018 ODELL ARNOLD [employer] GENER[employer] REPAIR MECHANIC Ot L97.222 NON-PRESSURE CHRONIC ULCER OF LEFT CALF 01/22/2018 CLAYTON ODELL R [employer] GENER[employer] REPAIR MECHANIC Ot 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 01/22/2018 ODELL ARNOLD R [employer] GENER[employer] REPAIR MECHANIC Ot I87.333 CHRONIC VENOUS HTN W ULCER AND INFLAM OF 01/22/2018 ODELL ARNOLD [employer] GENER[employer] REPAIR MECHANIC Ot L97.212 NON-PRESSURE CHRONIC ULCER OF RIGHT CALF 01/22/2018 ODELL ARNOLD [employer] GENER[employer] REPAIR MECHANIC Ot L97.222 NON-PRESSURE CHRONIC ULCER OF LEFT CALF 01/22/2018 ODELL ARNOLD [employer] GENER[employer] REPAIR MECHANIC Ot 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 01/22/2018 ODELL ARNOLD [employer] GENER[employer] REPAIR MECHANIC Ot I87.333 CHRONIC VENOUS HTN W ULCER AND INFLAM OF 01/22/2018 CLAYTON ODELL R [employer] GENER[employer] REPAIR MECHANIC Ot L97.212 NON-PRESSURE CHRONIC ULCER OF RIGHT CALF 01/22/2018 ODELL ARNOLD R [employer] GENER[employer] REPAIR MECHANIC Ot L97.222 NON-PRESSURE CHRONIC ULCER OF LEFT CALF 01/22/2018 ODELL ARNOLD R [employer] GENER[employer] REPAIR MECHANIC Ot 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 01/22/2018 ODELL ARNOLD R [employer] GENER[employer] REPAIR MECHANIC Ot I87.333 CHRONIC VENOUS HTN W ULCER AND INFLAM OF 01/22/2018 ODELL ARNOLD [employer] GENER[employer] REPAIR MECHANIC Ot L97.212 NON-PRESSURE CHRONIC ULCER OF RIGHT CALF 01/22/2018 ODELL ARNOLD [employer] GENER[employer] REPAIR MECHANIC Ot 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 01/22/2018 ODELL ARNOLD [employer] GENERAL REPAIR MECHANIC Ot I87.333 CHRONIC VENOUS HTN W ULCER AND INFLAM OF 01/22/2018 ODELL ARNOLD AIR[employer] GENER[employer] REPAIR MECHANIC Ot L97.212 NON-PRESSURE CHRONIC ULCER OF RIGHT CALF 01/22/2018 MARTITA LANGE Crystal Ot D50.9 IRON DEFICIENCY ANEMIA, UNSPECIFIED 01/25/2018 RONCATHERINE DO LOYDA B Ot Z01.818 ENCOUNTER FOR OTHER PREPROCEDURAL EXAMIN 02/02/2018 JUAN KOCH MD Ot E03.9 HYPOTHYROIDISM, UNSPECIFIED 02/02/2018 JUAN KOCH MD Ot E66.01 MORBID (SEVERE) OBESITY DUE TO EXCESS CA 02/02/2018 JUAN KOCH MD Ot E78.00 PURE HYPERCHOLESTEROLEMIA, UNSPECIFIED 02/02/2018 JUAN KOCH MD Ot F03.90 UNSPECIFIED DEMENTIA WITHOUT BEHAVIORAL 02/02/2018 JUAN KOCH MD Ot F17.210 NICOTINE DEPENDENCE, CIGARETTES, UNCOMPL 02/02/2018 JUAN KOCH MD Ot F20.9 SCHIZOPHRENIA, UNSPECIFIED 02/02/2018 JUAN KOCH MD Ot F32.9 MAJOR DEPRESSIVE DISORDER, SINGLE EPISOD 02/02/2018 JUAN KOCH MD Ot F41.9 ANXIETY DISORDER, UNSPECIFIED 02/02/2018 JUAN KOCH MD Ot I73.9 PERIPHERAL VASCULAR DISEASE, UNSPECIFIED 02/02/2018 JUAN KOCH MD Ot J43.9 EMPHYSEMA, UNSPECIFIED 02/02/2018 JUAN KOCH MD Ot M79.602 PAIN IN LEFT ARM 02/02/2018 JUAN KOCH MD Ot R40.2142 COMA SCALE, EYES OPEN, SPONTANEOUS, EMR 02/02/2018 JUAN KOCH MD Ot R40.2252 COMA SCALE, BEST VERBAL RESPONSE, ORIENT 02/02/2018 JUAN KOCH MD Ot R40.2362 COMA SCALE, BEST MOTOR RESPONSE, OBEYS C 02/02/2018 JUAN KOCH MD Ot S43.005A UNSPECIFIED DISLOCATION OF LEFT SHOULDER 02/02/2018 JUAN KOCH MD Ot S53.195A OTHER DISLOCATION OF LEFT ULNOHUMERAL BRISEIDA 02/02/2018 JUAN KOCH MD Ot W01.198A FALL SAME LEV FROM SLIP/TRIP W STRIKE AG 02/02/2018 JUAN KOCH MD Ot Z79.51 MONORAIL HELPER (CURRENT) USE OF INHALED STERO 02/02/2018 JUAN KOCH MD Ot Z79.52 [facility] (CURRENT) USE OF SYSTEMIC STER 02/02/2018 JUAN KOCH MD Ot Z79.82 [facility] (CURRENT) USE OF ASPIRIN 02/02/2018 JUAN KOCH MD Ot Z82.49 FAMILY HX OF ISCHEM HEART DIS AND OTH DI 02/02/2018 UJAN KOCH MD Ot Z87.01 PERSONAL HISTORY OF PNEUMONIA (RECURRENT 02/02/2018 JUAN KOCH MD Ot Z87.19 PERSONAL HISTORY OF OTHER DISEASES OF TH 02/02/2018 JUAN KOCH MD Ot Z87.442 PERSONAL HISTORY OF URINARY CALCULI 02/02/2018 JUAN KOCH MD Ot Z88.0 ALLERGY STATUS TO PENICILLIN 02/02/2018 JUAN KOCH MD Ot Z88.2 ALLERGY STATUS TO SULFONAMIDES STATUS 02/02/2018 JUAN KOCH MD Ot Z90.49 ACQUIRED ABSENCE OF OTHER SPECIFIED PART 02/02/2018 JUAN KOCH MD Ot Z90.710 ACQUIRED ABSENCE OF BOTH CERVIX AND UTER Procedures Code Description Performed By Performed On 38.91 ARTERIAL CATHETERIZATION 11/20/2014 77.39 BONE DIVISION [facility] 11/20/2014 77.79 EXCISE BONE FOR GFT [facility] 11/20/2014 78.99 INSERT BONE GROWTH SIMULATOR , [facility] 11/20/2014 80.99 EXCISION OF JOINT [facility] 11/20/2014 81.04 DORSAL DORSOLUMBAR FUSION OF ANTERIOR 11/20/2014 81.05 DORSAL DORSOLUMBAR FUSION OF POSTERIOR 11/20/2014 81.06 LUMBAR LUMBOSACRAL FUSION OF ANTERIOR 11/20/2014 81.64 FUSION/REFUS OF 9 OR MORE VERTEBRAE 11/20/2014 84.51 INSERTION OF INTERBODY SPINAL FUSION DEV 11/20/2014 96.04 INSERT ENDOTRACHEAL TUBE 11/23/2014 96.72 CONTINUOUS INVASIVE MECHANICAL VENTILATI 11/23/2014 38.93 VENOUS CATHETERIZATION [facility] 11/24/2014 [id number] EXCISION OF STOMACH, ENDO , DIAGN 05/21/2017 [...] calculation of estimated glomerular filtration rate 53 [facility] Serum or plasma glucose measurement (mass/volume) 87 [...] resistant Staphylococcus aureus (MRSA) screening culture NEG [facility] Methicillin resistant Staphylococcus aureus (MRSA) screening culture - 08:22 Methicillin resistant Staphylococcus aureus (MRSA) screening culture NEG [facility] Automated blood complete blood count (hemogram) panel [...] FOR INFLUENZA A AND B ANTIGENS BY [facility] Complete blood count (CBC) with automated white [...] culture - 05/21/17 15:40 Bacterial urine culture [id number] NRG COLONY COUNT <10,000 NRG FTX;REPORTABLE SENSITIVITIES REPORTED AT 0858, 3-17-18 NRG URINE CULTURE RESULTS PLUS NRG Bacterial [...] measurement by glucometer (mass/volume) 159 mg/dL 70-110 Complete blood count (CBC) with automated white blood cell (WBC) differential - 01/31/18 02:11 Blood leukocytes automated count (number/volume) 9.2 10*3/uL 4.3-11.0 Blood erythrocytes automated count (number/volume) 4.06 10*6/uL 4.35-5.85 Venous blood hemoglobin measurement (mass/volume) 11.7 g/dL 11.5-16.0 Blood hematocrit (volume fraction) 36 % 35-52 Automated erythrocyte mean corpuscular volume 89 [foz_us] 80-99 Automated erythrocyte mean corpuscular hemoglobin (mass per erythrocyte) 29 pg 25-34 Automated erythrocyte mean corpuscular hemoglobin concentration measurement ( mass/volume) 32 g/dL 32-36 Automated erythrocyte distribution width ratio 16.3 % 10.0-14.5 Automated blood platelet count (count/volume) 271 10*3/uL 130-400 Automated blood platelet mean volume measurement 9.9 [foz_us] 7.4-10.4 Automated blood neutrophils/100 leukocytes 59 % 42-75 Automated blood lymphocytes/100 leukocytes 31 % 12-44 Blood monocytes/100 leukocytes 6 % 0-12 Automated blood eosinophils/100 leukocytes 3 % 0-10 Automated blood basophils/100 leukocytes 0 % 0-10 Blood neutrophils automated count (number/volume) 5.4 10*3 1.8-7.8 Blood lymphocytes automated count (number/volume) 2.9 10*3 1.0-4.0 Blood monocytes automated count (number/volume) 0.6 10*3 0.0-1.0 Automated eosinophil count 0.3 10*3/uL 0.0-0.3 Automated blood basophil count (count/volume) 0.0 10*3/uL 0.0-0.1 Comprehensive metabolic panel - 01/31/18 02:11 Serum or plasma sodium measurement (moles/volume) 140 mmol/L 135-145 Serum or plasma potassium measurement (moles/volume) 3.8 mmol/L 3.6-5.0 Serum or plasma chloride measurement (moles/volume) 105 mmol/L 98-107 Carbon dioxide 24 mmol/L 21-32 Serum or plasma anion gap determination (moles/volume) 11 mmol/L 5-14 Serum or plasma urea nitrogen measurement (mass/volume) 10 mg/dL 7-18 Serum or plasma creatinine measurement (mass/volume) 0.86 mg/dL 0.60-1.30 Serum or plasma urea nitrogen/creatinine mass ratio 12 NRG Serum or plasma creatinine measurement with calculation of estimated glomerular filtration rate > NRG Serum or plasma glucose measurement (mass/volume) 86 mg/dL 70-105 Serum or plasma calcium measurement (mass/volume) 9.6 mg/dL 8.5-10.1 Serum or plasma total bilirubin measurement (mass/volume) 0.5 mg/dL 0.1-1.0 Serum or plasma alkaline phosphatase measurement (enzymatic activity/volume) 83 U/L 40-136 Serum or plasma aspartate aminotransferase measurement (enzymatic activity/ volume) 20 U/L 5-34 Serum or plasma alanine aminotransferase measurement (enzymatic activity/volume ) 10 U/L 0-55 Serum or plasma protein measurement (mass/volume) 8.0 g/dL 6.4-8.2 Serum or plasma albumin measurement (mass/volume) 3.6 g/dL 3.2-4.5 CALCIUM CORRECTED 9.9 mg/dL 8.5-10.1 Serum or plasma C reactive protein measurement (mass/volume) - 01/31/18 02:11 Serum or plasma C reactive protein measurement (mass/volume) 2.20 mg /dL 0.00-0.50 Encounters ACCT No. Visit Date/Time Discharge Status Pt. Type Provider Facility Loc./Unit Complaint [id number] 01/31/2018 01:46:00 01/31/2018 04:07:00 DIS Outpatient JUAN KOCH MD [facility] ER HIT FUNNY BONE [id number] 01/25/2018 14:25:00 01/25/2018 23:59:59 CLS Preadmit LOYDA CHILEL DO [facility] ENDO RECTAL BLEEDING [id number] 01/22/2018 06:16:00 01/22/2018 23:59:59 CLS Outpatient LOYDA CHILEL DO [facility] PREOP COLONOSCOPY [id number] 09/09/2017 00:09:00 09/09/2017 23:59:59 CLS Preadmit MARTITA LANGE [facility] ONC [id number] 07/14/2017 15:12:00 09/08/2017 00:01:00 DIS Outpatient MARTITA LANGE [facility] ONC [id number] 05/21/2017 15:00:00 05/25/2017 15:26:00 DIS Inpatient GEOVANI FOSS DO [facility] 4TH SEVERE ANEMIA HYPOXIA [id number] 04/14/2017 17:24:00 04/17/2017 15:00:00 DIS Inpatient WAGNER ABDUL MD [facility] 4TH PNUEMONIA - FAILURE OF OUTPATIENT THERAPY [id number] 03/17/2017 09:20:00 03/17/2017 23:59:59 CLS Outpatient ODELL ARNOLD APRN [facility] WOUNDCARE [id number] 02/17/2017 08:56:00 02/17/2017 23:59:59 CLS Outpatient ODELL ARNOLD APRN [facility] WOUNDCARE [id number] 02/03/2017 08:58:00 02/03/2017 23:59:59 CLS Outpatient ODELL ARNOLD [employer] MECHANIC [facility] WOUNDCARE [id number] 01/27/2017 08:57:00 01/27/2017 23:59:59 CLS Outpatient ODELL ARNOLD [employer] RE[employer] MECHANIC [facility] WOUNDCARE [id number] 01/20/2017 09:06:00 01/20/2017 23:59:59 CLS Outpatient ODELL ARNOLD [employer] REPAIR MECHANIC [facility] WOUNDCARE [id number] 01/14/2017 07:42:00 01/15/2017 14:10:00 DIS Outpatient TAMELA ALVARADO MD [facility] ABN SHANA, CLAUDICATION [id number] 01/07/2017 10:40:00 01/07/2017 18:05:00 DIS Outpatient TAMELA ALVARADO MD [facility] ABN SHANA,CLAUDICATION [id number] 01/06/2017 08:49:00 01/06/2017 23:59:59 CLS Outpatient ODELL ARNOLD [employer] REPA[employer] MECHANIC [facility] WOUNDCARE [id number] 01/05/2017 08:03:00 01/05/2017 23:59:59 CLS Outpatient TAMELA ALVARADO MD [facility] CARD PAD,PULMONARY [id number] 12/23/2016 08:59:00 12/23/2016 23:59:59 CLS Outpatient ODELL ARNOLD APRN [facility] WOUNDCARE [id number] 07/12/2015 10:45:00 07/12/2015 23:59:59 CLS Outpatient TIMUR LEON [facility] RAD OSTEROPOROSIS,FATIGUE [id number] 11/20/2014 05:55:00 12/05/2014 15:35:00 DIS Inpatient NEENA NAJERA MD [facility] SURGICAL KYPHOSIS WITH MYOPATHY [id number] 11/14/2014 14:13:00 11/14/2014 23:59:59 CLS Outpatient NEENA NAJERA MD [facility] PREOP KYPHOSIS [id number] 11/14/2014 14:13:59 ACT Document Registration [id number] 10/02/2017 13:56:28 10/02/2017 13:56:28 DIS Outpatient
[2018-02-10] MEDS ORDERED: NS IV 500 ML 500 ML IV ONE ×2 (13:58→19:30)
[2018-02-10 14:00] LABS: BASOPHILS % (AUTO) 0 % (0-10); EOSINOPHILS # (AUTO) 0.3 10^3/uL (0.0-0.3); EOSINOPHILS % (AUTO) 3 % (0-10); HEMATOCRIT 37 % (35-52); HEMOGLOBIN 11.9 G/DL (11.5-16.0); LYMPHOCYTES # (AUTO) 3.1 X 10^3 (1.0-4.0); LYMPHOCYTES % (AUTO) 23 % (12-44); MEAN CORPUSCULAR HEMOGLOBIN 29 PG (25-34); MEAN CORPUSCULAR HGB CONC 33 G/DL (32-36); MEAN CORPUSCULAR VOLUME 88 FL (80-99); MEAN PLATELET VOLUME 10.5 FL (7.4-10.4); MONOCYTES % (AUTO) 7 % (0-12); NEUTROPHILS # (AUTO) 9.1 X 10^3 (1.8-7.8); NEUTROPHILS % (AUTO) 67 % (42-75); PLATELET COUNT 218 10^3/uL (130-400); RED BLOOD COUNT 4.14 10^6/uL (4.35-5.85); RED CELL DISTRIBUTION WIDTH 16.7 % (10.0-14.5); WHITE BLOOD COUNT 13.5 10^3/uL (4.3-11.0)
[2018-02-10] MEDS ORDERED: RT-ALBUTEROL/IPRATROPIUM 3 ML (DUONEB) VIAL INH ONE (14:00)
[2018-02-10 14:22] LABS: BILIRUBIN,URINE NEGATIVE (NEGATIVE); CLARITY,URINE CLEAR; COLOR,URINE YELLOW; GLUCOSE, URINE (UA) NEGATIVE (NEGATIVE); KETONES,URINE NEGATIVE (NEGATIVE); LEUKOCYTE ESTERASE ,URINE 3+ (NEGATIVE); NITRITE,URINE NEGATIVE (NEGATIVE); PH,URINE 7 (5-9); PROTEIN,URINE NEGATIVE (NEGATIVE); UROBILINOGEN,URINE NORMAL (NORMAL)
[2018-02-10 14:45] LABS: BACTERIA,URINE FEW /HPF; RBC,URINE 0-2 /HPF; WBC,URINE 25-50 /HPF
[2018-02-10 14:49] LABS: PROTHROMBIN TIME PATIENT 13.6 SEC (12.2-14.7)
[2018-02-10 14:56] LABS: ALBUMIN 3.4 GM/DL (3.2-4.5); BILIRUBIN,TOTAL 0.8 MG/DL (0.1-1.0); CALCIUM 9.5 MG/DL (8.5-10.1); CREATININE SERUM 0.93 MG/DL (0.60-1.30); POTASSIUM 3.7 MMOL/L (3.6-5.0); TOTAL PROTEIN 7.8 GM/DL (6.4-8.2)
[2018-02-10 14:58] LABS: ABG BASE EXCESS 4.2 MMOL/L (-2.5-2.5); ABG OXYGEN SATURATION 98 % (94-100); ABG PCO2 39 MMHG (35-45); ABG PH 7.47 (7.37-7.43); ABG PO2 89 MMHG (79-93); ABG TCO2 29.1 MMOL/L (21.0-31.0)
[2018-02-10 15:10] LABS: ALLENS TEST YES-POS; INSPIRED O2 2; PATIENT TEMP 97.9; VENTILATOR NO
--- NOTE | 2018-02-10 15:37 | Diagnostic Imaging Report ---
INDICATION: Fall with left arm pain. EXAMINATION: Portable upright AP view of the chest is obtained. COMPARISON: Comparison is made to study of 01/31/2018. FINDINGS: Overall heart size at the upper limits of normal. Prominent interstitial markings are seen throughout the lungs which may be due to background fibrosis although superimposed edema or pneumonitis is not excluded. Extensive surgical changes are noted in the left humerus and spine. There is no evidence of pneumothorax or focal consolidation. IMPRESSION: Maybe interstitial edema and/or pneumonitis involving both lungs. No other definite acute abnormality is seen. Dictated by: Dictated on workstation # [id number]
[2018-02-10] MEDS ORDERED: LIDOCAINE 1% INJ 20 ML 20 ML VIAL ONE (16:19)
[2018-02-10] MEDS ORDERED: cefTRIAXone 1 GM/10 ML for IV (ROCEPHIN) ONE (16:19)
--- NOTE | 2018-02-10 17:59 | ED General ---
General Chief Complaint: Altered Mental Status Stated Complaint: LETHARGIC Nursing Triage Note: pt presents to ed via ems to room 5. ems reports pt family reports pt having increased lethargy generalized weakness x 2 days. pt reports feeling light headed. Nursing Sepsis Screen: No Definite Risk Source of Information: Patient, Family, Old Records Exam Limitations: No Limitations History of Present Illness Date Seen by Provider: Feb 10, 2018 Time Seen by Provider: 13:49 Initial Comments This 72-year-old woman presents to the emergency room via EMS with altered mental status. She appeared lethargic to family and EMS. They report oxygen saturation was 89 percent on room air. Figure stick blood sugar was 144. There is a home health nurse at the residence as well. Patient's daughter arrives later and states patient has been hallucinating intermittently for up to 2 months. She had an evaluation recently by her primary care provider and had a negative urinalysis. She was started on Seroquel at nighttime about one week ago. She was also recently treated with Levaquin for infections of her chronic leg wounds. She has finished that prescription and daughter reports the legs are improving. Her legs are wrapped every 2 or 3 days by her daughter and they're monitored by her primary care provider. Patient has been afebrile. She has no specific complaints. She is responsive on arrival but is rather somnolent. No focal neurologic deficits were appreciated. Patient has been admitted to [facility] [place] in the past. Patient does not appear to be moving air very well. Allergies and Home Medications Allergies Coded Allergies: Penicillins (Unverified Allergy, Unknown, 09/17/06) Sulfa (Sulfonamide Antibiotics) (Unverified Allergy, Unknown, 09/17/06) Home Medications Albuterol Sulfate 1 Puff Puff, 2 PUFF INH Q4H PRN for SHORTNESS OF BREATH, ( Reported) Aspirin 81 Mg Tablet.dr, 81 MG PO DAILY, (Reported) Benzonatate 100 Mg Capsule, 100 MG PO TID PRN for COUGH, (Reported) Citalopram Hydrobromide 20 Mg Tablet, 20 MG PO HS, (Reported) Doxepin HCl 10 Mg Capsule, 10 MG PO HS, (Reported) Fluticasone/Vilanterol 1 Each Blst.w.dev, 1 EACH IH DAILY Prescribed by: WAGNER HOWE on 3/19/18 0930 Folic Acid 1 Mg Tablet, 1 MG PO DAILY Prescribed by: WAGNER HOWE on 05/25/17926 Furosemide 80 Mg Tablet, 80 MG PO DAILY, (Reported) Furosemide 80 Mg Tablet, 40 MG PO 1500, (Reported) TAKES 1/2 (80MG) TABLET Gabapentin 300 Mg Capsule, 300 MG PO TID, (Reported) Levothyroxine Sodium 100 Mcg Tablet, 100 MCG PO DAILY, (Reported) Menthol/Lanolin/Calamine/Znox 71 Gm Oint, TOP QID PRN for DISCOMFORT, (Reported) Potassium Chloride 20 Meq Tab.er.prt, 20 MEQ PO 0800,1200, (Reported) Prednisone 20 Mg Tab, 40 MG PO DAILY@0700 Prescribed by: WAGNER HOWE on 05/25/17926 Ropinirole HCl 2 Mg Tablet, 2 MG PO 1900, (Reported) Tramadol HCl 50 Mg Tablet, 2 TAB PO Q6H PRN for PAIN-MODERATE, (Reported) Patient Home Medication List Home Medication List Reviewed: Yes Review of Systems Review of Systems Constitutional: see HPI EENTM: no symptoms reported Respiratory: see HPI Cardiovascular: no symptoms reported Gastrointestinal: no symptoms reported Genitourinary: no symptoms reported Musculoskeletal: no symptoms reported Skin: no symptoms reported Psychiatric/Neurological: See HPI Hematologic/Lymphatic: No Symptoms Reported Immunological/Allergic: no symptoms reported Past Fottqmw-Yyhpcd-Udhwmj Hx Patient Social History Alcohol Use: Denies Use Recreational Drug Use: No Type Used: Cigarettes 2nd Hand Smoke Exposure: Yes Recent Foreign Travel: No Contact w/Someone Who Travel: No Recent Infectious Disease Expo: No Recent Hopitalizations: No Physical Abuse: No Sexual Abuse: No Mistreated: No Fear: No Immunizations Up To Date Date of Pneumonia Vaccine: May 21, 2016 Date of Influenza Vaccine: Dec 07, 2016 Seasonal Allergies Seasonal Allergies: No Past Medical History Surgeries: Yes Appendectomy, Gallbladder, Hysterectomy, Oophorectomy, Orthopedic, Vascular Surgery Respiratory: Yes (SUSPECT COPD/EMPHYSEMA ) Pneumonia, COPD, Emphysema Cardiac: Yes Chronic Edema/Swelling, High Cholesterol, Hypertension, Peripheral Vascular Neurological: Yes Dementia, Neuropathy Reproductive Disorders: No Female Reproductive Disorders: Denies Sexually Transmitted Disease: No HIV/AIDS: No Genitourinary: Yes Kidney Stones Gastrointestinal: Yes Chronic Constipation, Irritable Bowel Musculoskeletal: Yes Degenerate Disk Disease, Arthritis, Back Injury, Chronic Back Pain, Fractures Endocrine: Yes (MORBID OBESITY) Hypothyroidsim HEENT: Yes Loss of Vision: Bilateral Hearing Impairment: Hard of Hearing, Bilateral Hearing Aide Cancer: No Psychosocial: Yes Anxiety, Schizophrenia, Depression Integumentary: Yes (FOOT ULCER) Blood Disorders: No Adverse Reaction/Blood Tranf: No Family Medical History Cancer, Vascular Disease HTN Physical Exam Vital Signs Vital Signs - First Documented 02/10/18 14:19 Temp 98.1 Pulse 77 Resp 14 B/P (MAP) 96/57 (70) Pulse Ox 99 O2 Delivery Nasal Cannula O2 Flow Rate 2.00 Capillary Refill : Less Than 3 Seconds Height, Weight, BMI Height: 4'11.00" Weight: 140lbs. 1.0oz. 63.020965mi; 41.0 BMI Method:Estimated General Appearance: No Apparent Distress, Other (hypersomnolent) HEENT: PERRL/EOMI, Other (mucus membranes somewhat dry) Neck: Normal Inspection Respiratory: Lungs Clear, No Accessory Muscle Use, No Respiratory Distress, Decreased Breath Sounds Cardiovascular: Regular Rate, Rhythm, No Edema, No Murmur Gastrointestinal: Normal Bowel Sounds, Non Tender, Soft Extremity: Normal Capillary Refill, Normal Inspection, No Pedal Edema Neurologic/Psychiatric: Alert, Oriented x3, talent acquisition lead II-XII Norm as Tested, Motor Weakness (generalized weakness), Other (generalized weakness, hypersomnolent) Skin: Normal Color, Warm/Dry Focused Exam Lactate Level 02/10/18 14:30: Lactic Acid Level 1.28 Lactic Acid Level Progress/Results/Core Measures Suspected Sepsis Recent Fever Within 48 Hours: No Infection Criteria Present: None New/Unexplained Altered Menta: Yes Sepsis Screen: No Definite Risk SIRS Temperature:98.1 Pulse: 77 Respiratory Rate: 14 Laboratory Tests 02/10/18 13:51: White Blood Count 13.5H Blood Pressure 96 /57 Mean: 70 02/10/18 14:30: Lactic Acid Level 1.28 Laboratory Tests 02/10/18 13:51: Platelet Count 218 02/10/18 14:21: Creatinine 0.93, Total Bilirubin 0.8 02/10/18 14:30: INR Comment 1.0 Results/Orders Lab Results Laboratory Tests Test 02/10/18 13:51 02/10/18 14:10 02/10/18 14:21 02/10/18 14:30 Range/Units White Blood Count 13.5 H 4.3-11.0 10^3/uL Red Blood Count 4.14 L 4.35-5.85 10^6/uL Hemoglobin 11.9 11.5-16.0 G/DL Hematocrit 37 35-52 % Mean Corpuscular Volume 88 80-99 FL Mean Corpuscular Hemoglobin 29 25-34 PG Mean Corpuscular Hemoglobin Concent 33 32-36 G/DL Red Cell Distribution Width 16.7 H 10.0-14.5 % Platelet Count 218 130-400 10^3/uL Mean Platelet Volume 10.5 H 7.4-10.4 FL Neutrophils (%) (Auto) 67 42-75 % Lymphocytes (%) (Auto) 23 12-44 % Monocytes (%) (Auto) 7 0-12 % Eosinophils (%) (Auto) 3 0-10 % Basophils (%) (Auto) 0 0-10 % Neutrophils # (Auto) 9.1 H 1.8-7.8 X 10^3 Lymphocytes # (Auto) 3.1 1.0-4.0 X 10^3 Monocytes # (Auto) 1.0 0.0-1.0 X 10^3 Eosinophils # (Auto) 0.3 0.0-0.3 10^3/uL Basophils # (Auto) 0.0 0.0-0.1 10^3/uL Urine Color YELLOW Urine Clarity CLEAR Urine pH 7 5-9 Urine Specific [place] 1.010 L 1.016-1.022 Urine Protein NEGATIVE NEGATIVE Urine Glucose (UA) NEGATIVE NEGATIVE Urine Ketones NEGATIVE NEGATIVE Urine Nitrite NEGATIVE NEGATIVE Urine Bilirubin NEGATIVE NEGATIVE Urine Urobilinogen NORMAL NORMAL MG/DL Urine Leukocyte Esterase 3+ H NEGATIVE Urine RBC (Auto) 1+ H NEGATIVE Urine RBC 0-2 /HPF Urine WBC 25-50 H /HPF Urine Squamous Epithelial Cells 2-5 /HPF Urine Crystals NONE /LPF Urine Bacteria FEW H /HPF Urine Casts NONE /LPF Urine Mucus NEGATIVE /LPF Urine Culture Indicated NO Sodium Level 139 135-145 MMOL/L Potassium Level 3.7 3.6-5.0 MMOL/L Chloride Level 101 98-107 MMOL/L Carbon Dioxide Level 25 21-32 MMOL/L Anion Gap 13 5-14 MMOL/L Blood Urea Nitrogen 19 H 7-18 MG/DL Creatinine 0.93 0.60-1.30 MG/DL Estimat Glomerular Filtration Rate 59 BUN/Creatinine Ratio 20 Glucose Level 97 70-105 MG/DL Calcium Level 9.5 8.5-10.1 MG/DL Corrected Calcium 10.0 8.5-10.1 MG/DL Total Bilirubin 0.8 0.1-1.0 MG/DL Aspartate Amino Transf (AST/SGOT) 19 5-34 U/L Alanine Aminotransferase (ALT/SGPT) 11 0-55 U/L Alkaline Phosphatase 79 40-136 U/L Troponin I < 0.30 <0.30 NG/ML C-Reactive Protein High Sensitivity 21.16 H 0.00-0.50 MG/DL B-Type Natriuretic Peptide 12.1 <100.0 PG/ML Total Protein 7.8 6.4-8.2 GM/DL Albumin 3.4 3.2-4.5 GM/DL Prothrombin Time 13.6 12.2-14.7 SEC INR Comment 1.0 0.8-1.4 Activated Partial Thromboplast Time 36 H 24-35 SEC Lactic Acid Level 1.28 0.50-2.00 MMOL/L Test 02/10/18 14:50 Range/Units Blood Gas Puncture Site L R Blood Gas Patient Temperature 97.9 Arterial Blood pH 7.47 H 7.37-7.43 Arterial Blood Partial Pressure CO2 39 35-45 MMHG Arterial Blood Partial Pressure O2 89 79-93 MMHG Arterial Blood HCO3 28 H 23-27 MMOL/L Arterial Blood Total CO2 29.1 21.0-31.0 MMOL/L Arterial Blood Oxygen Saturation 98 94-100 % Arterial Blood Base Excess 4.2 H -2.5-2.5 MMOL/L Mario Test YES-POS Blood Gas Ventilator Setting NO Blood Gas Inspired Oxygen 2 My Orders Orders - ANA LUISA BACON MD Cbc With Automated Diff (02/10/18 13:52) Comprehensive Metabolic Panel (02/10/18 13:52) Blood Culture (02/10/18 13:52) Sputum Culture (02/10/18 13:52) Urinalysis (02/10/18 13:52) Urine Culture (02/10/18 13:52) Protime With Inr (02/10/18 13:52) Partial Thromboplastin Time (02/10/18 13:52) Chest 1 View, Ap/Pa Only (02/10/18 13:52) Saline Lock/Iv-Start (02/10/18 13:52) Saline Lock/Iv-Start (02/10/18 13:52) Vital Signs Adult Sepsis Patie Q15M (02/10/18 13:52) O2 (02/10/18 13:52) Remove Rings In Anticipation O (02/10/18 13:52) Lactic Acid Analyzer (02/10/18 13:52) BNP (02/10/18 13:52) Hs C Reactive Protein (02/10/18 13:52) Albuterol/Ipra Inhalation Soln (Duoneb I (02/10/18 14:00) Svn Small Volume Nebulizer (02/10/18 13:52) Arterial Blood Gas (02/10/18 13:52) Ekg Tracing (02/10/18 13:58) Monitor-Rhythm Ecg Trace Only (02/10/18 13:58) Troponin I (02/10/18 13:58) Saline Lock/Iv-Start (02/10/18 13:58) Ns Iv 500 Ml (Sodium Chloride 0.9%) (02/10/18 13:58) Arterial Blood Draw (02/10/18 ) Ceftriaxone For Im Use (Rocephin For Im (02/11/18 09:00) Lidocaine 1% Inj 20 Ml (Xylocaine 1% Inj (02/10/18 16:19) Ceftriaxone For Iv Use (Rocephin For I (02/10/18 16:19) Medications Given in ED Current Medications Medications Dose Ordered Sig/Tristan Route Start Time Stop Time Status Last Admin Dose Admin Albuterol/ Ipratropium 3 ml ONCE ONCE INH 02/10/18 14:00 02/10/18 14:01 DC 02/10/18 14:45 3 ML Sodium Chloride 500 ml @ 0 mls/hr Q0M ONCE IV 02/10/18 13:58 02/10/18 14:00 DC 02/10/18 14:42 0 MLS/HR Vital Signs/I&O 02/10/18 02/10/18 02/10/18 14:19 14:47 19:10 Temp 98.1 Pulse 77 87 Resp 14 16 B/P (MAP) 96/57 (70) 106/54 (71) Pulse Ox 99 99 98 O2 Delivery Nasal Cannula Nasal Cannula O2 Flow Rate 2.00 2.00 Capillary Refill : Less Than 3 Seconds Blood Pressure Mean: 70 Progress Note : Progress Note Patient was hydrated with 500 mL normal saline. Septic workup was pursued. She was found to have a urinary tract infection but did not meet sepsis criteria. Patient removed her IV and was insistent on being dismissed home after she became more alert. However, after discussing with her daughter, I have concerns about sending her home with her wavering mental status and hallucinations. After further discussion, patient is agreeable to stay at this facility for treatment of UTI. She would not consent to transfer to a behavioral health unit. She is presently her own decision-maker and alert and oriented. Hydration did seem to improve her status. She received a dose of Rocephin by IM route while her IV was out. Review of her prior urine cultures revealed some sensitivities that are problematic especially given her penicillin allergy. Antibiotics were ordered according to her prior culture results. Case was discussed with Dr. Howe who agrees. She requested hydration with an additional 500 mL of normal saline. Patient received a DuoNeb treatment because of decreased air movement. She did not require any oxygen supplementation after DuoNeb. Diagnostic Imaging Diagonstic Imaging: Xray Plain Films/CT/US/NM/MRI: chest Comments Chest x-ray viewed by me and report reviewed. See report below: NAME: ENDY AWAD [facility] REC#: [id number] PT STATUS: REG ER : 1945 PHYSICIAN: ANA LUISA BACON MD ADMIT DATE: 02/10/18/ER Draft Date of Exam:02/10/18 CHEST 1 VIEW, AP/PA ONLY INDICATION: Fall with left arm pain. EXAMINATION: Portable upright AP view of the chest is obtained. COMPARISON: Comparison is made to study of 01/31/2018. FINDINGS: Overall heart size at the upper limits of normal. Prominent interstitial markings are seen throughout the lungs which may be due to background fibrosis although superimposed edema or pneumonitis is not excluded. Extensive surgical changes are noted in the left humerus and spine. There is no evidence of pneumothorax or focal consolidation. IMPRESSION: Maybe interstitial edema and/or pneumonitis involving both lungs. No other definite acute abnormality is seen. Dictated on workstation # [id number] Dict: 02/10/18 1528 Trans: 02/10/18 1535 [facility] [id number] Interpreted by: CHUCKY STREET MD Departure Communication (Admissions) Time/Spoke to Admitting Phy: 17:50 Dr. Howe Impression Primary Impression: Urinary tract infection Qualified Codes: N39.0 - Urinary tract infection, site not specified Additional Impressions: Altered mental status Qualified Codes: R41.82 - Altered mental status, unspecified Hallucinations COPD exacerbation Disposition: ADMITTED INPATIENT Condition: Improved Admissions Decision to Admit Reason: Admit from ER (General) Decision to Admit/Date: Feb 10, 2018 Time/Decision to Admit Time: 17:40 Departure-Patient Inst. Referrals: CRISTINA MON (PCP/Family) Primary Care Physician ANA LUISA BACON MD Feb 10, 2018 17:58
[2018-02-10] MEDS ORDERED: MEROPENEM 1,000 MG in NS (IVPB) 100 ML IV SCH (19:30)
[2018-02-10] MEDS ORDERED: CATHETER FLUSH 10 ML SYR IV PRN (19:30)
[2018-02-10 20:00] VITALS: BP 109/57
[2018-02-10] MEDS ORDERED: DOXYCYCLINE INJECTION 100 MG in NS (IVPB) 100 ML IV SCH (20:00)
[2018-02-10] MEDS ORDERED: ONDANSETRON 4 MG/2 ML (SDV) Z0FRAN IVP PRN (20:45)
[2018-02-10] MEDS ORDERED: CALCIUM CARBONATE 500 MG (TUMS) TAB.CHEW PO PRN (20:45)
[2018-02-10] MEDS ORDERED: ACETAMINOPHEN 500 MG TAB (TYLENOL) PO PRN (20:45)
[2018-02-10] MEDS ORDERED: IBUPROFEN TABLET 200 MG TAB PO PRN (20:45)
[2018-02-10] MEDS ORDERED: DOCUSATE SODIUM 100 MG (COLACE) CAP PO PRN (20:45)
[2018-02-10] MEDS ORDERED: ALPRAZolam 0.25 MG (XANAX) TAB PO PRN (20:45)
[2018-02-10] MEDS ORDERED: diphenhydrAMINE 25 MG TAB (BENADRYL) PO PRN (20:45)
[2018-02-10] MEDS ORDERED: LOPERAMIDE 2 MG (IMODIUM) CAP PO PRN (20:45)
[2018-02-10 23:00] VITALS: BP 97/50
[2018-02-11] VITALS (7 sets, daily range): BP systolic 97–114; BP diastolic 50–58
[2018-02-11] MEDS: HYDROcodone/APAP 5 MG/325 MG (LORTAB) TAB PO PRN (03:43)
[2018-02-11] MEDS ORDERED: RT-ALBUTEROL SULF 2.5 MG/3 ML PRE-MIX VIAL INH PRN (04:00)
[2018-02-11] MEDS ORDERED: RT-ALBUINH INH (08:46)
[2018-02-11] MEDS ORDERED: POTA10CA43 PO (08:46)
[2018-02-11] MEDS ORDERED: MAGN420T PO (08:46)
[2018-02-11] MEDS ORDERED: HYDR-3812 PO (08:46)
[2018-02-11] MEDS ORDERED: MULT-35 PO (08:46)
[2018-02-11] MEDS ORDERED: ROPI3TAB4 PO (08:46)
[2018-02-11] MEDS ORDERED: MELA5CAP PO (08:46)
[2018-02-11] MEDS ORDERED: cefTRIAXone 1,000 MG/2.86 ml vial (IM ONLY) IM SCH (09:00)
[2018-02-11] MEDS: RT-ALBUTEROL SULF 2.5 MG/3 ML PRE-MIX VIAL INH SCH ×3 (10:14→22:07)
--- NOTE | 2018-02-11 12:49 | History & Physical-Hospitalist ---
History of Present Illness HPI/Chief Complaint Pt is a 72yoCF with a PMH of recurrent UTIs, schizophrenia, chronic anemia, lymphedema who presented to the ER due to lethargy and an unresponsive episode. Patient is hesitant to provide any details of what lead to her admission because she states "everything thinks I am crazy." She did admit to "not thinking right" for the past week and a half. She also gave permission to discuss her care with her daughter and daughter states for the past 3-4 months since her sister she has not been motivated to care for herself or take her medicine. She only wants to drink pop and has been getting more confused and started having hallucinations. Pt denies hallucinations but admits she's not "hearing things right." Patient states to me she wants know medications because she wants to "let nature take it's course" and is ready for "whatever Jehovah wants." When asked later about taking any medications she states she will not take them because people lie to her about what is in them. Daughter states that patient is actually not a Gnosticism and that this is a new belief of hers. Patient states that when her daughter arrives she will consider taken medication. Source: patient Exam Limitations: clinical condition Date Seen 02/11/18 Time Seen by a Provider: 11:15 Attending Physician Wagner Howe MD PCP Chloe Valle Referring Physician Date of Admission Feb 10, 2018 at 18:16 Home Medications & Allergies Home Medications Reviewed patient Home Medication Reconciliation performed by pharmacy medication reconciliations diagnostic technician and/or nursing. Patients Allergies have been reviewed. Allergies Allergies Coded Allergies Penicillins (Unverified Allergy, Unknown, 09/17/06) Sulfa (Sulfonamide Antibiotics) (Unverified Allergy, Unknown, 09/17/06) Past Vsadyds-Uptmzi-Jitwcf Hx Past Med/Social Hx: Reviewed Nursing Past Med/Soc Hx Patient Social History Marrital Status: Employed/Student: retired Alcohol Use: Denies Use Recreational Drug Use: No Smoking Status: Current Everyday Smoker Type Used: Cigarettes 2nd Hand Smoke Exposure: Yes Physical Abuse Screen: No Sexual Abuse: No Recent Foreign Travel: No Contact w/other who traveled: No Recent Hopitalizations: No Recent Infectious Disease Expo: No Immunizations Up To Date Date of Pneumonia Vaccine: May 21, 2016 Date of Influenza Vaccine: Dec 07, 2016 Seasonal Allergies Seasonal Allergies: No Past Medical History Surgeries: Appendectomy, Gallbladder, Hysterectomy, Oophorectomy, Orthopedic, Vascular Surgery Respiratory: COPD, Pneumonia Cardiac: Chronic Edema/Swelling, High Cholesterol, Hypertension, Peripheral Vascular Neurological: Dementia, Neuropathy Reproductive: No Sexually Transmitted Disease: No HIV/AIDS: No Female Reproductive Disorders: Denies Genitourinary: Kidney Stones Gastrointestinal: Chronic Constipation, Irritable Bowel Musculoskeletal: Degenerate Disk Disease, Arthritis, Back Injury, Chronic Back Pain, Fractures Endocrine: Hypothyroidsim Loss of Vision: Bilateral Hearing Impairment: Hard of Hearing, Bilateral Hearing Aide Psychosocial: Anxiety, Schizophrenia, Depression History of Blood Disorders: No Adverse Reaction to Blood Webb: No Family History Reviewed Nursing Family Hx Cancer, Vascular Disease HTN Review of Systems ROS-Unable to Obtain: Does not answer most questions Constitutional: see HPI Physical Exam Physical Exam Vital Signs Vital Signs - First Documented 02/10/18 14:19 Temp 98.1 Pulse 77 Resp 14 B/P (MAP) 96/57 (70) Pulse Ox 99 O2 Delivery Nasal Cannula O2 Flow Rate 2.00 Capillary Refill : Less Than 3 Seconds Height, Weight, BMI Height: 4'11.00" Weight: 184lbs. 10.0oz. 83.249782sy; 37.3 BMI Method:Estimated General Appearance: No Apparent Distress, Chronically ill Respiratory: Lungs Clear, No Respiratory Distress Cardiovascular: Regular Rate, Rhythm, No Murmur Skin: Other (lymphedema with corinne bandages wrapped on legs) Comments declined further exam Results Results/Procedures Labs Laboratory Tests 02/10/18 13:51 02/10/18 14:21 Patient resulted labs reviewed. Imaging: Reviewed Imaging Report Assessment/Plan Admission Diagnosis UTI Admission Status: Inpatient Order (span 2 midnights) Reason for Inpatient Admission: UTI with delirium will likely take more than two midnights to stabilize for DC Diagnosis/Problems Diagnosis/Problems (1) Altered mental status Status: Acute Assessment & Plan: Appears oriented to person and place only Unsure if she truly understands the details of her stay Daughter to arrive with DPOA paperwork Continue treatment as able for UTI Qualifiers: Altered mental status type: unspecified Qualified Codes: R41.82 - Altered mental status, unspecified (2) Urinary tract infection Status: Acute Assessment & Plan: Await c/s Discussed with meir and only has staph aureus with less than 10,000CFUs at this time Received rocephin last night which very well may cover if not MRSA But likely contaminated given low CFUs and squams in sample Qualifiers: Urinary tract infection type: site unspecified Hematuria presence: without hematuria Qualified Codes: N39.0 - Urinary tract infection, site not specified (3) Hallucinations Status: Acute Assessment & Plan: No current hallucinations (4) Schizophrenia Status: Chronic Assessment & Plan: Does not appear to be on any psych meds per med rec Likely would benefit from Behavior Unit Qualifiers: Schizophrenia type: unspecified Qualified Codes: F20.9 - Schizophrenia, unspecified (5) Hypothyroidism Status: Chronic Assessment & Plan: Will check TSH to ensure not contributing Qualifiers: Hypothyroidism type: acquired Qualified Codes: E03.9 - Hypothyroidism, unspecified Clinical Quality Measures DVT/VTE Risk/Contraindication: Risk Factor Score Per Nursin RFS Level Per Nursing on Admit: 4+=Very High WAGNER HOEW MD Feb 11, 2018 12:49
--- NOTE | 2018-02-11 15:04 | Physical Therapy Evaluation ---
PT Evaluation-General Medical Diagnosis Admission Date Feb 10, 2018 at 18:16 Medical Diagnosis: UTI;ams Onset Date: Feb 10, 2018 Therapy Diagnosis Therapy Diagnosis: weakness Height/Weight Height (Feet): 4 Height (Inches): 11.00 Weight (Pounds): 184 Weight (Ounces): 10.0 Precautions Precautions/Isolations: Fall Prevention, Standard Precautions Weight Bear Status Right Lower Extremity: Right Weight Bearing/Tolerated Left Lower Extremity: Left Weight Bearing/Tolerated Referral Physician: Shyam Reason for Referral: Evaluation/Treatment Medical History Pertinent Medical History: Arthritis, COPD, Dementia, GERD, HTN, Hypothroidism , Neuropathy, PVD, Smoking Current History Pt admitted with diagnosis of UTI and AMS. Reviewed History: Yes Social History Home: Single Level Current Living Status: Alone (family next door) Entry Into Home: Stairs With Railing Prior/Core FIM Prior Level of Function Therapy Code Descriptions/Definitions Functional [place] Measure: 0=Not Assessed/NA 4=Minimal Assistance 1=Total Assistance 5=Supervision or Setup 2=Maximal Assistance 6=Modified [place] 3=Moderate Assistance 7=Complete [place] Therapy Quality Codes: 6 Independent with activity with or without an assistive device 5 Patient requires set up or clean up by helper. Patient completes activity by themselves 4 Supervision or touching assist (CGA). [place] provide cues , steadying assist 3 The helper provides less than half the effort to complete the activity 2 The helper provides more than half the effort to complete the activity 1 Dependent. The helper does all the effort to complete an activity 7 Patient refused to complete or attempt activity 9 The patient did not perform the activity before the current illness or injury 88 Not attempted due to Medical conditions or safety concerns Functional Abilities and Goals: Independent: Patient completed the activities by him/herself, with or without an assistive device, with no assistance from a helper. Needed Some Help: Patient needed partial assistance from another person to complete activities. Dependent: A helper completed the activities for the patient. Unknown: Not Applicable: Indoor Mobility (Ambulation): Independent Prior Devices Use: Manual wheelchair, Walker Pt lives alone with her daughter next door to assist as needed; pt primarily uses a wc in her home when she is alone, only walks when someone is present using a fWW. PT Evaluation-Current Subjective Agrees to PT. Hopes to go home tomorrow. Pain Numeric Pain Scale: 0-No Pain Location: No Pain Reported Objective Patient Orientation: Person, Place, Time, Situation Problem Solving: Fair ROM/Strength ROM Lower Extremities WFL Strength Lower Extremities B LE strength is grossly 3+/5; DF right 1/5 Integumentary/Posture Integumentary Refer to nursing documentation Bowel Incontinence: No Bladder Incontinence: No Posture rounded shoulders and head forward; able to correct with cuing. Neuromuscular (Tone, Coordination, Reflexes) No noted functional deficits Sensory Vision: Functional Hearing: Impaired Hand Dominance: Right Sensation Right Lower Extremit: Intact Sensation Left Lower Extremity: Intact Transfers Therapy Code Descriptions/Definitions Functional [place] Measure: 0=Not Assessed/NA 4=Minimal Assistance 1=Total Assistance 5=Supervision or Setup 2=Maximal Assistance 6=Modified [place] 3=Moderate Assistance 7=Complete [place] Bed mobility not assessed this visit. Pt is SBA with sit to from stand with correct use of hands to push up and reach back. Gait Mode of Locomotion: Walk Anticipated Mode of Locomotion: Walk Gait (FIM): 2 Distance (FIM): 6=601-07 ft Distance: 75 ft Gait Assistive Device: FWW Comments/Gait Description Foot drop on the right but compensates well. Safe and steady. Balance Sitting Static: Good Sitting Dynamic: Good Standing Static: Fair Standing Dynamic: Fair Assessment/Needs Pt presents with steady and safe gait with the ability to perform sit to from stand transfers without assist. Family reports she primarily uses wc in home due to fear of falling; but does walk if someone is present. Pt will benefit from PT while hospitalized to promote functional strength and mobility for safety upon return home. Rehab Potential: Good PT Application Specialist Goals Application Specialist Goals PT Application Specialist Goals Time Frame: Feb 16, 2018 Transfers (B,C,W/C) (FIM): 6 Gait (FIM): 6 Gait distance (FIM): 3=150 ft Gait Assistive Device: FWW PT Plan Problem List Problem List: Activity Tolerance, Functional Strength, Safety, Balance, Gait, Transfer, Bed Mobility Treatment/Plan Treatment Plan: Continue Plan of Care Treatment Plan: Bed Mobility, Education, Functional Activity [place], Functional Strength, Gait, Safety, Therapeutic Exercise, Transfers Treatment Duration: Feb 16, 2018 Frequency: 6 times per week Estimated Hrs Per Day: .25 hour per day Patient and/or Family Agrees t: Yes Safety Risks/Education Patient Education: Safety Issues Teaching Recipient: Patient Teaching Methods: Discussion Response to Teaching: Reinforcement Needed Time/GCodes Time In: 2708 Time Out: 1500 Total Billed Treatment Time: 15 Total Billed Treatment visit EVL 15 HEENA KU PT Feb 11, 2018 15:04
--- NOTE | 2018-02-11 15:49 | Occupational Therapy Eval ---
OT Evaluation-General/PLF Medical Diagnosis Admission Date Feb 10, 2018 at 18:16 Medical Diagnosis: UTI;ams Onset Date: Feb 10, 2018 Therapy Diagnosis Therapy Diagnosis: decr self care, decr funct mob, weakness, decr act mita Height/Weight Height (Feet): 4 Height (Inches): 11.00 Weight (Pounds): 184 Weight (Ounces): 10.0 Precautions Precautions/Isolations: Fall Prevention, Standard Precautions Safety Interventions: Reorient-PRN Referral Physician: Shyam Referral Reason: Evaluation/Treatment Medical History Pertinent Medical History: Arthritis, COPD, Dementia, GERD, HTN, Hypothroidism , Neuropathy, PVD, Smoking Additional Medical History Emphysema. Pneumonia. Chronic edema. Kidney stones. Chronic constipation. Irritable bowel. DDD. Chronic back pain. Morbid obesity. Anxiety, schizophrenia , depression. Foot ulcer with dressing changes. Chronic anemia Current History Admitted with lethargy, AMS, hallucinations Reviewed History: Yes Social History Home: Single Level Current Living Status: Alone (family next door) Entry Into Home: Stairs With Railing Lives in a mobile home behind her daughter ADL-Prior Level of Function Therapy Code Descriptions/Definitions Functional [place] Measure: 0=Not Assessed/NA 4=Minimal Assistance 1=Total Assistance 5=Supervision or Setup 2=Maximal Assistance 6=Modified [place] 3=Moderate Assistance 7=Complete [place] Therapy Quality Codes: 6 Independent with activity with or without an assistive device 5 Patient requires set up or clean up by helper. Patient completes activity by themselves 4 Supervision or touching assist (CGA). [place] provide cues , steadying assist 3 The helper provides less than half the effort to complete the activity 2 The helper provides more than half the effort to complete the activity 1 Dependent. The helper does all the effort to complete an activity 7 Patient refused to complete or attempt activity 9 The patient did not perform the activity before the current illness or injury 88 Not attempted due to Medical conditions or safety concerns Functional Abilities and Goals: Independent: Patient completed the activities by him/herself, with or without an assistive device, with no assistance from a helper. Needed Some Help: Patient needed partial assistance from another person to complete activities. Dependent: A helper completed the activities for the patient. Unknown: Not Applicable: ADL PLOF Comments Pt and daughter report that she is able to manage most of he basic ADLs except sometimes she has trouble with socks (she has dressings on LEs) and her daughter helps her with her shower. She uses a toilet aid to help with wiping. She does her own cooking, cleaning, laundry and does not drive. Uses w/c at home but also FWW Self Care: Needed Some Help Functional Cognition: Needed Some Help OT Current Status Subjective Pt seen in room, up in recliner, agreeable to OT. Reports discomfort but not pain Appearance Alert, cooperative Mental Status/Objective Patient Orientation: Person, Time (knows year but not month) Attachments: Saline Lock Current Hand Dominance: Right Upper Extremity ROM Grossly WFL R UE. L UE limited at shoulder from a fall Upper Extremity Strength Grossly 4/5 bilat ADL-Treatment ADL-Current Pt has been able to feed herself. Her daughter has been able to walk her to the bathroom SBA, FWW for toileting. She walked with FWW and no help with PT this afternoon. Therapy Code Descriptions/Definitions Functional [place] Measure: 0=Not Assessed/NA 4=Minimal Assistance 1=Total Assistance 5=Supervision or Setup 2=Maximal Assistance 6=Modified [place] 3=Moderate Assistance 7=Complete [place] Therapy Quality Codes: 6 Independent with activity with or without an assistive device 5 Patient requires set up or clean up by helper. Patient completes activity by themselves 4 Supervision or touching assist (CGA). [place] provide cues , steadying assist 3 The helper provides less than half the effort to complete the activity 2 The helper provides more than half the effort to complete the activity 1 Dependent. The helper does all the effort to complete an activity 7 Patient refused to complete or attempt activity 9 The patient did not perform the activity before the current illness or injury 88 Not attempted due to Medical conditions or safety concerns Education OT Patient Education: Purpose of tx/functional activities, Rehab process Teaching Recipient: Patient Teaching Methods: Discussion Response to Teaching: Verbalize Understanding OT Spinner Cap Frame Goals Detention Goals Time Frame: Feb 18, 2018 Eating (FIM): 6 Grooming(FIM): 6 Bathing(FIM): 4 Upper Body Dressing(FIM): 5 Lower Body Dressing(FIM): 4 Toileting(FIM): 5 Toilet/Commode Transfer(FIM): 5 Shower Transfer(FIM): 5 Additional Goals: 1-Demonstrate ADL Tasks, 2-Verbalize Understanding, 3- ImproveStrength/[place] 1=Demonstrate adherence to instructed precautions during ADL tasks. 2=Patient will verbalize/demonstrate understanding of assistive devices/ modifications for ADL. 3=Patient will improve strength/tolerance for activity to enable patient to perform ADL's. OT Education/Plan Problem List/Assessment Assessment: Decreased Activ Tolerance, Decreased Safety Aware, Decreased UE Strength, Dependent Transfers, Impaired Self-Care Skills Pt would benefit from skilled OT to increase her independence in basic self care to allow her to safely return home. Discharge Recommendations Plan/Recommendations: Continue POC Treatment Plan/Plan of Care Treatment,Training & Education: Yes Patient would benefit from OT for education, treatment and training to promote independence in ADL's, mobility, safety and/or upper extremity function for ADL' s. Plan of Care: ADL Retraining, Functional Mobility, UE Funct Exercise/Act, UE Neuromus Re-Ed/Coord Treatment Duration: Feb 18, 2018 Frequency: 5 times per week Estimated Hrs Per Day: .5 hour per day Agreement: Yes Rehab Potential: Good Time/GCodes Start Time: 15:10 Stop Time: 15:25 Total Time Billed (hr/min): 15 Billed Treatment Time visit, 15 minutes evaluation moderate intensity OBDULIO HAMLIN OT Feb 11, 2018 15:49
[2018-02-11] MEDS: GABAPENTIN 300 MG (NEURONTIN) CAP PO SCH (20:26)
[2018-02-11] MEDS ORDERED: MELATONIN 3 MG TABLET PO SCH (21:00)
[2018-02-11] MEDS ORDERED: NON-FORMULARY MEDICATION 1 EA EA (Ropinirole HCl 3 MG) PO SCH (21:00)
[2018-02-11] MEDS ORDERED: rOPINIRole 1 MG (REQUIP) TABLET PO SCH (21:00)
[2018-02-11] MEDS ORDERED: NON-FORMULARY MEDICATION 1 EA EA (Melatonin 10 MG) PO SCH (21:00)
[2018-02-12] MEDS: RT-ALBUTEROL SULF 2.5 MG/3 ML PRE-MIX VIAL INH SCH ×2 (03:13→09:24)
[2018-02-12] MEDS: HYDROcodone/APAP 5 MG/325 MG (LORTAB) TAB PO PRN (03:41)
[2018-02-12 04:16] VITALS: BP 117/60
[2018-02-12] MEDS ORDERED: LEVOTHYROXINE 100 MCG (LEVOTHROID) TAB PO SCH (06:30)
[2018-02-12] MEDS ORDERED: FUROSEMIDE 40 MG (LASIX) TAB PO SCH (07:00)
[2018-02-12 08:00] VITALS: BP_SYST 113; BP_SYST 129; BP_DIAS 72; BP_DIAS 87
[2018-02-12] MEDS ORDERED: NON-FORMULARY MEDICATION 1 EA EA (Furosemide 80 MG) PO SCH (09:00)
--- NOTE | 2018-02-12 09:45 | Physical Therapy Daily Note ---
PT Daily Note-Current Subjective Agreeable to PT. No complaints except that she is cold. Mental Status Patient Orientation: Person, Place, Time, Situation Transfers Therapy Code Descriptions/Definitions Functional [place] Measure: 0=Not Assessed/NA 4=Minimal Assistance 1=Total Assistance 5=Supervision or Setup 2=Maximal Assistance 6=Modified [place] 3=Moderate Assistance 7=Complete [place] Therapy Quality Codes: 6 Independent with activity with or without an assistive device 5 Patient requires set up or clean up by helper. Patient completes activity by themselves 4 Supervision or touching assist (CGA). [place] provide cues , steadying assist 3 The helper provides less than half the effort to complete the activity 2 The helper provides more than half the effort to complete the activity 1 Dependent. The helper does all the effort to complete an activity 7 Patient refused to complete or attempt activity 9 The patient did not perform the activity before the current illness or injury 88 Not attempted due to Medical conditions or safety concerns Sit to stand with SBA Weight Bearing Right Lower Extremity: Right Weight Bearing/Tolerated Left Lower Extremity: Left Weight Bearing/Tolerated Gait Training Gait (FIM): 4 Distance (FIM): 3=150 ft Distance: 150 ft Gait Assistive Device: FWW Ambulated 150 ft with 1 standing rest break with CGA. Pt was fatigued at the end. Pt on the commode post treatment with nursing (Emile) notified. Instructed pt to call for help when she was done toileting. Assessment Safe with gait and increased distance. She was tired, but steady. DF weakness right LE presents with a steppage gait. PT Vehicle Mechanic Goals Senior Care Goals PT Senior Care Goals Time Frame: Feb 16, 2018 Transfers (B,C,W/C) (FIM): 6 Gait (FIM): 6 Gait distance (FIM): 3=150 ft Gait Assistive Device: FWW PT Plan Problem List Problem List: Activity Tolerance, Functional Strength, Safety, Gait, Transfer Treatment/Plan Treatment Plan: Continue Plan of Care Treatment Plan: Bed Mobility, Education, Functional Activity [place], Functional Strength, Gait, Safety, Therapeutic Exercise, Transfers Treatment Duration: Feb 16, 2018 Frequency: 6 times per week Estimated Hrs Per Day: .25 hour per day Patient and/or Family Agrees t: Yes Safety Risks/Education Patient Education: Transfer Techniques, Safety Issues Teaching Recipient: Patient Teaching Methods: Discussion Response to Teaching: Reinforcement Needed Time/GCodes Time In: 915 Time Out: 933 Total Billed Treatment Time: 18 Total Billed Treatment visit GT 18 HEENA KU PT Feb 12, 2018 09:45
[2018-02-12] MEDS: GABAPENTIN 300 MG (NEURONTIN) CAP PO SCH ×2 (10:32→15:09)
--- NOTE | 2018-02-12 13:21 | Discharge Summary-Hospitalist ---
Diagnosis/Chief Complaint Date of Admission Feb 10, 2018 at 18:16 Date of Discharge Admission Diagnosis UTI Discharge Diagnosis (1) Altered mental status Status: Acute Assessment & Plan: Appears oriented to person and place only Unsure if she truly understands the details of her stay Daughter to arrive with DPOA paperwork Continue treatment as able for UTI (2) Urinary tract infection Status: Acute Assessment & Plan: Await c/s Discussed with meir and only has staph aureus with less than 10,000CFUs at this time Received rocephin last night which very well may cover if not MRSA But likely contaminated given low CFUs and squams in sample (3) Hallucinations Status: Acute Assessment & Plan: No current hallucinations (4) Schizophrenia Status: Chronic Assessment & Plan: Does not appear to be on any psych meds per med rec Likely would benefit from Behavior Unit (5) Hypothyroidism Status: Chronic Assessment & Plan: Will check TSH to ensure not contributing Discharge Summary Discharge Physical Exam Allergies: Coded Allergies: Penicillins (Unverified Allergy, Unknown, 09/17/06) Sulfa (Sulfonamide Antibiotics) (Unverified Allergy, Unknown, 09/17/06) Vitals & I&Os Vital Signs Date Time Temp Pulse Resp B/P (MAP) Pulse Ox O2 Delivery O2 Flow Rate FiO2 02/12/18 09:24 96 Room Air 02/12/18 08:00 96.5 72 20 113/72 (86) 02/11/18 08:00 3.00 Hospital Course Labs (last 24 hrs) Laboratory Tests 02/11/18 14:02: Thyroid Stimulating Hormone (TSH) 1.04 Microbiology 02/10/18 Blood Culture - Preliminary, Resulted No growth 02/10/18 Urine Culture - Preliminary, Resulted Staphylococcus aureus Patient resulted labs reviewed. Imaging: Reviewed Imaging Report Discharge Home Medications: Active Scripts Active Reported Hydrocodone-Acetamin 5-325 mg (Hydrocodone/Acetaminophen) 1 Each Tablet 1 Tab PO Q6H PRN Melatonin 5 Mg Capsule 10 Mg PO HS TAKES 2 (5MG) CAPSULES Daily Multiple Vitamin (Multivitamin) 1 Each Tablet 1 Tab PO DAILY Magnesium Oxide 420 Mg Tablet 420 Mg PO DAILY Proair Hfa (Albuterol Sulfate) 1 Puff Puff 2 Puff INH Q4H PRN Potassium Chloride 10 Meq Capsule.er 20 Meq PO TID TAKES 3 (10MEQ) CAPSULES Ropinirole HCl 3 Mg Tablet 3 Mg PO HS Gabapentin 300 Mg Capsule 300 Mg PO TID Tramadol HCl 50 Mg Tablet 50-100 Mg PO Q6H PRN Furosemide 80 Mg Tablet 80 Mg PO DAILY Levothyroxine Sodium 100 Mcg Tablet 100 Mcg PO DAILY Instructions to patient/family Please see electronic discharge instructions given to patient. Clinical Quality Measures DVT/VTE Risk/Contraindication: Risk Factor Score Per Nursin RFS Level Per Nursing on Admit: 4+=Very High Problem Qualifiers (1) Altered mental status: Altered mental status type: unspecified Qualified Codes: R41.82 - Altered mental status, unspecified (2) Urinary tract infection: Urinary tract infection type: site unspecified Hematuria presence: without hematuria Qualified Codes: N39.0 - Urinary tract infection, site not specified (3) Schizophrenia: Schizophrenia type: unspecified Qualified Codes: F20.9 - Schizophrenia, unspecified (4) Hypothyroidism: Hypothyroidism type: acquired Qualified Codes: E03.9 - Hypothyroidism, unspecified WAGNER ABDUL MD Feb 12, 2018 13:21
[2018-02-12] MEDS ORDERED: HALOPERIDOL 5 MG/ML (HALDOL) AMP IM PRN (13:30)
--- NOTE | 2018-02-12 13:32 | Occupational Ther Daily Note ---
OT Current Status-Daily Note Subjective Pt seen in room, up in recliner, agreeable to OT. No pain mentioned. Appearance Alert, a little agitated wondering if her daughter is coming to take her home Mental Status/Objective Therapy Code Descriptions/Definitions Functional [place] Measure: 0=Not Assessed/NA 4=Minimal Assistance 1=Total Assistance 5=Supervision or Setup 2=Maximal Assistance 6=Modified [place] 3=Moderate Assistance 7=Complete [place] ADL-Treatment Pt wanted to order lunch but SOLDERING MACHINE OPERATOR HELPER reported it had been ordered. She also said pt had a bath this morning, toileted recently. Pt did not have clothing here for dressing practice. Her lunch came and she was able to open packages, cut up food , feed herself, get a drink without help, independently, no dentures Other Treatment Pt completed 8-10 reps several different bilat UE exercises to strengthen arms for ADLs but also for increasing range of motion in her L shoulder. She mentioned that it "popped" the first time she moved it and then was fine. She recalled some of the exercises and others were demonstrated. pt left up in recliner, all needs met. Education OT Patient Education: Exercise program, Progress toward Goal/Update tx plan, Purpose of tx/functional activities Teaching Recipient: Patient Teaching Methods: Demonstration, Discussion Response to Teaching: Verbalize Understanding, Return Demonstration OT Short Term Goals Short Term Goals 1=Demonstrate adherence to instructed precautions during ADL tasks. 2=Patient will verbalize/demonstrate understanding of assistive devices/ modifications for ADL. 3=Patient will improve strength/tolerance for activity to enable patient to perform ADL's. OT Detention Goals Marshmallow Machine Operator Goals Time Frame: Feb 18, 2018 Eating (FIM): 6 Grooming(FIM): 6 Bathing(FIM): 4 Upper Body Dressing(FIM): 5 Lower Body Dressing(FIM): 4 Toileting(FIM): 5 Toilet/Commode Transfer(FIM): 5 Shower Transfer(FIM): 5 Additional Goals: 1-Demonstrate ADL Tasks, 2-Verbalize Understanding, 3- ImproveStrength/[place] 1=Demonstrate adherence to instructed precautions during ADL tasks. 2=Patient will verbalize/demonstrate understanding of assistive devices/ modifications for ADL. 3=Patient will improve strength/tolerance for activity to enable patient to perform ADL's. OT Education/Plan Problem List/Assessment Pt would benefit from skilled OT to increase her independence in basic self care to allow her to safely return home. Discharge Recommendations Plan/Recommendations: Continue POC Treatment Plan/Plan of Care Patient would benefit from OT for education, treatment and training to promote independence in ADL's, mobility, safety and/or upper extremity function for ADL' s. Plan of Care: ADL Retraining, Functional Mobility, UE Funct Exercise/Act, UE Neuromus Re-Ed/Coord Treatment Duration: Feb 18, 2018 Frequency: 5 times per week Estimated Hrs Per Day: .5 hour per day Agreement: Yes Rehab Potential: Good Time/GCodes Start Time: 12:47 Stop Time: 12:57 Total Time Billed (hr/min): 10 Billed Treatment Time visit, 5 minutes ADL, 5 minutes exercise OBDULIO HAMLIN OT Feb 12, 2018 13:32
[2018-02-12 16:00] VITALS: BP 127/66
== END 2018-02-12 16:17 | DRG 690 ==
LOC: EDUNIT# 13:48 → ER 13:49 → 4TH 18:16
PROVIDERS: ADMIT Family Medicine; ATTEND Family Medicine
DX: N39.0 Urinary tract infection, site not specified (principal); R41.0 Disorientation, unspecified; R44.3 Hallucinations, unspecified; F20.9 Schizophrenia, unspecified; E03.9 Hypothyroidism, unspecified; Z66 Do not resuscitate; B95.7 Other staphylococcus as the cause of diseases classified elsewhere; I89.0 Lymphedema, not elsewhere classified; F17.210 Nicotine dependence, cigarettes, uncomplicated; J43.9 Emphysema, unspecified; I10 Essential (primary) hypertension; E78.00 Pure hypercholesterolemia, unspecified; I73.9 Peripheral vascular disease, unspecified; F03.90 Unspecified dementia, unspecified severity, without behavioral disturbance, psychotic disturbance, mood disturbance, and anxiety; G62.9 Polyneuropathy, unspecified; K58.1 Irritable bowel syndrome with constipation; M19.91 Primary osteoarthritis, unspecified site; M54.9 Dorsalgia, unspecified; F41.9 Anxiety disorder, unspecified; F32.9 Major depressive disorder, single episode, unspecified; E66.01 Morbid (severe) obesity due to excess calories; H91.93 Unspecified hearing loss, bilateral; Z68.37 Body mass index [BMI] 37.0-37.9, adult; Z97.4 Presence of external hearing-aid
CPT/HCPCS: 36415; 36600; 71045; 80053; 81000; 82805; 83605; 83880; 84443; 84484; 85025; 85610; 85730; 86141; 87040; 87077; 87088; 87186; 93005; 93041; 94640; 94760; 96360; 96372